=== PATIENT | male | born 1960 | race Caucasian/White ===

== ENCOUNTER 2020-12-30 08:25 | Outpatient (REF) | payer OTHER, SELFPAY ==
--- NOTE | ~2020-12-30 | US_ITS ---
EXAMINATION: US ABDOMEN COMPLETE CLINICAL INFORMATION: Abdominal distention. COMPARISON: Ultrasound abdomen with elastography 08/03/2018. Ultrasound abdomen 02/13/2010. TECHNIQUE: Real-time imaging of the abdominal viscera. Technically difficult study secondary to body habitus. FINDINGS: PANCREAS: Not well visualized due to bowel gas ABDOMINAL AORTA: The mid and distal segments are normal in caliber. Proximal abdominal aorta is not well visualized. INFERIOR VENA CAVA: Visualized portions are normal. LIVER: Normal. The liver is normal in size. The liver contour is normal. Parenchymal echogenicity is normal. No focal hepatic lesion. There is no intrahepatic biliary duct dilatation seen. GALLBLADDER: Surgically absent. COMMON BILE DUCT: Normal in caliber measuring 0.7 cm in diameter. RIGHT KIDNEY: Normal. No hydronephrosis. No renal calculi or focal parenchymal lesions. The kidney measures 10.4 cm in maximum dimension. LEFT KIDNEY: Normal. No hydronephrosis. No renal calculi or focal parenchymal lesions. The kidney measures 11.1 cm in maximum dimension. SPLEEN: Normal. The spleen measures 9.5 cm in maximum dimension. FREE FLUID: None. US/US abdomen complete IMPRESSION: Technically difficult study secondary to body habitus. Limited visualization of the pancreas and upper abdominal aorta otherwise unremarkable exam.
== END 2020-12-30 08:26 | disposition home or self-care (01) ==
LOC: HO.US 08:25
PROVIDERS: Visit Provider Registered Nurse
DX: R14.0 Abdominal distension (gaseous) (principal); R14.3 Flatulence; R19.8 Other specified symptoms and signs involving the digestive system and abdomen
CPT/HCPCS: 76700

== ENCOUNTER → 2021-05-07 13:03 | Outpatient (BNVA) | payer OTHER, SELFPAY | PROVIDERS: PCP Nurse Practitioner Primary Care; Referring Provider Nurse Practitioner Primary Care; Visit Provider Physician Assistant | DX: Z01.818 Encounter for other preprocedural examination (principal); K59.09 Other constipation | CPT/HCPCS: 99202 ==

== ENCOUNTER 2021-10-16 12:00 | Outpatient (REF) | payer OTHER, SELFPAY ==
[2021-10-16 13:03] LABS: MANUAL DIFF FLAG NO
[2021-10-16 13:06] LABS: Basophils Absolute Auto 0.1 X10*3/uL (0.0-0.2); Eosinophils Absolute Auto 0.9 X10*3/uL (0.0-0.4); Eosinophils Percent Auto 9.9 % (0-4); Hematocrit 45.9 % (42.0-52.0); Hemoglobin 14.5 g/dl (14.0-18.0); Imm Gran Abs Auto 0.02 X10*3/uL (0.00-0.03); Imm Gran Pct Auto 0.2 % (0.0-0.4); Lymphocytes Absolute Auto 2.8 X10*3/uL (1.2-4.9); Mean Corpuscular HGB Conc 31.6 g/dl (31.0-36.0); Mean Corpuscular Hemoglobin 26.2 pg (27.0-33.0); Mean Corpuscular Volume 82.9 fL (80.0-98.0); Mean Platelet Volume 8.7 fL (9.4-12.4); Monocytes Absolute Auto 0.7 X10*3/uL (0.1-1.2); Monocytes Percent Auto 7.4 % (2-11); Neutrophils Absolute Auto 4.4 x10*3/uL (2.0-8.3); Neutrophils Percent Auto 49.5 % (45-73); Platelet Count 365 X10*3/uL (160-400); Red Blood Count 5.54 X10*6/uL (4.60-5.80); Red Cell Distribution Width 13.9 % (11.0-16.0); White Blood Count 8.9 X10*3/uL (4.8-10.8)
[2021-10-16 13:21] LABS: Albumin Level 4.2 g/dL (3.5-5.0); Anion Gap 14 (12-20); Blood Urea Nitrogen 29 mg/dL (9-16); Carbon Dioxide 27 mmol/L (22-29); Chloride 101 mmol/L (96-108); Estimated Glomerular Filt Rate 52; Magnesium 1.6 mg/dL (1.6-2.6); Phosphorus 3.6 mg/dL (2.7-4.5); Sodium 138 mmol/L (135-145)
[2021-10-19 08:03] LABS: HBS Num1 61.95 mIU/mL (0-7.99); HBc Num1 2.35 S/CO (0.00-0.79); HBsAGNum1 0.26 S/CO (0.00-0.99); Hepatitis B Surface Antigen Negative (Negative); ~Hepatitis B Surface Antibody REACTIVE (Nonreactive); ~Hepatitis C Antibody Reactive (Nonreactive)
[2021-10-19 09:08] LABS: HBc Num2 2.39 S/CO; HBc Num3 2.39 S/CO; Hepatitis B Core Antibody Reactive (Nonreactive)
[2021-10-19 15:52] LABS: Anti Nuclear Antibody Screen NEGATIVE (NEGATIVE)
[2021-10-19 18:37] LABS: Complement C3 126 mg/dL (82-185)
[2021-10-20 21:43] LABS: Prot Elec - Albumin 4.5 g/dL (3.8-4.8); Prot Elec - Alpha1 0.4 g/dL (0.2-0.3); Prot Elec - Alpha2 1.3 g/dL (0.5-0.9); Prot Elec - Beta 1 0.5 g/dL (0.4-0.6); Prot Elec - Beta 2 0.5 g/dL (0.2-0.5); Prot Elec - Gamma 1.2 g/dL (0.8-1.7); Prot Elec - Total Protein 8.3 g/dL (6.1-8.1)
[2021-10-21 23:17] LABS: Calcium (PTHI) 10.2 mg/dL (8.6-10.3); PTHI 36 pg/mL (16-77)
[2021-10-22 16:57] LABS: Kappa, Serum 259 mg/dL (176-443); Kappa/Lambda Ratio, Serum 1.64 (1.29-2.55); Lambda, Serum 158 mg/dL (91-240)
== END 2021-10-16 12:01 | disposition home or self-care (01) ==
LOC: HO.LAB 12:00
PROVIDERS: Visit Provider Internal Medicine Nephrology
DX: E11.22 Type 2 diabetes mellitus with diabetic chronic kidney disease (principal); N25.0 Renal osteodystrophy; N18.31 Chronic kidney disease, stage 3a
CPT/HCPCS: 36415; 80051; 82040; 82306; 82310; 82565; 83735; 83883; 83970; 84100; 84165; 84520; 85025; 86038; 86039; 86160; 86704; 86706; 86803; 87340

== ENCOUNTER 2021-10-28 10:40 | Outpatient (REF) | payer OTHER, SELFPAY ==
--- NOTE | ~2021-10-28 | US_ITS ---
EXAMINATION: US RETROPERITONEAL LIMITED (RENAL ONLY) CLINICAL INFORMATION: CKD stage III, diabetes. COMPARISON: Ultrasound abdomen complete 12/30/2020. TECHNIQUE: Real-time imaging of the kidneys. FINDINGS: RIGHT KIDNEY: 10.9 x 4.3 x 6.2 cm (SAG x AP x TRV). The kidney is normal in size, contour, and echogenicity. Renal cortical thickness is normal. No calculi or focal parenchymal lesions. No hydronephrosis. LEFT KIDNEY: 11.1 x 4.8 x 6.1 cm (SAG x AP x TRV). The kidney is normal in size, contour and echogenicity. Renal cortical thickness is normal. No calculi or focal parenchymal lesions. No hydronephrosis. US/US renal BI IMPRESSION: Unremarkable renal ultrasound..
== END 2021-10-28 10:41 | disposition home or self-care (01) ==
LOC: HO.US 10:40
PROVIDERS: Visit Provider Internal Medicine Nephrology
DX: N18.32 Chronic kidney disease, stage 3b (principal); E11.22 Type 2 diabetes mellitus with diabetic chronic kidney disease
CPT/HCPCS: 76775

== ENCOUNTER 2022-07-08 10:53 | Outpatient (REF) | payer OTHER, SELFPAY ==
[2022-07-08 11:20] LABS: MANUAL DIFF FLAG NO
[2022-07-08 12:08] LABS: Basophils Absolute Auto 0.1 X10*3/uL (0.0-0.2); Basophils Percent Auto 1.4 % (0-2); Eosinophils Absolute Auto 0.5 X10*3/uL (0.0-0.4); Eosinophils Percent Auto 7.2 % (0-4); Hematocrit 52.1 % (42.0-52.0); Hemoglobin 16.3 g/dl (14.0-18.0); Imm Gran Abs Auto 0.01 X10*3/uL (0.00-0.03); Imm Gran Pct Auto 0.1 % (0.0-0.4); Lymphocytes Absolute Auto 2.6 X10*3/uL (1.2-4.9); Lymphocytes Percent Auto 35.4 % (20-40); Mean Corpuscular HGB Conc 31.3 g/dl (31.0-36.0); Mean Corpuscular Hemoglobin 24.8 pg (27.0-33.0); Mean Corpuscular Volume 79.4 fL (80.0-98.0); Monocytes Absolute Auto 0.6 X10*3/uL (0.1-1.2); Monocytes Percent Auto 8.4 % (2-11); Neutrophils Absolute Auto 3.5 x10*3/uL (2.0-8.3); Neutrophils Percent Auto 47.5 % (45-73); Platelet Count 386 X10*3/uL (160-400); Red Blood Count 6.56 X10*6/uL (4.60-5.80); Red Cell Distribution Width 15.4 % (11.0-16.0); White Blood Count 7.3 X10*3/uL (4.8-10.8)
[2022-07-08 12:34] LABS: Anion Gap 15 (12-20); Blood Urea Nitrogen 27 mg/dL (9-16); Calcium 10.1 mg/dL (8.4-10.2); Carbon Dioxide 29 mmol/L (22-29); Chloride 100 mmol/L (96-108); Estimated Glomerular Filt Rate 39; Phosphorus 3.3 mg/dL (2.7-4.5); Potassium 4.6 mmol/L (3.3-5.1); Sodium 139 mmol/L (135-145)
[2022-07-08 12:52] LABS: Vitamin D 25-OH Total 18.3 ng/mL (>30)
[2022-07-08 13:16] LABS: Appearance Urine Clear; Color Urine Yellow; Glucose Urine UA >=1000 mg/dL (Negative); Leukocyte Esterase Urine Negative (Negative); Nitrite Urine Negative (Negative); Specific Gravity - Urine >= 1.030 (1.005-1.025); UMIC TRIGGER UA YES; Urine Blood Negative (Negative); Urine Ketones Negative (Negative); Urine Protein Negative (Neg-Trace)
[2022-07-08 13:24] LABS: Bacteria Urine None Seen (None Seen); Hyaline Casts Urine 0-2 /LPF (0-2); RBC Urine 0-2 /HPF (0-2); Squamous Epithelial Cell Urine 0-2 /HPF (0-2); WBC Urine 0-5 /HPF (0-5)
[2022-07-08 13:38] LABS: Creatinine Urine 122.81 mg/dL; Microalbum/Creatinine Ratio Ur 30.1 ug/mg cr; Protein/Creatinine Ratio, Ur 0.09 (<0.2); Total Protein Urine Random 11 mg/dL (<12)
[2022-07-12 11:03] LABS: Calcium (PTHI) 10.4 mg/dL (8.6-10.3); PTHI 54 pg/mL (16-77)
== END 2022-07-08 10:54 | disposition home or self-care (01) ==
LOC: HO.LAB 10:53
PROVIDERS: Visit Provider Internal Medicine Nephrology
DX: I12.9 Hypertensive chronic kidney disease with stage 1 through stage 4 chronic kidney disease, or unspecified chronic kidney disease (principal); E11.22 Type 2 diabetes mellitus with diabetic chronic kidney disease; N18.31 Chronic kidney disease, stage 3a
CPT/HCPCS: 36415; 80051; 81001; 82043; 82306; 82310; 82565; 83735; 83970; 84100; 84156; 84520; 85025; 87086

== ENCOUNTER 2022-07-22 23:49 | Emergency (ER) | payer OTHER, SELFPAY ==
[2022-07-22 23:58] VITALS: BP 163/86; BP 167/83; PULSE 102; PULSE 94; RESP 18; TEMP 36.9; O2SAT 92; O2SAT 98; BMI 32.5
--- NOTE | 2022-07-23 00:11 | ED.OVERDOSE ---
HPI - Overdose General Chief Complaint: ETOH/Substance Use Stated Complaint: od Time Seen by Provider: 07/23/22 00:05 Source: patient and EMS Mode of arrival: EMS Limitations: no limitations History of Present Illness HPI Narrative: Patient comes to the emergency room after overdosing. According to EMS, patient was sedated a friend, patient had just used heroin. Patient's friend lower him to the ground, bystanders gave him Narcan and had good results. Patient states that he used to be an IV drug user, now he only snores occasionally and it has been a long time since he has not used any drugs. Patient states he used 1 bottle and he overdosed accidentally, denies suicidal ideation. Patient is asymptomatic. Related Data Home Medications Medication Instructions Recorded Confirmed aspirin 81 mg tablet,delayed 81 mg PO DAILY 05/07/21 release (Adult Aspirin Regimen) atorvastatin 40 mg tablet 40 mg PO BEDTIME 05/07/21 hydrochlorothiazide 25 mg tablet 25 mg PO Q OTHER DAY 05/07/21 insulin aspart U-100 100 unit/mL 1 sliding scale dose subcut 05/07/21 (3 mL) subcutaneous pen (Novolog USEASDIRECTD FlexPen U-100 Insulin aspart) insulin glargine U-300 conc 300 30 unit subcut BEDTIME 05/07/21 unit/mL (1.5 mL) subcutaneous pen (Toujeo SoloStar U-300 Insulin) lisinopril 30 mg tablet 30 mg PO DAILY 05/07/21 metformin 500 mg tablet 500 mg PO DAILY 05/07/21 Previous Rx's Medication Instructions Recorded bisacodyl 5 mg tablet,delayed 10 mg PO ONCE colonoscopy prep 1 05/07/21 release (Dulcolax (bisacodyl)) day #2 tabs docusate sodium 100 mg capsule 200 mg PO BEDTIME #60 caps 05/07/21 (Colace) polyethylene glycol 3350 17 17 g PO DAILY #510 grams 05/07/21 gram/dose oral powder (Miralax) polyethylene glycol 3350 17 238 g PO ONCE 1 day #238 grams 05/07/21 gram/dose oral powder (Miralax) simethicone 125 mg chewable tablet 125 mg PO TID-QID PRN abdominal 05/07/21 (Gas Relief (simethicone)) distention #90 tabs Allergies Allergy/AdvReac Type Severity Reaction Status Date / Time No Known Allergies Allergy Unknown Unverified 05/07/21 13:14 Review of Systems Review of Systems: Constitutional : No Weight loss, No Fever, No Chills, No Night Sweats, No Fatigue, No Malaise ENT/Mouth : No Hearing loss, No Ear Pain, No Nasal Congestion, No Sinus Pain, No Hoarseness, No sore throat, No Rhinorrhea, No Swallowing Difficulty Eyes: No Eye Pain, No Swelling, No Redness, No Foreign Body, No Discharge, No Vision Changes Cardiovascular : No Chest Pain, No SOB, No Dyspnea on Exertion, No Orthopnea, No Edema, No Palpitations Respiratory : No Cough, No Sputum, No Wheezing, No Smoke Exposure, No Dyspnea Gastrointestinal : No Nausea, No Vomiting, No Diarrhea, No Constipation, No abdominal Pain, No Hematochezia, No Melena Genitourinary : no irregular bleeding, No Dysuria, No Urinary Frequency, No Hematuria, No Urinary Incontinence, No Urgency, No Flank Pain, No Urinary Flow Changes, No Hesitancy Musculoskeletal : No joint pain, No Myalgias, No Joint Swelling Skin : No Skin Lesions, No rash Neuro : No Weakness, No Numbness, No Paresthesias, No Loss of Consciousness, No Dizziness, No Headache Psych : No Anxiety/Panic, No Depression, No SI/HI/AH/VH, relapse, using intranasal drugs Heme/Lymph: No Bruising, No Bleeding,No Lymphadenopathy Endocrine : No Polyuria, No Polydipsia, No Temperature Intolerance PMFSH Past Medical History Medical History (Updated 07/23/22 @ 00:14 by Lainey Stewart MD) Diabetes Substance abuse Surgical History Hx of cholecystectomy Family History Family History (Updated 05/07/21 @ 13:15 by CARO Solorzano) Father Diabetes Mother HTN (hypertension) Social History Social History (Updated 05/07/21 @ 13:31 by Annalee Peters PA-C) Household Members Other:: lives alone Alcohol intake: never Patient Tobacco Use Status: Current someday Tobacco user Current occupational status: unemployed and disabled Physical Exam Vital Signs: Vital Signs: Last Vital Signs Temp 98.5 F 07/22/22 23:58 Pulse 94 04/27/23 23:58 Resp 18 07/22/22 23:58 BP 167/83 H 07/22/22 23:58 Pulse Ox 98 07/22/22 23:58 O2 Del Method Room Air 07/22/22 23:58 BMI result Body Mass Index 32.5 Const: Other: Appearance: Alert. Oriented X3. No acute distress. Eyes: Pupils equal, round and reactive to light. ENT: Pharynx normal. Neck: Normal inspection. Neck supple. No lymph nodes noted. No crepitus CVS: Normal heart rate and rhythm. Pulses normal. Normal S1 and S2 Respiratory: No respiratory distress. Breath sounds normal. No Wheezing. No rales Abdomen: Soft and nontender. No rigidity. No distention. Skin: Skin warm and dry. Normal skin color. Normal skin turgor. Extremities: No lower extremity edema. No Lacerations. No Rash Neuro: Oriented X 3. No motor deficit. No sensory deficit. Moving all extremities. No slurred speech. CN 2 through 12 grossly intact Psych: calm, cooperative, normal affect Medical Decision Making Medical Decision Making MDM Narrative: -patient had an accidental overdose, denies suicidal or homicidal ideation -patient alert, calm and cooperative. Vitals have been stable throughout his entire ED visit -patient provided with home Narcan. -patient declined care/sude consult - Differential Diagnosis Differential Diagnoses: The differential diagnosis associated with the presentation includes (Substance abuse, accidental overdose, SI) Discharge Plan Discharge Clinical Impression: Accidental overdose Patient Disposition: Home, Self-Care Instructions: Adult Overdose (ED) Additional Instructions: Please follow-up with your primary care physician tomorrow. If you have any worsening or new symptoms, please return to the emergency room or call 911 Prescriptions: No Action atorvastatin 40 mg tablet 40 mg PO BEDTIME aspirin [Adult Aspirin Regimen] 81 mg tablet,delayed release (DR/EC) 81 mg PO DAILY insulin aspart U-100 [Novolog FlexPen U-100 Insulin] 100 unit/mL (3 mL) insulin pen 1 sliding scale dose subcut USEASDIRECTD metformin 500 mg tablet 500 mg PO DAILY hydrochlorothiazide 25 mg tablet 25 mg PO Q OTHER DAY lisinopril 30 mg tablet 30 mg PO DAILY Toumiryam SoloStar U-300 Insulin 300 unit/mL (1.5 mL) insulin pen 30 unit subcut BEDTIME bisacodyl [Dulcolax (bisacodyl)] 5 mg tablet,delayed release (DR/EC) 10 mg PO ONCE 1 Days Qty: 2 0RF Rx Instructions: Take 2 tablets by mouth at 12:00pm the day before your procedure. polyethylene glycol 3350 [Miralax] 17 gram/dose powder 238 g PO ONCE 1 Days Qty: 238 0RF Rx Instructions: Take as directed by mouth the day before your procedure. docusate sodium [Colace] 100 mg capsule 200 mg PO BEDTIME Qty: 60 5RF polyethylene glycol 3350 [Miralax] 17 gram/dose powder 17 g PO DAILY Qty: 510 2RF simethicone [Gas Relief (simethicone)] 125 mg tablet,chewable 125 mg PO TID-QID PRN (Reason: abdominal distention) Qty: 90 2RF
--- NOTE | 2022-07-23 01:30 | PC.NURSE ---
Reviewed discharge instructions with pt, pt verbalized understanding, pt refused narcan, pt states he has enough everywhere including his car for this reason.
== END 2022-07-23 01:40 | disposition home or self-care (01) ==
PROVIDERS: Emergency Provider Emergency Medicine
DX: F19.10 Other psychoactive substance abuse, uncomplicated (principal); T40.1X1A Poisoning by heroin, accidental (unintentional), initial encounter; Y92.9 Unspecified place or not applicable; E11.9 Type 2 diabetes mellitus without complications; F17.200 Nicotine dependence, unspecified, uncomplicated; Z79.82 Long term (current) use of aspirin; Z79.02 Long term (current) use of antithrombotics/antiplatelets; Z79.4 Long term (current) use of insulin; Z79.899 Other long term (current) drug therapy
CPT/HCPCS: 99283; 99285

== ENCOUNTER → 2022-08-25 14:21 | Outpatient (BNVA) | payer OTHER, SELFPAY | PROVIDERS: PCP Nurse Practitioner Primary Care; Visit Provider Urology | DX: E11.69 Type 2 diabetes mellitus with other specified complication (principal); N52.1 Erectile dysfunction due to diseases classified elsewhere | CPT/HCPCS: 99202 ==

== ENCOUNTER 2022-11-08 09:10 | Outpatient (REF) | payer OTHER, SELFPAY ==
[2022-11-08 12:26] LABS: Prostate Specific Antigen 0.61 ng/mL (<0.05-4.0)
[2022-11-12 20:43] LABS: Testosterone, Free 64.5 pg/mL (35.0-155.0); Testosterone, Total 257 ng/dL (250-1100)
== END 2022-11-08 09:11 | disposition home or self-care (01) ==
LOC: HO.LAB 09:10
PROVIDERS: Visit Provider Urology
DX: Z12.5 Encounter for screening for malignant neoplasm of prostate (principal); E11.69 Type 2 diabetes mellitus with other specified complication; N52.1 Erectile dysfunction due to diseases classified elsewhere
CPT/HCPCS: 36415; 84153; 84402; 84403

== ENCOUNTER 2022-11-25 08:52 | Outpatient (AMB) | payer OTHER, SELFPAY ==
--- NOTE | 2022-11-25 08:53 | MHC.OFFVIS ---
Intake Intake Visit Reasons: 3M PSA/Testosterone(set) Intake Note: Patient is present for Telephone LABS Urology Med: Tadalafil Antibiotic Allergy: None Blood Thinner: Aspirin Pharmacy: [facility] pharmacy Allergies No Known Allergies Allergy (Unknown, Verified 11/25/22 08:53) HPI HPI Comments History of Present Illness Details Nick is a pleasant male Korean speaker. . He is a patient of Dr. Gomez . He is seen for the following urologic conditions - erectile dysfunction Korean translation provided by qualified medical claims assistant Telemedicine Evaluation 15 min Consultation [employer] [facility] Luis Video attempted Follow-up for erectile dysfunction Laboratory investigation shows low total testosterone but normal range free testosterone. No indication to intervene. Low PSA Erectile Dysfunction He presents today for - follow-up evaluation erectile dysfunction Current treatment includes - p.r.n. 10 mg Cialis with some affect however unable to maintain At the time of initial evaluation he experiences - partial adequate for vaginal penetration - undergo a rapid detumescence after penetration Symptoms have been present for/since - progressive for many years Nocturnal erections do not occur Prior therapies include - oral medications Treatment side effects include - no side effects Associated Medical Conditions include hypertension, diabetes require insulin Physical Performance Status is able to walk 200 yd and can ascend 2 flights of stairs Atherosclerosis Cardiovascular Disease Risk - managed through PCP with therapy for hypertension, dyslipidemia and diabetes Medications include(s) antihypertensive medications Investigations include 11/17 T 257 F 64 P 0.6 Overall he is unsatisfied with current therapy Therapeutic plan includes - daily tadalafil with 20 mg on demand PFSH Medical History Diabetes Substance abuse Surgical History Hx of cholecystectomy Family History Father Diabetes Mother HTN (hypertension) Social History Household Members Other:: lives alone Alcohol intake: never Patient Tobacco Use Status: Current someday Tobacco user Substance Use Type: Crack/Cocaine and Heroin Current occupational status: unemployed and disabled Assessment & Plan Assessment & Plan (1) Erectile dysfunction associated with type 2 diabetes mellitus: Code(s): E11.69 - Type 2 diabetes mellitus with other specified complication; N52.1 - Erectile dysfunction due to diseases classified elsewhere Medications: Refilled tadalafil 5 mg PO DAILY 90 tabs 1RF sexual activity 90 days N52.01 - Erectile dysfunction due to arterial insufficiency Telehealth Telehealth Location of provider rendering services: practice address Location of patient: address on file Patient Identification confirmed using: Name, : Yes Telehealth method: video Patient verbally consented to treatment: Yes Patient verbally consented to billing insurance company: Yes Patient informed of any privacy concerns related to visit: Yes Coding Level of Care Code Tele Est Pt Level 3 (79343) Diagnoses Erectile dysfunction associated with type 2 diabetes mellitus E11.69; N52.1
== END 2022-11-25 10:06 | disposition home or self-care (01) ==
LOC: HO.HUSH 08:52
PROVIDERS: PCP Nurse Practitioner Primary Care; Visit Provider Urology
DX: E11.69 Type 2 diabetes mellitus with other specified complication (principal); N52.1 Erectile dysfunction due to diseases classified elsewhere
CPT/HCPCS: 99213

== ENCOUNTER → 2022-11-25 08:52 | Outpatient (BNVA) | payer OTHER, SELFPAY | PROVIDERS: PCP Nurse Practitioner Primary Care; Visit Provider Urology | DX: E11.69 Type 2 diabetes mellitus with other specified complication (principal); N52.1 Erectile dysfunction due to diseases classified elsewhere | CPT/HCPCS: Q3014 ==

== ENCOUNTER 2023-01-21 20:43 | Emergency (ER) | payer OTHER, SELFPAY ==
[2023-01-21 20:45] VITALS: BP 127/74; PULSE 84; O2SAT 97; BMI 32.5
[2023-01-21 20:51] VITALS: BP 127/59; PULSE 80; RESP 16; TEMP 36.7; O2SAT 98
--- NOTE | 2023-01-21 20:53 | MHC.EDTECH ---
PATIENT BIBA FROM HOME ,BLOOD SUGAR CHECK ,RN ISA AWARE OF RESULT OF 128 ,VITALS TAKEN ,PT [facility] CHANGE INTO [facility] ,RN IN ROOM TRAIGEING PATIENT .
--- NOTE | 2023-01-21 21:01 | MHC.EDTECH ---
DYANA MOSS SAID IT WAS [place] FOR PATIENT TO EAT ,PATIENT HAD HAM SANDWICH ,AND PUDDING ,AND DRANK A CAN OF ALLAN ESTELA
[2023-01-21 21:03] LABS: Glucose, Whole Blood 128 mg/dL (60-115)
--- NOTE | 2023-01-21 21:04 | ED.GENADULT ---
HPI - General Adult General Chief complaint: General Medical Stated complaint: HYPOGLYCEMIA. 47 POC. 139 NOW Time Seen by Provider: 01/21/23 21:00 Source: patient Mode of arrival: EMS Limitations: no limitations History of Present Illness HPI narrative: Comes in the emergency room complaining of low blood sugar. Patient was driving, patient states that he started seeing the lines of the street being crooked, patient was able to pull to the side. Bystanders called an ambulance for the patient. Patient states that at night he used his regular 52 units of insulin Lantus, this morning patient injected himself with Humalog 20 as he is supposed to. However, patient was in a hurry and did not eat breakfast and was running around all day without eating. When EMS arrived, patient was given oral glucose, patient feels much better. At this moment, patient eating states that he feels completely back to baseline. Related Data Home Medications Medication Instructions Recorded Confirmed aspirin 81 mg tablet,delayed 81 mg PO DAILY 05/07/21 release (Adult Aspirin Regimen) atorvastatin 40 mg tablet 40 mg PO BEDTIME 05/07/21 hydrochlorothiazide 25 mg tablet 25 mg PO Q OTHER DAY 05/07/21 insulin aspart U-100 100 unit/mL 1 sliding scale dose subcut 05/07/21 (3 mL) subcutaneous pen (Novolog USEASDIRECTD FlexPen U-100 Insulin aspart) insulin glargine U-300 conc 300 30 unit subcut BEDTIME 05/07/21 unit/mL (1.5 mL) subcutaneous pen (Toujeo SoloStar U-300 Insulin) lisinopril 30 mg tablet 30 mg PO DAILY 05/07/21 metformin 500 mg tablet 500 mg PO DAILY 05/07/21 Previous Rx's Medication Instructions Recorded bisacodyl 5 mg tablet,delayed 10 mg (2 x 5 mg) PO ONCE 05/07/21 release (Dulcolax (bisacodyl)) colonoscopy prep 1 day #2 tabs docusate sodium 100 mg capsule 200 mg (2 x 100 mg) PO BEDTIME #60 05/07/21 (Colace) caps polyethylene glycol 3350 17 17 g PO DAILY #510 grams 05/07/21 gram/dose oral powder (Miralax) polyethylene glycol 3350 17 238 g PO ONCE 1 day #238 grams 05/07/21 gram/dose oral powder (Miralax) simethicone 125 mg chewable tablet 125 mg PO TID-QID PRN abdominal 05/07/21 (Gas Relief (simethicone)) distention #90 tabs tadalafil 20 mg tablet 20 mg PO ONCE PRN sexual activity 11/25/22 30 days #30 tabs tadalafil 5 mg tablet 5 mg PO DAILY sexual activity 90 11/25/22 days #90 tabs glucagon 1 mg solution for 1 mg subcut Q20M PRN hypoglycemia 01/21/23 injection (Glucagon Emergency Kit) #1 ea Allergies Allergy/AdvReac Type Severity Reaction Status Date / Time No Known Allergies Allergy Unknown Verified 11/25/22 08:53 Review of Systems Review of Systems: Constitutional : No Weight loss, No Fever, No Chills, No Night Sweats, No Fatigue, No Malaise ENT/Mouth : No Hearing loss, No Ear Pain, No Nasal Congestion, No Sinus Pain, No Hoarseness, No sore throat, No Rhinorrhea, No Swallowing Difficulty Eyes: No Eye Pain, No Swelling, No Redness, No Foreign Body, No Discharge, No Vision Changes Cardiovascular : No Chest Pain, No SOB, No Dyspnea on Exertion, No Orthopnea, No Edema, No Palpitations Respiratory : No Cough, No Sputum, No Wheezing, No Smoke Exposure, No Dyspnea Gastrointestinal : No Nausea, No Vomiting, No Diarrhea, No Constipation, No abdominal Pain, No Hematochezia, No Melena Genitourinary : no irregular bleeding, No Dysuria, No Urinary Frequency, No Hematuria, No Urinary Incontinence, No Urgency, No Flank Pain, No Urinary Flow Changes, No Hesitancy Musculoskeletal : No joint pain, No Myalgias, No Joint Swelling Skin : No Skin Lesions, No rash Neuro : No Weakness, No Numbness, No Paresthesias, No Loss of Consciousness, No Dizziness, No Headache Psych : No Anxiety/Panic, No Depression, No SI/HI/AH/VH, No Social Issues, Heme/Lymph: No Bruising, No Bleeding,No Lymphadenopathy Endocrine : No Polyuria, No Polydipsia, low blood sugar, No Temperature Intolerance [facility] Past Medical History Medical History Substance abuse Diabetes Surgical History Hx of cholecystectomy Family History Family History Father Diabetes Mother HTN (hypertension) Social History Social History Household Members Other:: lives alone Alcohol intake: current Alcohol intake frequency: a few times a week Patient Tobacco Use Status: Current someday Tobacco user Smoked in Last 30 Days: Yes Use of substances other than those prescribed or required for medical reasons: No Substance Use Type: Crack/Cocaine and Heroin Advance Directives: No Advance Directives Information Provided: Yes Current occupational status: unemployed and disabled Physical Exam ED Vital Signs: Vital Signs - 24 hr 01/21/23 20:51 01/21/23 21:33 Temperature 98.1 F 97.9 F Pulse Rate 80 80 Respiratory Rate 16 16 Blood Pressure 127/59 L 135/67 Pulse Oximetry 98 98 Oxygen Delivery Method Room Air Room Air BMI result Body Mass Index 32.5 Const Other: Appearance: Alert. Oriented X3. No acute distress. Eyes: Pupils equal, round and reactive to light. ENT: Pharynx normal. Neck: Normal inspection. Neck supple. No lymph nodes noted. No crepitus CVS: Normal heart rate and rhythm. Pulses normal. Normal S1 and S2 Respiratory: No respiratory distress. Breath sounds normal. No Wheezing. No rales Abdomen: Soft and nontender. No rigidity. No distention. Skin: Skin warm and dry. Normal skin color. Normal skin turgor. Extremities: No lower extremity edema. No Lacerations. No Rash Neuro: Oriented X 3. No motor deficit. No sensory deficit. Moving all extremities. No slurred speech. CN 2 through 12 grossly intact Psych: calm, cooperative, normal affect Course Course Course Narrative: -after p.o. glucose given by EMS, on arrival glucose was 128. Patient feeling better. At this time, patient eating sandwiches, drinking juice. -patient's labs pending, patient asymptomatic Medical Decision Making Medical Decision Making [facility] Narrative: -my interpretation of labs and chemistry, patient's labs at baseline, glucose 157. Creatinine 1.77, which has been at baseline since June of 2022. Patient asymptomatic, patient ready for discharge. -patient alert and oriented x3, normal vitals, steady gait unassisted Differential Diagnosis Differential Diagnoses: The differential diagnosis associated with the presentation includes (Hypoglycemia, infection, drug abuse) Lab Data MDM Lab Attestation statement: I reviewed the patient's lab results. 01/21/23 21:39 01/21/23 21:39 Labs: Lab Results 01/21/23 01/21/23 Range/Units 20:49 21:39 WBC 11.0 H (4.8-10.8) X10*3/uL RBC 6.14 H (4.60-5.80) X10*6/uL Hgb 15.1 (14.0-18.0) g/dl Hct 49.0 (42.0-52.0) % MCV 79.8 L (80.0-98.0) fL MCH 24.6 L (27.0-33.0) pg MCHC 30.8 L (31.0-36.0) g/dl RDW 14.5 (11.0-16.0) % Plt Count 354 (160-400) X10*3/uL MPV 8.5 L (9.4-12.4) fL Immature Gran % (Auto) 0.3 (0.0-0.4) % Neut % (Auto) 81.0 H (45-73) % Lymph % (Auto) 11.3 L (20-40) % [place] % (Auto) 6.3 (2-11) % Eos % (Auto) 0.5 (0-4) % Baso % (Auto) 0.6 (0-2) % Lymph # (Auto) 1.3 (1.2-4.9) X10*3/uL [place] # (Auto) 0.7 (0.1-1.2) X10*3/uL Eos # (Auto) 0.1 (0.0-0.4) X10*3/uL Baso # (Auto) 0.1 (0.0-0.2) X10*3/uL Abs Immat Gran (auto) 0.03 (0.00-0.03) X10*3/uL Absolute Neuts (auto) 8.9 H (2.0-8.3) x10*3/uL Absolute Nucleated RBC 0.000 (0.0-0.012) X10*3/uL Nucleated RBC % (auto) 0.0 (0.0-0.2) /100WBC Sodium 142 (135-145) mmol/L Potassium 5.2 H (3.3-5.1) mmol/L Chloride 104 (96-108) mmol/L Carbon Dioxide 27 (22-29) mmol/L Anion Gap 16 (12-20) BUN 22 H (9-16) mg/dL Creatinine 1.77 H (0.5-1.4) mg/dL Estim Creat Clear Calc 50.3 Estimated GFR 39 POC Glucose 128 H (60-115) mg/dL Random Glucose 157 H (60-115) mg/dL Calcium 10.0 (8.4-10.2) mg/dL Total Bilirubin 0.3 (0.0-1.0) mg/dL Direct Bilirubin 0.2 (0.0-0.5) mg/dL AST 31 (5-37) U/L ALT 21 (0-40) U/L Alkaline Phosphatase 54 (39-117) U/L Total Protein 7.1 (6.5-8.0) g/dL Albumin 4.0 (3.5-5.0) g/dL Critical Care Time Critical Care Time Critical Care Time: Yes Total Critical Care Time: 45 Attestation: I have personally provided critical care time. Time includes review of lab data, radiology results, discussion with consultants, and monitoring for potential decompensation. Intervention performed as documented. Discharge Plan Discharge Clinical Impression: Hypoglycemia Patient Disposition: Home, Self-Care Instructions: Hypoglycemia in a Person with Diabetes (ED) Additional Instructions: Please follow-up with your primary care physician tomorrow. If you have any worsening or new symptoms, please return to the emergency room or call 911 Prescriptions: New Glucagon Emergency Kit (human) 1 mg recon soln 1 mg subcut Q20M PRN (Reason: hypoglycemia) Qty: 1 0RF Rx Instructions: until target blood sugar attained. Use only if unable to eat or drink. Make sure your family knows where you keep this glucagon emergency kit No Action tadalafil 20 mg tablet 20 mg PO ONCE PRN (Reason: sexual activity) 30 Days Qty: 30 5RF Rx Instructions: On demand medication take 60 minutes before intended activity atorvastatin 40 mg tablet 40 mg PO BEDTIME aspirin [Adult Aspirin Regimen] 81 mg tablet,delayed release (DR/EC) 81 mg PO DAILY insulin aspart U-100 [Novolog FlexPen U-100 Insulin] 100 unit/mL (3 mL) insulin pen 1 sliding scale dose subcut USEASDIRECTD metformin 500 mg tablet 500 mg PO DAILY hydrochlorothiazide 25 mg tablet 25 mg PO Q OTHER DAY lisinopril 30 mg tablet 30 mg PO DAILY [place] MortonoStar U-300 Insulin 300 unit/mL (1.5 mL) insulin pen 30 unit subcut BEDTIME bisacodyl [Dulcolax (bisacodyl)] 5 mg tablet,delayed release (DR/EC) 10 mg PO ONCE 1 Days Qty: 2 0RF Rx Instructions: Take 2 tablets by mouth at 12:00pm the day before your procedure. polyethylene glycol 3350 [Miralax] 17 gram/dose powder 238 g PO ONCE 1 Days Qty: 238 0RF Rx Instructions: Take as directed by mouth the day before your procedure. docusate sodium [Colace] 100 mg capsule 200 mg PO BEDTIME Qty: 60 5RF polyethylene glycol 3350 [Miralax] 17 gram/dose powder 17 g PO DAILY Qty: 510 2RF simethicone [Gas Relief (simethicone)] 125 mg tablet,chewable 125 mg PO TID-QID PRN (Reason: abdominal distention) Qty: 90 2RF tadalafil 5 mg tablet 5 mg PO DAILY 90 Days Qty: 90 1RF
[2023-01-21 21:33] VITALS: BP 135/67; PULSE 80; RESP 16; TEMP 36.6; O2SAT 98
[2023-01-21 21:43] LABS: MANUAL DIFF FLAG NO
--- NOTE | 2023-01-21 21:43 | MHC.EDTECH ---
PATIENT BLOOD DRAWN AND SENT TO LAB .
[2023-01-21 21:44] LABS: Basophils Absolute Auto 0.1 X10*3/uL (0.0-0.2); Basophils Percent Auto 0.6 % (0-2); Eosinophils Absolute Auto 0.1 X10*3/uL (0.0-0.4); Eosinophils Percent Auto 0.5 % (0-4); Hemoglobin 15.1 g/dl (14.0-18.0); Imm Gran Abs Auto 0.03 X10*3/uL (0.00-0.03); Imm Gran Pct Auto 0.3 % (0.0-0.4); Lymphocytes Absolute Auto 1.3 X10*3/uL (1.2-4.9); Lymphocytes Percent Auto 11.3 % (20-40); Mean Corpuscular HGB Conc 30.8 g/dl (31.0-36.0); Mean Corpuscular Hemoglobin 24.6 pg (27.0-33.0); Mean Corpuscular Volume 79.8 fL (80.0-98.0); Mean Platelet Volume 8.5 fL (9.4-12.4); Monocytes Absolute Auto 0.7 X10*3/uL (0.1-1.2); Monocytes Percent Auto 6.3 % (2-11); Neutrophils Absolute Auto 8.9 x10*3/uL (2.0-8.3); Platelet Count 354 X10*3/uL (160-400); Red Blood Count 6.14 X10*6/uL (4.60-5.80); Red Cell Distribution Width 14.5 % (11.0-16.0)
[2023-01-21 21:58] LABS: Alanine Aminotransferase 21 U/L (0-40); Alkaline Phosphatase 54 U/L (39-117); Anion Gap 16 (12-20); Aspartate Amino Transferase 31 U/L (5-37); Bilirubin Direct 0.2 mg/dL (0.0-0.5); Bilirubin Total 0.3 mg/dL (0.0-1.0); Blood Urea Nitrogen 22 mg/dL (9-16); Carbon Dioxide 27 mmol/L (22-29); Chloride 104 mmol/L (96-108); Creatinine Clr Calc Pharmacy 50.3; Estimated Glomerular Filt Rate 39; Glucose Random 157 mg/dL (60-115); Potassium 5.2 mmol/L (3.3-5.1); Sodium 142 mmol/L (135-145); Total Protein 7.1 g/dL (6.5-8.0)
== END 2023-01-21 22:27 | disposition home or self-care (01) ==
PROVIDERS: Emergency Provider Emergency Medicine
DX: E11.649 Type 2 diabetes mellitus with hypoglycemia without coma (principal); F19.10 Other psychoactive substance abuse, uncomplicated; F17.200 Nicotine dependence, unspecified, uncomplicated; Z79.4 Long term (current) use of insulin; Z79.82 Long term (current) use of aspirin; Z79.899 Other long term (current) drug therapy
CPT/HCPCS: 36415; 80048; 80076; 82947; 85025; 99283; 99284

== ENCOUNTER 2023-02-14 09:48 | Outpatient (REF) | payer OTHER, SELFPAY ==
--- NOTE | ~2023-02-14 | XR_ITS ---
EXAMINATION: XR FOOT, LEFT CLINICAL INFORMATION: Diabetic polyneuropathy. COMPARISON: None available. TECHNIQUE: AP, lateral, and oblique views of the left foot. FINDINGS: The bones and soft tissues are normal. No fracture. Alignment is anatomic. Joint spaces are maintained. XR/XR foot LT min 3V IMPRESSION: Unremarkable left foot exam.
[2023-02-14 11:13] LABS: MANUAL DIFF FLAG NO
[2023-02-14 11:40] LABS: Basophils Absolute Auto 0.1 X10*3/uL (0.0-0.2); Basophils Percent Auto 0.8 % (0-2); Eosinophils Absolute Auto 0.8 X10*3/uL (0.0-0.4); Eosinophils Percent Auto 8.4 % (0-4); Hematocrit 54.9 % (42.0-52.0); Hemoglobin 17.2 g/dl (14.0-18.0); Imm Gran Abs Auto 0.02 X10*3/uL (0.00-0.03); Imm Gran Pct Auto 0.2 % (0.0-0.4); Lymphocytes Absolute Auto 2.5 X10*3/uL (1.2-4.9); Lymphocytes Percent Auto 25.4 % (20-40); Mean Corpuscular HGB Conc 31.3 g/dl (31.0-36.0); Mean Corpuscular Hemoglobin 24.9 pg (27.0-33.0); Mean Corpuscular Volume 79.3 fL (80.0-98.0); Mean Platelet Volume 9.3 fL (9.4-12.4); Monocytes Absolute Auto 0.9 X10*3/uL (0.1-1.2); Monocytes Percent Auto 9.1 % (2-11); Neutrophils Absolute Auto 5.6 x10*3/uL (2.0-8.3); Neutrophils Percent Auto 56.1 % (45-73); Platelet Count 341 X10*3/uL (160-400); Red Blood Count 6.92 X10*6/uL (4.60-5.80); Red Cell Distribution Width 15.9 % (11.0-16.0); White Blood Count 9.9 X10*3/uL (4.8-10.8)
[2023-02-14 12:11] LABS: Prostate Specific Antigen 0.62 ng/mL (<0.05-4.0)
[2023-02-14 12:16] LABS: Alanine Aminotransferase 16 U/L (0-40); Albumin Level 4.2 g/dL (3.5-5.0); Alkaline Phosphatase 61 U/L (39-117); Anion Gap 14 (12-20); Aspartate Amino Transferase 22 U/L (5-37); Bilirubin Total 0.5 mg/dL (0.0-1.0); Blood Urea Nitrogen 16 mg/dL (9-16); Calcium 10.2 mg/dL (8.4-10.2); Carbon Dioxide 30 mmol/L (22-29); Chloride 101 mmol/L (96-108); Cholesterol 110 mg/dL (<200); Estimated Glomerular Filt Rate 52; Ferritin 15 ng/mL (20-250); Glucose Random 81 mg/dL (60-115); HDL Cholesterol 40 mg/dL (>40); Iron 82 mcg/dL (45-160); LDL Cholesterol Calculated 54 mg/dL (<100); Percent Iron Saturation 26 % (15-50); Potassium 4.4 mmol/L (3.3-5.1); Sodium 141 mmol/L (135-145); TSH reflex Free T4 1.77 uIU/mL (0.32-4.0); Total Iron Binding Capacity 311 mcg/dL (228-428); Total Protein 7.7 g/dL (6.5-8.0); Triglycerides 80 mg/dL (<150); Unsaturated Iron Binding 229 ug/dL
[2023-02-15 04:02] LABS: HIV AB/AG Nonreactive (Nonreactive)
[2023-02-15 15:33] LABS: RPR Rapid Plasma Reagin NON-REACTIVE (NON-REACTIVE)
[2023-02-16 15:17] LABS: HCV Log PCR <1.18 NOT DETECTED Log IU/mL (NOT DETECTED); HepC Viral Load <15 NOT DETECTED IU/mL (NOT DETECTED)
== END 2023-02-14 09:49 | disposition home or self-care (01) ==
LOC: HO.HHCL 09:48
PROVIDERS: Visit Provider Nurse Practitioner Primary Care
DX: Z12.5 Encounter for screening for malignant neoplasm of prostate (principal); E11.42 Type 2 diabetes mellitus with diabetic polyneuropathy; M79.89 Other specified soft tissue disorders; D58.2 Other hemoglobinopathies; R39.198 Other difficulties with micturition; Z20.2 Contact with and (suspected) exposure to infections with a predominantly sexual mode of transmission
CPT/HCPCS: 36415; 73630; 80053; 80061; 82728; 83540; 84153; 84443; 85025; 86592; 87389; 87522

== ENCOUNTER 2023-04-21 14:15 | Outpatient (AMB) | payer OTHER, SELFPAY ==
--- NOTE | 2023-04-21 14:15 | MHC.OFFVIS ---
Intake Vital Signs 04/21/23 14:17 Height 5 ft 9 in Weight 220 lb BMI 32.5 BP 148/80 H Blood Pressure Location Rt brachial Position Sitting Pulse 86 Pulse Source Pulse Oximeter Pulse Oximetry (%) 95 Oxygen Delivery Method Room Air Intake Visit Reasons: PVD w/ non-healing ulcers 3td toe left foot Intake Note: Pt presents to the office today for PVD with non healing ulcers 3rd toe on left foot. Pt denies any pain or discharge. Allergies No Known Allergies Allergy (Unknown, Verified 04/21/23 14:18) HPI PVD w/ non-healing ulcers 3td toe left foot HPI Details Very pleasant 62-year-old gentleman presents for evaluation regarding peripheral vascular disease. This all began because he had a left 3rd toe ulceration. It has gone on to heal. He does have a history of smoking a smokes about half a pack per day. He is diabetic. Last hemoglobin A1c was 6.8. In general appears to be doing relatively well. He now presents for routine vascular evaluation [facility] Medical History Substance abuse Diabetes Surgical History Hx of cholecystectomy Family History Father Diabetes Mother HTN (hypertension) Social History (Updated 04/21/23 @ 14:20 by Maria Oliveira MA) Household Members Other:: lives alone Alcohol intake: current Alcohol intake frequency: a few times a week Patient Tobacco Use Status: Current someday Tobacco user Cigarettes Per Day: 10 Use of substances other than those prescribed or required for medical reasons: No Substance Use Type: Crack/Cocaine and Heroin Current occupational status: unemployed and disabled Review of Systems Const All systems reviewed & are unremarkable except as noted in HPI and below Reports no additional complaints ENT Reports Normal hearing present Card Denies chest pain, Denies chest pain at rest, Denies chest pain with activity and Denies pedal edema Resp Denies cough GI Denies abdominal pain Musc Denies abnormal gait, Denies muscle cramps and Denies radiating pain into limb Skin/Breast Denies skin ulcer and Denies wounds Neuro Reports Normal hearing present and Denies abnormal gait Psych Reports no additional complaints Physical Exam Vital Signs: Last Vital Signs Pulse 86 04/21/23 14:17 BP 148/80 H 04/21/23 14:17 Pulse Ox 95 04/21/23 14:17 Oxygen Delivery Method Room Air 04/21/23 14:17 BMI result Body Mass Index 32.5 Const General: cooperative, healthy appearing and comfortable Orientation/consciousness: oriented to person, oriented to place and oriented to time HEENT Head: Yes normal to inspection Neck Neck: Yes normal visual inspection Carotids: no bruits Chest Chest palpation & inspection: normal inspection of the chest Resp Effort & Inspection: normal respiratory effort and able to speak in complete sentences Auscultation: clear to auscultation bilaterally, no crackles, no rales, no rhonchi and no wheezes Cardio Other: Bilateral DP pulses diminished Rate: regular rate Rhythm: regular rhythm Heart sounds: S1 normal heart sound present and S2 normal heart sound present Bruits: no carotid bruits Peripheral pulses: Peripheral pulses 2+ throughout GI Inspection: Yes normal to inspection Skin Wounds: no wounds Hair: normal Neuro General: oriented to person, oriented to place and oriented to time Cranial nerves: Yes CN's II-XII intact bilaterally and Yes Normal hearing present Cognition (Neuro): normal cognition Motor exam (neuro): 5/5 motor strength present throughout Extrem Other: venous exam: No significant superficial varicosities or spider telangiectasias, minimal edema General: No clubbing, No cyanosis and No edema Psych Appearance: grossly normal Mental Status: mental status grossly normal Speech and movement: Normal speech and movement present Assessment & Plan Assessment & Plan (1) PAD (peripheral artery disease): Code(s): I73.9 - Peripheral vascular disease, unspecified Plan: In short patient has risk factors for peripheral vascular disease. At the current time all wounds have gone on to heal. I have taken the liberty of ordering a baseline arterial ultrasound to ensure that that is not an issue for him. Will follow up with us after testing. We did discuss risk factor modification. Thank you for allowing us to assist in his care. If there are any questions or concerns please do not hesitate to contact us. Orders: Orders US arterial duplex LE BI 1 Week I73.9 - Peripheral vascular disease, unspecified Coding Level of Care Code New Pt Level 4 (97324) Diagnoses PAD (peripheral artery disease) I73.9
[2023-04-21 14:17] VITALS: BP 148/80; PULSE 86; O2SAT 95; BMI 32.5
== END 2023-04-21 14:58 | disposition home or self-care (01) ==
PROVIDERS: Visit Provider Surgery Vascular Surgery
DX: I73.9 Peripheral vascular disease, unspecified (principal); E11.628 Type 2 diabetes mellitus with other skin complications
CPT/HCPCS: 99204

== ENCOUNTER → 2023-04-21 14:15 | Outpatient (BNVA) | payer OTHER, SELFPAY | PROVIDERS: Visit Provider Surgery Vascular Surgery | DX: I73.9 Peripheral vascular disease, unspecified (principal) | CPT/HCPCS: 99202 ==

== ENCOUNTER 2023-05-27 11:34 | Outpatient (AMB) | payer OTHER, SELFPAY ==
--- NOTE | 2023-05-27 11:49 | MHC.OFFVIS ---
Intake Intake Visit Reasons: 6m follow up(Erectile Dys) (Confirmed) Intake Note: Patient is Present for Follow Up Urology Medication: Tadalafil Antibiotic Allergies: None Blood Thinners:Aspirin Allergies No Known Allergies Allergy (Unknown, Verified 04/21/23 14:18) Medication List - Last Reconciled 05/27/23 by Jewel Carr MD aspirin (Adult Aspirin Regimen) 81 mg PO DAILY atorvastatin 40 mg PO BEDTIME bisacodyl (Dulcolax (bisacodyl)) 10 mg (2 x 5 mg) PO ONCE 1 day docusate sodium (Colace) 200 mg (2 x 100 mg) PO BEDTIME glucagon (Glucagon Emergency Kit) 1 mg subcut Q20M PRN hydrochlorothiazide 25 mg PO Q OTHER DAY insulin aspart U-100 (Novolog FlexPen U-100 Insulin aspart) 1 sliding scale dose subcut USEASDIRECTD insulin glargine U-300 conc (Toujeo SoloStar U-300 Insulin) 30 units subcut BEDTIME lisinopril 30 mg PO DAILY metformin 500 mg PO DAILY polyethylene glycol 3350 (Miralax) 238 grams PO ONCE 1 day polyethylene glycol 3350 (Miralax) 17 grams PO DAILY simethicone (Gas Relief (simethicone)) 125 mg PO TID-QID PRN tadalafil 5 mg PO DAILY 90 days tadalafil 20 mg PO ONCE PRN 30 days HPI HPI Comments History of Present Illness Details Nick is a pleasant male [place] speaker. . He is a patient of Dr. Gomez . He is seen for the following urologic conditions - erectile dysfunction - lower urinary tract symptoms [place] translation provided by qualified lpn or medical assistant Continued success with on demand Cialis Recommend daily which will also help with weakness of stream Refills provided May try 30 mg or 40 mg on demand Erectile Dysfunction He presents today for - follow-up evaluation erectile dysfunction Current treatment includes - p.r.n. 10 mg Cialis with some affect however unable to maintain At the time of initial evaluation he experiences - partial adequate for vaginal penetration - undergo a rapid detumescence after penetration Symptoms have been present for/since - progressive for many years Nocturnal erections do not occur Prior therapies include - oral medications Treatment side effects include - no side effects Associated Medical Conditions include hypertension, diabetes require insulin Physical Performance Status is able to walk 200 yd and can ascend 2 flights of stairs Atherosclerosis Cardiovascular Disease Risk - managed through PCP with therapy for hypertension, dyslipidemia and diabetes Medications include(s) antihypertensive medications Investigations include 11/17 T 257 F 64 P 0.6 Overall he is unsatisfied with current therapy Therapeutic plan includes - daily tadalafil with 20 mg on demand PFSH Medical History Substance abuse Diabetes Surgical History Hx of cholecystectomy Family History Father Diabetes Mother HTN (hypertension) Social History Household Members Other:: lives alone Alcohol intake: current Alcohol intake frequency: a few times a week Patient Tobacco Use Status: Current someday Tobacco user Cigarettes Per Day: 10 Substance Use Type: Crack/Cocaine and Heroin Current occupational status: unemployed and disabled Review of Systems Const Denies chills and Denies fever(s) Card Reports no additional complaints and Denies syncope Resp Denies cough GI Denies abdominal pain and Denies heartburn Reports as per HPI and Denies change in libido Neuro Denies syncope Psych Denies change in libido Endo Denies change in libido Physical Exam Const General: cooperative, healthy appearing, comfortable and no acute distress Orientation/consciousness: patient oriented x3 HEENT Face and sinus: Yes normal facial exam Mouth: moist mucous membranes Neck Neck: Yes normal visual inspection, Yes full ROM and Yes trachea midline Chest Chest palpation & inspection: normal inspection of the chest Resp Effort & Inspection: normal respiratory effort, able to speak in complete sentences and no respiratory distress GI Inspection: Yes normal to inspection Back/Spine/Pelvis Cervical Spine: normal cervical lordosis Thoracic/Lumbar Spine: thoracic and lumbar spine normal to inspection Skin General skin exam: no rashes or lesions noted Neuro General: patient oriented x3, gait normal, tone normal and moves all extremities Extrem General: Yes normal to inspection and Yes capillary refill normal Assessment & Plan Assessment & Plan (1) Erectile dysfunction associated with type 2 diabetes mellitus: Code(s): E11.69 - Type 2 diabetes mellitus with other specified complication; N52.1 - Erectile dysfunction due to diseases classified elsewhere (2) Weak urinary stream: Code(s): R39.12 - Poor urinary stream Plan Six-month follow-up Patient Instructions: Imaging studies, laboratory and physical exam results were discussed and reviewed in detail. No major barriers to patient understanding were identified. An opportunity to ask questions regarding the treatment plan was provided. All questions were answered. The patient expressed understanding and agreement with the above treatment plan. The patient is aware they should contact our office by phone for worsening of their current condition or the appearance of new urologic symptoms. Compliance is encouraged with any medications and followup testing that is ordered. It is a privilege to participate in the urologic care of your patient. If you have any questions or concerns regarding treatment for the above conditions, or other urologic issues, please do not hesitate to contact me. The office telephone contact is [phone]. This note is constructed using voice recognition software. While every effort has been made to ensure accuracy accounts payable associate errors may have been included. Yours sincerely, Dr Jewel Carr MD, [facility] - Urology Providers of Expert, Compassionate Care for the Genitourinary System Coding Level of Care Code Est Pt Level 4 (04516) Diagnoses Erectile dysfunction associated with type 2 diabetes mellitus E11.69; N52.1 Weak urinary stream R39.12
== END 2023-05-27 12:31 | disposition home or self-care (01) ==
PROVIDERS: PCP Nurse Practitioner Primary Care; Visit Provider Urology
DX: E11.69 Type 2 diabetes mellitus with other specified complication (principal); N52.1 Erectile dysfunction due to diseases classified elsewhere; R39.12 Poor urinary stream
CPT/HCPCS: 99213

== ENCOUNTER → 2023-05-27 11:34 | Outpatient (BNVA) | payer OTHER, SELFPAY | PROVIDERS: PCP Nurse Practitioner Primary Care; Visit Provider Urology | DX: R39.12 Poor urinary stream (principal); E11.69 Type 2 diabetes mellitus with other specified complication; N52.1 Erectile dysfunction due to diseases classified elsewhere | CPT/HCPCS: 99212 ==

== ENCOUNTER 2023-11-29 09:53 | Outpatient (AMB) | payer OTHER, SELFPAY ==
--- NOTE | 2023-11-29 09:45 | A.OFFVIS_ITS ---
Intake Visit Reasons: 6m follow up Intake Note: Patient is present for 6M F/U Urology Medication:TADALAFIL Antibiotic Allergy:NONE Blood Thinner:ASPIRIN Surgical Services Asst Required: No Allergies No Known Allergies Allergy (Unknown, Verified 11/29/23 09:46) [facility] Medical History (Updated 11/04/23 @ 10:43 by Modesta Alvarado PA-C) Nicotine dependence, cigarettes, uncomplicated Substance abuse Diabetes Surgical History Hx of cholecystectomy Family History Father Diabetes Mother HTN (hypertension) Social History Household Members Other:: lives alone Alcohol intake: current Alcohol intake frequency: a few times a week Patient Tobacco Use Status: Current someday Tobacco user Cigarettes Per Day: 10 Substance Use Type: Crack/Cocaine and Heroin Current occupational status: unemployed and disabled Coding
--- NOTE | 2023-11-29 10:14 | MHC.OFFVIS ---
Intake Visit Reasons: 6m follow up Intake Note: Patient is Present for 6M Follow Up Urology Medication: Tadalafil Antibiotic Allergies: None Blood Thinners:Aspirin Electric Accounting Machine Operator Required: No Allergies No Known Allergies Allergy (Unknown, Verified 11/29/23 10:15) Medication List - Last Reconciled 11/29/23 by Jewel Carr MD aspirin (Adult Aspirin Regimen) 81 mg PO DAILY atorvastatin 40 mg PO BEDTIME bisacodyl (Dulcolax (bisacodyl)) 10 mg (2 x 5 mg) PO ONCE 1 day docusate sodium (Colace) 200 mg (2 x 100 mg) PO BEDTIME glucagon (Glucagon Emergency Kit) 1 mg subcut Q20M PRN hydrochlorothiazide 25 mg PO Q OTHER DAY insulin aspart U-100 (Novolog FlexPen U-100 Insulin aspart) 1 sliding scale dose subcut USEASDIRECTD insulin glargine U-300 conc (Toujeo SoloStar U-300 Insulin) 30 units subcut BEDTIME lisinopril 30 mg PO DAILY metformin 500 mg PO DAILY polyethylene glycol 3350 (Miralax) 238 grams PO ONCE 1 day polyethylene glycol 3350 (Miralax) 17 grams PO DAILY simethicone (Gas Relief (simethicone)) 125 mg PO TID-QID PRN tadalafil 20 mg PO ONCE PRN 30 days tadalafil 5 mg PO DAILY 90 days HPI Comments Details: Nick is a pleasant male Argentine speaker. . He is a patient of Dr. Gomez . He is seen for the following urologic conditions - erectile dysfunction - lower urinary tract symptoms Telemedicine Evaluation 15 min Consultation [employer] Luis Video attempted Argentine translation provided by qualified biomedical equipment support specialist Continued success with combination therapy 5 mg on demand Refills provided May try 30 mg or 40 mg on demand Six-month follow-up Erectile Dysfunction He presents today for - follow-up evaluation erectile dysfunction Current treatment includes - p.r.n. 10 mg Cialis with some affect however unable to maintain At the time of initial evaluation he experiences - partial adequate for vaginal penetration - undergo a rapid detumescence after penetration Symptoms have been present for/since - progressive for many years Nocturnal erections do not occur Prior therapies include - oral medications Treatment side effects include - no side effects Associated Medical Conditions include hypertension, diabetes require insulin Physical Performance Status is able to walk 200 yd and can ascend 2 flights of stairs Atherosclerosis Cardiovascular Disease Risk - managed through PCP with therapy for hypertension, dyslipidemia and diabetes Medications include(s) antihypertensive medications Investigations include 11/17 T 257 F 64 P 0.6 Overall he is unsatisfied with current therapy Therapeutic plan includes - daily tadalafil with 20 mg on demand PFSH Medical History (Updated 11/04/23 @ 10:43 by Modesta Alvarado PA-C) Nicotine dependence, cigarettes, uncomplicated Substance abuse Diabetes Surgical History Hx of cholecystectomy Family History Father Diabetes Mother HTN (hypertension) Social History Household Members Other:: lives alone Alcohol intake: current Alcohol intake frequency: a few times a week Patient Tobacco Use Status: Current someday Tobacco user Cigarettes Per Day: 10 Substance Use Type: Crack/Cocaine and Heroin Current occupational status: unemployed and disabled Review of Systems Const All systems reviewed & are unremarkable except as noted in HPI and below Reports no additional complaints Resp Reports no additional complaints GI Reports no additional complaints Reports as per HPI Musc Reports no additional complaints Physical Exam Telemedicine evaluation Appropriate responses Regular breathing rate and rhythm HEENT Head: Yes normal to inspection Ears: hearing grossly normal bilaterally Eyes General: appearance normal, both eyes and all related structures Neck Neck: Yes normal visual inspection Chest Chest palpation & inspection: normal inspection of the chest Resp Effort & Inspection: normal respiratory effort and able to speak in complete sentences Telehealth Telehealth Telehealth Platform: [facility] Location of provider rendering services: practice address Location of patient: address on file Patient Identification confirmed using: Name, : Yes Telehealth method: video Patient verbally consented to treatment: Yes Patient verbally consented to billing insurance company: Yes Patient informed of any privacy concerns related to visit: Yes Minutes spent on Phone/Video with Pt.: 15 Assessment & Plan Assessment & Plan (1) Erectile dysfunction associated with type 2 diabetes mellitus: Code(s): E11.69 - Type 2 diabetes mellitus with other specified complication; N52.1 - Erectile dysfunction due to diseases classified elsewhere Category: Medical Plan Six-month follow-up tele Medications: Refilled tadalafil On demand medication take 60 minutes before intended activity 20 mg PO ONCE 30 days PRN 30 tabs 5RF sexual activity E11.69 - Type 2 diabetes mellitus with other specified complication, N52.1 - Erectile dysfunction due to diseases classified elsewhere tadalafil 5 mg PO DAILY 90 days 90 tabs 1RF sexual activity N52.01 - Erectile dysfunction due to arterial insufficiency Patient Instructions: Imaging studies, laboratory and physical exam results were discussed and reviewed in detail. No major barriers to patient understanding were identified. An opportunity to ask questions regarding the treatment plan was provided. All questions were answered. The patient expressed understanding and agreement with the above treatment plan. The patient is aware they should contact our office by phone for worsening of their current condition or the appearance of new urologic symptoms. Compliance is encouraged with any medications and followup testing that is ordered. It is a privilege to participate in the urologic care of your patient. If you have any questions or concerns regarding treatment for the above conditions, or other urologic issues, please do not hesitate to contact me. The office telephone contact is [phone]. This note is constructed using voice recognition software. While every effort has been made to ensure accuracy [facility] errors may have been included. Yours sincerely, Dr Jewel Carr MD, [facility] - Urology Providers of Expert, Compassionate Care for the Genitourinary System Coding Level of Care Code Tele Est Pt Level 3 (47810) Diagnoses Erectile dysfunction associated with type 2 diabetes mellitus E11.69; N52.1
== END 2023-11-29 11:05 | disposition home or self-care (01) ==
PROVIDERS: PCP Nurse Practitioner Primary Care; Visit Provider Urology
DX: E11.69 Type 2 diabetes mellitus with other specified complication (principal); N52.1 Erectile dysfunction due to diseases classified elsewhere
CPT/HCPCS: 99213

== ENCOUNTER → 2023-11-29 09:53 | Outpatient (BNVA) | payer OTHER, SELFPAY | PROVIDERS: PCP Nurse Practitioner Primary Care; Visit Provider Urology ==

== ENCOUNTER 2024-05-29 10:00 | Outpatient (AMB) | payer OTHER, SELFPAY ==
--- NOTE | 2024-05-29 10:15 | A.OFFVIS_ITS ---
Intake Visit Reasons: 6m/Erectile dys(set) Intake Note: patient presents today for initial visit for 6m/erectile dys Urology Medication:tadalafil, Blood Thinner:asprirm Antibiotic Allergies:none Sagger Filler Required: No Allergies No Known Allergies Allergy (Unknown, Verified 05/29/24 10:18) HPI Comments Details: Nick is a pleasant male Gabonese speaker. . He is a patient of Dr. Gomez . He is seen for the following urologic conditions - erectile dysfunction - lower urinary tract symptoms Six-month follow-up office Gabonese translation provided by qualified emergency medical technician basic Has been on 5 mg daily tadalafil with up to 40 mg on demand Penile arterial flow was compromised with nicotine dependence - known peripheral arterial disease with diabetes Refill provided 12 month follow-up Erectile Dysfunction He presents today for - follow-up evaluation erectile dysfunction Current treatment includes - p.r.n. 10 mg Cialis with some affect however unable to maintain At the time of initial evaluation he experiences - partial adequate for vaginal penetration - undergo a rapid detumescence after penetration Symptoms have been present for/since - progressive for many years Nocturnal erections do not occur Prior therapies include - oral medications Treatment side effects include - no side effects Associated Medical Conditions include hypertension, diabetes require insulin Physical Performance Status is able to walk 200 yd and can ascend 2 flights of stairs Atherosclerosis Cardiovascular Disease Risk - managed through PCP with therapy for hypertension, dyslipidemia and diabetes Medications include(s) antihypertensive medications Investigations include 11/17 T 257 F 64 P 0.6 Overall he is unsatisfied with current therapy Therapeutic plan includes - daily tadalafil with 20 mg on demand PFSH Medical History Nicotine dependence, cigarettes, uncomplicated Substance abuse Diabetes Surgical History Hx of cholecystectomy Family History Father Diabetes Mother HTN (hypertension) Social History Household Members Other:: lives alone Alcohol intake: current Alcohol intake frequency: a few times a week Patient Tobacco Use Status: Current someday Tobacco user Cigarettes Per Day: 10 Substance Use Type: Crack/Cocaine and Heroin Current occupational status: unemployed and disabled Review of Systems Const Denies chills and Denies fever(s) Card Reports no additional complaints and Denies syncope Resp Denies cough GI Denies abdominal pain and Denies heartburn Reports as per HPI and Denies change in libido Neuro Denies syncope Psych Denies change in libido Endo Denies change in libido Physical Exam Const General: cooperative, healthy appearing, comfortable and no acute distress Orientation/consciousness: patient oriented x3 HEENT Face and sinus: Yes normal facial exam Mouth: moist mucous membranes Neck Neck: Yes normal visual inspection, Yes full ROM and Yes trachea midline Chest Chest palpation & inspection: normal inspection of the chest Resp Effort & Inspection: normal respiratory effort, able to speak in complete sentences and no respiratory distress GI Inspection: Yes normal to inspection Back/Spine/Pelvis Cervical Spine: normal cervical lordosis Thoracic/Lumbar Spine: thoracic and lumbar spine normal to inspection Skin General skin exam: no rashes or lesions noted Neuro General: patient oriented x3, gait normal, tone normal and moves all extremities Extrem General: Yes normal to inspection and Yes capillary refill normal Results AMB Urinalysis, Automated UA Leukoctes 0 Shemar/uL Last Edit by Luna Douglas on 05/29/24 10:38 UA Nitrite Negative Last Edit by Luna Douglas on 05/29/24 10:38 UA Urobilinogen 3.5 mg/dL Last Edit by Luna Douglas on 05/29/24 10:38 UA Protein 1 mg/dL Last Edit by Luna oDuglas on 05/29/24 10:38 UA pH 6.0 Last Edit by Luna Douglas on 05/29/24 10:38 UA Blood 10 Jeet/uL Last Edit by Luna Douglas on 05/29/24 10:38 UA Specific [place] 1.015 Last Edit by Luna Douglas on 05/29/24 10:38 UA Ketone Negative Last Edit by Luna Douglas on 05/29/24 10:38 UA Bilirubin 0 mg/dL Last Edit by Luna Douglas on 05/29/24 10:38 UA Glucose 60 mg/dL Last Edit by Luna Douglas on 05/29/24 10:38 Assessment & Plan Assessment & Plan (1) Erectile dysfunction associated with type 2 diabetes mellitus: Code(s): E11.69 - Type 2 diabetes mellitus with other specified complication; N52.1 - Erectile dysfunction due to diseases classified elsewhere Category: Medical (2) Weak urinary stream: Code(s): R39.12 - Poor urinary stream Category: Medical Plan Twelve month follow-up Refill medications Orders: Orders AMB Urinalysis Automated Today Z13.9 - Encounter for screening, unspecified Medications: Refilled tadalafil 5 mg PO DAILY 90 days 90 tabs 2RF sexual activity N52.01 - Erectile dysfunction due to arterial insufficiency tadalafil On demand medication take 60 minutes before intended activity 20 mg PO ONCE 30 days PRN 30 tabs 5RF sexual activity E11.69 - Type 2 diabetes mellitus with other specified complication, N52.1 - Erectile dysfunction due to diseases classified elsewhere Patient Instructions: This note is constructed using voice recognition software. While every effort has been made to ensure accuracy conference producer errors may have been included. Imaging studies, laboratory and physical exam results were discussed and reviewed in detail. No major barriers to patient understanding were identified. An opportunity to ask questions regarding the treatment plan was provided. All questions were answered. The patient expressed understanding and agreement with the above treatment plan. The patient is aware they should contact our office by phone for worsening of their current condition or the appearance of new urologic symptoms. Compliance is encouraged with any medications and followup testing that is ordered. It is a privilege to participate in the urologic care of your patient. If you have any questions or concerns regarding treatment for the above conditions, or other urologic issues, please do not hesitate to contact me. The office telephone contact is [phone]. Sincerely, Dr Jewel Carr MD, [facility] - Urology Compassionate Specialist Care for the Genitourinary System Coding Level of Care Code Est Pt Level 3 (35809) Diagnoses Erectile dysfunction associated with type 2 diabetes mellitus E11.69; N52.1 Weak urinary stream R39.12
--- OUTSIDE RECORDS SUMMARY | 2024-05-29 11:54 | XMS_ITS | Encounter Summary ---
Author Organization Not iT [facility] Address [address] 7 [place] [address] Care Team Providers Care Engraving Operator Name Role Phone Janine Gomez SHELBY Primary Care Provider [phone] Andrea Joaquin PharmD Unavailable [phone] Reason for Referral * Consultation (Routine) - Authorized Specialty Diagnoses / Procedures Referred By Winston villasenor Referred To Contact Pharmacy Diagnoses Type 2 diabetes mellitus with stage 3b chronic kidney disease, with long-term current use of insulin (CMS/HCC) Aamir Prasad MD [address] [place] [address] Phone: tel: fax: Referral ID Status Reason Start Date Expiration Date Visits Requested Visits Authorized [id number] Authorized Consult and Treat 05/17/2024 05/17/2025 6 6 Encounter Details Date Type Department Care Team (Late st Contact Info) Description 05/17/2024 Orders Only [facility] [address] [place] [address] Aamir Prasad MD [address], [place] [id number] Type 2 diabetes mellitus with stage 3b chronic kidney disease, with long-term current use of insulin (CMS/HCC) (Primary Dx) Social History Tobacco Use Types Packs/Day Years Used Date Smoking Tobacco: Every Day Cigarettes Passive Smoke Exposure: Current Smokeless Tobacco: Never Alcohol Use Standard Drinks/Week Comments Not Currently 0 (1 standard drink = 0.6 oz pur e alcohol) Depression Answer Date Recorded Patient Health Questionnaire-9 Score 3 10/27/2023 Patient Health Questionnaire-9 Score 3 10/27/2023 Last PHQ-9: Questionnaire Data Not on file 0 10/27/2023 Housing Stability Answer Date Recorded What is your housing situation today? I have kami hurst 01/26/[address] you li ve. Do you have problems with any of the following? None of the above 01/26/2023 Food Insecurity Answer Date Recorded Within the past 12 months, y ou worried that your food would run out before you got money to buy more: Often true 05/30/2023 Within the past 12 months,th e food you bought just didn't last and you didn't have enough money to get more: Often true 06/2023 Transportation Answer Date Recorded In the past 12 months, has l ack of transportation kept you from medical appts, meetings, work or from getting things needed for daily living? No 01/26/2023 Utilities Answer Date Recorded In the past 12 months, has t he electric, gas, oil or water company threatened to shut off services in your home? No 01/26/2023 Depression Answer Date Recorded Patient Health Questionnaire-2 Score 0 10/27/2023 Internet Access Answer Date Recorded Internet Access Q1 Yes 01/17/2024 Internet Access Q2 Not on file 01/17/2024 Sex and Gender Information Value Date Recorded Sex Assigned at Male 01/25/2022 10:14 AM EDT Legal Sex Male 10:14 AM EDT Gender Identity Male 01/25/2022 10:14 AM EDT Sexual Orientation Straight 01/25/2022 10 :14 AM EDT documented as of this encounter Plan of Treatment Upcoming Encounters Date Type Department Care Team (Late st Contact Info) Description 06/21/2024 2:00 PM EDT Office Visit [facility] [address] [place] [address] Yordan, Smiley, OD [address] [place] [address] 06/25/2024 1:00 PM EDT Medication Management [facility] [address] [place] [id number] Andrea Joaquin, PharmD [address] [place] [address] Scheduled Referrals Name Type Priority Associated Diagnoses Orde r Schedule Referral to Pharmacy CDTM Outpatient Referral Routine Type 2 diabetes mellitus with stage 3b chronic kidney disease, with long-term current use of insulin (CMS/HCC) Ordered: 05/17/2024 documented as of this encounter Visit Diagnoses Diagnosis Type 2 diabetes mellitus with stage 3b chronic kidney disease, with long-term current use of insulin (CMS/HCC)- Primary documented in this encounter Additional Health Concerns Assessment Noted Time PHQ-9 Depression Total Score: 3 10/27/19 24 11:27 AM EDT documented as of this encounter Care Teams Engraving Operator Relationship Specialty Start Date End Date Janine Gomez ANP [address] [place] [address] PCP - General Family Medicine 11/13/20 Andrea Joaquin, PharmD [address] [place] [address] Pharmacist Internal Medicine 01/03/24 documented as of this encounter
--- OUTSIDE RECORDS SUMMARY | 2024-05-29 11:54 | XMS_ITS | Encounter Summary ---
Author Organization [employer] Address [address] 7t [place] [address] Care Team Providers Care Enterprise Architect Name Role Phone Janine Gomez Primary Care Provider [phone] Andrea Joaquin PharmD Unavailable [phone] Encounter Details Date Type Department Care Team ([facility] st Contact Info) Description 05/17/2024 Telephone [facility] [address] [place] [address] Janine Gomez ANP [address] [place] [address] Social History Tobacco Use Types Packs/Day Years [...] AM EDT documented as of this encounter Miscellaneous Notes * Telephone Encounter - Claudia Magana - 05/17/2024 1:41 PM EST Pharmacy is requesting an updated CDTM referral with a diagnosis of diabetes Type 2 diabetes mellitus with stage 3b chronic kidney disease, with long-term current use of insulin. This is to replace existing referral that no longer meets visit requirements. Please send at your earliest convenience. Thank you! documented in this encounter Plan of Treatment Upcoming Encounters Date Type Department Care Team (Late st Contact Info) Description 06/21/2024 2:00 PM EDT Office Visit [facility] [address] [place] [address] Smiley Farr, OD [address] [place] [address] 06/25/2024 1:00 PM EDT Medication Management [facility] [address] [place] [address] Andrea Joaquin, PharmD [address] [place] [address] documented as of this encounter Visit Diagnoses Not on filedocumented in this encounter Additional Health Concerns Assessment Noted Time PHQ-9 Depression Total Score: 3 10/27/19 24 11:27 AM EDT documented as of this encounter Care Teams Enterprise Architect Relationship Specialty Start Date End Date Janine Gomez ANP [address] [place] [address] PCP - General Family Medicine 11/13/20 Andrea Joaquin PharmD [address] [place] [address] Pharmacist Internal Medicine 01/03/24 documented as of this encounter
--- OUTSIDE RECORDS SUMMARY | 2024-05-29 11:54 | XMS_ITS | Encounter Summary ---
Author Organization [employer] Address [address] [facility] 7t [place] [address] Care Team Providers Care Student Teaching Coordinator Name Role Phone Janine Gomez Primary Care Provider [phone] Andrea Joaquin PharmD Unavailable [phone] Reason for Visit * Reason Onset Date Comments Prior Authorization 05/21/2024 Encounter Details Date Type Department Care Team ([facility] st Contact Info) Description 05/21/2024 Telephone [facility] [address] [place] [address] Liliana Alvarez, RN [address] [place] [address] Prior Authorization Social History Tobacco Use Types Packs/Day Years [...] encounter Miscellaneous Notes * Telephone Encounter - Liliana Alvarez RN - 05/21/2024 11:43 AM EST Faxed PA for Andreina sensor renewal to [facility] documented in this encounter Plan of Treatment Upcoming Encounters Date Type Department Care Team (Late st Contact Info) Description 06/21/2024 2:00 PM EDT Office Visit [facility] [address] [place] [address] Yordan, Smiley, OD [address] [place] [address] 06/25/2024 1:00 PM EDT Medication Management [facility] [address] [place] [address] Andrea Joaquin, PharmD [address] [place] [address] documented as of this encounter Visit Diagnoses Not on filedocumented in this encounter Additional Health Concerns Assessment Noted Time PHQ-9 Depression Total Score: 3 10/27/19 11:27 AM EDT documented as of this encounter Care Teams Student Teaching Coordinator Relationship Specialty Start Date End Date Janine Gomez ANP [address] [place] [address] PCP - General Family Medicine 11/13/20 Andrea Joaquin, Alexandru [address] [place] [address] Pharmacist Internal Medicine 01/03/24 documented as of this encounter
--- OUTSIDE RECORDS SUMMARY | 2024-05-29 11:54 | XMS_ITS | Encounter Summary ---
Author Organization [employer] Address [address] 7[address] [place] [address] Care Team Providers Care Supervisor Soldering Name Role Phone Gomez Janine RYAN Primary Care Provider [phone] Andrea Joaquin PharmD Unavailable [phone] Encounter Details Date Type Department Care Team ([facility] st Contact Info) Description 01/04/[address] [facility] PEDS [address] [place] [address] Renate Chinchilla LPN Social History Tobacco Use Types Packs/Day Years Used Date Smoking Tobacco: Every Day Cigarettes Smokeless Tobacco: Never Alcohol Use Standard Drinks/Week Comments Not Currently 0 (1 standard drink = 0.6 oz pur e alcohol) Housing Stability Answer Date Recorded What is your housing situation today? I have kami hurst 01/01/[address] you li ve. Do you have problems with any of the following? None of the above 01/01/2023 Food Insecurity Answer Date Recorded Within the past 12 months, y ou worried that your food would run out before you got money to buy more: Never True 01/01/2023 Within the past 12 months,th e food you bought just didn't last and you didn't have enough money to get more: Never True 09/2022 Transportation Answer Date Recorded In the past 12 months, has l ack of transportation kept you from medical appts, meetings, work or from getting things needed for daily living? No 01/01/2023 Utilities Answer Date Recorded In the past 12 months, has t he electric, gas, oil or water company threatened to shut off services in your home? No 01/01/2023 Depression Answer Date Recorded Patient Health Questionnaire-2 Score 0 08/05/2022 Sex and Gender Information Value Date Recorded Sex Assigned at Male 01/25/2022 10:14 AM EDT Legal Sex Male 10:14 AM EDT Gender Identity Male 01/25/2022 10:14 AM EDT Sexual Orientation Straight 01/25/2022 10 :14 AM EDT documented as of this encounter Plan of Treatment Upcoming Encounters Date Type Department Care Team (Late st Contact Info) Description 06/21/2024 2:00 PM EDT Office Visit [facility] [address] [place] [address] Yordan, Smiley, OD [address] [place] [address] 06/25/2024 1:00 PM EDT Medication Management [facility] [address] [place] [address] Andrea Joaquin, Alexandru [address] [place] [address] documented as of this encounter Visit Diagnoses Not on filedocumented in this encounter Care Teams Supervisor Soldering Relationship Specialty Start Date End Date Janine Gomez ANP [address] [place] [address] PCP - General Family Medicine 11/13/20 Andrea Joaquin, Alexandru [address] [place] [address] Pharmacist Internal Medicine 01/03/24 documented as of this encounter
--- OUTSIDE RECORDS SUMMARY | 2024-05-29 11:54 | XMS_ITS | Encounter Summary ---
Author Organization [employer] Address [address] [facility] 7t [place] [address] Care Team Providers Care Rivet Heater Gas Name Role Phone Patricia Janine RYAN Primary Care Provider [phone] Andrea Joaquin PharmD Unavailable [phone] Reason for Visit * Reason Comments Med Refill Encounter Details Date Type Department Care Team (Late st Contact Info) Description 05/17/2024 Refill [facility] [address] [place] [address] Andrea Joaquin, PharmD [address] [place] [address] Type 2 diabetes mellitus with other specified complication, with long-term current use of insulin ([facility]) Social History Tobacco Use Types Packs/Day Years [...] encounter Miscellaneous Notes * Telephone Encounter - Andrea Joaquin PharmD - 05/17/2024 11:22 AM EST Patient missed last CDTM visit. Last PCP visit 03/30/2024 patient instructed to continue Toujeo 46 units daily. Pharmacist will renew prescription. Pharmacy CHW to reach out to reschedule CDTM visit. documented in this encounter Plan of Treatment Upcoming Encounters Date Type Department Care Team (Late st Contact Info) Description 06/21/2024 2:00 PM EDT Office Visit [facility] [address] [place] [address] Yordan, Smiley, OD [address] [place] [address] 06/25/2024 1:00 PM EDT Medication Management [facility] [address] [place] [address] Andrea Joaquin PharmD [address] [place] [address] documented as of this encounter Visit Diagnoses Diagnosis Type 2 diabetes mellitus with other specified complication, with long-term current use of insulin ([facility]) documented in this encounter Additional Health Concerns Assessment Noted Time PHQ-9 Depression Total Score: 3 10/27/19 24 11:27 AM EDT documented as of this encounter Care Teams Rivet [employer] Relationship Specialty Start Date End Date Janine Gomez ANP [address] [place] [address] PCP - General Family Medicine 11/13/20 Andrea Joaquin PharmD [address] [place] [address] Pharmacist Internal Medicine 01/03/24 documented as of this encounter
--- OUTSIDE RECORDS SUMMARY | 2024-05-29 11:54 | XMS_ITS | Encounter Summary ---
Author Organization [employer] Address [address] [facility] 7t [place] [address] Care Team Providers Care Director Patient Name Role Phone Janine Gomez Primary Care Provider [phone] Andrea Joaquin PharmD Unavailable [phone] Reason for Visit * Reason Comments Med Refill Encounter Details Date Type Department Care Team ([facility] st Contact Info) Description 05/08/2024 Refill [facility]EDS [address] [place] [address] Janine Gomez ANP [address] [place] [address] Gastroesophageal reflux disease, unspecified whether esophagitis present Social History Tobacco Use Types Packs/Day Years [...] Description 06/21/2024 2:00 PM EDT Office Visit [facility] [address] [place] [address] Yordan, Smiley, OD [address] [place] [address] 06/25/2024 1:00 PM EDT Medication Management [facility] [address] [place] [address] Andrea Joaquin, PharmD [address] [place] [address] documented as of this encounter Visit Diagnoses Diagnosis Gastroesophageal reflux disease, unspecified whether esophagitis present documented in this encounter Additional Health Concerns Assessment Noted Time PHQ-9 Depression Total Score: 3 10/27/19 24 11:27 AM EDT documented as of this encounter Care Teams Director Patient Relationship Specialty Start Date End Date Janine Gomez ANP [address] [place] [address] PCP - General Family Medicine 11/13/20 Andrea Joaquin, PharmD [address] [place] [address] Pharmacist Internal Medicine 01/03/24 documented as of this encounter
--- OUTSIDE RECORDS SUMMARY | 2024-05-29 11:55 | XMS_ITS | Encounter Summary ---
Author Organization [employer] [facility] Address [address] [place] [address] 7 [place] [address] Care Team Providers Care Field Crew Chief Name Role Phone Janine Gomez Primary Care Provider [phone] Andrea Joaquin PharmD Unavailable [phone] Encounter Details Date Type Department Care Team (Late st Contact Info) Description 04/07/2022 Orders Only [facility] [address] [place] [address] Liliana Pace LPN Social History Tobacco Use Types Packs/Day Years Used Date Smoking Tobacco: Never Assessed Sex and Gender Information Value Date Recorded Sex Assigned at Male 01/25/2022 10:14 AM EDT Legal Sex Male 10:14 AM EDT Gender Identity Male 01/25/2022 10:14 AM EDT Sexual Orientation Straight 01/25/2022 10 :14 AM EDT documented as of this encounter Plan of Treatment Upcoming Encounters Date Type Department Care Team (Late st Contact Info) Description 06/21/2024 2:00 PM EDT Office Visit [facility] [address] [place] [address] Yordan, Smiley, OD [address] [place] [address] 06/25/2024 1:00 PM EDT Medication Management [facility] [address] [place] [address] Andrea Joaquin, PharmD [address] [place] [address] documented as of this encounter Visit Diagnoses Not on filedocumented in this encounter Care Teams Field Crew Chief Relationship Specialty Start Date End Date Janine Gomez ANP [address] [place] [address] PCP - General Family Medicine 11/13/20 Andrea Joaquin PharmD [address] [place] [address] Pharmacist Internal Medicine 01/03/24 documented as of this encounter
--- OUTSIDE RECORDS SUMMARY | 2024-05-29 11:55 | XMS_ITS | Encounter Summary ---
Author Organization [employer] [facility] Address [address] [place] [address] [address] [place] [address] Care Team Providers Care Wirer Passenger Car Name Role Phone Janine Gomez SHELBY Primary Care Provider [phone] Andrea Joaquin PharmD Unavailable [phone] Encounter Details Date Type Department Care Team (Late st Contact Info) Description 04/02/2022 Orders Only [facility] MEDICINE [address] [place] [address] Sary Olivas, RN [address] [place] [address] Social History Tobacco Use Types Packs/Day Years [...] Description 06/21/2024 2:00 PM EDT Office Visit [facility] OPTOMETRY [address] [place] [address] Smiley Farr OD [address] [place] [address] 06/25/2024 1:00 PM EDT Medication Management [facility] [address] [place] [address] Andrea Joaquin, PharmD [address] [place] [address] documented as of this encounter Visit Diagnoses Not on filedocumented in this encounter Care Teams Wirer Passenger Car Relationship Specialty Start Date End Date Janine Gomez ANP [address] [place] [id number] PCP - General Family Medicine 11/13/20 Andrea Joaquin PharmD [address] [place] [phone] Pharmacist Internal Medicine 01/03/24 documented as of this encounter
--- OUTSIDE RECORDS SUMMARY | 2024-05-29 11:55 | XMS_ITS | Clinical Summary ---
Author Organization Formerly [facility] Address [address] [address] Care Team Providers Care Food And Beverage Assistant Manager Name Role Phone Janine Gomez NP Primary Care Provider Unavailabl e Allergies Active Allergy Reactions Criticality Noted Date Comments Nsaids 05/27/2022 Not allergy - no NSAIDs per renal Medications metFORMIN (GLUCOPHAGE) 500 MG tablet TAKE 2 TABLETS BY MOUTH TWICE DAILY IN THE MORNING AND EVENING WITH FOOD 2 Active lisinopril (PRINIVIL,ZEST RIL) 30 MG tablet Take 30 mg by mouth 2 Active Toujeo SoloStar 300 UNIT/ML solution pen-injector INJECT 56 UNITS SUBCUTANEOUSLY AT NIGHT 2 Active NovoLOG FLEXPEN 100 UNIT/ML injection INJECT 20 UNITS SUBCUTANEOUSLY THREE TIMES DAILY BEFORE MEALS 2 Active hydroCHLOROthi azide 25 MG tablet Take 25 mg by mouth 2 Active atorvastatin (LIPITOR) 40 MG tablet Take 40 mg by mouth at bed time 2 Active Aspirin Low Dose 81 MG EC tablet Take 81 mg by mouth 2 Active Farxiga 10 MG tablet TAKE 1 TABLET BY MOUTH EVERY MORNING 90 tablet 3 4 Active Active Problems Problem Noted Date Diagnosed Date Stage 3b chronic kidney disease 07/13/2022 Mixed hyperlipidemia 03/09/2022 History of hepatitis B 03/09/2022 Hepatitis B immune 03/09/2022 Chronic hepatitis C caused by Hepatitis C virus genotype 1a 03/09/2022 Overview (07/13/2022): Per previous EHR Type 2 diabetes mellitus 09/07/2021 Hypertension 09/07/2021 Asthma 09/07/2021 Viral hepatitis C 09/07/2021 Hypoglycemic disorder 09/07/2021 Dyspnea 09/07/2021 Stage 3a chronic kidney disease 09/07/2021 Type 2 diabetes mellitus wit h diabetic chronic kidney disease 09/07/2021 Renal osteodystrophy 09/07/2021 Polyneuropathy due to diabetes mellitus 04/20/19 19 Nicotine dependence 04/20/2018 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 History of substance abuse 12/27/2011 Depressive disorder 12/27/2011 Immunizations Name Administration Dates Next Due Hepatitis A 09/01/2018 Influenza Split 12/27/2011 Influenza, MDCK, PF, Quadrivalent 01/25/2020 Influenza, Quadrivalent, Pre servative Free 05/27/2022,03/16/2021,04/20/2018 Influenza, Quadrivalent, Wit h Preservative 02/07/2017 Influenza, Unspecified 12/06/2010 Moderna SARS-COV-2 05/27/2022,,07/07/2020,06/09 Pneumococcal Polysaccharide 03/03/2001 Shingrix 04/28/2020,11/26/2019 TD Preservative Free 05/08/2015 Td 11/02/2002 Social History Tobacco Use Types Packs/Day Years Used Date Smoking Tobacco: Never Assessed Tobacco Cessation:Counseling Given: No Alcohol Use Standard Drinks/Week Comments Not Currently 0 (1 standard drink = 0.6 oz pur e alcohol) Sex and Gender Information Value Date Recorded Sex Assigned at Not on file Legal Sex Male 10:49 AM EDT Gender Identity Not on file Sexual Orientation Not on file Last Filed Vital Signs Vital Sign Reading Time Taken Comments Blood Pressure 139/60 12/31/2021 12:27 PM EDT Pulse 86 12/31/2021 12:27 PM EDT Temperature - - Respiratory Rate - - Oxygen Saturation 99% 12/31/2021 12:27 PM EDT Inhaled Oxygen Concentration - - Weight 107 kg (235 lb) 12/31/2021 12:27 PM EDT Height - - Body Mass Index - - Plan of Treatment Health Maintenance Due Date Last Done Comments Pneumococcal Vaccine: Pediatrics (0 to 5 Years) and At-Risk Patients (6 to 64 Years) (2 of 2 - PCV) 03/03/2002 03/03/2001 Colorectal Cancer Screening: Annual FOBT 2009 Colorectal Cancer Screening: Colonoscopy 2009 Colorectal Cancer Screening: Sigmoidoscopy 2009 Diabetes: Ophthalmology Exam 09/07/2021 Diabetes: Pedal Pulse Checked 09/07/2021 Diabetes: Sensory Foot Exam 09/07/2021 Diabetes: Visual Foot Exam 09/07/2021 Diabetes: Hemoglobin A1C 08/27/2022 05/27/2022 Influenza Vaccine (#1) 2023 3, 03/16/2021, 01/25/2020, Additional history exists Hepatitis B Vaccine Aged Out No longe r eligible based on patient's age to complete this topic Insurance [facility] ([id number]) [place] [id number] [facility] ([id number]) Care Teams Food And Beverage Assistant Manager Relationship Specialty Start Date End Date Janine Gomez NP PCP - General Nurse Practitioner 08/07/21
--- OUTSIDE RECORDS SUMMARY | 2024-05-29 11:55 | XMS_ITS | Encounter Summary ---
Author Organization [employer] [facility] Address [address] [place] [address] 7 [place] [address] Care Team Providers Care Remedial Reading Teacher Name Role Phone Janine Gomez Primary Care Provider [phone] Andrea Joaquin PharmD Unavailable [phone] Encounter Details Date Type Department Care Team (Late st Contact Info) Description 04/27/2022 Orders Only [facility] MEDICINE [address] [place] [id number] Liliana Pace LPN Social History Tobacco Use [...] Description 06/21/2024 2:00 PM EDT Office Visit [facility] OPTOMETRY [address] [place] [address] Yordan, Smiley, OD [address] [place] [address] 06/25/2024 1:00 PM EDT Medication Management [facility] MEDICINE [address] [place] [address] Andrea Joaquin, PharmD [address] [place] [address] documented as of this encounter Visit Diagnoses Not on filedocumented in this encounter Care Teams Remedial Reading Teacher Relationship Specialty Start Date End Date Janine Gomez ANP [address] [place] [address] PCP - General Family Medicine 11/13/20 Andrea Joaquin PharmD [address] [place] [address] Pharmacist Internal Medicine 01/03/24 documented as of this encounter
--- OUTSIDE RECORDS SUMMARY | 2024-05-29 11:55 | XMS_ITS | Clinical Summary ---
Author Organization [employer] Address [address] [facility] 7t [place] [address] Care Team Providers Care Community Specialist Name Role Phone Janine Gomez SHELBY Primary Care Provider [phone] Andrea Joaquin PharmD Unavailable [phone] Allergies Active Allergy Reactions Criticality Noted Date Comments Nsaids 05/27/2022 Not allergy - no NSAIDs per renal Medications Farxiga 10 MG Take 10 mg by mouth in the morning. 023 Active Alcohol Swabs padsIndications:D iabetic polyneuropathy associated with type 2 diabetes mellitus (CMS/HCC) 1 each if needed (to clean skin). 100 each 11 023 Active Continuous Blood Gluc Data Processing Specialist (FreeStyle Andreina 2 [place]) deviceIndications :Hypoglycemia 1 each 5 (five) times a day. 1 each 023 Active Continuous Glucose Sensor (FreeStyle Andreina 2 Sensor) miscIndications:H ypoglycemia 1 each every 14 (fourteen) days. 6 each 3 024 Active tadalafil (Cialis) 5 MG tablet TAKE 1 TABLET BY MOUTH ONCE DAILY FOR SEXUAL ACTIVITY Active tadalafil (Cialis) 20 MG tablet TAKE 1 TABLET BY MOUTH ONCE NEEDED FOR SEXUAL ACTIVITY. TAKE 60 MINUTES BEFORE INTENDED ACTIVITY Active dulaglutide (Trulicity) 0.75 MG/0.5ML solution pen-injectorIndic ations:Type 2 diabetes mellitus with other specified complication, with long-term current use of insulin (CMS/HCC) Inject 0.75 mg under the skin 1 (one) time per week. 2 mL 5 024 Active glucose blood (FreeStyle Precision Lew Test) test stripIndications: Type 2 diabetes mellitus with stage 3b chronic kidney disease, with long-term current use of insulin ([facility]) Use to test blood sugar 4 times daily as needed 100 each 024 2024 Active Lancets miscIndications:T ype 2 diabetes mellitus with stage 3b chronic kidney disease, with long-term current use of insulin ([facility]) Use to test blood sugar 4 times daily as needed 100 each 11 Active insulin pen needle ([place] OTRtiGUllinkrd SafePack Pen Needle) 32G x 4 mm miscIndications:T ype 2 diabetes mellitus with hyperglycemia ([facility]) Use four times daily with insulin 100 each 11 024 Active lisinopril 30 MG tablet TAKE 1 TABLET BY MOUTH EVERY MORNING 90 tablet 1 024 Active hydroCHLOROthiazi de (HYDRODiuril) 25 MG tablet TAKE 1 TABLET BY MOUTH EVERY MORNING 90 tablet 1 024 Active NovoLOG FLEXPEN 100 UNIT/ML penIndications:Ty pe 2 diabetes mellitus with diabetic polyneuropathy, with long-term current use of insulin ([facility]) INJECT 20 UNITS SUBCUTANEOUSLY THREE TIMES DAILY BEFORE MEALS 15 mL 5 024 Active metFORMIN (Glucophage) 500 MG tabletIndications :Type 2 diabetes mellitus with other specified complication, with long-term current use of insulin ([facility]) TAKE 2 TABLETS BY MOUTH TWICE DAILY IN THE MORNING AND EVENING WITH MEALS 120 tablet 5 024 Active permethrin (Elimite) 5 % creamIndications: Rash apply to skin from hairline to toes and wash off 8-10 hours later 60 g 025 Active atorvastatin (Lipitor) 40 MG tabletIndications :Mixed hyperlipidemia TAKE 1 TABLET BY MOUTH AT BEDTIME 90 tablet 3 025 Active triamcinolone (Kenalog) 0.1 % creamIndications: Rash APPLY TOPICALLY TO SKIN DAILY NEEDED (for itching) 45 g 025 Active glucagon (Gvoke PFS) 1 MG/0.2ML injection Inject 1 mg under the skin 1 (one) time if needed for low blood sugar. Active glucose 4 g chewable tabletIndications :Type 2 diabetes mellitus with stage 3b chronic kidney disease, with long-term current use of insulin ([facility]) Chew 4 tablets (16 g) if needed for low blood sugar. 50 tablet 12 025 2025 Active Aspirin Low Dose 81 MG EC tablet TAKE 1 TABLET BY MOUTH EVERY MORNING 90 tablet 1 025 Active omeprazole (PriLOSEC) [address] capsuleIndication s:Gastroesophagea l reflux disease, unspecified whether esophagitis present TAKE 1 CAPSULE BY MOUTH EVERY DAY 30 TO 60 MINUTES BEFORE A MEAL 90 capsule 1 025 Active insulin glargine (Toujeo SoloStar) 300 UNIT/ML injectionIndicati ons:Type 2 diabetes mellitus with other specified complication, with long-term current use of insulin (CMS/HCC) INJECT 46 SUBCUTANEOUSLY AT BEDTIME DIRECTED 4.5 mL 3 025 Active Aspirin Low Dose 81 MG EC tablet TAKE 1 TABLET BY MOUTH EVERY MORNING 90 tablet 1 024 2024 Discontinued omeprazole (PriLOSEC) [address] capsuleIndication s:Gastroesophagea l reflux disease, unspecified whether esophagitis present TAKE 1 CAPSULE BY MOUTH EVERY DAY 30-60 MINUTES BEFORE A MEAL 90 capsule 1 024 2024 Discontinued insulin glargine (Toujeo SoloStar) 300 UNIT/ML injectionIndicati ons:Type 2 diabetes mellitus with other specified complication, with long-term current use of insulin ([facility]) INJECT 46 UNITS SUBCUTANEOUSLY AT BEDTIME DIRECTED 4.5 mL 3 024 2024 Discontinued Active Problems Problem Noted Date Diagnosed Date Mixed hyperlipidemia 03/09/2022 Hepatitis B immune 03/09/2022 History of hepatitis B 03/09/2022 Chronic hepatitis C virus genotype 1a infection 03/09/2022 Overview (03/09/2022): Per previous EHR Diabetic polyneuropathy 04/20/2018 Nicotine dependence with current use 04/20/2018 Asthma 12/27/2011 Depressive disorder 12/27/2011 Type 2 diabetes mellitus wit h stage 3b chronic kidney disease, with long-term current use of insulin 12/27/2011 History of substance abuse 12/27/2011 Hypertension 12/27/2011 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 Encounters Date Type Department Care Team Description 05/28/2024 Telephone [facility] [address] [place] [phone] Janine Gomez ANP 05/21/2024 Telephone [facility] [address] [place] [phone] Liliana Alvarez, tube and manifold builder 05/17/2024 Orders Only [facility] [address] [place] [address] [phone] Aamir Prasad MD Type 2 diabetes mellitus with stage 3b chronic kidney disease, with long-term current use of insulin (CMS/[facility]) (Primary Dx) 05/17/2024 Telephone [facility] [address] [place] [phone] Janine Gomez ANP 05/17/2024 Refill [facility] [address] [place] [phone] Andrea Joaquin, RobeD Type 2 diabetes mellitus with other specified complication, with long-term current use of insulin (CMS/HCC) 05/08/2024 Refill [facility] P[facility] [address] [place] [address] Janine Gomez ANP Gastroesophageal reflux disease, unspecified whether esophagitis present 04/25/2024 Refill [facility] [address] [place] [phone] Janine Gomez ANP Rash 04/17/2024 Telephone [facility] [address] [place] [phone] Amanda Barajas, stepdown nurse Question 04/09/2024 Refill [facility] [address] [place] [address] Janine Gomez ANP Mixed hyperlipidemia 03/29/2024 1:00 PM EST Office Visit [facility] [address] [place] [address] [phone] Janine Gomez ANP Rash (Primary Dx); Type 2 diabetes mellitus with stage 3b chronic kidney disease, with long-term current use of insulin (CMS/HCC) 03/29/2024 Travel 03/09/2024 Refill [facility] [address] [place] [address] Janine Gomez, ANP Type 2 diabetes mellitus with other specified complication, with long-term current use of insulin ([facility]) 03/07/2024 Refill [facility] [address] [place] [address] Janine Gomez, ANP Type 2 diabetes mellitus with diabetic polyneuropathy, with long-term current use of insulin ([facility]) from Last 3 Months Immunizations Name Administration Dates Next Due Hep A, Adult 12/30/2023,09/01/2018 Influenza Injectable Quadriv alant Preservative Free IIV4 MDCK 03/24/2023,01/25/2020 Influenza injectable quadriv alent IIV4 with preservative 02/07/2017 Influenza injectable quadriv alent preservative free 05/27/2022,03/16/2021,04/20/2018 Influenza, IIV3, injectable 12/06/2010 Influenza, Split (incl. calin fied surface antigen) 12/27/2011 Influenza, Unspecified 12/06/2010 Moderna Covid-19 Vaccine 12+ 03/16/2021,07/08/19 21,06/09/2020 Moderna Covid-19 Vaccine 6+ Bivalent 05/27/2022 Pneumococcal Conjugate PCV 20 10/27/2023 Pneumococcal Polysaccharide PPSV23 03/03/2001 TD (adult), 2 Lf tetanus tox oid, preservative free, adsorbed 11/02/2002 Td (adult), 5 Lf tetanus tox oid, preservative free, adsorbed 05/08/2015 Zoster, Recombinant 04/28/2020,11/26/2019 Social History Tobacco Use Types Packs/Day Years Used Date Smoking Tobacco: Every Day Cigarettes Passive Smoke Exposure: Current Smokeless Tobacco: Never Tobacco Cessation:Ready to Q uit: Not Asked; Counseling Given: Not Answered Alcohol Use Standard Drinks/Week Comments Not Currently [...] Orientation Straight 01/25/2022 10 :14 AM EDT Last Filed Vital Signs Vital Sign Reading Time Taken Comments Blood Pressure 148/72 03/29/2024 1:26 PM EST Pulse 88 03/29/2024 1:26 PM EST Temperature 37.1 ??C (98.7 ??F) 03/29/2024 1:26 PM ES T Respiratory Rate 18 03/29/2024 1:26 PM EST Oxygen Saturation 99% 10/27/2023 11:20 AM EDT Inhaled Oxygen Concentration - - Weight 95.3 kg (210 lb) 03/29/2024 1:26 PM EST Height 175.3 cm (5' 9 ) 03/29/2024 1:26 PM EST Body Mass Index 31.01 03/29/2024 1:26 PM EST Plan of Treatment Upcoming Encounters Date Type Department Care Team (Late st Contact Info) Description 06/21/2024 2:00 PM EDT Office Visit [facility] OPTOMETRY [address] [place], [place] [phone] Yordan, Smiley, OD [address] [place] [address] 06/25/2024 1:00 PM EDT Medication Management [facility] [address] [place] [address] Andrea Joaquin, PharmD [address] [place] [address] Health Maintenance Due Date Last Done Comments CT Colonography 1960 Colonoscopy 1960 FIT 1960 FOBT 1960 Sigmoidoscopy 1960 Eye Exam 1970 Alcohol/Substance Use Screening 1972 DTaP/Tdap/Td Vaccines (1 - Tdap) 05/09/2015 05/08/2015, 11/02/2002 Hepatitis B Vaccines (1 of 3 - Risk 3-dose series) 2020 RSV Patients and Patients Aged 60 years or older (1 - Risk 60-74 years 1-dose series) 2020 COVID-19 Vaccine ( season) 2023 05/27/2022, 03/16/2021, 07/07/2020, Additional history exists Influenza Vaccine (#1) 2023 , 05/27/2022, 03/16/2021, Additional history exists Diabetes: Foot Exam 02/12/2024 02/11/2023, 02/11/2023, 02/11/2023, Additional history exists Lipid Panel 02/15/2024 02/14/2023, 04/1 11/2021, 02/08/2020 SDOH Screening 05/29/2024 05/30/2023 Diabetes: Hemoglobin A1C 06/27/2024 025, 12/30/2023, 08/15/2023, Additional history exists Depression Screening 10/26/2024 10/27/2023, 10/27/19 24 Tobacco Screening 04/17/2025 04/17/2024 Colorectal Cancer Screening 09/07/2026 FIT DNA/Cologuard 09/07/2026 09/08/2023 Zoster Vaccines Completed 04/28/2020, 11/26/2019 HIV Screening Completed 02/14/2023, 07/14/2021 Pneumococcal Vaccine: 50+ Years Completed 10/27/2023, 03/03/2001 Hepatitis A Vaccines Completed 12/30/2023, 09/02/19 HIB Vaccines Aged Out No longer eligi ble based on patient's age to complete this topic HPV Vaccines Aged Out No longer eligi ble based on patient's age to complete this topic IPV Vaccines Aged Out No longer eligi ble based on patient's age to complete this topic Meningococcal Vaccine Aged Out No mariul maira eligible based on patient's age to complete this topic RSV under 20 months Aged Out No longe r eligible based on patient's age to complete this topic Rotavirus Vaccines Aged Out No longer eligible based on patient's age to complete this topic Procedures Procedure Name Priority Date/Time Associated Diagnosis Comments POCT GLYCATED HEMOGLOBIN, TOTAL Routine 03/29/2024 1:28 PM EST Type 2 diabetes mellitus with stage 3b chronic kidney disease, with long-term current use of insulin (CMS/HCC) POCT GLUCOSE Routine 03/29/2024 1:28 PM EST Type 2 diabetes mellitus with stage 3b chronic kidney disease, with long-term current use of insulin (CMS/HCC) LAB COLOGUARD?? COLON CANCER SCREEN Routine 09/08/2023 11:00 AM EDT Screening for malignant neoplasm of colon HIV 1/2 ANTIGEN/ANTIBODY, FOURTH GENERATION W/RFL Routine 02/14/2023 9:57 AM EST Routine screening for STI (sexually transmitted infection) LIPID PANEL, STANDARD Routine 02/14/2023 9:57 AM EST Diabetic polyneuropathy associated with type 2 diabetes mellitus (CMS/HCC) from Last 3 Months or Most Recently Relevant to Health Maintenance Results * (ABNORMAL) POCT HGB A1C (03/29/2024 1:28 PM EST) Hemoglobin A1C 8.4(A) 4.0 - 6.0 % Blood 03/29/2024 1:28 PM EST [facility] ANP POINT OF CARE TEST ENTER/EDIT OR DERABLES Final Result * (ABNORMAL) POCT glucose (03/29/2024 1:28 PM EST) Glucose Blood, POC 256(A) 60 - 200 mg/dL Blood Capillary blood specimen / Unknown 03/29/2024 1:28 PM EST [facility] ANP POINT OF CARE TEST ENTER/EDIT OR DERABLES Final Result * Cologuard?? colon cancer screening (09/08/2023 11:00 AM EDT) Cologuard Result Negative Negative 09/20/19 5:15 AM EDT [facility] (CLIA #:[id number]) Comment: NEGATIVE TEST RESULT. A negative Cologuard result indicates a low likelihood that a colorectal cancer (CRC) or advanced adenoma (adenomatous polyps with more advanced pre-malignant features) ??is present. The chance that a person with a negative Cologuard test has a colorectal cancer is less than 1 in 1500 (negative predictive value >99.9%) or has an ??advanced adenoma is less than ??5.3% (negative predictive value 94.7%). These data are based on a prospective cross-sectional study of 10,000 individuals at average risk for colorectal cancer who were screened with both Cologuard and colonoscopy. (Katelyn Hess al, N Engl J Med 2014;370(14):1286- 1297) The normal value (reference range) for this assay is negative. COLOGUARD RE-SCREENING RECOMMENDATION: Periodic colorectal cancer screening is an important part of preventive healthcare for asymptomatic individuals at average risk for colorectal cancer. ??Following a negative Cologuard result, the [place] [employer] and U.S. Multi-Society Task Force screening guidelines recommend a Cologuard re-screening interval of 3 years. References: [place] [employer] Guideline for Colorectal Cancer Screening: https://www.cancer.org/cancer/caqst-kjgmol-xsehbr/sfbloqtsk-bsjsklion-gnnpnqd/ac s-rec ommendations.html.; Twan DK, Audra CR, Aubrey SmithK, Colorectal Cancer Screening: Recommendations for Physicians and Patients from the U.S. Multi-Society Task Force on Colorectal Cancer Screening , Am J Gastroenterology 2017; 112:8367-7501. TEST DESCRIPTION: Composite algorithmic analysis of stool DNA-biomarkers with hemoglobin immunoassay. ?? Quantitative values of individual biomarkers are not reportable and are not associated with individual biomarker result reference ranges. Cologuard is intended for colorectal cancer screening of adults of either sex, 45 years or older, who are at average-risk for colorectal cancer (CRC). Cologuard has been approved for use by the U.S. FDA. The performance of Cologuard was established in a cross sectional study of average-risk adults aged 50-84. Cologuard performance in patients ages 45 to 49 years was estimated by sub-group analysis of near-age groups. Colonoscopies performed for a positive result may find as the most clinically significant lesion: colorectal cancer [4.0%], advanced adenoma (including sessile serrated polyps greater than or equal to 1cm diameter) [20%] or non- advanced adenoma [31%]; or no colorectal neoplasia [45%]. These estimates are derived from a prospective cross-sectional screening study of 10,000 individuals at average risk for colorectal cancer who were screened with both Cologuard and colonoscopy. (Katelyn Helms et al, N Engl J Med 2014;370(14):8496-3175.) Cologuard may produce a false negative or false positive result (no colorectal cancer or precancerous polyp present at colonoscopy follow up). A negative Cologuard test result does not guarantee the absence of CRC or advanced adenoma (pre-cancer). The current Cologuard screening interval is every 3 years. ([place] [employer] and U.S. Multi-Society Task Force). Cologuard performance data in a 10,000 patient pivotal study using colonoscopy as the reference method can be accessed at the following location: www.[employer]/results. Additional description of the Cologuard test process, warnings and precautions can be found at www.Compliance 360rd.com. Stool specimen (specimen) 09/08/2023 11:00 AM EDT 09/09/2023 10:49 AM EDT Janine Gomez [facility] LAB MOLECULAR DIAGNOSTICS ORDERA BLES Final Result [facility] (CLIA #:[id number]) [place] [address], * HIV-1/2 Antigen and Antibodies, Fourth Generation, with Reflexes (02/14/2023 9:57 AM EST) HIV AB/AG Nonreactive Nonreactive [facility] Comment:HIV-1 p24 Ag and/or HIV-1/HIV-2 Ab not detected.A test result that is nonreactive does not exclude thepossibility of exposure to or infection with HIV-1 and/orHIV-2. Nonreactive results in this assay for individualswith prior exposure to HIV-1 and/or HIV-2 may be due toantigen and antibody levels that are below the limit ofdetection of this assay.The 100e.comniCaptimo HIV Ag/Ab Combo assay result andsupplemental assay results should be interpreted inconjunction with the patient's clinical presentation,history and other laboratory results. If the results areinconsistent with clinical evidence, additional testing issuggested to confirm the result. Blood Venous blood specimen / Unknown 02/14/2023 9:57 AM EST 02/14/2023 11:09 AM EST Janine Gomez [facility] LAB BLOOD ORDERABLES Final Resul t Performing Organization Address City/[facility]/ZIP Co de Phone Number [facility] [address] [place] [phone] * (ABNORMAL) Lipid Panel, Standard (02/14/2023 9:57 AM EST) Triglycerides 80 <150 mg/dL [facility] Comment:Desirable Triglyceri de: less than 150 mg/dLBorderline High Triglyceride 150-199 mg/dLHigh Triglyceride: 200-499 mg/dLVery High Triglyceride: greater than or equal to 5OO mg/dL Cholesterol 110 <200 mg/dL [facility] Comment:Desirable Cholestero l: less than 200 mg/dLBorderline High Cholesterol: 200-239 mg/dLHigh Cholesterol: greater than 239 mg/dL LDL Cholesterol Calculated 54 <100 mg/dL [facility] Comment:Desirable LDL: less than 100 mg/dLNear Optimal/Above Optimal LDL: 110- 129 mg/dLBorderline High LDL: 130-159 mg/dLHigh LDL: 160-189 mg/dLVery High LDL: greater than or equal to 190 mg/dL HDL Cholesterol 40(L) >40 mg/dL [facility] Comment:Desirable HDL: great er than 40 mg/dL Note: This HDL assay may give artificially low results in patients with liver disease. Blood Venous blood specimen / Unknown 02/14/2023 9:57 AM EST 02/14/2023 11:09 AM EST [facility] LAB BLOOD ORDERABLES Final Resul t [facility] [address] [place], [place] [phone] from Last 3 Months or Most Recently Relevant to Health Maintenance Insurance [facility] Care Teams Community Specialist Relationship Specialty Start Date End Date Janine Gomez ANP [address] [place] [address] PCP - General Family Medicine 11/13/20 Andrea Joaquin, RobeD [address] [place] [address] Pharmacist Internal Medicine 01/03/24
--- OUTSIDE RECORDS SUMMARY | 2024-05-29 11:55 | XMS_ITS | Encounter Summary ---
Author Organization [employer] Address [address] [facility] 7t [place] [address] Care Team Providers Care Lens Hardener Name Role Phone Janine Gomez SHELBY Primary Care Provider [phone] Andrea Joaquin PharmD Unavailable [phone] Encounter Details Date Type Department Care Team (Late st Contact Info) Description 04/13/2022 Orders Only [facility] MED [facility] PEDS [address] [place] [address] Renate Chinchilla LPN Social History Tobacco Use [...] 06/21/2024 2:00 PM EDT Office Visit [facility] OPTOMETRY [address] [place] [address] Yordan, Smiley, OD [address] [place] [address] 06/25/2024 1:00 PM EDT Medication Management [facility] MEDICINE [address] [place] [address] Andrea Joaquin, PharmD [address] [place] [address] documented as of this encounter Visit Diagnoses Not on filedocumented in this encounter Care Teams Lens Hardener Relationship Specialty Start Date End Date Janine Gomez ANP [address] [place] [address] PCP - General Family Medicine 11/13/20 Andrea Joaquin PharmD [address] [place] [address] Pharmacist Internal Medicine 01/03/24 documented as of this encounter
--- OUTSIDE RECORDS SUMMARY | 2024-05-29 11:55 | XMS_ITS | Encounter Summary ---
Author Organization [employer] Address [address] [facility] 7t [place] [address] Care Team Providers Care Community Music Therapist Name Role Phone Janine Gomez SHELBY Primary Care Provider [phone] Andrea Joaquin PharmD Unavailable [phone] Encounter Details Date Type Department Care Team (Late st Contact Info) Description 03/23/2022 Orders Only [facility] MED & PEDS [address] [place] [address] Renate Chinchilla LPN Social History Tobacco Use [...] 2:00 PM EDT Office Visit [facility] OPTOMETRY [address] [place] [address] Yordan, Smiley, OD [address] [place] [address] 06/25/2024 1:00 PM EDT Medication Management [facility] MEDICINE [address] [place] [address] Andrea Joaquin, PharmD [address] [place] [address] documented as of this encounter Visit Diagnoses Not on filedocumented in this encounter Care Teams Community Music Therapist Relationship Specialty Start Date End Date Janine Gomez ANP [address] [place] [address] PCP - General Family Medicine 11/13/20 Andrea Joaquin PharmD [address] [place] [address] Pharmacist Internal Medicine 01/03/24 documented as of this encounter
--- OUTSIDE RECORDS SUMMARY | 2024-05-29 11:55 | XMS_ITS | Encounter Summary ---
Author Organization [email or web address] Address [address] [facility] 7t [place] [address] Care Team Providers Care Conservation Engineer Name Role Phone Janine Gomez Primary Care Provider [phone] Andrea Joaquin PharmD Unavailable [phone] Reason for Visit * Reason Comments Med Refill Encounter Details Date Type Department Care Team (Late Contact Info) Description 07/18/2022 Refill [facility] MED [facility] PEDS [address] [place] [address] Janine Gomez ANP [address] [place] [address] Other male erectile dysfunction Social History Tobacco Use Types Packs/Day Years [...] Encounters Date Type Department Care Team (Late Contact Info) Description 06/21/2024 2:00 PM EDT Office Visit [facility] OPTOMETRY [address] [place], [place] [phone] Smiley Farr, OD [address] [place], [place] [phone] 06/25/2024 1:00 PM EDT Medication Management [facility] MEDICINE [address] [place] [address] Andrea Joaquin, Alexandru [address] [place] [address] documented as of this encounter Visit Diagnoses Diagnosis Other male erectile dysfunction documented in this encounter Care Teams Conservation Engineer Relationship Specialty Start Date End Date Janine Gomez ANP [address] [place] [phone] PCP - General Family Medicine 11/13/20 Andrea Joaquin, RobeD [address] [place] [address] Pharmacist Internal Medicine 01/03/24 documented as of this encounter
--- OUTSIDE RECORDS SUMMARY | 2024-05-29 11:55 | XMS_ITS | Encounter Summary ---
Author Organization [id number] Address [address] [facility] 7[address] [place] [address] Care Team Providers Care Bottom Precipitator Operator Name Role Phone Janine Gomez SHELBY Primary Care Provider [phone] Andrea Joaquin PharmD Unavailable [phone] Encounter Details Date Type Department Care Team (Late st Contact Info) Description 04/29/2022 Orders Only [facility] [address] [place] [address] Renate Chinchilla LPN Social History Tobacco Use [...] Description 06/21/2024 2:00 PM EDT Office Visit [facility] [address] [place] [address] Yordan, Smiley, OD [address] [place] [address] 06/25/2024 1:00 PM EDT Medication Management [facility] [address] [place] [address] Andrea Joaquin, PharmD [address] [place] [address] documented as of this encounter Visit Diagnoses Not on filedocumented in this encounter Care Teams Bottom Precipitator Operator Relationship Specialty Start Date End Date Janine Gomez ANP [address] [place] [address] PCP - General Family Medicine 11/13/20 Andrea Joaquin PharmD [address] [place] [address] Pharmacist Internal Medicine 01/03/24 documented as of this encounter
--- OUTSIDE RECORDS SUMMARY | 2024-05-29 11:55 | XMS_ITS | Encounter Summary ---
Author Organization [employer] Address [address] [facility] 7[address] [place] [address] Care Team Providers Care Copy Reader Name Role Phone Janine Gomez Primary Care Provider [phone] Andrea Joaquin PharmD Unavailable [phone] Encounter Details Date Type Department Care Team ([facility] st Contact Info) Description 05/28/2024 Telephone [facility] [address] [place] [address] Janine Gomez ANP [address] [place] [address] Social History Tobacco Use Types Packs/Day Years [...] encounter Miscellaneous Notes * Telephone Encounter - Nkechi Cruz - 05/28/2024 2:36 PM EST Pt no showed to appt on 05/28/2024 documented in this encounter Plan of Treatment Upcoming Encounters Date Type Department Care Team (Late st Contact Info) Description 06/21/2024 2:00 PM EDT Office Visit [facility] [address] [place] [address] Yordan, Smiley, OD [address] [place] [address] 06/25/2024 1:00 PM EDT Medication Management [facility] [address] [place] [address] Andrea Joaquin, PharmD [address] [place] [address] documented as of this encounter Visit Diagnoses Not on filedocumented in this encounter Additional Health Concerns Assessment Noted Time PHQ-9 Depression Total Score: 3 10/27/19 24 11:27 AM EDT documented as of this encounter Care Teams Copy Reader Relationship Specialty Start Date End Date Janine Gomez, ANP [address] [place] [address] PCP - General Family Medicine 11/13/20 Andrea Joaquin, RobeD [address] [place] [address] Pharmacist Internal Medicine 01/03/24 documented as of this encounter
== END 2024-05-29 10:57 | disposition home or self-care (01) ==
PROVIDERS: PCP Nurse Practitioner Primary Care; Visit Provider Urology
DX: E11.69 Type 2 diabetes mellitus with other specified complication (principal); N52.1 Erectile dysfunction due to diseases classified elsewhere; R39.12 Poor urinary stream; Z13.9 Encounter for screening, unspecified
CPT/HCPCS: 99213

== ENCOUNTER → 2024-05-29 10:00 | Outpatient (BNVA) | payer OTHER, SELFPAY | PROVIDERS: PCP Nurse Practitioner Primary Care; Visit Provider Urology | DX: E11.69 Type 2 diabetes mellitus with other specified complication (principal); N52.1 Erectile dysfunction due to diseases classified elsewhere; R39.12 Poor urinary stream | CPT/HCPCS: 81003; 99212 ==

== ENCOUNTER 2024-07-16 21:31 | Emergency (ER) | payer OTHER, SELFPAY ==
[2024-07-16 21:35] VITALS: BP 132/79; PULSE 98; RESP 16; TEMP 36.4; O2SAT 98; BMI 29.5
--- OUTSIDE RECORDS SUMMARY | 2024-07-16 23:43 | XMS_ITS | Clinical Summary ---
Author Organization [facility]ly [facility] Address [address] [place] [address], [place] [address] Care Team Providers Care Sander Portable Machine Name Role Phone Janine Gomez NP Primary Care Provider [phone] Allergies Active Allergy Reactions Criticality Noted Date [...] substance abuse 12/27/2011 Depressive disorder 12/27/2011 Immunizations Immunization Administration Dates Next Due Hepatitis A 09/01/2018 [...] Due Date Last Done Comments Pneumococcal Vaccine: 50+ Years (2 of 2 - PCV) 03/03/2002 03/03/2001 Colorectal Cancer Screening: Annual FOBT 2009 Colorectal Cancer Screening: Colonoscopy 2009 Colorectal Cancer Screening: Sigmoidoscopy 2009 Diabetes: Ophthalmology Exam 09/07/2021 Diabetes: Pedal Pulse Checked 09/07/2021 Diabetes: Sensory Foot Exam 09/07/2021 Diabetes: Visual Foot Exam 09/07/2021 Diabetes: Hemoglobin A1C 08/27/2022 05/27/2022 Influenza Vaccine (Season Ended) 2024 05/27/2022, 03/16/2021, 01/25/2020, Additional history exists Pneumococcal Vaccine: Peds (0 to 5 Years) and At-Risk Patients (6 to 49 Years) Discontinued 03/03/2001 Hepatitis B Vaccine Aged Out No longe r eligible based on patient's age to complete this topic Insurance [facility] ([id number]) [facility] ([id number]) Care Teams Sander Portable Machine Relationship Specialty Start Date End Date Janine Gomez NP PCP - General Nurse Practitioner 08/07/21
--- NOTE | 2024-07-17 00:01 | PC.NURSE ---
Patient call/no answer x 2.
== END 2024-07-17 00:02 | disposition left against medical advice (07) ==
PROVIDERS: Emergency Provider Emergency Medicine; PCP Nurse Practitioner Primary Care
DX: R21 Rash and other nonspecific skin eruption (principal)
CPT/HCPCS: 99281

== ENCOUNTER 2024-07-24 12:16 | Emergency (ER) | payer OTHER, SELFPAY ==
[2024-07-24 12:21] VITALS: BP 141/67; PULSE 91; RESP 20; TEMP 36.2; O2SAT 96; BMI 30.4
--- NOTE | 2024-07-24 12:22 | ED_ITS ---
HPI - General Adult General Chief complaint: General Medical Stated complaint: Swelling/redness R hand Related Data Home Medications ?Medication ?Instructions ?Recorded ?Confirmed aspirin 81 mg tablet,delayed 81 mg PO DAILY 05/07/21 11/29/23 release (Adult Aspirin Regimen) atorvastatin 40 mg tablet 40 mg PO BEDTIME 05/07/21 11/29/23 hydrochlorothiazide 25 mg tablet 25 mg PO Q OTHER DAY 05/07/21 11/29/23 insulin aspart U-100 100 unit/mL 1 sliding scale dose subcut 05/07/21 11/29/23 (3 mL) subcutaneous pen (Novolog USEASDIRECTD FlexPen U-100 Insulin aspart) insulin glargine U-300 conc 300 30 unit subcut BEDTIME 05/07/21 11/29/23 unit/mL (1.5 mL) subcutaneous pen (Toujeo SoloStar U-300 Insulin) lisinopril 30 mg tablet 30 mg PO DAILY 05/07/21 11/29/23 metformin 500 mg tablet 500 mg PO DAILY 05/07/21 11/29/23 Previous Rx's ?Medication ?Instructions ?Recorded bisacodyl 5 mg tablet,delayed 10 mg (2 x 5 mg) PO ONCE 05/07/21 release (Dulcolax (bisacodyl)) colonoscopy prep 1 day #2 tabs docusate sodium 100 mg capsule 200 mg (2 x 100 mg) PO BEDTIME #60 05/07/21 (Colace) caps polyethylene glycol 3350 17 17 g PO DAILY #510 grams 05/07/21 gram/dose oral powder (Miralax) polyethylene glycol 3350 17 238 g PO ONCE 1 day #238 grams 05/07/21 gram/dose oral powder (Miralax) simethicone 125 mg chewable tablet 125 mg PO TID-QID PRN abdominal 05/07/21 (Gas Relief (simethicone)) distention #90 tabs glucagon 1 mg solution for 1 mg subcut Q20M PRN hypoglycemia 01/21/23 injection (Glucagon Emergency Kit) #1 ea tadalafil 20 mg tablet 20 mg PO ONCE PRN sexual activity 05/29/24 30 days #30 tabs tadalafil 5 mg tablet 5 mg PO DAILY sexual activity 90 05/29/24 days #90 tabs Allergies Allergy/AdvReac Type Severity Reaction Status Date / Time No Known Allergies Allergy Unknown Verified 07/24/24 12:22 [facility] Past Medical History Medical History Nicotine dependence, cigarettes, uncomplicated Substance abuse Diabetes Surgical History Hx of cholecystectomy Family History Family History Father Diabetes Mother HTN (hypertension) Social History Social History Household Members Other:: lives alone Alcohol intake: current Alcohol intake frequency: a few times a week Patient Tobacco Use Status: Current someday Tobacco user Cigarettes Per Day: 10 Substance Use Type: Crack/Cocaine and Heroin Current occupational status: unemployed and disabled Physical Exam ED Vital Signs: BMI result Body Mass Index 30.4 Course Course Course Narrative: RME, this is a rapid medical exam performed by Alexander Rodriguez please refer to primary provider for complete H&P- 63 year old male presents for evaluation of red painful bumps all over. He states that there are bugs crawling all over him in my ear and in my eyes. They are sucking my blood. He was treated for scabies with permethrin on 06/12/24. He does have some erythematous lesions to the left forearm mostly. This is not a typical scabies presentation. Plan for labs and inflammatory markers. Discharge Plan Discharge Clinical Impression: Rash Patient Disposition: Left W/O Completing Treatment Prescriptions: No Action Glucagon Emergency Kit (human) 1 mg recon soln 1 mg subcut Q20M PRN (Reason: hypoglycemia) Qty: 1 0RF Rx Instructions: until target blood sugar attained. Use only if unable to eat or drink. Make sure your family knows where you keep this glucagon emergency kit atorvastatin 40 mg tablet 40 mg PO BEDTIME aspirin [Adult Aspirin Regimen] 81 mg tablet,delayed release (DR/EC) 81 mg PO DAILY insulin aspart U-100 [Novolog FlexPen U-100 Insulin] 100 unit/mL (3 mL) insulin pen 1 sliding scale dose subcut USEASDIRECTD metformin 500 mg tablet 500 mg PO DAILY hydrochlorothiazide 25 mg tablet 25 mg PO Q OTHER DAY lisinopril 30 mg tablet 30 mg PO DAILY Toujeo SoloStar U-300 Insulin 300 unit/mL (1.5 mL) insulin pen 30 unit subcut BEDTIME bisacodyl [Dulcolax (bisacodyl)] 5 mg tablet,delayed release (DR/EC) 10 mg PO ONCE 1 Days Qty: 2 0RF Rx Instructions: Take 2 tablets by mouth at 12:00pm the day before your procedure. polyethylene glycol 3350 [Miralax] 17 gram/dose powder 238 g PO ONCE 1 Days Qty: 238 0RF Rx Instructions: Take as directed by mouth the day before your procedure. docusate sodium [Colace] 100 mg capsule 200 mg PO BEDTIME Qty: 60 5RF polyethylene glycol 3350 [Miralax] 17 gram/dose powder 17 g PO DAILY Qty: 510 2RF simethicone [Gas Relief (simethicone)] 125 mg tablet,chewable 125 mg PO TID-QID PRN (Reason: abdominal distention) Qty: 90 2RF tadalafil 5 mg tablet 5 mg PO DAILY 90 Days Qty: 90 2RF tadalafil 20 mg tablet 20 mg PO ONCE PRN (Reason: sexual activity) 30 Days Qty: 30 5RF Rx Instructions: On demand medication take 60 minutes before intended activity Discharge Date/Time: 07/24/24 16:44
--- OUTSIDE RECORDS SUMMARY | 2024-07-24 16:29 | XMS_ITS | Encounter Summary ---
Author Organization [employer] [facility] Address [address] [place] [address] 7 [place] [address] Care Team Providers Care Crop Roller Name Role Phone Janine Gomez Primary Care Provider [phone] Andrea Joaquin PharmD Unavailable [phone] Encounter Details Date Type Department Care Team (Late st Contact Info) Description 04/27/2022 Orders Only [facility] MEDICINE [address] [place] [id number] Liliana Pace LPN Social History Tobacco Use [...] Care Team (Late st Contact Info) Description 09/24/2024 1:00 PM EDT Medication Management [facility] [address] [place] [address] Andrea Joaquin, PharmD [address] [place] [address] documented as of this encounter Visit Diagnoses Not on filedocumented in this encounter Care Teams Crop Roller Relationship Specialty Start Date End Date Janine Gomez ANP [address] [place] [address] PCP - General Family Medicine 11/13/20 Andrea Joaquin, RobeD [address] [place] [address] Pharmacist Internal Medicine 01/03/24 documented as of this encounter
--- OUTSIDE RECORDS SUMMARY | 2024-07-24 16:29 | XMS_ITS | Clinical Summary ---
Author Organization [employer] Address [address] [facility] 7t [place] [address] Care Team Providers Care Frame Bander Name Role Phone Janine Gomez SHELBY Primary Care Provider [phone] Andrea Joaquin PharmD Unavailable [phone] Allergies Active Allergy Reactions Criticality Noted Date Comments Nsaids 05/27/2022 Not allergy - no NSAIDs per renal Medications Farxiga 10 MG Take 10 mg by mouth in the morning. 023 Active Continuous Blood Gluc Circulator (FreeStyle Andreina 2 Accord) deviceIndication s:Hypoglycemia 1 each 5 (five) times a day. 1 each 023 Active Continuous Glucose Sensor (FreeStyle Andreina 2 Sensor) miscIndications: Hypoglycemia 1 each every 14 (fourteen) days. 6 each 3 024 Active tadalafil (Cialis) 5 MG tablet TAKE 1 TABLET BY MOUTH ONCE DAILY FOR SEXUAL ACTIVITY Active tadalafil (Cialis) 20 MG tablet TAKE 1 TABLET BY MOUTH ONCE NEEDED FOR SEXUAL ACTIVITY. TAKE 60 MINUTES BEFORE INTENDED ACTIVITY Active dulaglutide (Trulicity) 0.75 MG/0.5ML solution pen-injectorIndi cations:Type 2 diabetes mellitus with other specified complication, with long-term current use of insulin ([facility]) Inject 0.75 mg under the skin 1 (one) time per week. 2 mL 5 024 Active glucose blood (FreeStyle Precision Lew Test) test stripIndications :Type 2 diabetes mellitus with stage 3b chronic kidney disease, with long-term current use of insulin ([facility]) Use to test blood sugar 4 times daily as needed 100 each 11 024 2024 Active Lancets miscIndications: Type 2 diabetes mellitus with stage 3b chronic kidney disease, with long-term current use of insulin ([facility]) Use to test blood sugar 4 times daily as needed 100 each 11 Active insulin pen needle (UltiGuard SafePack Pen Needle) 32G x 4 mm miscIndications: Type 2 diabetes mellitus with hyperglycemia ([facility]) Use four times daily with insulin 100 each 11 Active hydroCHLOROthiaz gisell (HYDRODiuril) 25 MG tablet TAKE 1 TABLET BY MOUTH EVERY MORNING 90 tablet 1 Active NovoLOG FLEXPEN 100 UNIT/ML penIndications:T ype 2 diabetes mellitus with diabetic polyneuropathy, with long-term current use of insulin ([facility]) INJECT 20 UNITS SUBCUTANEOUSLY THREE TIMES DAILY BEFORE MEALS 15 mL 5 Active metFORMIN (Glucophage) 500 MG tabletIndication s:Type 2 diabetes mellitus with other specified complication, with long-term current use of insulin ([facility]) TAKE 2 TABLETS BY MOUTH TWICE DAILY IN THE MORNING AND EVENING WITH MEALS 120 tablet 5 Active atorvastatin (Lipitor) 40 MG tabletIndication s:Mixed hyperlipidemia TAKE 1 TABLET BY MOUTH AT BEDTIME 90 tablet 3 025 Active triamcinolone (Kenalog) 0.1 % creamIndications :Rash APPLY TOPICALLY TO SKIN DAILY NEEDED (for itching) 45 g Active glucagon (Gvoke PFS) 1 MG/0.2ML injection Inject 1 mg under the skin 1 (one) time if needed for low blood sugar. Active glucose 4 g chewable tabletIndication s:Type 2 diabetes mellitus with stage 3b chronic kidney disease, with long-term current use of insulin ([facility]) Chew 4 tablets (16 g) if needed for low blood sugar. 50 tablet 12 025 2025 Active Aspirin Low Dose 81 MG EC tablet TAKE 1 TABLET BY MOUTH EVERY MORNING 90 tablet 1 025 Active omeprazole (PriLOSEC) [address] capsuleIndicatio ns:Gastroesophag eal reflux disease, unspecified whether esophagitis present TAKE 1 CAPSULE BY MOUTH EVERY DAY 30 TO 60 MINUTES BEFORE A MEAL 90 capsule 1 025 Active insulin glargine (Toujeo SoloStar) 300 UNIT/ML injectionIndicat ions:Type 2 diabetes mellitus with other specified complication, with long-term current use of insulin ([facility]) INJECT 46 SUBCUTANEOUSLY AT BEDTIME DIRECTED 4.5 mL 3 025 Active Alcohol Swabs (Alcohol Prep) 70 % padsIndications: Diabetic polyneuropathy associated with type 2 diabetes mellitus (CMS/HCC) USE DIRECTED 100 each 11 025 Active lisinopril 30 MG tablet TAKE 1 TABLET BY MOUTH EVERY MORNING 90 tablet 1 025 Active Alcohol Swabs padsIndications: Diabetic polyneuropathy associated with type 2 diabetes mellitus ([facility]) 1 each if needed (to clean skin). 100 each 11 023 2024 Discontinued lisinopril 30 MG tablet TAKE 1 TABLET BY MOUTH EVERY MORNING 90 tablet 1 024 2024 Discontinued permethrin (Elimite) 5 % creamIndications :Rash apply to skin from hairline to toes and wash off 8-10 hours later 60 g 025 2024 Discontinued(M ed list cleanup (will not trigger notification to Pharmacy)) permethrin (Elimite) 5 % creamIndications :Delusions of parasitosis (CMS/HCC) apply to skin from hairline to toes and wash off 8-10 hours later 60 g 025 2024 Discontinued(M ed list cleanup (will not trigger notification to Pharmacy)) silver sulfADIAZINE (Silvadene) 1 % creamIndications :Delusions of parasitosis (CMS/HCC) Apply topically 2 times daily. 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 Assessment & Plan (06/12/2024 2:36 PM EDT): Clinical picture consistent with delusion parasitosis, I will order today blood work CBC, CMP, TSH and B12 with folic acid, I will also refer this patient to dermatology I will treat him with permethrin and also I will prescribe for him silver sulfadiazine for the superficial butts on his arms I extensively counseled him regarding avoiding using chemical lab technician so much as or heat to his skin to avoid future butts Mixed hyperlipidemia 03/09/2022 Hepatitis B immune 03/09/2022 [...] Encounters Date Type Department Care Team Description 07/24/2024 3:20 PM EDT Office Visit [facility] [address] [place] [address] 07/10/2024 Refill [facility] [address] [place] [address] Janine Gomez ANP 07/05/2024 Refill [facility] [address] [place] [address] Janine Gomez ANP Diabetic polyneuropathy associated with type 2 diabetes mellitus (CMS/HCC) 06/25/2024 Travel 06/21/2024 2:00 PM EDT Office Visit [facility] [address] [place] [address] Yordan, Smiley, OD 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 associated with type 2 diabetes mellitus (CMS/HCC) (Primary Dx); Age-related nuclear cataract of both eyes; Dermatochalasis of both upper eyelids; Presbyopia 06/21/2024 Travel 06/12/2024 1:20 PM EDT Office Visit [facility] [address] [place] [address] Chasity Laboy MD Delusions of parasitosis (CMS/HCC) (Primary Dx) 06/12/2024 Travel 05/28/2024 Telephone [facility] [address] [place] [address] Janine Gomez ANP 05/21/2024 Telephone [facility] [address] [place] [address] Liliana Alvarez RNcombat rifle crewmember 05/17/2024 Orders Only [facility] [address] [place], [place] [phone] Aamir Prasad MD Type 2 diabetes mellitus with stage 3b chronic kidney disease, with long-term current use of insulin ([facility]) (Primary Dx) 05/17/2024 Telephone [facility] [address] [place] [address] Janine Gomez ANP 05/17/2024 Refill [facility] [address] [place] [address] Andrea Joaquin, Alexandru Type 2 diabetes mellitus with other specified complication, with long-term current use of insulin ([facility]) 05/08/2024 Refill [facility] [address] [place], [place] [phone] Janine Gomez ANP Gastroesophageal reflux disease, unspecified whether esophagitis present 04/25/2024 Refill [facility] [address] [place] [address] Janine Gomez ANP Rash from Last 3 Months Immunizations Name Administration [...] Sign Reading Time Taken Comments Blood Pressure 144/78 07/24/2024 3:12 PM EDT Pulse 84 07/24/2024 3:12 PM EDT Temperature 36.2 ??C (97.2 ??F) 07/24/2024 3:12 PM ED T Respiratory Rate 16 07/24/2024 3:12 PM EDT Oxygen Saturation 98% 07/24/2024 3:12 PM EDT Inhaled Oxygen Concentration - - Weight 94.3 kg (208 lb) 07/24/2024 3:12 PM EDT Height 175.3 cm (5' 9 ) 03/29/2024 1:26 PM EST Body Mass Index 30.72 03/29/2024 1:26 PM EST Plan of Treatment Upcoming Encounters Date Type Department Care Team (Late st Contact Info) Description 09/24/2024 1:00 PM EDT Medication Management [facility] [address] [place] [address] Andrea Joaquin, PharmD [address] [place] [address] Health Maintenance Due Date Last Done Comments CT Colonography 1960 Colonoscopy 1960 FIT 1960 FOBT 1960 Sigmoidoscopy 1960 Alcohol/Substance Use Screening 1972 DTaP/Tdap/Td Vaccines (1 [...] Additional history exists Lipid Panel 02/15/2024 02/14/2023, 06/26, 02/08/2020 SDOH Screening 05/29/2024 05/30/2023 Diabetes: Hemoglobin A1C 09/24/2024 025, 03/29/2024, 12/30/2023, Additional history exists Depression Screening 10/26/2024 10/27/2023, 10/27/19 24 Eye Exam 06/21/2025 06/21/2024, 05/27, 06/21/2024, Additional history exists Tobacco Screening 06/21/2025 06/21/2024 Colorectal Cancer Screening 09/07/2026 FIT DNA/Cologuard 09/07/2026 09/08/2023 Zoster Vaccines Completed 04/28/2020, 11/26/2019 HIV Screening Completed 02/14/2023, 07/14/2021 Pneumococcal Vaccine: 50+ Years Completed 10/27/2023, 03/03/2001 Hepatitis A Vaccines Completed 12/30/2023, 09/02/19 19 HIB Vaccines Aged Out No longer eligi ble based on patient's age to complete this topic HPV Vaccines Aged Out No longer eligi ble based on patient's age to complete this topic IPV Vaccines Aged Out No longer eligi ble based on patient's age to complete this topic Meningococcal Vaccine Aged Out No marilu maira eligible based on patient's age to complete this topic RSV under 20 months Aged Out No longe r eligible based on patient's age to complete this topic Rotavirus Vaccines Aged Out No longer eligible based on patient's age to complete this topic Procedures Procedure Name Priority Date/Time Associated Diagnosis Comments POCT GLYCATED HEMOGLOBIN, TOTAL Routine 06/25/2024 2:05 PM EDT Type 2 diabetes mellitus with stage 3b chronic kidney disease, with long-term current use of insulin ([facility]) FUNDUS PHOTOS - OU - BOTH EYES Routine 06/21/2024 3:47 PM EDT 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 COLON CANCER SCREEN Routine 09/08/2023 [...] Maintenance Results * (ABNORMAL) POCT HGB A1C (06/25/2024 2:05 PM EDT) Hemoglobin A1C 7.2(A) 4.0 - 6.0 % QC Media Lot # [id number] Lot# Expiration Date ,820 Blood 06/25/2024 2:05 PM EDT Janine Gomez [facility] POINT OF CARE TEST ENTER/EDIT OR DERABLES Final Result * Fundus Photos - OU - Both Eyes (06/21/2024 3:47 PM EDT) Narrative Smiley Farr, OD - 06/21/2024 3:47 PM EDT Right Eye Progression has no prior data. Disc findings include normal observations. Macula findings include normal observations. Vessel findings include normal observations. Periphery findings include normal observations. Left Eye Progression has no prior data. Disc findings include normal observations. Macula findings include normal observations. Vessel findings include normal observations. Periphery findings include (Dot heme just nasal to ONH, Isolated drusen in superior macula). Notes Assessment and Plan: Mild non-proliferative diabetic retinopathy (NPDR) in the let eye. No treatment necessary. Will monitor in 1 year. Smiley Farr OD OPHTH PHOTOGRAPHY Edited * Cologuard?? colon cancer screening (09/08/2023 11:00 AM EDT) Cologuard Result Negative Negative 09/20/19 24 5:15 AM EDT [employer]ot[employer] (CLIA #:[id number]) Comment: NEGATIVE TEST RESULT. A negative Cologuard [...] screened with both Cologuard and colonoscopy. (Katelyn Garcia. et al, N Engl J Med 2014;370(14):1286- 1297) The normal value (reference range) for this assay is negative. COLOGUARD RE-SCREENING RECOMMENDATION: Periodic colorectal cancer screening is an important part of preventive healthcare for asymptomatic individuals at average risk for colorectal cancer. ??Following a negative Cologuard result, the [place] [employer] Society and U.S. Multi-Society Task Force screening guidelines recommend a Cologuard re-screening interval of 3 years. References: [place] [employer] Guideline for Colorectal Cancer Screening: https://www.cancer.org/cancer/nslma-pgbezb-dzklbr/cxqiwvmir-yxgmuvsin-uwtdinf/ac s-rec ommendations.html.; Twan CRUZ, Audra REY, Aubrey SmithK, Colorectal Cancer Screening: Recommendations for Physicians and Patients from the U.S. Multi-Society Task Force on Colorectal Cancer Screening , Am J Gastroenterology 2017; 112:9913-3841. TEST DESCRIPTION: Composite algorithmic analysis of stool [...] Helms et al, N Engl J Med 2014;370(14):8197-0810.) Cologuard may produce a false negative or false positive result (no colorectal cancer or precancerous polyp present at colonoscopy follow up). A negative Cologuard test result does not guarantee the absence of CRC or advanced adenoma (pre-cancer). The current Cologuard screening interval is every 3 years. ([place] [employer] and U.S. Multi-Society Task Force). Cologuard performance data in a 10,000 patient pivotal study using colonoscopy as the reference method can be accessed at the following location: www.Videojug/results. Additional description of the Cologuard test process, warnings and precautions can be found at www.[employer] Access Technology[employer].com. Stool specimen (specimen) 09/08/2023 11:00 AM EDT 09/09/2023 10:49 AM EDT [facility] MOLECULAR DIAGNOSTICS ORDERA BLES Final Result [employer]ot[employer]edia (CLIA #:[id number]) [place] [place] [address], * HIV-1/2 Antigen and Antibodies, Fourth Generation, with Reflexes (02/14/2023 9:57 AM EST) HIV AB/AG Nonreactive Nonreactive [facility] Comment:HIV-1 p24 Ag and/or HIV-1/HIV-2 Ab not detected.A test result that is nonreactive does not exclude thepossibility of exposure to or infection with HIV-1 and/orHIV-2. Nonreactive results in this assay for individualswith prior exposure to HIV-1 and/or HIV-2 may be due toantigen and antibody levels that are below the limit ofdetection of this assay.The [employer] Midstream HIV Ag/Ab Combo assay result andsupplemental assay results should be interpreted inconjunction with the patient's clinical presentation,history and other laboratory results. If the results areinconsistent with clinical evidence, additional testing issuggested to confirm the result. Blood Venous blood specimen / Unknown 02/14/2023 9:57 AM EST 02/14/2023 11:09 AM EST us [facility] LAB BLOOD ORDERABLES Final Resul t [facility] [address] [place] [phone] * (ABNORMAL) Lipid Panel, Standard (02/14/2023 9:57 AM EST) Triglycerides 80 <150 mg/dL [facility] Comment:Desirable Triglyceri de: less than 150 mg/dLBorderline High Triglyceride 150-199 mg/dLHigh Triglyceride: 200-499 mg/dLVery High Triglyceride: greater than or equal to 5OO mg/dL Cholesterol 110 <200 mg/dL [facility] Comment:Desirable Cholestero l: less than 200 mg/dLBorderline High Cholesterol: 200-239 mg/dLHigh Cholesterol: greater than 239 mg/dL LDL Cholesterol Calculated 54 <100 mg/dL [facility] Comment:Desirable LDL: less than 100 mg/dLNear Optimal/Above Optimal LDL: 110- 129 mg/dLBorderline High LDL: 130-159 mg/dLHigh LDL: 160-189 mg/dLVery High LDL: greater than or equal to 190 mg/dL HDL Cholesterol 40(L) >40 mg/dL [facility] Comment:Desirable HDL: great er than 40 mg/dL Note: This HDL assay may give artificially low results in patients with liver disease. Blood Venous blood specimen / Unknown 02/14/2023 9:57 AM EST 02/14/2023 11:09 AM EST us Janine RYAN LAB BLOOD ORDERABLES Final Resul t [facility] [address] [place] [address] [phone] from Last 3 Months or Most Recently Relevant to Health Maintenance Insurance [facility] < 65 TC HECK [id number] Care Teams Frame Bander Relationship Specialty Start Date End Date Janine Gomez ANP [address] [place] [address] PCP - General Family Medicine 11/13/20 Andrea Joaquin, RobeD [address] [place] [address] Pharmacist Internal Medicine 01/03/24
--- OUTSIDE RECORDS SUMMARY | 2024-07-24 16:29 | XMS_ITS | Encounter Summary ---
Author Organization [employer] Address [address] 7 [place] [address] Care Team Providers Care Inspector Dials Name Role Phone Janine Gomez Primary Care Provider [phone] Andrea Joaquin PharmD Unavailable [phone] Reason for Visit * Reason Comments Med Refill Encounter Details Date Type Department Care Team (Late Contact Info) Description 07/18/2022 Refill [facility] [address] [place] [address] Janine Gomez ANP [address] [place] [address] Other male erectile dysfunction Social History Tobacco [...] Department Care Team (Late Contact Info) Description 09/24/2024 1:00 PM EDT Medication Management [facility] [address] [place] [address] Andrea Joaquin, PharmD [address] [place] [address] documented as of this encounter Visit Diagnoses Diagnosis Other male erectile dysfunction documented in this encounter Care Teams Inspector Dials Relationship Specialty Start Date End Date Janine Gomez ANP [address] [place] [address] PCP - General Family Medicine 11/13/20 Andrea Joaquin PharmD [address] [place] [address] Pharmacist Internal Medicine 01/03/24 documented as of this encounter
--- OUTSIDE RECORDS SUMMARY | 2024-07-24 16:29 | XMS_ITS | Encounter Summary ---
Author Organization [employer] Address [address] [place] [address] 7 [place] [address] Care Team Providers Care Hvac R Tech Name Role Phone Janine Gomez Primary Care Provider [phone] Andrea Joaquin PharmD Unavailable [phone] Encounter Details Date Type Department Care Team (Late st Contact Info) Description 03/23/2022 Orders Only [facility] [address] [place] [address] Renate Chinchilla LPN Social History Tobacco Use [...] Description 09/24/2024 1:00 PM EDT Medication Management [facility] [address] [place] [address] Andrea Joaquin, PharmD [address] [place] [address] documented as of this encounter Visit Diagnoses Not on filedocumented in this encounter Care Teams Hvac R Tech Relationship Specialty Start Date End Date Janine Gomez ANP [address] [place] [address] PCP - General Family Medicine 11/13/20 Andrea Joaquin, PharmD [address] [place] [phone] Pharmacist Internal Medicine 01/03/24 documented as of this encounter
--- OUTSIDE RECORDS SUMMARY | 2024-07-24 16:29 | XMS_ITS | Encounter Summary ---
Author Organization [employer] Address [address] [place] [address] 7 [place] [address] Care Team Providers Care Plastics Factory Worker Name Role Phone Janine Gomez Primary Care Provider [phone] Andrea Joaquin PharmD Unavailable [phone] Encounter Details Date Type Department Care Team (Late st Contact Info) Description 04/13/2022 Orders Only [facility] [address] [place] [address] Renate Chinchilla LPN Social History Tobacco Use [...] Description 09/24/2024 1:00 PM EDT Medication Management [facility] [address] [place] [address] Andrea Joaquin, PharmD [address] [place] [address] documented as of this encounter Visit Diagnoses Not on filedocumented in this encounter Care Teams Plastics Factory Worker Relationship Specialty Start Date End Date Janine Gomez ANP [address] [place] [address] PCP - General Family Medicine 11/13/20 nAdrea Joaquin, PharmD [address] [place] [address] Pharmacist Internal Medicine 01/03/24 documented as of this encounter
--- OUTSIDE RECORDS SUMMARY | 2024-07-24 16:29 | XMS_ITS | Encounter Summary ---
Author Organization [employer] Address [address] [place] [address] 7 [place] [address] Care Team Providers Care Linen Worker Name Role Phone Janine Gomez Primary Care Provider [phone] Andrea Joaquin PharmD Unavailable [phone] Encounter Details Date Type Department Care Team (Late st Contact Info) Description 04/29/2022 Orders Only [facility] [address] [place] [address] Renate Chinchilla LPN Social History Tobacco Use [...] Description 09/24/2024 1:00 PM EDT Medication Management [facility] [address] [place] [address] Andrea Joaquin, PharmD [address] [place] [address] documented as of this encounter Visit Diagnoses Not on filedocumented in this encounter Care Teams Linen Worker Relationship Specialty Start Date End Date Janine Gomez ANP [address] [place] [address] PCP - General Family Medicine 11/13/20 Andrea Joaquin, PharmD [address] [place] [phone] Pharmacist Internal Medicine 01/03/24 documented as of this encounter
--- OUTSIDE RECORDS SUMMARY | 2024-07-24 16:29 | XMS_ITS | Encounter Summary ---
Author Organization [employer] Address [address] [place] [address] Care Team Providers Care Tallow Refiner Name Role Phone Gomez Janine RYAN Primary Care Provider [phone] Andrea Joaquin PharmD Unavailable [phone] Encounter Details Date Type Department Care Team ([facility] st Contact Info) Description 01/04/2023 Orders Only [facility] [address] [place] [address] Renate Chinchilla LPN Social History Tobacco Use [...] Description 09/24/2024 1:00 PM EDT Medication Management [facility] [address] [place] [address] Andrea Joaquin, PharmD [address] [place] [address] documented as of this encounter Visit Diagnoses Not on filedocumented in this encounter Care Teams Tallow Refiner Relationship Specialty Start Date End Date aJnine Gomez ANP [address] [place] [address] PCP - General Family Medicine 11/13/20 Andrea Joaquin, PharmD [address] [place] [phone] Pharmacist Internal Medicine 01/03/24 documented as of this encounter
--- OUTSIDE RECORDS SUMMARY | 2024-07-24 16:30 | XMS_ITS | Encounter Summary ---
Author Organization [facility] Address [address] [place] [address] 7 [place] [address] Care Team Providers Care Cut Out And Marking Machine Operator Name Role Phone Janine Gomez Primary Care Provider [phone] Andrea Joaquin PharmD Unavailable [phone] Encounter Details Date Type Department Care Team (Late st Contact Info) Description 04/07/2022 Orders Only [facility] [address] [place] [phone] Liliana Pace LPN Social History Tobacco Use [...] Description 09/24/2024 1:00 PM EDT Medication Management [facility] [address] [place] [address] Andrea Joaquin, PharmD [address] [place] [address] documented as of this encounter Visit Diagnoses Not on filedocumented in this encounter Care Teams Cut Out And Marking Machine Operator Relationship Specialty Start Date End Date Janine Gomez ANP [address] [place] [address] PCP - General Family Medicine 11/13/20 Andrea Joaquin, RobeD [address] [place] [address] Pharmacist Internal Medicine 01/03/24 documented as of this encounter
--- OUTSIDE RECORDS SUMMARY | 2024-07-24 16:30 | XMS_ITS | Encounter Summary ---
Author Organization [facility] Address [address] [place] [address] 7 [place] [address] Care Team Providers Care Manager Sales Support Name Role Phone Janine Gomez Primary Care Provider [phone] Andrea Joaquin PharmD Unavailable [phone] Encounter Details Date Type Department Care Team (Late st Contact Info) Description 04/02/2022 Orders Only [facility] [address] [place] [id number] Sary Olivas, RN [address] [place] [address] Social History Tobacco Use Types Packs/Day Years [...] Description 09/24/2024 1:00 PM EDT Medication Management [facility] [address] [place] [address] Andrea Joaquin, PharmD [address] [place] [address] documented as of this encounter Visit Diagnoses Not on filedocumented in this encounter Care Teams Manager Sales Support Relationship Specialty Start Date End Date Janine Gomez ANP [address] [place] [address] PCP - General Family Medicine 11/13/20 Andrea Joaquin, PharmD [address] [place] [address] [place] [address] Pharmacist Internal Medicine 01/03/24 documented as of this encounter
--- OUTSIDE RECORDS SUMMARY | 2024-07-24 16:30 | XMS_ITS | Encounter Summary ---
Author Organization [employer] Address [address] [facility] [address] [place] [address] Care Team Providers Care Paper Slitter Name Role Phone Patricia Janine RYAN Primary Care Provider [phone] Andrea Joaquin PharmD Unavailable [phone] Reason for Visit * Reason Comments Hives Encounter Details Date Type Department Care Team ([facility] st Contact Info) Description 07/24/2024 3:20 PM EDT Office Visit [facility] [address] [place] [address] Social History Tobacco Use Types Packs/Day Years [...] AM EDT documented as of this encounter Last Filed Vital Signs Vital Sign Reading Time Taken Comments Blood Pressure 144/78 07/24/2024 3:12 PM EDT Pulse 84 07/24/2024 3:12 PM EDT Temperature 36.2 ??C (97.2 ??F) 07/24/2024 3:12 PM ED T Respiratory Rate 16 07/24/2024 3:12 PM EDT Oxygen Saturation 98% 07/24/2024 3:12 PM EDT Inhaled Oxygen Concentration - - Weight 94.3 kg (208 lb) 07/24/2024 3:12 PM EDT Height - - Body Mass Index 30.72 03/29/2024 1:26 PM EST documented in this encounter Plan of Treatment Upcoming Encounters Date Type Department Care Team (Late st Contact Info) Description 09/24/2024 1:00 PM EDT Medication Management [facility] [address] [place] [address] Andrea Joaquin, PharmD [address] [place] [address] documented as of this encounter Visit Diagnoses Not on filedocumented in this encounter Additional Health Concerns Assessment Noted Time PHQ-9 Depression Total Score: 3 10/27/19 24 11:27 AM EDT documented as of this encounter Care Teams Paper Slitter Relationship Specialty Start Date End Date Janine Gomez ANP [address] [place] [address] PCP - General Family Medicine 11/13/20 Andrea Joaquin, PharmD [address] [place] [address] [place] [address] Pharmacist Internal Medicine 01/03/24 documented as of this encounter
--- OUTSIDE RECORDS SUMMARY | 2024-07-24 16:30 | XMS_ITS | Clinical Summary ---
Author Organization [facility] Facility Address [address] [place] [address], [place] [address] Care Team Providers Care Hardboard Factory Worker Name Role Phone Janine Gomez NP Primary Care Provider [phone] Allergies Active Allergy Reactions Criticality Noted Date [...] patient's age to complete this topic Insurance [facility] ([id number]) [facility] ([id number]) Care Teams Hardboard Factory Worker Relationship Specialty Start Date End Date Janine Gomez NP PCP - General Nurse Practitioner 08/07/21
== END 2024-07-24 16:44 | disposition left against medical advice (07) ==
PROVIDERS: Emergency Provider Emergency Medicine; PCP Nurse Practitioner Primary Care
DX: R21 Rash and other nonspecific skin eruption (principal); M79.89 Other specified soft tissue disorders; E11.9 Type 2 diabetes mellitus without complications; F19.10 Other psychoactive substance abuse, uncomplicated; F17.210 Nicotine dependence, cigarettes, uncomplicated
CPT/HCPCS: 99281

== ENCOUNTER 2024-07-24 15:44 | Outpatient (REF) | payer OTHER, SELFPAY | END 2024-07-24 15:45 | disposition home or self-care (01) | LOC: HO.HHCL 15:44 | PROVIDERS: Visit Provider Internal Medicine | DX: Z13.89 Encounter for screening for other disorder (principal) ==

== ENCOUNTER 2024-09-06 14:11 | Outpatient (RCR) | payer OTHER, SELFPAY | END 2024-09-06 16:24 | disposition hospice, home (50) | LOC: HO.WCC 14:11 | PROVIDERS: PCP Nurse Practitioner Primary Care; Visit Provider Surgery | DX: T25 Burn and corrosion of ankle and foot (principal); T25.621D Corrosion of second degree of right foot, subsequent encounter; T31.0 Burns involving less than 10% of body surface; T54.91XD Toxic effect of unspecified corrosive substance, accidental (unintentional), subsequent encounter | CPT/HCPCS: 16020; 99213 ==

== ENCOUNTER 2024-09-14 14:16 | Outpatient (AMB) | payer OTHER, SELFPAY ==
--- OUTSIDE RECORDS SUMMARY | 2024-09-14 14:17 | XMS_ITS | Encounter Summary ---
Author Organization [employer] Address [address] 7[address] [place] [address] Care Team Providers Care Policy Adviser Name Role Phone Janine Gomez Primary Care Provider [phone] Andrea Joaquin PharmD Unavailable [phone] Encounter Details Date Type Department Care Team ([facility] st Contact Info) Description 01/04/2023 Orders Only [facility] [address] [place] [address] Renate Chinchilla LPN Social History Tobacco Use [...] 1:00 PM EDT Medication Management [facility] [address] [place] [address] Andrea Joaquin, Alexandru [address] [place] [phone] 11/02/2024 9:30 AM EDT Office Visit [address] [address] Betito Jolly MD [address] [place] [address] documented as of this encounter Visit Diagnoses Not on filedocumented in this encounter Care Teams Policy Adviser Relationship Specialty Start Date End Date Janine Gomez ANP [address] [place] [address] [phone] PCP - General Family Medicine 11/13/20 Andrea Joaquin, PharmD [address] [place] [phone] Pharmacist Internal Medicine 01/03/24 documented as of this encounter
--- NOTE | 2024-09-14 14:20 | A.OFFVIS_ITS ---
Vital Signs 3 09/14/24 14:21 Height 5 ft 9 in Pulse 85 Pulse Source Pulse Oximeter Pulse Oximetry (%) 97 Oxygen Delivery Method Room Air Intake Visit Reasons: Wound care Reff/ Osteomyelitis Occupational Therapy Teacher Required: Yes Occupational Therapy Teacher Services: Occupational Therapy Teacher Present Occupational Therapy Teacher Name: Be Billings CMA Information Interpreted: clinical only Allergies No Known Allergies Allergy (Unknown, Verified 09/14/24 14:33) HPI HPI Wound care Reff/ Osteomyelitis: Details: He has been seeing Wound Care as has been irritating or burning bottom of foot. He sees bugs coming out of his skin and no one believes him His Wound is healed plantar area as per picture. He starts peeling his skin and complaining loudly to all staff and throwing skin fragments around room. [facility] Medical History (Updated 09/23/24 @ 23:07 by Elizabeth Jasso MD) Delusions of parasitosis Nicotine dependence, cigarettes, uncomplicated Substance abuse Diabetes Surgical History Hx of cholecystectomy Family History Father Diabetes Mother HTN (hypertension) Social History Household Members Other:: lives alone Alcohol intake: current Alcohol intake frequency: a few times a week Patient Tobacco Use Status: Current someday Tobacco user Cigarettes Per Day: 10 Substance Use Type: Crack/Cocaine and Heroin Current occupational status: unemployed and disabled Review of Systems Const All systems reviewed & are unremarkable except as noted in HPI and below Physical Exam Vital Signs: Last Vital Signs Pulse 85 09/14/24 14:21 Pulse Ox 97 09/14/24 14:21 Oxygen Delivery Method Room Air 09/14/24 14:21 Const Other: General: cooperative Orientation/consciousness: patient oriented x3 HEENT Head: Yes normal to inspection Mouth: Normal oral and palatal mucosa present Eyes General: appearance normal, both eyes and all related structures Pupils: Equal, round and reactive pupils present Resp Effort & Inspection: normal respiratory effort Cardio Rate: regular rate Rhythm: regular rhythm GI Palpation (GI): Soft to palpation and nontender General: Yes no CVA tenderness Back/Spine/Pelvis Back: no CVA tenderness Skin General skin exam: no rashes or lesions noted Neuro General: patient oriented x3 Cranial nerves: Yes CN's II-XII intact bilaterally and Yes Equal, round and reactive pupils present Extrem General: Yes normal to inspection Psych Appearance: grossly normal Assessment & Plan Assessment & Plan (1) Delusions of parasitosis: Comment: Just in case scabies he was given Permethrin Code(s): F22 - Delusional disorders Category: Medical Plan: Wound Care referred to us. There are no worms seen. 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 This should be referral to PCP not Infectious Disease so he can get appropriate psychiatric care also since he is very anxious and angry Medications: New 2 permethrin 5% apply second treatment 14 days after first treatment if live lice remain 1 appl topical Q14D 60 grams 0RF 2 doses Coding Level of Care Code New Pt Level 3 (13709) Diagnoses Delusions of parasitosis F22
[2024-09-14 14:21] VITALS: PULSE 85; O2SAT 97
== END 2024-09-14 15:12 | disposition home or self-care (01) ==
LOC: HO.HID 14:16
PROVIDERS: PCP Nurse Practitioner Primary Care; Visit Provider Internal Medicine
DX: F22 Delusional disorders (principal)
CPT/HCPCS: 99203

== ENCOUNTER → 2024-09-14 14:16 | Outpatient (BNVA) | payer OTHER, SELFPAY | PROVIDERS: PCP Nurse Practitioner Primary Care; Visit Provider Internal Medicine | DX: F22 Delusional disorders (principal) | CPT/HCPCS: 99202 ==

== ENCOUNTER 2024-10-11 17:28 | Emergency (ER) | payer OTHER, SELFPAY ==
[2024-10-11 17:40] VITALS: BP 130/67; PULSE 93; RESP 16; TEMP 36.8; O2SAT 97; BMI 29.7
--- NOTE | 2024-10-11 17:41 | ED.GENADULT ---
HPI - General Adult General Chief complaint: Skin/Abscess/Foreign Body Stated complaint: left arm swelling Time Seen by Provider: 10/11/24 20:52 Source: patient Mode of arrival: ambulatory Limitations: no limitations History of Present Illness ED Provider: Eh MONTEZ HPI narrative: The patient is a 64-year-old male with history of PAD, diabetes, and previous IVDA presenting to the ED reporting since March he has been experiencing mites crawling out from under his skin throughout his body. The patient reports he has seen his PCP, infectious Disease, and has had multiple ED visits, patient reports he has also been referred to a api architect but has not gotten an appointment, the patient reports he has been prescribed antibiotics, creams, and anti itching medication. The patient reports no provider's ever look close enough with a magnifying glass to see the mites, during interview patient manually expresses excoriated areas of his skin and points to the area to show this provider the mites, however no insects are seen. The patient reports he recently washed his left arm with bleach and water due to the sensation of parasites. Of note chart review reveals the patient has been previously diagnosed with delusions of parasitosis. Related Data Home Medications ?Medication ?Instructions ?Recorded ?Confirmed aspirin 81 mg tablet,delayed 81 mg PO DAILY 05/07/21 11/29/23 release (Adult Aspirin Regimen) atorvastatin 40 mg tablet 40 mg PO BEDTIME 05/07/21 11/29/23 hydrochlorothiazide 25 mg tablet 25 mg PO Q OTHER DAY 05/07/21 11/29/23 insulin aspart U-100 100 unit/mL 1 sliding scale dose subcut 05/07/21 11/29/23 (3 mL) subcutaneous pen (Novolog USEASDIRECTD FlexPen U-100 Insulin aspart) insulin glargine U-300 conc 300 30 unit subcut BEDTIME 05/07/21 11/29/23 unit/mL (1.5 mL) subcutaneous pen (Toujeo SoloStar U-300 Insulin) lisinopril 30 mg tablet 30 mg PO DAILY 05/07/21 11/29/23 metformin 500 mg tablet 500 mg PO DAILY 05/07/21 11/29/23 Previous Rx's ?Medication ?Instructions ?Recorded bisacodyl 5 mg tablet,delayed 10 mg (2 x 5 mg) PO ONCE 05/07/21 release (Dulcolax (bisacodyl)) colonoscopy prep 1 day #2 tabs docusate sodium 100 mg capsule 200 mg (2 x 100 mg) PO BEDTIME #60 05/07/21 (Colace) caps polyethylene glycol 3350 17 17 g PO DAILY #510 grams 05/07/21 gram/dose oral powder (Miralax) polyethylene glycol 3350 17 238 g PO ONCE 1 day #238 grams 05/07/21 gram/dose oral powder (Miralax) simethicone 125 mg chewable tablet 125 mg PO TID-QID PRN abdominal 05/07/21 (Gas Relief (simethicone)) distention #90 tabs glucagon 1 mg solution for 1 mg subcut Q20M PRN hypoglycemia 01/21/23 injection (Glucagon Emergency Kit) #1 ea tadalafil 20 mg tablet 20 mg PO ONCE PRN sexual activity 05/29/24 30 days #30 tabs tadalafil 5 mg tablet 5 mg PO DAILY sexual activity 90 05/29/24 days #90 tabs permethrin 5 % topical cream 1 appl topical Q14D 2 doses #60 09/14/24 grams Allergies Allergy/AdvReac Type Severity Reaction Status Date / Time No Known Allergies Allergy Unknown Verified 10/11/24 17:42 Review of Systems Review of Systems: Yes all other systems are reviewed and are negative [facility] Past Medical History Medical History (Updated 10/11/24 @ 21:32 by Eh Garcia PA-C) Delusions of parasitosis Nicotine dependence, cigarettes, uncomplicated Substance abuse Diabetes Surgical History Hx of cholecystectomy Family History Family History Father Diabetes Mother HTN (hypertension) Social History Social History Household Members Other:: lives alone Alcohol intake: current Alcohol intake frequency: a few times a week Patient Tobacco Use Status: Current someday Tobacco user Cigarettes Per Day: 10 Substance Use Type: Crack/Cocaine and Heroin Advance Directives: No Advance Directives Information Provided: No Do you have a plan to hurt others: No Plan Current occupational status: unemployed and disabled Physical Exam ED Vital Signs: Vital Signs - 24 hr 10/11/24 17:40 10/11/24 20:10 Temperature 98.3 F 98.1 F Pulse Rate 93 70 Respiratory Rate 16 16 Blood Pressure 130/67 154/72 H Pulse Oximetry 97 97 Oxygen Delivery Method Room Air Room Air BMI result Body Mass Index 29.7 CONSTITUTIONAL: The patient appears non-toxic, well nourished and in no acute distress. Vital signs as documented. HEAD: Atraumatic, normocephalic. EYES: EOMs grossly intact, pupils equal, conjunctiva clear, no exudate. ENT: Nares patent, no discharge. Airway patent, no audible stridor, visible mucosa is pink and moist without noted lesions. NECK: trachea is midline, no obvious masses or gross abnormalities. CHEST: Symmetric movement, normal appearance. LUNGS: Non-labored work of breathing. CARDIAC: No evidence of hypoperfusion. ABDOMEN: Nondistended, no obvious injury. : Deferred. EXTREMITIES: Moves all extremities spontaneously without reported pain. No obvious injury or deformity noted. NEURO: Alert and oriented x3, CN II-XII appear grossly intact. Cerebellar Functioning grossly intact. Speech clear and appropriate. SKIN: Warm, dry, color appropriate. There are multiple scars consistent with previous IVDA noted to the bilateral forearms, there are also numerous areas of excoriation of the bilateral arms and legs, left arm shows erythema however patient denies tenderness. There is no evidence of well demarcated cellulitis, no evidence of abscess, no fluctuance. There are innumerable areas of scarring of various stages of healing consistent with a picking disorder. Course Course Course Narrative: This is a rapid medical exam performed by Sherita Polanco NP: Additional HPI, ROS, PE not included below will be deferred to primary provider. Patient is a 64-year-old male stating that he has mites coming out from under his skin all over his body. States he even took pills from the CDC but is still having bugs coming out from under his skin. Recently applied watered down bleach to his left forearm, now has redness and swelling. Has seen wound care, ID, been dx with delusional parasitosis. Plan: basic labs, left FA c/f cellulitis Medical Decision Making Medical Decision Making MDM Narrative: 9:28 PM 10/11/2024 (April MONTEZ): The patient is a 64-year-old male presenting to the ED for evaluation of a sensation of mites crawling out from under his skin. Patient reports he has been seen multiple times by multiple providers since March and states no provider's have been able to help him or visualize the mites. The patient's exam reveals evidence of excoriation and picking, there are no parasites noted, no evidence of cellulitis or abscess. Laboratory evaluation shows no leukocytosis, anemia, or electrolyte abnormality. Patient's renal function is similar to baseline since 2021. The patient has been previously diagnosed with delusions of parasitosis, this is likely the source of the patient's excoriation and complaint. When patient was advised there was no evidence of emergent process, informed this provider did not see any mites, and was advised he needed to follow up with his PCP to follow up with Dermatology, the patient became highly agitated, accusatory, and verbally belligerent. The patient was offered anti-itch cream and anti-inflammatory medication but declined, patient then ended the patient interview and left the ED prior to treatment being completed. Lab Data 10/11/24 18:15 10/11/24 18:15 Labs: Lab Results 10/11/24 Range/Units 18:15 WBC 6.5 (4.8-10.8) X10*3/uL RBC 6.26 H (4.60-5.80) X10*6/uL Hgb 16.8 (14.0-18.0) g/dl Hct 50.7 (42.0-52.0) % MCV 81.0 (80.0-98.0) fL MCH 26.8 L (27.0-33.0) pg MCHC 33.1 (31.0-36.0) g/dl RDW 14.3 (11.0-16.0) % Plt Count 230 D (160-400) X10*3/uL MPV 8.9 L (9.4-12.4) fL Immature Gran % (Auto) 0.2 (0.0-0.4) % Neut % (Auto) 53.7 (45-73) % Lymph % (Auto) 21.5 (20-40) % [place] % (Auto) 11.1 H (2-11) % Eos % (Auto) 12.6 H (0-4) % Baso % (Auto) 0.9 (0-2) % Lymph # (Auto) 1.4 (1.2-4.9) X10*3/uL [place] # (Auto) 0.7 (0.1-1.2) X10*3/uL Eos # (Auto) 0.8 H (0.0-0.4) X10*3/uL Baso # (Auto) 0.1 (0.0-0.2) X10*3/uL Abs Immat Gran (auto) 0.01 (0.00-0.03) X10*3/uL Absolute Neuts (auto) 3.5 (2.0-8.3) x10*3/uL Absolute Nucleated RBC 0.000 (0.0-0.012) X10*3/uL Nucleated RBC % (auto) 0.0 (0.0-0.2) /100WBC Smear Tech's Comments VERIFIED Sodium 139 (135-145) mmol/L Potassium 3.8 (3.3-5.1) mmol/L Chloride 104 (96-108) mmol/L Carbon Dioxide 24 (22-29) mmol/L Anion Gap 15 (12-20) BUN 25 H (9-16) mg/dL Creatinine 1.51 H (0.5-1.4) mg/dL Estim Creat Clear Calc 55.1 Estimated GFR 47 Random Glucose 205 H (60-115) mg/dL Calcium 9.4 D (8.4-10.2) mg/dL Total Bilirubin 0.4 (0.0-1.0) mg/dL AST 25 (5-37) U/L ALT 21 (0-40) U/L Alkaline Phosphatase 72 (39-117) U/L Total Protein 7.2 (6.5-8.0) g/dL Albumin 4.2 (3.5-5.0) g/dL Discharge Plan Discharge Clinical Impression: Delusions of parasitosis Patient Disposition: Left W/O Completing Treatment Prescriptions: No Action Glucagon Emergency Kit (human) 1 mg recon soln 1 mg subcut Q20M PRN (Reason: hypoglycemia) Qty: 1 0RF Rx Instructions: until target blood sugar attained. Use only if unable to eat or drink. Make sure your family knows where you keep this glucagon emergency kit atorvastatin 40 mg tablet 40 mg PO BEDTIME aspirin [Adult Aspirin Regimen] 81 mg tablet,delayed release (DR/EC) 81 mg PO DAILY insulin aspart U-100 [Novolog FlexPen U-100 Insulin] 100 unit/mL (3 mL) insulin pen 1 sliding scale dose subcut USEASDIRECTD metformin 500 mg tablet 500 mg PO DAILY hydrochlorothiazide 25 mg tablet 25 mg PO Q OTHER DAY lisinopril 30 mg tablet 30 mg PO DAILY Toumiryam SoloStar U-300 Insulin 300 unit/mL (1.5 mL) insulin pen 30 unit subcut BEDTIME bisacodyl [Dulcolax (bisacodyl)] 5 mg tablet,delayed release (DR/EC) 10 mg PO ONCE 1 Days Qty: 2 0RF Rx Instructions: Take 2 tablets by mouth at 12:00pm the day before your procedure. polyethylene glycol 3350 [Miralax] 17 gram/dose powder 238 g PO ONCE 1 Days Qty: 238 0RF Rx Instructions: Take as directed by mouth the day before your procedure. docusate sodium [Colace] 100 mg capsule 200 mg PO BEDTIME Qty: 60 5RF polyethylene glycol 3350 [Miralax] 17 gram/dose powder 17 g PO DAILY Qty: 510 2RF simethicone [Gas Relief (simethicone)] 125 mg tablet,chewable 125 mg PO TID-QID PRN (Reason: abdominal distention) Qty: 90 2RF tadalafil 5 mg tablet 5 mg PO DAILY 90 Days Qty: 90 2RF tadalafil 20 mg tablet 20 mg PO ONCE PRN (Reason: sexual activity) 30 Days Qty: 30 5RF Rx Instructions: On demand medication take 60 minutes before intended activity permethrin 5 % cream 1 appl topical Q14D Qty: 60 0RF Rx Instructions: apply second treatment 14 days after first treatment if live lice remain
[2024-10-11 18:20] LABS: Hematocrit 50.7 % (42.0-52.0); Hemoglobin 16.8 g/dl (14.0-18.0); Imm Gran Abs Auto 0.01 X10*3/uL (0.00-0.03); Imm Gran Pct Auto 0.2 % (0.0-0.4); Lymphocytes Absolute Auto 1.4 X10*3/uL (1.2-4.9); Mean Corpuscular HGB Conc 33.1 g/dl (31.0-36.0); Mean Corpuscular Hemoglobin 26.8 pg (27.0-33.0); Mean Corpuscular Volume 81.0 fL (80.0-98.0); NRBC Abs Auto 0.000 X10*3/uL (0.0-0.012); NRBC Pct Auto 0.0 /100WBC (0.0-0.2); Red Blood Count 6.26 X10*6/uL (4.60-5.80); White Blood Count 6.5 X10*3/uL (4.8-10.8)
[2024-10-11 18:24] LABS: MANUAL DIFF FLAG SCAN
[2024-10-11 18:33] LABS: Alanine Aminotransferase 21 U/L (0-40); Albumin Level 4.2 g/dL (3.5-5.0); Alkaline Phosphatase 72 U/L (39-117); Anion Gap 15 (12-20); Aspartate Amino Transferase 25 U/L (5-37); Blood Urea Nitrogen 25 mg/dL (9-16); Calcium 9.4 mg/dL (8.4-10.2); Carbon Dioxide 24 mmol/L (22-29); Chloride 104 mmol/L (96-108); Creatinine Clr Calc Pharmacy 55.1; Estimated Glomerular Filt Rate 47; Potassium 3.8 mmol/L (3.3-5.1); Sodium 139 mmol/L (135-145); Total Protein 7.2 g/dL (6.5-8.0)
[2024-10-11 18:52] LABS: Platelet Count 230 X10*3/uL (160-400)
--- OUTSIDE RECORDS SUMMARY | 2024-10-11 19:05 | XMS_ITS | Clinical Summary ---
Author Organization [facility] Facility Address [address] [place] [address], [place] [address] Care Team Providers Care Digital Marketing Analyst Name Role Phone Janine Gomez NP Primary Care Provider [phone] Allergies Active Allergy Reactions Criticality Noted Date [...] Hemoglobin A1C 08/27/2022 05/27/2022 Influenza Vaccine (#1) 2024 3, 03/16/2021, 01/25/2020, Additional history exists Pneumococcal Vaccine: Peds (0 to 5 Years) and At-Risk Patients (6 to 49 Years) Discontinued 03/03/2001 Hepatitis B Vaccine Aged Out No longe r eligible based on patient's age to complete this topic Insurance [facility] ([id number]) [facility] ([id number]) Care Teams Digital Marketing Analyst Relationship Specialty Start Date End Date Janine Gomez NP PCP - General Nurse Practitioner 08/07/21
[2024-10-11 20:10] VITALS: BP 154/72; PULSE 70; RESP 16; TEMP 36.7; O2SAT 97
--- NOTE | 2024-10-11 21:15 | PC.NURSE ---
Pt arguing with provider at bedside about bugs under his skin. Pt states No one can see them but they are there. Provider looked at skin and did not see anything. Pt left without completing treatment.
== END 2024-10-11 21:10 | disposition left against medical advice (07) ==
PROVIDERS: Registered Nurse Emergency; Emergency Provider Emergency Medicine
DX: F22 Delusional disorders (principal); R60.0 Localized edema; E11.9 Type 2 diabetes mellitus without complications; Z79.4 Long term (current) use of insulin; Z79.899 Other long term (current) drug therapy
CPT/HCPCS: 36415; 80053; 85025; 99283; 99284

== ENCOUNTER 2025-02-10 18:52 | Emergency (ER) | payer OTHER, SELFPAY ==
[2025-02-10 19:05] VITALS: BP 131/60; PULSE 89; RESP 18; TEMP 36.4; O2SAT 96; BMI 29.7
--- NOTE | 2025-02-10 19:05 | ED_ITS ---
<Statement entered by Leah Mendoza DO - 02/13/25 11:12> DUPLICATE HPI - Skin/Abscess/Foreign Bdy General Chief complaint: Psychiatric Symptoms Stated complaint: Wound Time Seen by Provider: 02/10/25 19:35 History of Present Illness HPI narrative: DUPLICATE do not use for Billing. Related Data Home Medications ?Medication ?Instructions ?Recorded ?Confirmed aspirin 81 mg tablet,delayed 81 mg PO DAILY 05/07/21 0 11/29/23 release (Adult Aspirin Regimen) atorvastatin 40 mg tablet 40 mg PO BEDTIME 05/07/21 hydrochlorothiazide 25 mg tablet 25 mg PO Q OTHER DAY 05/07/21 11/29/23 insulin aspart U-100 100 unit/mL 1 sliding scale dose subcut 05/07/21 11/29/23 (3 mL) subcutaneous pen (Novolog USEASDIRECTD FlexPen U-100 Insulin aspart) insulin glargine U-300 conc 300 30 unit subcut BEDTIME 05/07/21 11/29/23 unit/mL (1.5 mL) subcutaneous pen (Toujeo SoloStar U-300 Insulin) lisinopril 30 mg tablet 30 mg PO DAILY 05/07/21 09/0 06/18 metformin 500 mg tablet 500 mg PO DAILY 05/07/2106/18 Previous Rx's ?Medication ?Instructions ?Recorded bisacodyl 5 mg tablet,delayed 10 mg (2 x 5 mg) PO ONCE 05/07/21 release (Dulcolax (bisacodyl)) colonoscopy prep 1 day #2 tabs docusate sodium 100 mg capsule 200 mg (2 x 100 mg) PO BEDTIME #60 05/07/21 (Colace) caps polyethylene glycol 3350 17 17 g PO DAILY #510 grams 0 05/07/21 gram/dose oral powder (Miralax) polyethylene glycol 3350 17 238 g PO ONCE 1 day #238 g ayesha 05/07/21 gram/dose oral powder (Miralax) simethicone 125 mg chewable tablet 125 mg PO TID-QID P RN abdominal 05/07/21 (Gas Relief (simethicone)) distention #90 tabs glucagon 1 mg solution for 1 mg subcut Q20M PRN hypogl ycemia 01/21/23 injection (Glucagon Emergency Kit) #1 ea tadalafil 20 mg tablet 20 mg PO ONCE PRN sexual act ivity 05/29/24 30 days #30 tabs tadalafil 5 mg tablet 5 mg PO DAILY sexual activit y 90 05/29/24 days #90 tabs permethrin 5 % topical cream 1 appl topical Q14D 2 dos es #60 09/14/24 grams Allergies Allergy/AdvReac Type Severity Reaction Status Date / Time No Known Allergies Allergy Unknown Verified 02/10/25 19:11 [facility] Past Medical History Medical History (Updated 02/11/25 @ 00:01 by Charisse Rivera) Delusions of parasitosis Nicotine dependence, cigarettes, uncomplicated Substance abuse Diabetes Surgical History Hx of cholecystectomy Family History Family History Father Diabetes Mother HTN (hypertension) Social History Social History Household Members Other:: lives alone Alcohol intake: current Alcohol intake frequency: a few times a week Patient Tobacco Use Status: Current someday Tobacco user Cigarettes Per Day: 10 Use of substances other than those prescribed or required for medical reasons: No Substance Use Type: Crack/Cocaine and Heroin Advance Directives: No Advance Directives Information Provided: No Current occupational status: unemployed and disabled Physical Exam 2 Vital Signs: Vital Signs: Last Vital Signs Temp 97.5 F 02/10/25 20:10 Pulse 89 02/10/25 20:10 Resp 18 02/10/25 20:10 BP 131/60 02/10/25 20:10 Pulse Ox 96 02/10/25 20:10 O2 Del Method Room Air 02/10/25 20:10 BMI result Body Mass Index 29.7 Course Reevaluation(s) Reevaluation #1: this is a duplicate note. see dr. mendoza's completed note regarding patient's visit on 02/10/25. Medical Decision Making Lab Data 02/10/25 19:21 02/10/25 19:21 Labs: Lab Results 02/10/25 Range/Units 19:21 WBC 5.6 (4.8-10.8) X10*3/uL RBC 6.54 H (4.60-5.80) X10*6/uL Hgb 17.6 (14.0-18.0) g/dl Hct 54.8 H (42.0-52.0) % MCV 83.8 (80.0-98.0) fL MCH 26.9 L (27.0-33.0) pg MCHC 32.1 (31.0-36.0) g/dl RDW 13.9 (11.0-16.0) % Plt Count 254 (160-400) X10*3/uL MPV 8.4 L (9.4-12.4) fL Immature Gran % (Auto) 0.2 (0.0-0.4) % Neut % (Auto) 54.0 (45-73) % Lymph % (Auto) 29.1 (20-40) % [place] % (Auto) 9.3 (2-11) % Eos % (Auto) 6.1 H (0-4) % Baso % (Auto) 1.3 (0-2) % Lymph # (Auto) 1.6 (1.2-4.9) X10*3/uL [place] # (Auto) 0.5 (0.1-1.2) X10*3/uL Eos # (Auto) 0.3 (0.0-0.4) X10*3/uL Baso # (Auto) 0.1 (0.0-0.2) X10*3/uL Abs Immat Gran (auto) 0.01 (0.00-0.03) X10*3/uL Absolute Neuts (auto) 3.0 (2.0-8.3) x10*3/uL Absolute Nucleated RBC 0.000 (0.0-0.012) X10*3/uL Nucleated RBC % (auto) 0.0 (0.0-0.2) /100WBC Sodium 140 (135-145) mmol/L Potassium 3.8 (3.3-5.1) mmol/L Chloride 104 (96-108) mmol/L Carbon Dioxide 25 (22-29) mmol/L Anion Gap 15 (12-20) BUN 24 H (9-16) mg/dL Creatinine 1.52 H (0.5-1.4) mg/dL Estim Creat Clear Calc 54.7 Estimated GFR 46 Random Glucose 156 H (60-115) mg/dL Calcium 9.8 (8.4-10.2) mg/dL Total Bilirubin 0.5 (0.0-1.0) mg/dL AST 33 (5-37) U/L ALT 30 (0-40) U/L Alkaline Phosphatase 51 (39-117) U/L Total Protein 7.1 (6.5-8.0) g/dL Albumin 4.2 (3.5-5.0) g/dL Discharge Plan Discharge Clinical Impression: Encounter for medical screening examination Patient Disposition: Home, Self-Care Additional Instructions: You were seen in our Emergency Department today for treatment of a behavioral health issue. It is important after your visit that you follow up with either your behavioral health provider or a primary care doctor within 7 days.? If you have trouble finding a therapist you can reach out to [place] [phone] The [email or web address] Suicide and Crisis Lifeline can be reached 7 days a week 24 hours a day.? Call 988 to speak with someone.? Return for any worsening symptoms or concerns such as thoughts of self harm or harm to others. Please call 911 if you feel your mental health is worsening.? Prescriptions: No Action Glucagon Emergency Kit (human) 1 mg recon soln 1 mg subcut Q20M PRN (Reason: hypoglycemia) Qty: 1 0RF Rx Instructions: until target blood sugar attained. Use only if unable to eat or drink. Make sure your family knows where you keep this glucagon emergency kit atorvastatin 40 mg tablet 40 mg PO BEDTIME aspirin [Adult Aspirin Regimen] 81 mg tablet,delayed release (DR/EC) 81 mg PO DAILY insulin aspart U-100 [Novolog FlexPen U-100 Insulin] 100 unit/mL (3 mL) insulin pen 1 sliding scale dose subcut USEASDIRECTD metformin 500 mg tablet 500 mg PO DAILY hydrochlorothiazide 25 mg tablet 25 mg PO Q OTHER DAY lisinopril 30 mg tablet 30 mg PO DAILY Toujeo SoloStar U-300 Insulin 300 unit/mL (1.5 mL) insulin pen 30 unit subcut BEDTIME bisacodyl [Dulcolax (bisacodyl)] 5 mg tablet,delayed release (DR/EC) 10 mg PO ONCE 1 Days Qty: 2 0RF Rx Instructions: Take 2 tablets by mouth at 12:00pm the day before your procedure. polyethylene glycol 3350 [Miralax] 17 gram/dose powder 238 g PO ONCE 1 Days Qty: 238 0RF Rx Instructions: Take as directed by mouth the day before your procedure. docusate sodium [Colace] 100 mg capsule 200 mg PO BEDTIME Qty: 60 5RF polyethylene glycol 3350 [Miralax] 17 gram/dose powder 17 g PO DAILY Qty: 510 2RF simethicone [Gas Relief (simethicone)] 125 mg tablet,chewable 125 mg PO TID-QID PRN (Reason: abdominal distention) Qty: 90 2RF tadalafil 5 mg tablet 5 mg PO DAILY 90 Days Qty: 90 2RF tadalafil 20 mg tablet 20 mg PO ONCE PRN (Reason: sexual activity) 30 Days Qty: 30 5RF Rx Instructions: On demand medication take 60 minutes before intended activity permethrin 5 % cream 1 appl topical Q14D Qty: 60 0RF Rx Instructions: apply second treatment 14 days after first treatment if live lice remain Interventions: [place]-Suicide Risk Severity Scale Last Done: 02/10/25 19:45 ED Discharge Assessment Last Done: 02/10/25 20:10 Discharge Date/Time: 02/10/25 20:13 Print Language: Grenadian
[2025-02-10 19:26] LABS: MANUAL DIFF FLAG NO
[2025-02-10 19:27] LABS: Hematocrit 54.8 % (42.0-52.0); Hemoglobin 17.6 g/dl (14.0-18.0); Imm Gran Abs Auto 0.01 X10*3/uL (0.00-0.03); Imm Gran Pct Auto 0.2 % (0.0-0.4); Lymphocytes Absolute Auto 1.6 X10*3/uL (1.2-4.9); Mean Corpuscular HGB Conc 32.1 g/dl (31.0-36.0); Mean Corpuscular Hemoglobin 26.9 pg (27.0-33.0); Mean Corpuscular Volume 83.8 fL (80.0-98.0); NRBC Abs Auto 0.000 X10*3/uL (0.0-0.012); NRBC Pct Auto 0.0 /100WBC (0.0-0.2); Platelet Count 254 X10*3/uL (160-400); Red Blood Count 6.54 X10*6/uL (4.60-5.80); White Blood Count 5.6 X10*3/uL (4.8-10.8)
--- NOTE | 2025-02-10 19:35 | ED_ITS ---
HPI - General Adult General Chief complaint: Psychiatric Symptoms Stated complaint: Wound Time Seen by Provider: 02/10/25 19:35 Source: patient Mode of arrival: ambulatory Limitations: no limitations History of Present Illness ED Provider: Dr. Armenta HPI narrative: 64-year-old male presented hospital today for unknown reasons. According to triage the patient has been complaining of bugs all over his body. When I has a assess the patient. He is requesting to be discharged. History is limited due to patient's cooperation. Related Data Home Medications ?Medication ?Instructions ?Recorded ?Confirmed aspirin 81 mg tablet,delayed 81 mg PO DAILY 05/07/21 0 11/29/23 release (Adult Aspirin Regimen) atorvastatin 40 mg tablet 40 mg PO BEDTIME 05/07/21 hydrochlorothiazide 25 mg tablet 25 mg PO Q OTHER DAY 05/07/21 11/29/23 insulin aspart U-100 100 unit/mL 1 sliding scale dose subcut 05/07/21 11/29/23 (3 mL) subcutaneous pen (Novolog USEASDIRECTD FlexPen U-100 Insulin aspart) insulin glargine U-300 conc 300 30 unit subcut BEDTIME 05/07/21 11/29/23 unit/mL (1.5 mL) subcutaneous pen (Toujeo SoloStar U-300 Insulin) lisinopril 30 mg tablet 30 mg PO DAILY 05/07/2106/18 metformin 500 mg tablet 500 mg PO DAILY 05/07/2106/18 Previous Rx's ?Medication ?Instructions ?Recorded bisacodyl 5 mg tablet,delayed 10 mg (2 x 5 mg) PO ONCE 05/07/21 release (Dulcolax (bisacodyl)) colonoscopy prep 1 day #2 tabs docusate sodium 100 mg capsule 200 mg (2 x 100 mg) PO BEDTIME #60 05/07/21 (Colace) caps polyethylene glycol 3350 17 17 g PO DAILY #510 grams 0 05/07/21 gram/dose oral powder (Miralax) polyethylene glycol 3350 17 238 g PO ONCE 1 day #238 g ayesha 05/07/21 gram/dose oral powder (Miralax) simethicone 125 mg chewable tablet 125 mg PO TID-QID P RN abdominal 05/07/21 (Gas Relief (simethicone)) distention #90 tabs glucagon 1 mg solution for 1 mg subcut Q20M PRN hypogl ycemia 01/21/23 injection (Glucagon Emergency Kit) #1 ea tadalafil 20 mg tablet 20 mg PO ONCE PRN sexual act ivity 05/29/24 30 days #30 tabs tadalafil 5 mg tablet 5 mg PO DAILY sexual activit y 90 05/29/24 days #90 tabs permethrin 5 % topical cream 1 appl topical Q14D 2 dos es #60 09/14/24 grams Allergies Allergy/AdvReac Type Severity Reaction Status Date / Time No Known Allergies Allergy Unknown Verified 02/10/25 19:11 Review of Systems 2 Review of Systems: Unable to obtain due to cooperation [facility] Past Medical History [facility] Narrative: unable to obtain due to cooperation Medical History (Updated 02/10/25 @ 19:37 by Leah Armenta DO) Delusions of parasitosis Nicotine dependence, cigarettes, uncomplicated Substance abuse Diabetes Surgical History Hx of cholecystectomy Family History Family History Father Diabetes Mother HTN (hypertension) Social History Social History Household Members Other:: lives alone Alcohol intake: current Alcohol intake frequency: a few times a week Patient Tobacco Use Status: Current someday Tobacco user Cigarettes Per Day: 10 Use of substances other than those prescribed or required for medical reasons: No Substance Use Type: Crack/Cocaine and Heroin Advance Directives: No Advance Directives Information Provided: No Current occupational status: unemployed and disabled Physical Exam ED Exam Exam: General: Pleasant, no distress, interacting appropriately Head: Normacephalic, atraumatic Neurological: Awake and alert, no facial droop noted Skin: Warm and dry Psychiatric: denies suicide ideation or homicide ideation Vital Signs: Vital Signs - 24 hr 02/10/25 19:05 02/10/25 20:10 Temperature 97.5 F 97.5 F Pulse Rate 89 89 Respiratory Rate 18 18 Blood Pressure 131/60 131/60 Pulse Oximetry 96 96 Oxygen Delivery Method Room Air Room Air BMI result Body Mass Index 29.7 Medical Decision Making Medical Decision Making MDM Narrative: This is a 64-year-old male presented hospital today for evaluation of bugs coming out of his body. When I had discussed with the patient. He is uncooperative. Requesting to be discharged at this time. Denies any homicidal ideation or suicide ideation. We will plan to discharge patient. He received a limited medical screening exam from me. Does not appear to be acutely ill, he is stable. Differential Diagnosis Differential Diagnoses: The differential diagnosis associated with the presentation includes Delusions, medical screening exam Lab Data 02/10/25 19:21 02/10/25 19:21 Labs: Lab Results 02/10/25 Range/Units 19:21 WBC 5.6 (4.8-10.8) X10*3/uL RBC 6.54 H (4.60-5.80) X10*6/uL Hgb 17.6 (14.0-18.0) g/dl Hct 54.8 H (42.0-52.0) % MCV 83.8 (80.0-98.0) fL MCH 26.9 L (27.0-33.0) pg MCHC 32.1 (31.0-36.0) g/dl RDW 13.9 (11.0-16.0) % Plt Count 254 (160-400) X10*3/uL MPV 8.4 L (9.4-12.4) fL Immature Gran % (Auto) 0.2 (0.0-0.4) % Neut % (Auto) 54.0 (45-73) % Lymph % (Auto) 29.1 (20-40) % [place] % (Auto) 9.3 (2-11) % Eos % (Auto) 6.1 H (0-4) % Baso % (Auto) 1.3 (0-2) % Lymph # (Auto) 1.6 (1.2-4.9) X10*3/uL [place] # (Auto) 0.5 (0.1-1.2) X10*3/uL Eos # (Auto) 0.3 (0.0-0.4) X10*3/uL Baso # (Auto) 0.1 (0.0-0.2) X10*3/uL Abs Immat Gran (auto) 0.01 (0.00-0.03) X10*3/uL Absolute Neuts (auto) 3.0 (2.0-8.3) x10*3/uL Absolute Nucleated RBC 0.000 (0.0-0.012) X10*3/uL Nucleated RBC % (auto) 0.0 (0.0-0.2) /100WBC Sodium 140 (135-145) mmol/L Potassium 3.8 (3.3-5.1) mmol/L Chloride 104 (96-108) mmol/L Carbon Dioxide 25 (22-29) mmol/L Anion Gap 15 (12-20) BUN 24 H (9-16) mg/dL Creatinine 1.52 H (0.5-1.4) mg/dL Estim Creat Clear Calc 54.7 Estimated GFR 46 Random Glucose 156 H (60-115) mg/dL Calcium 9.8 (8.4-10.2) mg/dL Total Bilirubin 0.5 (0.0-1.0) mg/dL AST 33 (5-37) U/L ALT 30 (0-40) U/L Alkaline Phosphatase 51 (39-117) U/L Total Protein 7.1 (6.5-8.0) g/dL Albumin 4.2 (3.5-5.0) g/dL Discharge Plan Discharge Clinical Impression: Encounter for medical screening examination Patient Disposition: Home, Self-Care Additional Instructions: You were seen in our Emergency Department today for treatment of a behavioral health issue. It is important after your visit that you follow up with either your behavioral health provider or a primary care doctor within 7 days.? If you have trouble finding a therapist you can reach out to [address] [phone] The National Suicide and Crisis Lifeline can be reached 7 days a week 24 hours a day.? Call 988 to speak with someone.? Return for any worsening symptoms or concerns such as thoughts of self harm or harm to others. Please call 911 if you feel your mental health is worsening.? Prescriptions: No Action Glucagon Emergency Kit (human) 1 mg recon soln 1 mg subcut Q20M PRN (Reason: hypoglycemia) Qty: 1 0RF Rx Instructions: until target blood sugar attained. Use only if unable to eat or drink. Make sure your family knows where you keep this glucagon emergency kit atorvastatin 40 mg tablet 40 mg PO BEDTIME aspirin [Adult Aspirin Regimen] 81 mg tablet,delayed release (DR/EC) 81 mg PO DAILY insulin aspart U-100 [Novolog FlexPen U-100 Insulin] 100 unit/mL (3 mL) insulin pen 1 sliding scale dose subcut USEASDIRECTD metformin 500 mg tablet 500 mg PO DAILY hydrochlorothiazide 25 mg tablet 25 mg PO Q OTHER DAY lisinopril 30 mg tablet 30 mg PO DAILY Toumiryam SoloStar U-300 Insulin 300 unit/mL (1.5 mL) insulin pen 30 unit subcut BEDTIME bisacodyl [Dulcolax (bisacodyl)] 5 mg tablet,delayed release (DR/EC) 10 mg PO ONCE 1 Days Qty: 2 0RF Rx Instructions: Take 2 tablets by mouth at 12:00pm the day before your procedure. polyethylene glycol 3350 [Miralax] 17 gram/dose powder 238 g PO ONCE 1 Days Qty: 238 0RF Rx Instructions: Take as directed by mouth the day before your procedure. docusate sodium [Colace] 100 mg capsule 200 mg PO BEDTIME Qty: 60 5RF polyethylene glycol 3350 [Miralax] 17 gram/dose powder 17 g PO DAILY Qty: 510 2RF simethicone [Gas Relief (simethicone)] 125 mg tablet,chewable 125 mg PO TID-QID PRN (Reason: abdominal distention) Qty: 90 2RF tadalafil 5 mg tablet 5 mg PO DAILY 90 Days Qty: 90 2RF tadalafil 20 mg tablet 20 mg PO ONCE PRN (Reason: sexual activity) 30 Days Qty: 30 5RF Rx Instructions: On demand medication take 60 minutes before intended activity permethrin 5 % cream 1 appl topical Q14D Qty: 60 0RF Rx Instructions: apply second treatment 14 days after first treatment if live lice remain Interventions: [place]-Suicide Risk Severity Scale Last Done: 02/10/25 19:45 ED Discharge Assessment Last Done: 02/10/25 20:10 Discharge Date/Time: 02/10/25 20:13 Print Language: Occitan
[2025-02-10 19:40] LABS: Alanine Aminotransferase 30 U/L (0-40); Albumin Level 4.2 g/dL (3.5-5.0); Alkaline Phosphatase 51 U/L (39-117); Anion Gap 15 (12-20); Aspartate Amino Transferase 33 U/L (5-37); Blood Urea Nitrogen 24 mg/dL (9-16); Calcium 9.8 mg/dL (8.4-10.2); Carbon Dioxide 25 mmol/L (22-29); Chloride 104 mmol/L (96-108); Creatinine Clr Calc Pharmacy 54.7; Estimated Glomerular Filt Rate 46; Potassium 3.8 mmol/L (3.3-5.1); Sodium 140 mmol/L (135-145); Total Protein 7.1 g/dL (6.5-8.0)
--- NOTE | 2025-02-10 19:45 | PC.NURSE ---
Assumed care of pt, pt presents with seeing bugs all over his body, pt states that he has been going through this for a year, I explained to him I did not see any bugs crawling on him, pt became agitated and stated that Everyone tells me this pt then stated that he wanted to leave, Dr. Armenta came and spoke with pt, Denies SI/Hi, pt was then discharged
--- OUTSIDE RECORDS SUMMARY | 2025-02-10 19:46 | XMS_ITS | Encounter Summary ---
Author Organization [employer] Address [address] [place] [address] Care Team Providers Care Motor Vehicle Assembler Name Role Phone Janine Gomez Primary Care Provider [phone] Andrea Joaquin PharmD Unavailable [phone] Encounter Details Date Type Department Care Team ([facility] st Contact Info) Description 01/04/2023 Orders Only [facility] MED & PEDS [address] [place] [address] Renate Chinchilla LPN Social History Tobacco Use [...] as of this encounter Plan of Treatment Not on file documented as of this encounter Visit Diagnoses Not on filedocumented in this encounter Care Teams Motor Vehicle Assembler Relationship Specialty Start Date End Date Janine Gomez ANP [address] [place] [address] PCP - General Family Medicine 11/13/20 Andrea Joaquin, Alexandru [address] [place] [address] Pharmacist Internal Medicine 01/03/24 [facility] 10/04/24 documented as of this encounter
--- OUTSIDE RECORDS SUMMARY | 2025-02-10 19:47 | XMS_ITS | Clinical Summary ---
Author Organization [facility] Facility Address [address] [place] [address], [place] [address] Care Team Providers Care Size Tester Name Role Phone Janine Gomez NP Primary Care Provider [phone] Allergies Active Allergy Reactions Criticality Noted Date [...] patient's age to complete this topic Insurance [facility] ([id number]) [facility] ([id number]) Care Teams Size Tester Relationship Specialty Start Date End Date Janine Gomez NP PCP - General Nurse Practitioner 08/07/21
--- OUTSIDE RECORDS SUMMARY | 2025-02-10 19:47 | XMS_ITS | Encounter Summary ---
Author Organization [employer] Address [address] [place] [address] [address] [place] [address] Care Team Providers Care Neuropsychology Division Chief Name Role Phone Janine Gomez Primary Care Provider [phone] Andrea Joaquin PharmD Unavailable [phone] Encounter Details Date Type Department Care Team (Late st Contact Info) Description 03/23/2022 Orders Only [facility] MED & PEDS [address] [place] [address] Renate Chinchilla LPN Social History Tobacco Use [...] on filedocumented in this encounter Care Teams Neuropsychology Division Chief Relationship Specialty Start Date End Date Janine Gomez ANP [address] [place] [address] PCP - General Family Medicine 11/13/20 Andrea Joaquin, PharmD [address] [place] [address] Pharmacist Internal Medicine 01/03/24 [facility] 10/04/24 documented as of this encounter
--- OUTSIDE RECORDS SUMMARY | 2025-02-10 19:47 | XMS_ITS | Encounter Summary ---
Author Organization [employer] Address [address] [place] [address] [address] [place] [address] Care Team Providers Care Tray Service Worker Name Role Phone Janine Gomez Primary Care Provider [phone] Andrea Joaquin PharmD Unavailable [phone] Encounter Details Date Type Department Care Team (Late st Contact Info) Description 04/07/2022 Orders Only [facility] MEDICINE [address] [place] [address] Liliana Pace LPN Social History Tobacco Use [...] on filedocumented in this encounter Care Teams Tray Service Worker Relationship Specialty Start Date End Date Janine Gomez ANP [address] [place] [address] PCP - General Family Medicine 11/13/20 Andrea Joaquin, PharmD [address] [place] [id number] Pharmacist Internal Medicine 01/03/24 [facility] 10/04/24 documented as of this encounter
--- OUTSIDE RECORDS SUMMARY | 2025-02-10 19:47 | XMS_ITS | Encounter Summary ---
Author Organization [employer] Address [address] [place] [address] Care Team Providers Care Mesmerist Name Role Phone Janine Gomez Primary Care Provider [phone] Andrea Joaquin PharmD Unavailable [phone] Reason for Visit * Reason Comments Med Refill Encounter Details Date Type Department Care Team ([facility] st Contact Info) Description 02/05/2025 Refill [facility] MED & PEDS [address] [place] [address] Janine Gomez ANP [address] [place] [address] Social History Tobacco Use Types Packs/Day Years Used Date Smoking Tobacco: Every Day Cigarettes Passive Smoke Exposure: Current Smokeless Tobacco: Never Alcohol Use Standard Drinks/Week Comments Not Currently 0 (1 standard drink = 0.6 oz pur e alcohol) Depression Answer Date Recorded Patient Health Questionnaire-9 Score 0 10/25/2024 Patient Health Questionnaire-9 Score 0 10/25/2024 Last PHQ-9: Questionnaire Data Not on file 0 10/25/2024 Housing Stability Answer Date Recorded What is your housing situation today? I have kami hurst 10/25/[address] you li ve. Do you have problems with any of the following? Pests such as bugs, ants, or mice 10/25/2024 Food Insecurity Answer Date Recorded Within the past 12 months, y ou worried that your food would run out before you got money to buy more: Never True 10/25/2024 Within the past 12 months,th e food you bought just didn't last and you didn't have enough money to get more: Never True Transportation Answer Date Recorded In the past 12 months, has l ack of transportation kept you from medical appts, meetings, work or from getting things needed for daily living? No 10/25/2024 Utilities Answer Date Recorded In the past 12 months, has t he electric, gas, oil or water company threatened to shut off services in your home? No 10/25/2024 Depression Answer Date Recorded Patient Health Questionnaire-2 Score 0 10/25/2024 Internet Access Answer Date Recorded Internet Access Q1 No 10/25/2024 Internet Access Q2 I do not want or need it 09/27 Sex and Gender Information Value Date Recorded [...] Assessment Noted Time PHQ-9 Depression Total Score: 0 10/26/19 25 3:07 PM EDT documented as of this encounter Care Teams Mesmerist Relationship Specialty Start Date End Date Janine Gomez ANP [address] [place] [address] PCP - General Family Medicine 11/13/20 Andrea Joaquin PharmD [address] [place] [address] Pharmacist Internal Medicine 01/03/24 [facility] 10/04/24 documented as of this encounter
--- OUTSIDE RECORDS SUMMARY | 2025-02-10 19:47 | XMS_ITS | Encounter Summary ---
Author Organization [employer] Address [address] [place] [address] Care Team Providers Care Ambulatory Care Nurse Name Role Phone Janine Gomez Primary Care Provider [phone] Andrea Joaquin PharmD Unavailable [phone] Reason for Visit * Reason Comments Med Refill Encounter Details Date Type Department Care Team (Late st Contact Info) Description 07/18/2022 Refill [facility] [address] [place] [address] Janine Gomez ANP [address] [place] [address] Other male erectile dysfunction Social History Tobacco [...] dysfunction documented in this encounter Care Teams Ambulatory Care Nurse Relationship Specialty Start Date End Date Janine Gomez ANP [address] [place] [address] PCP - General Family Medicine 11/13/20 Andrea Joaquin, PharmD [address] [place] [address] Pharmacist Internal Medicine 01/03/24 [facility] 10/04/24 documented as of this encounter
--- OUTSIDE RECORDS SUMMARY | 2025-02-10 19:47 | XMS_ITS | Encounter Summary ---
Author Organization [employer] Address [address] [place] [address] [address] [place] [address] Care Team Providers Care Electrical Tech Name Role Phone Janine Gomez Primary Care Provider [phone] Andrea Joaquin PharmD Unavailable [phone] Encounter Details Date Type Department Care Team (Late st Contact Info) Description 04/27/2022 Orders Only [facility] MED[facility] [address] [place] [address] Liliana Pace LPN Social History Tobacco Use [...] on filedocumented in this encounter Care Teams Electrical Tech Relationship Specialty Start Date End Date Janine Gomez ANP [address] [place] [address] PCP - General Family Medicine 11/13/20 Andrea Joaquin, PharmD [address] [place] [phone] Pharmacist Internal Medicine 01/03/24 [facility] 10/04/24 documented as of this encounter
--- OUTSIDE RECORDS SUMMARY | 2025-02-10 19:47 | XMS_ITS | Encounter Summary ---
Author Organization [employer] Address [address] [place] [address] [address] [place] [address] Care Team Providers Care Rehabilitation Assistant Name Role Phone Janine Gomez Primary Care Provider [phone] Andrea Joaquin PharmD Unavailable [phone] Encounter Details Date Type Department Care Team (Late st Contact Info) Description 04/29/2022 Orders Only [facility] MED & PEDS [address] [place] [address] Renate Chinchilla LPN Social History Tobacco Use [...] on filedocumented in this encounter Care Teams Rehabilitation Assistant Relationship Specialty Start Date End Date Janine Gomez ANP [address] [place] [address] PCP - General Family Medicine 11/13/20 Andrea Joaquin, PharmD [address] [place] [address] Pharmacist Internal Medicine 01/03/24 [facility] 10/04/24 documented as of this encounter
--- OUTSIDE RECORDS SUMMARY | 2025-02-10 19:47 | XMS_ITS | Clinical Summary ---
Author Organization [employer] Address [address] [facility] 7[address] [place] [address] Care Team Providers Care Corporate Law Specialist Name Role Phone Patricia Janine RYAN Primary Care Provider [phone] Andrea Joaquin PharmD Unavailable [phone] Allergies Active Allergy Reactions Criticality Noted Date Comments Nsaids 05/27/2022 Not allergy - no NSAIDs per renal Medications * This document contains information received from the source organization and may not represent a complete record from that organization. Farxiga 10 MG Take 10 mg by mouth in the morning. 023 Active Continuous Blood Gluc Geodesy Teacher (FreeStyle Andreina 2 Nebo) deviceIndication s:Hypoglycemia 1 each 5 (five) times a day. 1 each 023 Active tadalafil (Cialis) 5 MG tablet TAKE 1 TABLET BY MOUTH ONCE DAILY FOR SEXUAL ACTIVITY Active tadalafil (Cialis) 20 MG tablet TAKE 1 TABLET BY MOUTH ONCE NEEDED FOR SEXUAL ACTIVITY. TAKE 60 MINUTES BEFORE INTENDED ACTIVITY Active Lancets miscIndications: Type 2 diabetes mellitus with stage 3b chronic kidney disease, with long-term current use of insulin (HCC) Use to test blood sugar 4 times daily as needed 100 each 11 Active insulin pen needle (UltiGuard SafePack Pen Needle) 32G x 4 mm miscIndications: Type 2 diabetes mellitus with hyperglycemia (HCC) Use four times daily with insulin 100 each 11 Active atorvastatin (Lipitor) 40 MG tabletIndication s:Mixed hyperlipidemia TAKE 1 TABLET BY MOUTH AT BEDTIME 90 tablet 3 01/13/2 025 Active glucagon (Gvoke PFS) 1 MG/0.2ML injection Inject 1 mg under the skin 1 (one) time if needed for low blood sugar. Active glucose 4 g chewable tabletIndication s:Type 2 diabetes mellitus with stage 3b chronic kidney disease, with long-term current use of insulin ([facility]) Chew 4 tablets (16 g) if needed for low blood sugar. 50 tablet 12 025 2025 Active Alcohol Swabs (Alcohol Prep) 70 % padsIndications: Diabetic polyneuropathy associated with type 2 diabetes mellitus ([facility]) USE DIRECTED 100 each 11 025 Active Trulicity 0.75 MG/0.5ML solution auto-injectorInd ications:Type 2 diabetes mellitus with other specified complication, with long-term current use of insulin ([facility]) INJECT ONE PEN (=0.75MG) SUBCUTANEOUSLY ONCE A WEEK DIRECTED 2 mL 5 025 Active Continuous Glucose Sensor (FreeStyle Andreina 2 Sensor) miscIndications: Hypoglycemia USE DIRECTED TO TEST BLOOD SUGAR. CHANGE EVERY 14 DAYS . 6 each 3 025 Active hydroCHLOROthiaz gisell (HYDRODiuril) 25 MG tablet TAKE 1 TABLET BY MOUTH EVERY MORNING 90 tablet 1 025 Active metFORMIN (Glucophage) 500 MG tabletIndication s:Type 2 diabetes mellitus with other specified complication, with long-term current use of insulin ([facility]) TAKE 2 TABLETS BY MOUTH TWICE DAILY IN THE MORNING AND EVENING WITH MEALS 120 tablet 5 025 Active omeprazole (PriLOSEC) [address] capsuleIndicatio ns:Gastroesophag eal reflux disease, unspecified whether esophagitis present TAKE 1 CAPSULE BY MOUTH EVERY DAY 30 TO 60 MINUTES BEFORE A MEAL 90 capsule 1 025 Active NovoLOG FLEXPEN 100 UNIT/ML penIndications:T ype 2 diabetes mellitus with diabetic polyneuropathy, with long-term current use of insulin ([facility]) INJECT 20 UNITS SUBCUTANEOUSLY THREE TIMES DAILY BEFORE MEALS 15 mL 5 025 Active fluticasone (Flonase) 50 MCG/ACT nasal sprayIndications :Non-seasonal allergic rhinitis, unspecified trigger Use 1 spray per nostril once Daily as needed for allergies. Shake gently. Before first use, prime pump. After use, clean tip and replace cap. 16 g 2 025 Active Aspirin Low Dose 81 MG EC tablet TAKE 1 TABLET BY MOUTH EVERY MORNING 90 tablet 1 Active insulin glargine (Toujeo SoloStar) 300 UNIT/ML injectionIndicat ions:Type 2 diabetes mellitus with other specified complication, with long-term current use of insulin ([facility]) INJECT 46 UNITS SUBCUTANEOUSLY AT BEDTIME DIRECTED 4.5 mL 025 Active Continuous Glucose Sensor (FreeStyle Andreina 2 Plus Sensor) miscIndications: Type 2 diabetes mellitus with stage 3b chronic kidney disease, with long-term current use of insulin ([facility]) 1 each every 15 days. 2 each Active clotrimazole-bet amethasone (Lotrisone) cream APPLY TOPICALLY TO THE AFFECTED AREA(S) TWICE DAILY DIRECTED FOR 28 DAYS 60 g 1 025 Active bacitracin 500 UNIT/GM ointmentIndicati ons:Neurotic excoriations Apply topically 2 times daily. 425 g 025 Active triamcinolone (Kenalog) 0.1 % creamIndications :Rash APPLY TOPICALLY TO THE AFFECTED AREA(S) TWICE DAILY NEEDED FOR ITCHING 45 g 1 025 Active glucose blood (FreeStyle Precision Lew Test) test stripIndications :Type 2 diabetes mellitus with stage 3b chronic kidney disease, with long-term current use of insulin ([facility]) TEST BLOOD SUGAR FOUR TIMES DAILY NEEDED 100 strip 11 025 Active lisinopril 30 MG tablet TAKE 1 TABLET BY MOUTH EVERY MORNING 90 tablet 1 025 Active glucose blood (FreeStyle Precision Lew Test) test stripIndications :Type 2 diabetes mellitus with stage 3b chronic kidney disease, with long-term current use of insulin ([facility]) Use to test blood sugar 4 times daily as needed 100 each 11 024 2024 Discontinued lisinopril 30 MG tablet TAKE 1 TABLET BY MOUTH EVERY MORNING 90 tablet 1 025 2024 Discontinued Emollient (CeraVe Moisturizing) cream APPLY TOPICALLY TO THE AFFECTED AREA(S) TWICE DAILY DIRECTED 453 g 1 025 2024 Discontinued(R eorder (will not trigger notification to Pharmacy)) permethrin (Elimite) 5 % creamIndications :Rash apply to skin from hairline to toes and wash off 8-10 hours later; repeat in 7d 120 g 025 2024 Discontinued(T herapy completed) triamcinolone (Kenalog) 0.1 % creamIndications :Rash Use as needed up to twice daily for itching 45 g 1 025 2024 Discontinued bacitracin 500 UNIT/GM ointmentIndicati ons:Impetigo Apply topically 2 times daily. 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 Since he already received permethrin at least twice this year, I told him to use Lotrisone cream twice daily to affected areas, avoid scratching and pocking with tweezers or fire. Consider doing U tox, patient was unable to provide urine for today's appointment appointment. 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 Follow-up with dermatology in October Assessment & Plan (06/12/2024 2:36 PM EDT): [...] I extensively counseled him regarding avoiding using smoke tester so much as or heat to his skin to avoid future butts Mixed hyperlipidemia 03/09/2022 Hepatitis B immune 03/09/2022 History of hepatitis B 03/09/2022 Chronic hepatitis C virus genotype 1a infection (CMS/HCC) 03/09/2022 Overview (03/09/2022): Per previous EHR Diabetic polyneuropathy 04/20/2018 Nicotine dependence with current use 04/20/2018 Asthma 12/27/2011 Depressive disorder 12/27/2011 Type 2 diabetes mellitus wit h stage 3b chronic kidney disease, with long-term current use of insulin 12/27/2011 History of substance abuse (CMS/HCC) 12/27/2011 Hypertension 12/27/2011 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 Encounters Date Type Department Care Team Description 02/05/2025 Refill [facility] MED & PEDS [address] [place] [address] Janine Gomez ANP 01/31/2025 Refill [facility] MEDICINE [address] [place] [address] Andrea Joaquin, RobeD Type 2 diabetes mellitus with stage 3b chronic kidney disease, with long-term current use of insulin ([facility]) 01/24/2025 Telephone [facility] MEDICINE [address] [place], [place] [phone] Janine Gomez ANP chart prep 01/14/2025 2:40 PM EDT Office Visit [facility] [address] [place], [place] [phone] Ca Sneed, HÉCTOR Neurotic excoriations (Primary Dx); Delusions of parasitosis (CMS/HCC) (HCC) 01/14/2025 Refill [facility] MEDICINE [address] [place] [address] Janine Gomez ANP Rash 01/14/2025 Travel 12/31/2024 Telephone [facility] MED[facility] [address] [place] [address] Janine Gomez ANP 12/21/2024 Telephone [facility] MED[facility]INE [address] [place] [address] Geronimo Shepard [facility] 12/20/2024 Refill [facility] [address] [place] [address] Janine Gomez ANP 12/10/2024 2:00 PM EDT Clinical Support [facility] MED[facility]INE [address] [place] [address] Liliana Alvarez, RN Type 2 diabetes mellitus with stage 3b chronic kidney disease, with long-term current use of insulin (CMS/HCC) 12/10/2024 Telephone [facility] [address] [place] [address] Liliana Alvarez, anesthesiology technologist 12/10/2024 Refill [facility] [address] [place] [address] Liliana Alvarez, RN Type 2 diabetes mellitus with stage 3b chronic kidney disease, with long-term current use of insulin (CMS/HCC) (Primary Dx) 12/10/2024 Travel 12/09/2024 Refill [facility] [address] [place] [address] Janine Gomez ANP Rash 12/06/2024 Refill [facility] [address] [place] [address] Andrea Joaquin, Alexandru Type 2 diabetes mellitus with other specified complication, with long-term current use of insulin (CMS/HCC) 11/25/2024 Refill [facility] [address] [place] [address] Janine Gomez ANP 11/23/2024 2:45 PM EDT Office Visit [facility] [address] [place] [phone] Betito Jolly MD Impetigo (Primary Dx); Delusions of parasitosis (CMS/HCC) 11/23/2024 Travel 11/15/2024 Telephone [facility] [address] [place], [place] [phone] Janine Gomez, SHELBY Prior Auth DME from Last 3 Months Immunizations Immunization Administration Dates Next Due Hep A, Adult [...] tetanus tox oid, preservative free, adsorbed 05/08/2015 Tdap 10/25/2024 Zoster, Recombinant 04/28/2020,11/26/2019 Social History Tobacco Use [...] the past 12 months, has t he [employer] gas, oil or water company threatened to [...] Sign Reading Time Taken Comments Blood Pressure 133/62 01/14/2025 2:53 PM EDT Pulse 76 01/14/2025 2:53 PM EDT Temperature 36.8 C (98.2 F) 01/14/2025 2:53 PM EDT Respiratory Rate 18 01/14/2025 2:53 PM EDT Oxygen Saturation 96% 01/14/2025 2:53 PM EDT Inhaled Oxygen Concentration - - Weight 92.1 kg (203 lb) 01/14/2025 2:53 PM EDT Height 175.3 cm (5' 9 ) 10/25/2024 2:29 PM EDT Body Mass Index 29.98 10/25/2024 2:29 PM EDT Plan of Treatment Health Maintenance Due Date Last Done Comments CT Colonography 1960 Colonoscopy 1960 FIT 1960 Sigmoidoscopy 1960 RSV Patients and Patients Aged 60 years or older (1 - Risk 50-74 years 1-dose series) 2010 Hepatitis B Vaccines (1 of 3 - Risk 3-dose series) 2020 Lipid Panel 02/15/2024 02/14/2023, 04/11/2021, 02/08/2020 FOBT 09/07/2024 09/08/2023 COVID-19 Vaccine ( season) 2024 05/27/2022, 03/16/2021, 07/07/2020, Additional history exists Influenza Vaccine (#1) 2024 , 05/27/2022, 03/16/2021, Additional history exists Diabetes: Hemoglobin A1C 01/25/2025 025, 06/25/2024, 03/29/2024, Additional history exists Eye Exam 06/21/2025 06/21/2024, 05/27, 06/21/2024, Additional history exists Diabetes: Foot Exam 08/29/2025 08/29/2024, 08/29/2024, 08/29/2024, Additional history exists Alcohol/Substance Use Screening 10/25/2025 10/25/2024 Depression Screening 10/25/2025 10/25/2024, 10/26/19 25 Disability Screening 10/25/2025 10/25/2024 SDOH Screening 10/25/2025 10/25/2024 Tobacco Screening 01/14/2026 01/14/2025 Colorectal Cancer Screening 09/07/2026 FIT DNA/Cologuard 09/07/2026 09/08/2023 DTaP/Tdap/Td Vaccines (2 - Td or Tdap) 10/25/2034 10/25/2024, 05/08/2015, 11/02/2002 Zoster Vaccines Completed 04/28/2020, 11/26/2019 HIV Screening [...] patient's age to complete this topic Meningococcal B Vaccine Aged Out No l onger eligible based on patient's age to complete this topic Meningococcal Vaccine Aged Out No amrilu maira eligible based on patient's age to complete this topic RSV under 20 months Aged Out No longe r eligible based on patient's age to complete this topic Rotavirus Vaccines Aged Out No longer eligible based on patient's age to complete this topic Procedures Procedure Name Priority Date/Time Associated Diagnosis Comments POCT GLYCOSYLATED HEMOGLOBIN (HGB A1C) Routine 10/25/2024 2:51 PM EDT Type 2 diabetes mellitus with stage 3b chronic kidney disease, with long-term current use of insulin (CMS/HCC) LAB COLOGUARD COLON CANCER SCREEN Routine 09/08/2023 11:00 AM [...] to Health Maintenance Results * (ABNORMAL) POCT glycosylated hemoglobin (Hgb A1c) (10/25/2024 2:51 PM EDT) Hemoglobin A1C 8.2(A) 4.0 - 5.7 % QC Media Lot # [id number] Lot# Expiration Date Blood Capillary blood specimen / Unknown 10/25/2024 2:51 PM EDT us Janine Gomez [facility] POINT OF CARE TEST ENTER/EDIT OR DERABLES Final Result * Cologuard?? colon cancer screening (09/08/2023 11:00 AM EDT) Cologuard Result Negative Negative 09/20/19 5:15 AM EDT [facility] (CLIA #:[id number]) Comment: NEGATIVE TEST RESULT. A negative Cologuard result indicates a low likelihood that a colorectal cancer (CRC) or advanced adenoma (adenomatous polyps with more advanced pre-malignant features) is present. The chance that a person with a negative Cologuard test has a colorectal cancer is less than 1 in 1500 (negative predictive value >99.9%) or has an advanced adenoma is less than 5.3% (negative predictive value 94.7%). These data are based on a prospective cross-sectional study of 10,000 individuals at average risk for colorectal cancer who were screened with both Cologuard and colonoscopy. (Katelyn Helms et al, N Engl J Med 2014;370(14):4979-5799) The normal value (reference range) for this assay is negative. COLOGUARD RE-SCREENING RECOMMENDATION: Periodic colorectal cancer screening is an important part of preventive healthcare for asymptomatic individuals at average risk for colorectal cancer. Following a negative Cologuard result, the [place] [employer] Society and U.S. Multi-Society Task Force screening guidelines recommend a Cologuard re-screening interval of 3 years. References: [place] [employer] Guideline for Colorectal Cancer Screening: https://www.cancer.org/cancer/ivjyo-imtcin-dzsvar/mieoqxisd-jbscffeet-azcojyr/ac s-rec ommendations.html.; Twan DK, Audra REY, Aubrey SmithK, Colorectal Cancer Screening: Recommendations for Physicians and Patients from the U.S. Multi-Society Task Force on Colorectal Cancer Screening , Am J Gastroenterology 2017; 112:1113-5375. TEST DESCRIPTION: Composite algorithmic analysis of stool DNA-biomarkers with hemoglobin immunoassay. Quantitative values of individual biomarkers are not [...] (Katelyn Hess al, N Engl J Med 2014;370(14):2296-2397.) Cologuard may produce a false negative or false positive result (no colorectal cancer or precancerous polyp present at colonoscopy follow up). A negative Cologuard test result does not guarantee the absence of CRC or advanced adenoma (pre-cancer). The current Cologuard screening interval is every 3 years. ([place] [employer] and U.S. Multi-Society Task Force). Cologuard performance data in a 10,000 patient pivotal study using colonoscopy as the reference method can be accessed at the following location: www.[employer].Transcarga.pe/results. Additional description of the Cologuard test process, warnings and precautions can be found at www.[employer].com. Stool specimen (specimen) 09/08/2023 11:00 AM EDT 09/09/2023 10:49 AM EDT [facility] MOLECULAR DIAGNOSTICS ORDERA BLES Final Result [facility] (CLIA #:[id number]) [place] [address], * HIV-1/2 Antigen and Antibodies, Fourth Generation, with Reflexes (02/14/2023 9:57 AM EST) HIV AB/AG Nonreactive Nonreactive [facility] Comment:HIV-1 p24 Ag and/or HIV-1/HIV-2 Ab not detected.A test result that is nonreactive does not exclude thepossibility of exposure to or infection with HIV-1 and/orHIV-2. Nonreactive results in this assay for individualswith prior exposure to HIV-1 and/or HIV-2 may be due toantigen and antibody levels that are below the limit ofdetection of this assay.The [employer] HIV Ag/Ab Combo assay result andsupplemental assay results should be interpreted inconjunction with the patient's clinical presentation,history and other laboratory results. If the results areinconsistent with clinical evidence, additional testing issuggested to confirm the result. Blood Venous blood specimen / Unknown 02/14/2023 9:57 AM EST 02/14/2023 11:09 AM EST Janine Gomez [facility] LAB BLOOD ORDERABLES Final Resul t Performing Organization Address [facility] Co de Phone Number [facility] [address] [place] [phone] * (ABNORMAL) Lipid Panel, Standard (02/14/2023 9:57 AM EST) Triglycerides 80 <150 mg/dL [facility] Comment:Desirable Triglyceri de: less than 150 mg/dLBorderline High Triglyceride 150-199 mg/dLHigh Triglyceride: 200-499 mg/dLVery High Triglyceride: greater than or equal to 5OO mg/dL Cholesterol 110 <200 mg/dL [facility] Comment:Desirable Cholestero l: less than 200 mg/dLBorderline High Cholesterol: 200-239 mg/dLHigh Cholesterol: greater than 239 mg/dL LDL Cholesterol Calculated 54 <100 mg/dL [facility] Comment:Desirable LDL: less than 100 mg/dLNear Optimal/Above Optimal LDL: 110- 129 mg/dLBorderline High LDL: 130-159 mg/dLHigh LDL: 160-189 mg/dLVery High LDL: greater than or equal to 190 mg/dL HDL Cholesterol 40(L) >40 mg/dL [facility] Comment:Desirable HDL: great er than 40 mg/dL Note: This HDL assay may give artificially low results in patients with liver disease. Blood Venous blood specimen / Unknown 02/14/2023 9:57 AM EST 02/14/2023 11:09 AM EST Janine Gomez ANP LAB BLOOD ORDERABLES Final Resul t [facility] [address] [place] [phone] [phone] from Last 3 Months or Most Recently Relevant to Health Maintenance Insurance [facility] < 65 Care Teams Corporate Law Specialist Relationship Specialty Start Date End Date Janine Gomez ANP [address] [place] [address] PCP - General Family Medicine 11/13/20 Andrea Joaquin, RobeD [address] [place] [address] Pharmacist Internal Medicine 01/03/24 [facility] 10/04/24
--- OUTSIDE RECORDS SUMMARY | 2025-02-10 19:47 | XMS_ITS | Encounter Summary ---
Author Organization [employer] Address [address] [place] [address] [address] [place] [address] Care Team Providers Care Supervisor Bottle Machines Name Role Phone Janine Gomez Primary Care Provider [phone] Andrea Joaquin PharmD Unavailable [phone] Encounter Details Date Type Department Care Team (Late st Contact Info) Description 04/13/2022 Orders Only [facility] MED & PEDS [address] [place] [address] Renate Chinchilla LPN Social History Tobacco Use [...] filedocumented in this encounter Care Teams Supervisor Bottle Machines Relationship Specialty Start Date End Date Janine Gomez ANP [address] [place] [address] PCP - General Family Medicine 11/13/20 Andrea Joaquin, PharmD [address] [place] [address] Pharmacist Internal Medicine 01/03/24 [facility] 10/04/24 documented as of this encounter
--- OUTSIDE RECORDS SUMMARY | 2025-02-10 19:47 | XMS_ITS | Encounter Summary ---
Author Organization [employer] Address [address] [place] [address] [address] [place] [address] Care Team Providers Care Concrete Form Setter And Finisher Name Role Phone Janine Gomez Primary Care Provider [phone] Andrea Joaquin PharmD Unavailable [phone] Encounter Details Date Type Department Care Team (Late st Contact Info) Description 04/02/2022 Orders Only [facility] MEDICINE [address] [place] [address] Sary Olivas, RN Social History Tobacco Use Types Packs/Day Years [...] on filedocumented in this encounter Care Teams Concrete Form Setter And Finisher Relationship Specialty Start Date End Date Janine Gomez ANP [address] [place] [address] PCP - General Family Medicine 11/13/20 Andrea Joaquin, PharmD [address] [place] [address] Pharmacist Internal Medicine 01/03/24 [facility] 10/04/24 documented as of this encounter
[2025-02-10 20:10] VITALS: BP 131/60; PULSE 89; RESP 18; TEMP 36.4; O2SAT 96
== END 2025-02-10 20:13 | disposition home or self-care (01) ==
PROVIDERS: Physician Assistant Medical; Emergency Provider Student in an Organized Health Care Education/Training Program; PCP Nurse Practitioner Primary Care
DX: F22 Delusional disorders (principal); F19.10 Other psychoactive substance abuse, uncomplicated; Z72.0 Tobacco use; E11.9 Type 2 diabetes mellitus without complications
CPT/HCPCS: 36415; 80053; 85025; 99284; 99285

== ENCOUNTER 2025-02-25 23:35 | Emergency (ER) | payer OTHER, SELFPAY ==
[2025-02-25 23:55] VITALS: BP 159/87; PULSE 79; RESP 18; TEMP 36.8; O2SAT 94; BMI 29.5
[2025-02-26 01:58] LABS: MANUAL DIFF FLAG NO
[2025-02-26 02:01] LABS: Hematocrit 54.9 % (42.0-52.0); Hemoglobin 17.9 g/dl (14.0-18.0); Imm Gran Abs Auto 0.02 X10*3/uL (0.00-0.03); Imm Gran Pct Auto 0.3 % (0.0-0.4); Lymphocytes Absolute Auto 2.3 X10*3/uL (1.2-4.9); Mean Corpuscular HGB Conc 32.6 g/dl (31.0-36.0); Mean Corpuscular Hemoglobin 27.2 pg (27.0-33.0); Mean Corpuscular Volume 83.6 fL (80.0-98.0); NRBC Abs Auto 0.000 X10*3/uL (0.0-0.012); NRBC Pct Auto 0.0 /100WBC (0.0-0.2); Platelet Count 243 X10*3/uL (160-400); Red Blood Count 6.57 X10*6/uL (4.60-5.80); White Blood Count 7.2 X10*3/uL (4.8-10.8)
[2025-02-26 02:12] LABS: Alanine Aminotransferase 34 U/L (0-40); Albumin Level 4.8 g/dL (3.5-5.0); Alkaline Phosphatase 55 U/L (39-117); Anion Gap 14 (12-20); Aspartate Amino Transferase 49 U/L (5-37); Blood Urea Nitrogen 25 mg/dL (9-16); Calcium 10.3 mg/dL (8.4-10.2); Carbon Dioxide 28 mmol/L (22-29); Chloride 106 mmol/L (96-108); Creatinine Clr Calc Pharmacy 58.0; Estimated Glomerular Filt Rate 50; Potassium 4.1 mmol/L (3.3-5.1); Sodium 144 mmol/L (135-145); Total Protein 7.7 g/dL (6.5-8.0)
--- OUTSIDE RECORDS SUMMARY | 2025-02-26 04:30 | XMS_ITS | Encounter Summary ---
Author Organization [employer] Address [address] [place] [address] Care Team Providers Care Automation Analyst Name Role Phone Janine Gomez Primary Care Provider [phone] Andrea Joaquin PharmD Unavailable [phone] Encounter Details Date Type Department Care Team ([facility] st Contact Info) Description 01/04/2023 Orders Only [facility] [address] [place] [address] Renate Chinchilla LPN Social History Tobacco Use [...] Care Team (Late st Contact Info) Description 04/18/2025 2:30 PM EST Office Visit [facility] [address] [place] [address] Janine Gomez ANP [address] [place] [address] documented as of this encounter Visit Diagnoses Not on filedocumented in this encounter Care Teams Automation Analyst Relationship Specialty Start Date End Date Janine Gomez ANP [address] [place] [address] PCP - General Family Medicine 11/13/20 Andrea Joaquin, RobeD [address] [place], [place] [phone] Pharmacist Internal Medicine 01/03/24 [facility] 10/04/24 documented as of this encounter
--- OUTSIDE RECORDS SUMMARY | 2025-02-26 04:30 | XMS_ITS | Encounter Summary ---
Author Organization [employer] [facility] Address [address] [place] [address] Care Team Providers Care Pastoral Ministries Professor Name Role Phone Janine Gomez Primary Care Provider [phone] Andrea Joaquin PharmD Unavailable [phone] Encounter Details Date Type Department Care Team (Late st Contact Info) Description 04/27/2022 Orders Only [facility] MED[facility] [address] [place] [address] Liliana Pace LPN Social History Tobacco Use [...] Description 04/18/2025 2:30 PM EST Office Visit [facility] [address] [place] [address] Janine Gomez ANP [address] [place] [address] documented as of this encounter Visit Diagnoses Not on filedocumented in this encounter Care Teams Pastoral Ministries Professor Relationship Specialty Start Date End Date Janine Gomez ANP [address] [place] [address] PCP - General Family Medicine 11/13/20 Andrea Joaquin, PharmD [address] [place] [address] Pharmacist Internal Medicine 01/03/24 [facility] 10/04/24 documented as of this encounter
--- OUTSIDE RECORDS SUMMARY | 2025-02-26 04:30 | XMS_ITS | Encounter Summary ---
Author Organization [employer] Address [address] [place] [address] [address] [place] [address] Care Team Providers Care Catering Manager Name Role Phone Janine Gomez Primary Care Provider [phone] Andrea Joaquin PharmD Unavailable [phone] Encounter Details Date Type Department Care Team (Late st Contact Info) Description 04/13/2022 Orders Only [facility] PEDS [address] [place] [address] Renate Chinchilla LPN Social History Tobacco Use [...] Description 04/18/2025 2:30 PM EST Office Visit [facility] [address] [place] [address] Janine Gomez ANP [address] [place] [address] documented as of this encounter Visit Diagnoses Not on filedocumented in this encounter Care Teams Catering Manager Relationship Specialty Start Date End Date Janine Gomez ANP [address] [place] [address] PCP - General Family Medicine 8/19/21 Andrea Joaquin, PharmD [address] [place] [address] Pharmacist Internal Medicine 01/03/24 [facility] 10/04/24 documented as of this encounter
--- OUTSIDE RECORDS SUMMARY | 2025-02-26 04:30 | XMS_ITS | Encounter Summary ---
Author Organization [employer] [facility] Address [address] [place] [address] Care Team Providers Care Job Cost Estimator Name Role Phone Janine Gomez Primary Care Provider [phone] Andrea Joaquin PharmD Unavailable [phone] Encounter Details Date Type Department Care Team (Late st Contact Info) Description 04/02/2022 Orders Only [facility] [address] [place] [address] Sary Olivas, RN Social History Tobacco Use [...] Description 04/18/2025 2:30 PM EST Office Visit [facility] [address] [place] [address] Janine Gomez ANP [address] [place] [address] documented as of this encounter Visit Diagnoses Not on filedocumented in this encounter Care Teams Job Cost Estimator Relationship Specialty Start Date End Date Janine Gomez ANP [address] [place] [address] PCP - General Family Medicine 11/13/20 Andrea Joaquin, PharmD [address] [place] [address] Pharmacist Internal Medicine 01/03/24 [facility] 10/04/24 documented as of this encounter
--- OUTSIDE RECORDS SUMMARY | 2025-02-26 04:30 | XMS_ITS | Encounter Summary ---
Author Organization [employer] Address [address] [facility] 7 [place] [address] Care Team Providers Care Enrollment Processor Name Role Phone Janine Gomez Primary Care Provider [phone] Andrea Joaquin PharmD Unavailable [phone] Reason for Visit * Reason Onset Date Comments March recall 02/25/2025 Encounter Details Date Type Department Care Team ([facility] st Contact Info) Description 02/25/2025 Telephone [facility] [address] [place], [place] [phone] Janine Gomez ANP [address] [place] [address] March recall Social History Tobacco Use Types Packs/Day Years [...] is your housing situation today? I have [place] 10/25/[address] you [...] encounter Miscellaneous Notes * Telephone Encounter - Marcelo Pierre MA - 02/25/2025 9:31 AM EST Telephone call to patient to schedule the following recall: Visit type: Office visit extended Appointment notes: Sleep Patient agree to appointment on 04/18/2025 at 2:30 PM with Patricia. documented in this encounter Plan of Treatment Upcoming Encounters Date Type Department Care Team (Late st Contact Info) Description 04/18/2025 2:30 PM EST Office Visit [facility] [address] [place] [address] Janine Gomez, ANP [address] [place] [address] documented as of this encounter Goals Goal Patient Goal Type Associated Problems Recent Progress Patient-Stated? Author Help patients manage their type 2 diabetes Care Plan Help patients manage their type 2 diabetes Juno Hicks Weekly blood pressure task Care Plan Weekly blood pressure task Juno Hicks Help patients manage their type 2 diabetes Care Plan Help patients manage their type 2 diabetes Juno Hicks Patient has chronic kidney disease Care Plan Patient has chronic kidney disease No Juno Magana Help patients manage their type 2 diabetes Care Plan Help patients manage their type 2 diabetes No Juno Magana Patient has diabetic neuropathy Care Plan Patient has diabetic neuropathy No Juno Magana Weekly blood pressure task Care Plan Weekly blood pressure task No Juno Magana Weekly blood pressure task Care Plan Weekly blood pressure task No Juno Magana Patient has chronic kidney disease Care Plan Patient has chronic kidney disease No Juno Magana Patient has chronic kidney disease Care Plan Patient has chronic kidney disease No Juno Magana Patient has diabetic neuropathy Care Plan Patient has diabetic neuropathy No Juno Magana Patient has diabetic neuropathy Care Plan Patient has diabetic neuropathy No Juno Magana Weekly blood pressure task Care Plan Weekly blood pressure task No Marcelo Pierre MA Weekly blood pressure task Care Plan Weekly blood pressure task No Marcelo Pierre MA Weekly blood pressure task Care Plan Weekly blood pressure task No Marcelo Pierre [place] Patient has chronic kidney disease Care Plan Patient has chronic kidney disease No Marcelo Pierre [place] Patient has chronic kidney disease Care Plan Patient has chronic kidney disease No Marcelo Pierre [place] Patient has chronic kidney disease Care Plan Patient has chronic kidney disease No Marcelo Pierre [place] Patient has diabetic neuropathy Care Plan Patient has diabetic neuropathy No Marcelo Pierre [place] Patient has diabetic neuropathy Care Plan Patient has diabetic neuropathy No Marcelo Pierre [place] Patient has diabetic neuropathy Care Plan Patient has diabetic neuropathy No Marcelo Pierre [place] Weekly blood pressure task Care Plan Weekly blood pressure task No Liliana Alvarez RN Weekly blood pressure task Care Plan Weekly blood pressure task No Liliana Alvarez RN Weekly blood pressure task Care Plan Weekly blood pressure task No Liliana Alvarez RN Patient has chronic kidney disease Care Plan Patient has chronic kidney disease No Liliana Alvarez RN Patient has chronic kidney disease Care Plan Patient has chronic kidney disease No Liliana Alvarez RN Patient has chronic kidney disease Care Plan Patient has chronic kidney disease No Liliana Alvarez RN Patient has diabetic neuropathy Care Plan Patient has diabetic neuropathy No Lilinaa Alvarez RN Patient has diabetic neuropathy Care Plan Patient has diabetic neuropathy No Liliana Alvarez RN Patient has diabetic neuropathy Care Plan Patient has diabetic neuropathy No Liliana Alvarez RN Weekly blood pressure task Care Plan Weekly blood pressure task No Marcelo Peirre MA Weekly blood pressure task Care Plan Weekly blood pressure task No Marcelo Pierre MA Weekly blood pressure task Care Plan Weekly blood pressure task No Marcelo Pierre [place] Patient has chronic kidney disease Care Plan Patient has chronic kidney disease No Marcelo Pierre [place] Patient has chronic kidney disease Care Plan Patient has chronic kidney disease No Marcelo Pierre [place] Patient has chronic kidney disease Care Plan Patient has chronic kidney disease No Marcelo Pierre [place] Patient has diabetic neuropathy Care Plan Patient has diabetic neuropathy No Marcelo Pierre [place] Patient has diabetic neuropathy Care Plan Patient has diabetic neuropathy No Marcelo Pierre [place] Patient has diabetic neuropathy Care Plan Patient has diabetic neuropathy No Marcelo Pierre [place] documented as of this encounter Visit Diagnoses Not on filedocumented in this encounter Additional Health Concerns Active Problems Noted Date Diagnosed Date Help patients manage their type 2 diabetes 02/14 Weekly blood pressure task 02/14/2025 Help patients manage their type 2 diabetes 02/14 Patient has chronic kidney disease 02/14/2025 Help patients manage their type 2 diabetes 02/14 Patient has diabetic neuropathy 02/14/2025 Weekly blood pressure task 02/14/2025 Weekly blood pressure task 02/14/2025 Patient has chronic kidney disease 02/14/2025 Patient has chronic kidney disease 02/14/2025 Patient has diabetic neuropathy 02/14/2025 Patient has diabetic neuropathy 02/14/2025 Weekly blood pressure task 02/18/2025 Weekly blood pressure task 02/18/2025 Weekly blood pressure task 02/18/2025 Patient has chronic kidney disease 02/18/2025 Patient has chronic kidney disease 02/18/2025 Patient has chronic kidney disease 02/18/2025 Patient has diabetic neuropathy 02/18/2025 Patient has diabetic neuropathy 02/18/2025 Patient has diabetic neuropathy 02/18/2025 Weekly blood pressure task 02/19/2025 Weekly blood pressure task 02/19/2025 Weekly blood pressure task 02/19/2025 Patient has chronic kidney disease 02/19/2025 Patient has chronic kidney disease 02/19/2025 Patient has chronic kidney disease 02/19/2025 Patient has diabetic neuropathy 02/19/2025 Patient has diabetic neuropathy 02/19/2025 Patient has diabetic neuropathy 02/19/2025 Weekly blood pressure task 02/25/2025 Weekly blood pressure task 02/25/2025 Weekly blood pressure task 02/25/2025 Patient has chronic kidney disease 02/25/2025 Patient has chronic kidney disease 02/25/2025 Patient has chronic kidney disease 02/25/2025 Patient has diabetic neuropathy 02/25/2025 Patient has diabetic neuropathy 02/25/2025 Patient has diabetic neuropathy 02/25/2025 Assessment Noted Time PHQ-9 Depression Total Score: 0 10/26/19 3:07 PM EDT documented as of this encounter Care Teams Enrollment Processor Relationship Specialty Start Date End Date Janine Gomez ANP [address] [place] [address] PCP - General Family Medicine 11/13/20 Andrea Joqauin PharmD [address] [place] [address] Pharmacist Internal Medicine 01/03/24 [facility] 10/04/24 documented as of this encounter
--- OUTSIDE RECORDS SUMMARY | 2025-02-26 04:30 | XMS_ITS | Encounter Summary ---
Author Organization [employer] [facility] Address [address] [place] [address] Care Team Providers Care Mental Retardation Aide Name Role Phone Janine Gomez Primary Care Provider [phone] Andrea Joaquin PharmD Unavailable [phone] Encounter Details Date Type Department Care Team (Late st Contact Info) Description 04/07/2022 Orders Only [facility] [address] [place] [address] Liliana Pace LPN Social History Tobacco Use [...] Description 04/18/2025 2:30 PM EST Office Visit [facility] [address] [place] [address] Janine Gomez ANP [address] [place] [address] documented as of this encounter Visit Diagnoses Not on filedocumented in this encounter Care Teams Mental Retardation Aide Relationship Specialty Start Date End Date Janine Gomez ANP [address] [place] [address] PCP - General Family Medicine 11/13/20 Andrea Joaquin, PharmD [address] [place] [address] Pharmacist Internal Medicine 01/03/24 [facility] 10/04/24 documented as of this encounter
--- OUTSIDE RECORDS SUMMARY | 2025-02-26 04:30 | XMS_ITS | Clinical Summary ---
Author Organization [email or web address] Address [address] [facility] 7[address] [place] [address] Care Team Providers Care Blood Bank Assistant Name Role Phone Patricia Janine RYAN Primary Care Provider [phone] Andrea Joaquin PharmD Unavailable [phone] Allergies Active Allergy Reactions Criticality Noted Date Comments Nsaids 05/27/2022 Not allergy - no NSAIDs per renal Medications * This document contains information received from the source organization and may not represent a complete record from that organization. Farxiga 10 MG Take 10 mg by mouth in the morning. 023 Active tadalafil (Cialis) 5 MG tablet TAKE 1 TABLET BY MOUTH ONCE DAILY FOR SEXUAL ACTIVITY 024 Active tadalafil (Cialis) 20 MG tablet TAKE 1 TABLET BY MOUTH ONCE NEEDED FOR SEXUAL ACTIVITY. TAKE 60 MINUTES BEFORE INTENDED ACTIVITY 024 Active atorvastatin (Lipitor) 40 MG tabletIndication s:Mixed hyperlipidemia TAKE 1 TABLET BY MOUTH AT BEDTIME 90 tablet 3 025 Active glucagon (Gvoke PFS) 1 MG/0.2ML injection Inject 1 mg under the skin 1 (one) time if needed for low blood sugar. Active glucose 4 g chewable tabletIndication s:Type 2 diabetes mellitus with stage 3b chronic kidney disease, with long-term current use of insulin (HCC) Chew 4 tablets (16 g) if needed for low blood sugar. 50 tablet 12 025 2025 Active Alcohol Swabs (Alcohol Prep) 70 % padsIndications: Diabetic polyneuropathy associated with type 2 diabetes mellitus (HCC) USE DIRECTED 100 each 11 025 Active hydroCHLOROthiaz gisell (HYDRODiuril) 25 MG tablet TAKE 1 TABLET BY MOUTH EVERY MORNING 90 tablet 1 025 Active metFORMIN (Glucophage) 500 MG tabletIndication s:Type 2 diabetes mellitus with other specified complication, with long-term current use of insulin ([facility]) TAKE 2 TABLETS BY MOUTH TWICE DAILY IN THE MORNING AND EVENING WITH MEALS 120 tablet 5 025 Active omeprazole (PriLOSEC) [address] capsuleIndicatio ns:Gastroesophag eal reflux disease, unspecified whether esophagitis present TAKE 1 CAPSULE BY MOUTH EVERY DAY 30 TO 60 MINUTES BEFORE A MEAL 90 capsule 025 Active NovoLOG FLEXPEN 100 UNIT/ML penIndications:T ype 2 diabetes mellitus with diabetic polyneuropathy, with long-term current use of insulin ([facility]) INJECT 20 UNITS SUBCUTANEOUSLY THREE TIMES DAILY BEFORE MEALS 15 mL 025 Active fluticasone (Flonase) 50 MCG/ACT nasal sprayIndications :Non-seasonal allergic rhinitis, unspecified trigger Use 1 spray per nostril once Daily as needed for allergies. Shake gently. Before first use, prime pump. After use, clean tip and replace cap. 16 g 2 025 Active Aspirin Low Dose 81 MG EC tablet TAKE 1 TABLET BY MOUTH EVERY MORNING 90 tablet 1 025 Active clotrimazole-bet amethasone (Lotrisone) cream APPLY TOPICALLY TO THE AFFECTED AREA(S) TWICE DAILY DIRECTED FOR 28 DAYS 60 g 025 Active bacitracin 500 UNIT/GM ointmentIndicati ons:Neurotic excoriations Apply topically 2 times daily. 425 g 025 Active triamcinolone (Kenalog) 0.1 % creamIndications :Rash APPLY TOPICALLY TO THE AFFECTED AREA(S) TWICE DAILY NEEDED FOR ITCHING 45 g 025 Active lisinopril 30 MG tablet TAKE 1 TABLET BY MOUTH EVERY MORNING 90 tablet 1 025 Active Continuous Glucose Clerical Car Checker (FreeStyle Andreina 3 [place]) deviceIndication s:Type 2 diabetes mellitus with stage 3b chronic kidney disease, with long-term current use of insulin ([facility]) 1 each Once per day. Use as directed for CGM 1 each 11/24/2 025 Active Continuous Glucose Sensor (FreeStyle Andreina 3 Plus Sensor) miscIndications: Type 2 diabetes mellitus with stage 3b chronic kidney disease, with long-term current use of insulin ([facility]) 1 each every 15 days. Apply 1 every 15 days as directed for CGM 2 each Active glucose blood (FreeStyle Precision Lew Test) test stripIndications :Type 2 diabetes mellitus with stage 3b chronic kidney disease, with long-term current use of insulin ([facility]) TEST BLOOD SUGAR FOUR TIMES DAILY NEEDED 100 strip 11 Active Dulaglutide (Trulicity) 0.75 MG/0.5ML solution auto-injectorInd ications:Type 2 diabetes mellitus with stage 3b chronic kidney disease, with long-term current use of insulin ([facility]) Inject 0.75 mg under the skin every 7 (seven) days. 2 mL 5 Active QUEtiapine (SEROquel) 50 MG tabletIndication s:Primary insomnia Take 1 tablet (50 mg) by mouth at bedtime. 30 tablet 2 02/19/20 4:24 PM EST 2025 Active budesonide-formo terol (Symbicort) 80-4.5 MCG/ACT inhalerIndicatio ns:Subacute cough Take 2 puffs as needed up to every 4-6 hours for SOB/cough. Rinse mouth with water after use to reduce aftertaste and incidence of candidiasis. Do not swallow. 1 each Active Toujeo SoloStar 300 UNIT/ML injectionIndicat ions:Type 2 diabetes mellitus with other specified complication, with long-term current use of insulin ([facility]) INJECT 46 UNITS SUBCUTANEOUSLY AT BEDTIME DIRECTED 4.5 mL 3 Active Embecta Pen Needle Beckie 32G X 4 MM miscIndications: Type 2 diabetes mellitus with hyperglycemia ([facility]) USE DIRECTED FOUR TIMES DAILY WITH INSULIN 100 each 3 Active TRUEplus Lancets 33G miscIndications: Type 2 diabetes mellitus with stage 3b chronic kidney disease, with long-term current use of insulin ([facility]) TEST BLOOD SUGAR FOUR TIMES DAILY NEEDED 100 each 3 Active Continuous Blood Gluc Clerical Car Checker (FreeStyle Anrdeina 2 [place]) deviceIndication s:Hypoglycemia 1 each 5 (five) times a day. 1 each 023 2024 Discontinued glucose blood (FreeStyle Precision Lew Test) test stripIndications :Type 2 diabetes mellitus with stage 3b chronic kidney disease, with long-term current use of insulin ([facility]) Use to test blood sugar 4 times daily as needed 100 each 11 024 2024 Discontinued Lancets miscIndications: Type 2 diabetes mellitus with stage 3b chronic kidney disease, with long-term current use of insulin ([facility]) Use to test blood sugar 4 times daily as needed 100 each 11 024 2024 Discontinued insulin pen needle ([employer] SafePack Pen Needle) 32G x 4 mm miscIndications: Type 2 diabetes mellitus with hyperglycemia ([facility]) Use four times daily with insulin 100 each 11 024 2024 Discontinued lisinopril 30 MG tablet TAKE 1 TABLET BY MOUTH EVERY MORNING 90 tablet 1 025 2024 Discontinued Trulicity 0.75 MG/0.5ML solution auto-injectorInd ications:Type 2 diabetes mellitus with other specified complication, with long-term current use of insulin ([facility]) INJECT ONE PEN (=0.75MG) SUBCUTANEOUSLY ONCE A WEEK DIRECTED 2 mL 5 025 2024 Discontinued(R eorder (will not trigger notification to Pharmacy)) Continuous Glucose Sensor (FreeStyle Andreina 2 Sensor) miscIndications: Hypoglycemia USE DIRECTED TO TEST BLOOD SUGAR. CHANGE EVERY 14 DAYS . 6 each 3 025 2024 Discontinued insulin glargine (Toujeo SoloStar) 300 UNIT/ML injectionIndicat ions:Type 2 diabetes mellitus with other specified complication, with long-term current use of insulin ([facility]) INJECT 46 UNITS SUBCUTANEOUSLY AT BEDTIME DIRECTED 4.5 mL 025 2024 Discontinued Continuous Glucose Sensor (FreeStyle Andreina 2 Plus Sensor) miscIndications: Type 2 diabetes mellitus with stage 3b chronic kidney disease, with long-term current use of insulin ([facility]) 1 each every 15 days. 2 each 11 025 2024 Discontinued glucose blood (FreeStyle Precision Lew Test) test stripIndications :Type 2 diabetes mellitus with stage 3b chronic kidney disease, with long-term current use of insulin ([facility]) TEST BLOOD SUGAR FOUR TIMES DAILY NEEDED 100 strip 11 025 2024 Discontinued(R eorder (will not trigger notification to Pharmacy)) doxycycline (Vibra-Tabs) 100 MG tabletIndication s:Cellulitis of left upper extremity Take 1 tablet (100 mg) by mouth 2 times daily for 5 days. Take with a full glass of water and do not lie down for at least 30 minutes after. 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 [address] [place] [address] Janine Gomez ANP March02/19/[address] [facility] [address] [place] [address] Liliana Alvarez RNsprinkler fitter helper 02/19/[address] [facility] [address] [place] [address] Andrea Joaquin, RobeD Type 2 diabetes mellitus with other specified complication, with long-term current use of insulin (HCC); Type 2 diabetes mellitus with hyperglycemia (HCC); Type 2 diabetes mellitus with stage 3b chronic kidney disease, with long-term current use of insulin (HCC) 02/18/2025 3:30 PM EST Office Visit [facility] [address] [place], [place] [phone] Janine Gomez ANP Type 2 diabetes mellitus with stage 3b chronic kidney disease, with long-term current use of insulin (HCC) (Primary Dx); Nicotine dependence with current use; Depressive disorder; Primary insomnia; Cellulitis of left upper extremity; Subacute cough; Rash; Eosinophilia, unspecified type 02/18/2025 Travel 02/14/[address] [facility] [address] [place] [phone] Janine Gomez ANP ER Follow-up 02/05/2025 Refill [facility] [address] [place] [address] Janine Gomez ANP 01/31/[address] [address] Andrea Joaquin, PharmD Type 2 diabetes mellitus with stage 3b chronic kidney disease, with long-term current use of insulin (HCC) 01/24/[address] [address] Janine Gomez ANP chart prep 01/14/2025 2:40 PM EDT Office Visit [facility] [address] [place] [phone] Ca Sneed, HÉCTOR Neurotic excoriations (Primary Dx); Delusions of parasitosis (CMS/HCC) (HCC) 01/14/[address] [address] Janine Gomez ANP Rash 01/14/2025 Travel 12/31/[address] [address] Janine Gomez ANP 12/21/[address] [phone] Geronimo Shepard, [facility] 12/20/[address] [facility] [address] [place] [phone] Janine Gomez ANP 12/10/2024 2:00 PM EDT Clinical Support [address] [address] Liliana Alvarez, RN Type 2 diabetes mellitus with stage 3b chronic kidney disease, with long-term current use of insulin (CMS/HCC) 12/10/[address] [facility] [address] [place] [phone] Liliana Alvarez, analytical manager 12/10/[address] [facility] [address] [place] [address] [phone] Liliana Alvarez, RN Type 2 diabetes mellitus with stage 3b chronic kidney disease, with long-term current use of insulin ([facility]) (Primary Dx) 12/10/2024 Travel 12/09/[address] [facility] [address] [place], [place] [phone] Janine Gomez ANP Rash 12/06/[address] [facility] [address] [place], [place] [phone] Andrea Joaquin, PharmD Type 2 diabetes mellitus with other specified complication, with long-term current use of insulin ([facility]) from Last 3 Months Immunizations Immunization Administration [...] Sign Reading Time Taken Comments Blood Pressure 140/80 02/18/2025 3:20 PM EST Pulse 70 02/18/2025 3:20 PM EST Temperature 36.6 C (97.9 F) 02/18/2025 3:20 PM EST Respiratory Rate 15 02/18/2025 3:20 PM EST Oxygen Saturation 98% 02/18/2025 3:20 PM EST Inhaled Oxygen Concentration - - Weight 91.2 kg (201 lb) 02/18/2025 3:20 PM EST Height 175.3 cm (5' 9 ) 02/18/2025 3:20 PM EST Body Mass Index 29.68 02/18/2025 3:20 PM EST Plan of Treatment Upcoming Encounters Date Type Department Care Team (Late st Contact Info) Description 04/18/2025 2:30 PM EST Office Visit [facility] [address] [place], [place] [phone] Janine Gomez ANP [address] [place] [address] Health Maintenance Due Date Last Done Comments CT Colonography 1960 Colonoscopy 1960 FIT 1960 Sigmoidoscopy 1960 RSV Patients and Patients Aged 60 years or older (1 - Risk 50-74 years 1-dose series) 2010 Hepatitis B Vaccines (1 of 3 - Risk 3-dose series) 2020 Lipid Panel 02/15/2024 02/14/2023, 06/26, 02/08/2020 FOBT 09/07/2024 09/08/2023 COVID-19 Vaccine ( season) 2024 05/27/2022, 03/16/2021, 07/07/2020, Additional history exists Influenza Vaccine (#1) 2024 , 05/27/2022, 03/16/2021, Additional history exists Diabetes: Hemoglobin A1C 05/21/2025 025, 10/25/2024, 06/25/2024, Additional history exists Eye Exam 06/21/2025 06/21/2024, 05/27, 06/21/2024, Additional history exists Diabetes: Foot Exam 08/29/2025 08/29/2024, 08/29/2024, 08/29/2024, Additional history exists Alcohol/Substance Use Screening 10/25/2025 10/25/2024 Depression Screening 10/25/2025 10/25/2024, 10/26/19 25 Disability Screening 10/25/2025 10/25/2024 SDOH Screening 10/25/2025 10/25/2024 Tobacco Screening 02/18/2026 02/18/2025 Colorectal Cancer Screening 09/07/2026 FIT DNA/Cologuard 09/07/2026 [...] on patient's age to complete this topic Goals Goal Patient Goal Type Associated Problems Recent Progress Patient-Stated? Author Help patients manage their type 2 diabetes Care Plan Help patients manage their type 2 diabetes No Juno Magana Weekly blood pressure task Care Plan Weekly blood pressure task No Juno Magana Help patients manage their type 2 diabetes Care Plan Help patients manage their type 2 diabetes No Juno Mag[place] Patient has chronic kidney disease Care Plan Patient has chronic kidney disease No Juno Mag[place] Help patients manage their type 2 diabetes Care Plan Help patients manage their type 2 diabetes No Juon Magana Patient has diabetic neuropathy Care Plan Patient has diabetic neuropathy No Juno [place] Weekly blood pressure task Care Plan Weekly blood pressure task No Jnuo [place] Weekly blood pressure task Care Plan [...] has diabetic neuropathy No Marcelo Pierre MA Procedures Procedure Name Priority Date/Time Associated Diagnosis Comments POCT GLYCATED HEMOGLOBIN, TOTAL Routine 02/18/2025 3:32 PM EST Type 2 diabetes mellitus with stage 3b chronic kidney disease, with long-term current use of insulin (HCC) POCT GLUCOSE Routine 02/18/2025 3:32 PM EST Type 2 diabetes mellitus with stage 3b chronic kidney disease, with long-term current use of insulin (HCC) LAB COLOGUARD COLON CANCER SCREEN Routine 09/08/2023 [...] to Health Maintenance Results * (ABNORMAL) POCT Hgb A1c (02/18/2025 3:32 PM EST) Hemoglobin A1C 8.0(A) 4.0 - 5.7 % QC Media Lot # [id number] Lot# Expiration Date Blood 02/18/2025 3:32 PM EST us Janine RYAN POINT OF CARE TEST ENTER/EDIT OR DERABLES Final Result * POCT Glucose (02/18/2025 3:32 PM EST) Glucose Blood, POC 189 60 - 200 mg/dL QC Media Lot # [id number] Lot# Expiration Date , Blood Capillary blood specimen / Unknown 02/18/2025 3:32 PM EST us Janine RYAN POINT OF CARE TEST ENTER/EDIT OR DERABLES Final Result * Cologuard?? colon cancer screening (09/08/2023 11:00 AM EDT) Cologuard Result Negative Negative 09/20/19 5:15 AM EDT [employer] (IA #:[id number]) Comment: NEGATIVE TEST RESULT. A negative Cologuard [...] (Katelyn Hess al, N Engl J Med 2014;370(14):6432-4370) The normal value (reference range) for this assay is negative. COLOGUARD RE-SCREENING RECOMMENDATION: Periodic colorectal cancer screening is an important part of preventive healthcare for asymptomatic individuals at average risk for colorectal cancer. Following a negative Cologuard result, the [place] Cancer Society and U.S. Multi-Society Task Force screening guidelines recommend a Cologuard re-screening interval of 3 years. References: [place] Cancer Society Guideline for Colorectal Cancer Screening: https://www.cancer.org/cancer/nvpml-bueitl-wgjpbd/qqejevsgf-sdefkffjh-sitakmb/ac s-rec ommendations.html.; Twan DK, Audra CR, Aubrey SmithK, Colorectal Cancer Screening: Recommendations for Physicians and Patients from the U.S. Multi-Society Task Force on Colorectal Cancer Screening , Am J Gastroenterology 2017; 112:5184-4776. TEST DESCRIPTION: Composite algorithmic analysis of stool [...] (Katelyn Hess al, N Engl J Med 2014;370(14):9094-1492.) Cologuard may produce a false negative or false positive result (no colorectal cancer or precancerous polyp present at colonoscopy follow up). A negative Cologuard test result does not guarantee the absence of CRC or advanced adenoma (pre-cancer). The current Cologuard screening interval is every 3 years. ([place] Cancer Society and U.S. Multi-Society Task Force). Cologuard performance data in a 10,000 patient pivotal study using colonoscopy as the reference method can be accessed at the following location: www.[employer].Eons/results. Additional description of the Cologuard test process, warnings and precautions can be found at www.[employer].com. Stool specimen (specimen) 09/08/2023 11:00 AM EDT 09/09/2023 10:49 AM EDT [facility] MOLECULAR DIAGNOSTICS ORDERA BLES Final Result [employer] (CLIA #:[id number]) [address] [place] [address], * HIV-1/2 Antigen and Antibodies, Fourth Generation, with Reflexes (02/14/2023 9:57 AM EST) HIV AB/AG Nonreactive Nonreactive [facility] Comment:HIV-1 p24 Ag and/or HIV-1/HIV-2 Ab not detected.A test result that is nonreactive does not exclude thepossibility of exposure to or infection with HIV-1 and/orHIV-2. Nonreactive results in this assay for individualswith prior exposure to HIV-1 and/or HIV-2 may be due toantigen and antibody levels that are below the limit ofdetection of this assay.The [employer] HIV Ag/Ab Combo assay result andsupplemental assay results should be interpreted inconjunction with the patient's clinical presentation,history and other laboratory results. If the results areinconsistent with clinical evidence, additional testing issuggested to confirm the result. Blood Venous blood specimen / Unknown 02/14/2023 9:57 AM EST 02/14/2023 11:09 AM EST Janine Gomez [facility] B[facility] ORDERABLES Final Resul t [facility] [address] [place] [phone] * (ABNORMAL) Lipid Panel, Standard (02/14/2023 9:57 AM EST) Triglycerides 80 <150 mg/dL [facility] Comment:Desirable Triglyceri de: less than 150 mg/dLBorderline High Triglyceride 150-199 mg/dLHigh Triglyceride: 200-499 mg/dLVery High Triglyceride: greater than or equal to 5OO mg/dL Cholesterol 110 <200 mg/dL [facility] Comment:Desirable Cholestero l: less than 200 mg/dLBorderline High Cholesterol: 200-239 mg/dLHigh Cholesterol: greater than 239 mg/dL LDL Cholesterol Calculated 54 <100 mg/dL [facility] Comment:Desirable LDL: less than 100 mg/dLNear Optimal/Above Optimal LDL: 110- 129 mg/dLBorderline High LDL: 130-159 mg/dLHigh LDL: 160-189 mg/dLVery High LDL: greater than or equal to 190 mg/dL HDL Cholesterol 40(L) >40 mg/dL [facility] Comment:Desirable HDL: great er than 40 mg/dL Note: This HDL assay may give artificially low results in patients with liver disease. Blood Venous blood specimen / Unknown 02/14/2023 9:57 AM EST 02/14/2023 11:09 AM EST [facility] Gomez [facility] B[facility] ORDERABLES Final Resul t [facility] [address] [place] [address] [phone] from Last 3 Months or Most Recently Relevant to Health Maintenance Additional Health Concerns Active Problems Noted Date [...] neuropathy 02/25/2025 Patient has diabetic neuropathy 02/25/2025 Insurance [facility] ONE CARE < 65 TC HECK [id number] Care Teams Blood Bank Assistant Relationship Specialty Start Date End Date Janine Gomez ANP [address] [place] [address] PCP - General Family Medicine 11/13/20 Andrea Joaquin, Alexandru [address] [place] [address] Pharmacist Internal Medicine 01/03/24 [facility] 10/04/24
--- OUTSIDE RECORDS SUMMARY | 2025-02-26 04:30 | XMS_ITS | Clinical Summary ---
Author Organization [facility] Address [address] [place] [address], [place] [address] Care Team Providers Care Blindstitch Machine Operator Name Role Phone Janine Gomez NP Primary Care Provider [phone] Allergies Active Allergy Reactions Criticality Noted Date [...] Health Maintenance Due Date Last Done Comments Colorectal Cancer Screening: Annual FOBT 2009 Colorectal Cancer Screening: Colonoscopy 2009 Colorectal Cancer Screening: Sigmoidoscopy 2009 Diabetes: Ophthalmology Exam 09/07/2021 Diabetes: Pedal Pulse Checked 09/07/2021 Diabetes: Sensory Foot Exam 09/07/2021 Diabetes: Visual Foot Exam 09/07/2021 Influenza Vaccine (#1) 2024 , 05/27/2022, 03/16/2021, Additional history exists Diabetes: Hemoglobin A1C 05/21/2025 02/18/2025, 03/0 04/2022 Pneumococcal Vaccine: 50+ Years Completed 10/27/2023, 03/03/2001 Pneumococcal Vaccine: Peds (0 to 5 Years) and At-Risk Patients (6 to 49 Years) Discontinued 10/27/2023, 03/03/2001 Hepatitis B Vaccine Aged Out No longe r eligible based on patient's age to complete this topic Insurance [facility] MCR ([id number]) [facility] ([id number]) Care Teams Blindstitch Machine Operator Relationship Specialty Start Date End Date Janine oGmez NP PCP - General Nurse Practitioner 08/07/21
--- OUTSIDE RECORDS SUMMARY | 2025-02-26 04:30 | XMS_ITS | Encounter Summary ---
Author Organization [employer] Address [address] [place] [address] [address] [place] [address] Care Team Providers Care Workshop Manager Name Role Phone Janine Gomez Primary Care Provider [phone] Andrea Joaquin PharmD Unavailable [phone] Encounter Details Date Type Department Care Team (Late st Contact Info) Description 03/23/2022 Orders Only [facility] [address] [place] [address] Renate Chinchilla LPN Social History Tobacco Use [...] Description 04/18/2025 2:30 PM EST Office Visit [facility] [address] [place] [address] Janine Gomez ANP [address] [place] [address] documented as of this encounter Visit Diagnoses Not on filedocumented in this encounter Care Teams Workshop Manager Relationship Specialty Start Date End Date Janine Gomez ANP [address] [place] [address] PCP - General Family Medicine 8/19/21 Andrea Joaquin, PharmD [address] [place] [phone] Pharmacist Internal Medicine 01/03/24 [facility] 10/04/24 documented as of this encounter
--- OUTSIDE RECORDS SUMMARY | 2025-02-26 04:30 | XMS_ITS | Encounter Summary ---
Author Organization [employer] Address [address] [place] [address] [address] [place] [address] Care Team Providers Care Console Manager Name Role Phone Janine Gomez Primary Care Provider [phone] Andrea Joaquin PharmD Unavailable [phone] Encounter Details Date Type Department Care Team (Late st Contact Info) Description 04/29/2022 Orders Only [facility] [address] [place] [address] Renate Chinchilla LPN Social History Tobacco Use [...] 2:30 PM EST Office Visit [facility] [address] [place] [address] Janine Gomez ANP [address] [place] [address] documented as of this encounter Visit Diagnoses Not on filedocumented in this encounter Care Teams Console Manager Relationship Specialty Start Date End Date Janine Gomez ANP [address] [place] [address] PCP - General Family Medicine 8/19/21 Andrea Joaquin, PharmD [address] [place] [phone] Pharmacist Internal Medicine 01/03/24 [facility] 10/04/24 documented as of this encounter
--- OUTSIDE RECORDS SUMMARY | 2025-02-26 04:30 | XMS_ITS | Encounter Summary ---
Author Organization [employer] Address [address] [place] [id number] Care Team Providers Care Project Surveyor Name Role Phone Janine Gomez Primary Care Provider Andrea Joaquin PharmD Unavailable [phone] Reason for Visit * Reason Comments Med Refill Encounter Details Date Type Department Care Team (Late st Contact Info) Description 07/18/2022 Refill [facility] [address], [place] [phone] Janine Gomez ANP [address] [place], [place] [phone] Other male erectile dysfunction Social History Tobacco [...] Description 04/18/2025 2:30 PM EST Office Visit [facility] [address] [place] [address] Janine Gomez ANP [address] [place], [place] [phone] documented as of this encounter Visit Diagnoses Diagnosis Other male erectile dysfunction documented in this encounter Care Teams Project Surveyor Relationship Specialty Start Date End Date Janine Gomez ANP [address] [place] [address] PCP - General Family Medicine 11/13/20 Andrea Joaquin PharmD [address] [place] [address] Pharmacist Internal Medicine 01/03/24 [facility] 10/04/24 documented as of this encounter
--- NOTE | 2025-02-26 04:35 | ED.SKABFB ---
HPI - Skin/Abscess/Foreign Bdy General Chief complaint: Skin/Abscess/Foreign Body Stated complaint: Scabbies Time Seen by Provider: 02/26/25 04:10 Source: patient Mode of arrival: ambulatory Limitations: no limitations History of Present Illness ED Provider: Dr. Lainey Stewart HPI narrative: Patient comes to the emergency room stating that he has parasites coming out of his body. Patient has been seen multiple times for this issue. Patient known to have delusional parasitosis. However, patient is convinced that they are microscopic organisms pouring out of his eyes, palms and soles of his feet. Patient has been seen multiple times by providers here in the ED, other emergency department's per patient, and also by the wound clinic and infectious disease. Patient does not have any parasites. Related Data Home Medications ?Medication ?Instructions ?Recorded ?Confirmed aspirin 81 mg tablet,delayed 81 mg PO DAILY 05/07/21 11/29/23 release (Adult Aspirin Regimen) atorvastatin 40 mg tablet 40 mg PO BEDTIME 05/07/21 11/29/23 hydrochlorothiazide 25 mg tablet 25 mg PO Q OTHER DAY 05/07/21 11/29/23 insulin aspart U-100 100 unit/mL 1 sliding scale dose subcut 05/07/21 11/29/23 (3 mL) subcutaneous pen (Novolog USEASDIRECTD FlexPen U-100 Insulin aspart) insulin glargine U-300 conc 300 30 unit subcut BEDTIME 05/07/21 11/29/23 unit/mL (1.5 mL) subcutaneous pen (Toujeo SoloStar U-300 Insulin) lisinopril 30 mg tablet 30 mg PO DAILY 05/07/21 11/29/23 metformin 500 mg tablet 500 mg PO DAILY 05/07/21 11/29/23 Previous Rx's ?Medication ?Instructions ?Recorded bisacodyl 5 mg tablet,delayed 10 mg (2 x 5 mg) PO ONCE 05/07/21 release (Dulcolax (bisacodyl)) colonoscopy prep 1 day #2 tabs docusate sodium 100 mg capsule 200 mg (2 x 100 mg) PO BEDTIME #60 05/07/21 (Colace) caps polyethylene glycol 3350 17 17 g PO DAILY #510 grams 05/07/21 gram/dose oral powder (Miralax) polyethylene glycol 3350 17 238 g PO ONCE 1 day #238 grams 05/07/21 gram/dose oral powder (Miralax) simethicone 125 mg chewable tablet 125 mg PO TID-QID PRN abdominal 05/07/21 (Gas Relief (simethicone)) distention #90 tabs glucagon 1 mg solution for 1 mg subcut Q20M PRN hypoglycemia 01/21/23 injection (Glucagon Emergency Kit) #1 ea tadalafil 20 mg tablet 20 mg PO ONCE PRN sexual activity 05/29/24 30 days #30 tabs tadalafil 5 mg tablet 5 mg PO DAILY sexual activity 90 05/29/24 days #90 tabs permethrin 5 % topical cream 1 appl topical Q14D 2 doses #60 09/14/24 grams cephalexin 500 mg capsule 500 mg PO Q12H #14 caps 02/26/25 doxycycline hyclate 100 mg tablet 100 mg PO DAILY #14 tabs 02/26/25 Allergies Allergy/AdvReac Type Severity Reaction Status Date / Time No Known Allergies Allergy Unknown Verified 02/25/25 23:57 Review of Systems Review of Systems: Constitutional : No Weight loss, No Fever, No Chills, No Night Sweats, No Fatigue, No Malaise ENT/Mouth : No Hearing loss, No Ear Pain, No Nasal Congestion, No Sinus Pain, No Hoarseness, No sore throat, No Rhinorrhea, No Swallowing Difficulty Eyes: No Eye Pain, No Swelling, No Redness, No Foreign Body, No Discharge, No Vision Changes Cardiovascular : No Chest Pain, No SOB, No Dyspnea on Exertion, No Orthopnea, No Edema, No Palpitations Respiratory : No Cough, No Sputum, No Wheezing, No Smoke Exposure, No Dyspnea Gastrointestinal : No Nausea, No Vomiting, No Diarrhea, No Constipation, No abdominal Pain, No Hematochezia, No Melena Genitourinary : no irregular bleeding, No Dysuria, No Urinary Frequency, No Hematuria, No Urinary Incontinence, No Urgency, No Flank Pain, No Urinary Flow Changes, No Hesitancy Musculoskeletal : No joint pain, No Myalgias, No Joint Swelling Skin : Patient has been picking at his skin, also patient has very thick calluses that are peeling of from his lower extremities. Patient states that he uses chlorine to disinfect his feet Neuro : No Weakness, No Numbness, No Paresthesias, No Loss of Consciousness, No Dizziness, No Headache Psych : No Anxiety/Panic, No Depression, No SI/HI/AH/VH, No Social Issues, Heme/Lymph: No Bruising, No Bleeding,No Lymphadenopathy Endocrine : No Polyuria, No Polydipsia, No Temperature Intolerance [facility] Past Medical History Medical History Delusions of parasitosis Nicotine dependence, cigarettes, uncomplicated Substance abuse Diabetes Surgical History Hx of cholecystectomy Family History Family History Father Diabetes Mother HTN (hypertension) Social History Social History Household Members Other:: lives alone Alcohol intake: current Alcohol intake frequency: a few times a week Patient Tobacco Use Status: Current someday Tobacco user Cigarettes Per Day: 10 Substance Use Type: Crack/Cocaine and Heroin Advance Directives: No Advance Directives Information Provided: Yes Current occupational status: unemployed and disabled Physical Exam Exam: Exam: Appearance: Alert. Oriented X3. No acute distress. Eyes: Pupils equal, round and reactive to light. ENT: Pharynx normal. Neck: Normal inspection. Neck supple. No lymph nodes noted. No crepitus CVS: Normal heart rate and rhythm. Pulses normal. Normal S1 and S2 Respiratory: No respiratory distress. Breath sounds normal. No Wheezing. No rales Abdomen: Soft and nontender. No rigidity. No distention. Skin: Skin warm and dry. Patient has significant erythema in both upper and lower extremities. Possible cellulitis. However, patient states that he does not have pain. Patient states that it is the worms coming out Extremities: No lower extremity edema. No Lacerations. No Rash Neuro: Oriented X 3. No motor deficit. No sensory deficit. Moving all extremities. No slurred speech. CN 2 through 12 grossly intact Psych: calm, cooperative, normal affect Vital Signs: Vital Signs: Last Vital Signs Temp 98.2 F 02/25/25 23:55 Pulse 79 02/25/25 23:55 Resp 18 02/25/25 23:55 BP 159/87 H 02/25/25 23:55 Pulse Ox 94 02/25/25 23:55 O2 Del Method Room Air 02/25/25 23:55 BMI result Body Mass Index 29.5 Medical Decision Making Medical Decision Making MDM Narrative: On physical exam, patient has significant erythema over his hands and feet. Patient denies pain. Looks like beginning of cellulitis? . However, it can not be a skin irritation secondary to using chlorine in the hands and feet. Patient's hematology and chemistry did not show any acute abnormality. Patient's creatinine is 1.43, at patient's baseline. After a prolonged conversation with the patient, patient is still convinced that he has microscopic organisms coming out of his skin. Patient is not SI or HI. I asked the patient to stop using chlorine towards she is feet. Antibiotics have is sent to the patient's pharmacy to prevent cellulitis. Patient is upset, patient was expecting that we would pull out all of the parasites from his skin especially from his skin Differential Diagnosis Differential Diagnoses: The differential diagnosis associated with the presentation includes (Cellulitis, self-induced lesions athlete's foot, chemical burn) Admission/Observation Consideration of admission/observation: Escalation of care including admission/observation considered (I considered putting the patient on a section 12. However, he is not SI or HI, he is delusional, specifically with parasites under his skin.) Lab Data 02/26/25 01:51 02/26/25 01:51 Labs: Lab Results 02/26/25 Range/Units 01:51 WBC 7.2 (4.8-10.8) X10*3/uL RBC 6.57 H (4.60-5.80) X10*6/uL Hgb 17.9 (14.0-18.0) g/dl Hct 54.9 H (42.0-52.0) % MCV 83.6 (80.0-98.0) fL MCH 27.2 (27.0-33.0) pg MCHC 32.6 (31.0-36.0) g/dl RDW 14.6 (11.0-16.0) % Plt Count 243 (160-400) X10*3/uL MPV 8.1 L (9.4-12.4) fL Immature Gran % (Auto) 0.3 (0.0-0.4) % Neut % (Auto) 52.9 (45-73) % Lymph % (Auto) 31.6 (20-40) % Wharton % (Auto) 9.7 (2-11) % Eos % (Auto) 4.2 H (0-4) % Baso % (Auto) 1.3 (0-2) % Lymph # (Auto) 2.3 (1.2-4.9) X10*3/uL Wharton # (Auto) 0.7 (0.1-1.2) X10*3/uL Eos # (Auto) 0.3 (0.0-0.4) X10*3/uL Baso # (Auto) 0.1 (0.0-0.2) X10*3/uL Abs Immat Gran (auto) 0.02 (0.00-0.03) X10*3/uL Absolute Neuts (auto) 3.8 (2.0-8.3) x10*3/uL Absolute Nucleated RBC 0.000 (0.0-0.012) X10*3/uL Nucleated RBC % (auto) 0.0 (0.0-0.2) /100WBC Sodium 144 (135-145) mmol/L Potassium 4.1 (3.3-5.1) mmol/L Chloride 106 (96-108) mmol/L Carbon Dioxide 28 (22-29) mmol/L Anion Gap 14 (12-20) BUN 25 H (9-16) mg/dL Creatinine 1.43 H (0.5-1.4) mg/dL Estim Creat Clear Calc 58.0 Estimated GFR 50 Random Glucose 82 (60-115) mg/dL Calcium 10.3 H (8.4-10.2) mg/dL Total Bilirubin 0.4 (0.0-1.0) mg/dL AST 49 H (5-37) U/L ALT 34 (0-40) U/L Alkaline Phosphatase 55 (39-117) U/L Total Protein 7.7 (6.5-8.0) g/dL Albumin 4.8 (3.5-5.0) g/dL Critical Care Time Critical Care Time Critical Care Time: Yes Total Critical Care Time: 35 Attestation: I have personally provided critical care time. Time includes review of lab data, radiology results, discussion with consultants, and monitoring for potential decompensation. Intervention performed as documented. Discharge Plan Discharge Clinical Impression: Delusions of parasitosis, Cellulitis Patient Disposition: Elopement Instructions: Cellulitis (ED) Additional Instructions: Please follow-up with your primary care physician tomorrow. If you have any worsening or new symptoms, please return to the emergency room or call 911 Prescriptions: New cephalexin 500 mg capsule 500 mg PO Q12H Qty: 14 0RF doxycycline hyclate 100 mg tablet 100 mg PO DAILY Qty: 14 0RF No Action Glucagon Emergency Kit (human) 1 mg recon soln 1 mg subcut Q20M PRN (Reason: hypoglycemia) Qty: 1 0RF Rx Instructions: until target blood sugar attained. Use only if unable to eat or drink. Make sure your family knows where you keep this glucagon emergency kit atorvastatin 40 mg tablet 40 mg PO BEDTIME aspirin [Adult Aspirin Regimen] 81 mg tablet,delayed release (DR/EC) 81 mg PO DAILY insulin aspart U-100 [Novolog FlexPen U-100 Insulin] 100 unit/mL (3 mL) insulin pen 1 sliding scale dose subcut USEASDIRECTD metformin 500 mg tablet 500 mg PO DAILY hydrochlorothiazide 25 mg tablet 25 mg PO Q OTHER DAY lisinopril 30 mg tablet 30 mg PO DAILY Toujeo SoloStar U-300 Insulin 300 unit/mL (1.5 mL) insulin pen 30 unit subcut BEDTIME bisacodyl [Dulcolax (bisacodyl)] 5 mg tablet,delayed release (DR/EC) 10 mg PO ONCE 1 Days Qty: 2 0RF Rx Instructions: Take 2 tablets by mouth at 12:00pm the day before your procedure. polyethylene glycol 3350 [Miralax] 17 gram/dose powder 238 g PO ONCE 1 Days Qty: 238 0RF Rx Instructions: Take as directed by mouth the day before your procedure. docusate sodium [Colace] 100 mg capsule 200 mg PO BEDTIME Qty: 60 5RF polyethylene glycol 3350 [Miralax] 17 gram/dose powder 17 g PO DAILY Qty: 510 2RF simethicone [Gas Relief (simethicone)] 125 mg tablet,chewable 125 mg PO TID-QID PRN (Reason: abdominal distention) Qty: 90 2RF tadalafil 5 mg tablet 5 mg PO DAILY 90 Days Qty: 90 2RF tadalafil 20 mg tablet 20 mg PO ONCE PRN (Reason: sexual activity) 30 Days Qty: 30 5RF Rx Instructions: On demand medication take 60 minutes before intended activity permethrin 5 % cream 1 appl topical Q14D Qty: 60 0RF Rx Instructions: apply second treatment 14 days after first treatment if live lice remain Print Language: Amharic
--- NOTE | 2025-02-26 05:18 | PC.NURSE ---
pt left after speaking to MD, did not receive D/C paperwork. left angry.
[2025-02-26 05:19] VITALS: BP 159/87; PULSE 79; RESP 18; TEMP 36.8; O2SAT 94
== END 2025-02-26 05:19 | disposition left against medical advice (07) ==
PROVIDERS: Emergency Provider Emergency Medicine
DX: F22 Delusional disorders (principal); L03.90 Cellulitis, unspecified; F17.200 Nicotine dependence, unspecified, uncomplicated; Z71.6 Tobacco abuse counseling
CPT/HCPCS: 36415; 80053; 85025; 99282; 99283

== ENCOUNTER 2025-03-06 19:18 | Emergency (ER) | payer OTHER, SELFPAY ==
[2025-03-06 19:24] VITALS: BP 141/81; PULSE 100; RESP 16; TEMP 36.7; O2SAT 96; BMI 30.1
--- NOTE | 2025-03-06 19:26 | ED_ITS ---
HPI - Skin/Abscess/Foreign Bdy General Chief complaint: Skin/Abscess/Foreign Body Stated complaint: Body swelling Time Seen by Provider: 03/06/25 22:20 Source: patient Mode of arrival: ambulatory Limitations: no limitations History of Present Illness ED Provider: Dr. Lainey Stewart HPI narrative: Patient comes to the emergency room complaining of seeing parasites coming out through his skin. Patient states that there are parasites all over his house a now they are in his blood and starting to come out through his skin. Patient has multiple scabs from picking. Patient states that he is actually seeing the parasites coming out of his skin. Patient has been seen multiple times for Delusional parasitosis. Eight days ago, I saw the patient myself, patient actually had cellulitis. Patient states that he did take all of his antibiotics and now the redness is gone. But patient is still convinced that his skin is swollen and parasites are coming out of his skin. Last time that I saw the patient, he reported had he dips his feet in chlorine to help get rid of the parasites. Patient states that today he did not do it. However, patient does have a strong odor of chlorine in him. Patient admits that he uses chlorine to clean his entire house to keep the parasites away. Patient denies SI or HI Related Data Home Medications ?Medication ?Instructions ?Recorded ?Confirmed aspirin 81 mg tablet,delayed 81 mg PO DAILY 05/07/21 0 11/29/23 release (Adult Aspirin Regimen) atorvastatin 40 mg tablet 40 mg PO BEDTIME 05/07/21 hydrochlorothiazide 25 mg tablet 25 mg PO Q OTHER DAY 05/07/21 11/29/23 insulin aspart U-100 100 unit/mL 1 sliding scale dose subcut 05/07/21 11/29/23 (3 mL) subcutaneous pen (Novolog USEASDIRECTD FlexPen U-100 Insulin aspart) insulin glargine U-300 conc 300 30 unit subcut BEDTIME 05/07/21 11/29/23 unit/mL (1.5 mL) subcutaneous pen (Toujeo SoloStar U-300 Insulin) lisinopril 30 mg tablet 30 mg PO DAILY 05/07/21 09/0 06/18 metformin 500 mg tablet 500 mg PO DAILY 05/07/2106/18 Previous Rx's ?Medication ?Instructions ?Recorded bisacodyl 5 mg tablet,delayed 10 mg (2 x 5 mg) PO ONCE 05/07/21 release (Dulcolax (bisacodyl)) colonoscopy prep 1 day #2 tabs docusate sodium 100 mg capsule 200 mg (2 x 100 mg) PO BEDTIME #60 05/07/21 (Colace) caps polyethylene glycol 3350 17 17 g PO DAILY #510 grams 0 05/07/21 gram/dose oral powder (Miralax) polyethylene glycol 3350 17 238 g PO ONCE 1 day #238 g ayesha 05/07/21 gram/dose oral powder (Miralax) simethicone 125 mg chewable tablet 125 mg PO TID-QID P RN abdominal 05/07/21 (Gas Relief (simethicone)) distention #90 tabs glucagon 1 mg solution for 1 mg subcut Q20M PRN hypogl ycemia 01/21/23 injection (Glucagon Emergency Kit) #1 ea tadalafil 20 mg tablet 20 mg PO ONCE PRN sexual act ivity 05/29/24 30 days #30 tabs tadalafil 5 mg tablet 5 mg PO DAILY sexual activit y 90 05/29/24 days #90 tabs permethrin 5 % topical cream 1 appl topical Q14D 2 dos es #60 09/14/24 grams cephalexin 500 mg capsule 500 mg PO Q12H #14 caps 05/22 doxycycline hyclate 100 mg tablet 100 mg PO DAILY #14 tabs 02/26/25 Allergies Allergy/AdvReac Type Severity Reaction Status Date / Time No Known Allergies Allergy Unknown Verified 03/06/25 19:26 Review of Systems 2 Review of Systems: Constitutional : No Weight loss, No Fever, No Chills, No Night Sweats, No Fatigue, No Malaise ENT/Mouth : No Hearing loss, No Ear Pain, No Nasal Congestion, No Sinus Pain, No Hoarseness, No sore throat, No Rhinorrhea, No Swallowing Difficulty Eyes: No Eye Pain, No Swelling, No Redness, No Foreign Body, No Discharge, No Vision Changes Cardiovascular : No Chest Pain, No SOB, No Dyspnea on Exertion, No Orthopnea, No Edema, No Palpitations Respiratory : No Cough, No Sputum, No Wheezing, No Smoke Exposure, No Dyspnea Gastrointestinal : No Nausea, No Vomiting, No Diarrhea, No Constipation, No abdominal Pain, No Hematochezia, No Melena Genitourinary : no irregular bleeding, No Dysuria, No Urinary Frequency, No Hematuria, No Urinary Incontinence, No Urgency, No Flank Pain, No Urinary Flow Changes, No Hesitancy Musculoskeletal : No joint pain, No Myalgias, No Joint Swelling Skin : No Skin Lesions, No rash Neuro : No Weakness, No Numbness, No Paresthesias, No Loss of Consciousness, No Dizziness, No Headache Psych : complaining of seeing parasites protruding from his skin in upper extremities and lower extremities Heme/Lymph: No Bruising, No Bleeding,No Lymphadenopathy Endocrine : No Polyuria, No Polydipsia, No Temperature Intolerance PMFSH Past Medical History Medical History Delusions of parasitosis Nicotine dependence, cigarettes, uncomplicated Substance abuse Diabetes Surgical History Hx of cholecystectomy Family History Family History Father Diabetes Mother HTN (hypertension) Social History Social History Household Members Other:: lives alone Alcohol intake: current Alcohol intake frequency: a few times a week Patient Tobacco Use Status: Current someday Tobacco user Cigarettes Per Day: 10 Substance Use Type: Crack/Cocaine and Heroin Advance Directives: No Advance Directives Information Provided: No Current occupational status: unemployed and disabled Physical Exam 2 Exam: Exam: Appearance: Alert. Oriented X3. No acute distress. Eyes: Pupils equal, round and reactive to light. ENT: Pharynx normal. Neck: Normal inspection. Neck supple. No lymph nodes noted. No crepitus CVS: Normal heart rate and rhythm. Pulses normal. Normal S1 and S2 Respiratory: No respiratory distress. Breath sounds normal. No Wheezing. No rales Abdomen: Soft and nontender. No rigidity. No distention. Skin: Skin warm and dry. the cellulitis resolved. There are no obvious signs of parasites. Patient has healing a new scabs from Scratching and picking his own skin. Patient has very dry erythematous feet. Seems that he has been using chlorine to clean his feet Extremities: No lower extremity edema. No Lacerations. No Rash, see skin above Neuro: Oriented X 3. No motor deficit. No sensory deficit. Moving all extremities. No slurred speech. CN 2 through 12 grossly intact Psych: calm, cooperative, normal affect Vital Signs: Vital Signs: Last Vital Signs Temp 98.4 F 03/07/25 01:17 Pulse 76 03/07/25 01:17 Resp 16 03/07/25 01:17 BP 144/75 H 03/07/25 01:17 Pulse Ox 94 03/07/25 01:17 O2 Del Method Room Air 03/07/25 01:17 BMI result Body Mass Index 30.1 Course Course Course Narrative: This is an RME: Additional HPI, ROS, PE not included below will be deferred to primary provider. RME assessment and note performed by: Dahlia Denton PA-C This is a [id number], with a hx of delusions of parasitosis, who presents to the ER with concerns of rash, and believes that there are parasites all over him.Was seen on 02/26 and was given abx, which he has been taking. Plan: Labs, further ER eval needed Medical Decision Making Medical Decision Making [facility] Narrative: patient has been seen in the ED multiple times for delusional parasitosis. Patient is convinced that he has parasites. Seems that patient is significantly distressed about this situation. Patient started using chlorine to clean himself. Although he is not suicidal or homicidal, he would benefit from seeing the care team. All of patient's labs pending. Care team consult has been consulted. patient is not suicidal or homicidal. However, patient is unintentionally harming himself. I will consult the care team whether he needs to be Section 21 and or needs inpatient level of care the care team evaluated the patient. Patient is not SI or HI. patient was very angry and refused to engage in a conversation with the care team. unfortunately, patient has delusional parasitosis which is very hard to treat. in alert knowledge does not want patient once again, leaving very angry because no one will help him get rid of his parasites. Patient states that he has been seen by his PCP, infectious disease , and has had multiple ED visits With the same complaint. At this time, per care team, there is no indication to Section 12 the patient. Lab Data [facility] Lab Attestation statement: I reviewed the patient's lab results. 03/06/25 21:48 03/06/25 23:18 Labs: Lab Results 03/06/25 03/06/25 03/06/25 Range/Units 21:48 23:08 23:18 WBC 7.2 (4.8-10.8) X10*3/uL RBC 6.51 H (4.60-5.80) X10*6/uL Hgb 17.9 (14.0-18.0) g/dl Hct 54.4 H (42.0-52.0) % MCV 83.6 (80.0-98.0) fL MCH 27.5 (27.0-33.0) pg MCHC 32.9 (31.0-36.0) g/dl RDW 14.8 (11.0-16.0) % Plt Count 243 (160-400) X10*3/uL MPV 8.4 L (9.4-12.4) fL Immature Gran % (Auto) 0.1 (0.0-0.4) % Neut % (Auto) 63.1 (45-73) % Lymph % (Auto) 23.7 (20-40) % [place] % (Auto) 8.4 (2-11) % Eos % (Auto) 3.6 (0-4) % Baso % (Auto) 1.1 (0-2) % Lymph # (Auto) 1.7 (1.2-4.9) X10*3/uL [place] # (Auto) 0.6 (0.1-1.2) X10*3/uL Eos # (Auto) 0.3 (0.0-0.4) X10*3/uL Baso # (Auto) 0.1 (0.0-0.2) X10*3/uL Abs Immat Gran (auto) 0.01 (0.00-0.03) X10*3/uL Absolute Neuts (auto) 4.5 (2.0-8.3) x10*3/uL Absolute Nucleated RBC 0.000 (0.0-0.012) X10*3/uL Nucleated RBC % (auto) 0.0 (0.0-0.2) /100WBC Sodium 144 (135-145) mmol/L Potassium 4.2 (3.3-5.1) mmol/L Chloride 103 (96-108) mmol/L Carbon Dioxide 30 H (22-29) mmol/L Anion Gap 15 (12-20) BUN 18 H (9-16) mg/dL Creatinine 1.83 H (0.5-1.4) mg/dL Estim Creat Clear Calc 45.8 Estimated GFR 37 Random Glucose 128 H (60-115) mg/dL Calcium 9.8 (8.4-10.2) mg/dL Total Bilirubin 0.3 (0.0-1.0) mg/dL AST 43 H (5-37) U/L ALT 30 (0-40) U/L Alkaline Phosphatase 54 (39-117) U/L Total Protein 7.4 (6.5-8.0) g/dL Albumin 4.4 (3.5-5.0) g/dL Urine Color Yellow Urine Appearance Clear Urine pH 6.0 (5.0-9.0) Ur Specific [place] >= 1.030 H (1.005-1.025) Urine Protein 30 (1+) H (Neg-Trace) mg/dL Urine Glucose (UA) >=1000 H (Negative) mg/dL Urine Ketones Negative (Negative) mg/dL Urine Blood Trace H (Negative) Urine Nitrite Negative (Negative) Ur Leukocyte Esterase Trace H (Negative) Urine RBC 3-5 H (0-2) /HPF Urine WBC 0-5 (0-5) /HPF Ur Squamous Epith Cells 0-2 (0-2) /HPF Urine Bacteria None Seen (None Seen) Hyaline Casts 0-2 (0-2) /LPF Urine Yeast Present Urine Opiates Screen Not Detected (Not Detect) Ur Buprenorphine Scrn Not Detected (Not Detect) ng/mL Ur Oxycodone Screen Not Detected (Not Detect) ng/mL Urine Methadone Screen Not Detected (Not Detect) ng/mL Urine Fentanyl Screen Not Detected (Not Detect) Ur Barbiturates Screen Not Detected (Not Detect) Ur Phencyclidine Scrn Not Detected (Not Detect) Ur Amphetamines Screen Not Detected (Not Detect) U Benzodiazepines Scrn Not Detected (Not Detect) Urine Cocaine Screen POSITIVE H (Not Detect) U Marijuana (THC) Screen Not Detected (Not Detect) Ethyl Alcohol < 10 mg/dL Discharge Plan Discharge Clinical Impression: Delusions of parasitosis, Cocaine abuse Patient Disposition: Home, Self-Care Instructions: Cocaine Use Disorder (ED) Additional Instructions: Please follow-up with your primary care physician tomorrow. If you have any worsening or new symptoms, please return to the emergency room or call 911 Prescriptions: No Action Glucagon Emergency Kit (human) 1 mg recon soln 1 mg subcut Q20M PRN (Reason: hypoglycemia) Qty: 1 0RF Rx Instructions: until target blood sugar attained. Use only if unable to eat or drink. Make sure your family knows where you keep this glucagon emergency kit cephalexin 500 mg capsule 500 mg PO Q12H Qty: 14 0RF doxycycline hyclate 100 mg tablet 100 mg PO DAILY Qty: 14 0RF atorvastatin 40 mg tablet 40 mg PO BEDTIME aspirin [Adult Aspirin Regimen] 81 mg tablet,delayed release (DR/EC) 81 mg PO DAILY insulin aspart U-100 [Novolog FlexPen U-100 Insulin] 100 unit/mL (3 mL) insulin pen 1 sliding scale dose subcut USEASDIRECTD metformin 500 mg tablet 500 mg PO DAILY hydrochlorothiazide 25 mg tablet 25 mg PO Q OTHER DAY lisinopril 30 mg tablet 30 mg PO DAILY Toujeo SoloStar U-300 Insulin 300 unit/mL (1.5 mL) insulin pen 30 unit subcut BEDTIME bisacodyl [Dulcolax (bisacodyl)] 5 mg tablet,delayed release (DR/EC) 10 mg PO ONCE 1 Days Qty: 2 0RF Rx Instructions: Take 2 tablets by mouth at 12:00pm the day before your procedure. polyethylene glycol 3350 [Miralax] 17 gram/dose powder 238 g PO ONCE 1 Days Qty: 238 0RF Rx Instructions: Take as directed by mouth the day before your procedure. docusate sodium [Colace] 100 mg capsule 200 mg PO BEDTIME Qty: 60 5RF polyethylene glycol 3350 [Miralax] 17 gram/dose powder 17 g PO DAILY Qty: 510 2RF simethicone [Gas Relief (simethicone)] 125 mg tablet,chewable 125 mg PO TID-QID PRN (Reason: abdominal distention) Qty: 90 2RF tadalafil 5 mg tablet 5 mg PO DAILY 90 Days Qty: 90 2RF tadalafil 20 mg tablet 20 mg PO ONCE PRN (Reason: sexual activity) 30 Days Qty: 30 5RF Rx Instructions: On demand medication take 60 minutes before intended activity permethrin 5 % cream 1 appl topical Q14D Qty: 60 0RF Rx Instructions: apply second treatment 14 days after first treatment if live lice remain Print Language: Armenian
[2025-03-06 21:37] VITALS: BP 144/64; PULSE 94; RESP 14; TEMP 36.4; O2SAT 93
[2025-03-06 21:53] LABS: Hematocrit 54.4 % (42.0-52.0); Hemoglobin 17.9 g/dl (14.0-18.0); Imm Gran Abs Auto 0.01 X10*3/uL (0.00-0.03); Imm Gran Pct Auto 0.1 % (0.0-0.4); Lymphocytes Absolute Auto 1.7 X10*3/uL (1.2-4.9); MANUAL DIFF FLAG NO; Mean Corpuscular HGB Conc 32.9 g/dl (31.0-36.0); Mean Corpuscular Hemoglobin 27.5 pg (27.0-33.0); Mean Corpuscular Volume 83.6 fL (80.0-98.0); NRBC Abs Auto 0.000 X10*3/uL (0.0-0.012); NRBC Pct Auto 0.0 /100WBC (0.0-0.2); Platelet Count 243 X10*3/uL (160-400); Red Blood Count 6.51 X10*6/uL (4.60-5.80); White Blood Count 7.2 X10*3/uL (4.8-10.8)
[2025-03-06 23:16] LABS: Appearance Urine Clear; Glucose Urine UA >=1000 mg/dL (Negative); PH 6.0 (5.0-9.0); Specific Gravity - Urine >= 1.030 (1.005-1.025); UMIC TRIGGER UACC YES
[2025-03-06 23:24] LABS: Cannabinoid Screen Urine Not Detected (Not Detect)
[2025-03-06 23:38] LABS: Alanine Aminotransferase 30 U/L (0-40); Albumin Level 4.4 g/dL (3.5-5.0); Alkaline Phosphatase 54 U/L (39-117); Anion Gap 15 (12-20); Aspartate Amino Transferase 43 U/L (5-37); Blood Urea Nitrogen 18 mg/dL (9-16); Calcium 9.8 mg/dL (8.4-10.2); Carbon Dioxide 30 mmol/L (22-29); Chloride 103 mmol/L (96-108); Creatinine Clr Calc Pharmacy 45.8; Estimated Glomerular Filt Rate 37; Potassium 4.2 mmol/L (3.3-5.1); Sodium 144 mmol/L (135-145); Total Protein 7.4 g/dL (6.5-8.0)
--- OUTSIDE RECORDS SUMMARY | 2025-03-07 01:07 | XMS_ITS | Clinical Summary ---
Author Organization [facility] Facility Address [address] [place] [address], [place] [address] Care Team Providers Care Corporate Statistical Financial Analyst Name Role Phone Janine Gomez NP Primary Care Provider [phone] Allergies Active Allergy Reactions Criticality Noted Date [...] of substance abuse 12/27/2011 Depressive disorder 12/27/2011 Encounters Date Type Department Care Team Description 02/28/2025 Refill [facility] [address] [place] [address] Lam Cook MD from Last 3 Months Immunizations Immunization Administration Dates Next Due Hepatitis [...] patient's age to complete this topic Insurance [facility] ([id number]) [facility] ([id number]) [facility] [id number] Care Teams Corporate Statistical Financial Analyst Relationship Specialty Start Date End Date Janine Gomez NP PCP - General Nurse Practitioner 08/07/21
--- OUTSIDE RECORDS SUMMARY | 2025-03-07 01:07 | XMS_ITS | Encounter Summary ---
Author Organization [facility] Address [address] [facility] [address] [place] [address] Phone Care Team Providers Care Checkroom Chief Name Role Phone Janine Gomez MUD ANALYSIS WELL LOGGING OPERATOR Primary Care Provider [phone] Reason for Visit * Reason Comments Med Refill Encounter Details Date Type Department Care Team (Late st Contact Info) Description 02/28/2025 Refill [facility] [address] [place] [phone] Lam Cook MD [address] [facility] [address] [place] [address] Social History Tobacco Use Types Packs/Day Years Used Date Smoking Tobacco: Never Assessed Alcohol Use Standard Drinks/Week Comments Not Currently 0 (1 standard drink = 0.6 oz pur e alcohol) Sex and Gender Information Value Date Recorded Sex Assigned at Not on file Legal Sex Male 10:49 AM EDT Gender Identity Not on file Sexual Orientation Not on file documented as of this encounter Plan of Treatment Not on file documented as of this encounter Visit Diagnoses Not on filedocumented in this encounter Care Teams Checkroom Chief Relationship Specialty Start Date End Date Janine Gomez NP PCP - General Nurse Practitioner 08/07/21 documented as of this encounter
[2025-03-07 01:17] VITALS: BP 144/75; PULSE 76; RESP 16; TEMP 36.9; O2SAT 94
[2025-03-07 02:38] VITALS: BP 144/75; PULSE 76; RESP 16; TEMP 36.9; O2SAT 94
== END 2025-03-07 02:38 | disposition home or self-care (01) ==
PROVIDERS: Physician Assistant Medical; Emergency Provider Emergency Medicine; PCP Nurse Practitioner Primary Care
DX: F22 Delusional disorders (principal); F14.10 Cocaine abuse, uncomplicated; F17.210 Nicotine dependence, cigarettes, uncomplicated; E11.9 Type 2 diabetes mellitus without complications; Z79.4 Long term (current) use of insulin; Z79.899 Other long term (current) drug therapy
CPT/HCPCS: 36415; 80053; 80307; 81001; 85025; 99283

== ENCOUNTER 2025-03-10 10:26 | Inpatient (IN) | payer OTHER, SELFPAY ==
[2025-03-10 10:44] VITALS: BP 152/77; PULSE 102; RESP 20; TEMP 36.5; O2SAT 94; BMI 30.8
--- OUTSIDE RECORDS SUMMARY | 2025-03-10 12:05 | XMS_ITS | Clinical Summary ---
Author Organization [facility] Address [address] [place] [address], [place] [address] Care Team Providers Care Newsstand Vendor Name Role Phone Janine Gomez NP Primary Care Provider [phone] Allergies Active Allergy Reactions Criticality Noted Date [...] 02/28/2025 Refill [facility] [address] [place] [address] Lam Cook MD from Last 3 Months [...] patient's age to complete this topic Insurance [facility] ([id number]) [facility] ([id number]) [place] [facility] [id number] Care Teams Newsstand Vendor Relationship Specialty Start Date End Date Janine Gomez NP PCP - General Nurse Practitioner 08/07/21
--- OUTSIDE RECORDS SUMMARY | 2025-03-10 12:05 | XMS_ITS | Encounter Summary ---
Author Organization [facility] Address [address] [facility] [address] [place] [address] Phone Care Team Providers Care Professor In Family Studies Name Role Phone Janine Gomez LACE WEAVER Primary Care Provider [phone] Reason for Visit * Reason Comments Med Refill Encounter Details Date Type Department Care Team (Late st Contact Info) Description 02/28/2025 Refill [facility] [address] [place] [phone] Lam Cook MD [address] [facility] [address] [place] [address] Social History Tobacco Use Types [...] on filedocumented in this encounter Care Teams Professor In Family Studies Relationship Specialty Start Date End Date Janine Gomez NP PCP - General Nurse Practitioner 08/07/21 documented as of this encounter
--- OUTSIDE RECORDS SUMMARY | 2025-03-10 12:05 | XMS_ITS | Encounter Summary ---
Author Organization [employer] Address [address] [place] [address] Care Team Providers Care Insurance Adjustor Name Role Phone Janine Gomez Primary Care Provider [phone] Andrea Joaquin PharmD Unavailable [phone] Encounter Details Date Type Department Care Team ([facility] st Contact Info) Description 01/04/2023 Orders Only [facility] [address] [place] [address] Renate Chinchilla LPN Social History Tobacco Use [...] Visit [facility] [address] [place] [address] Janine Gomez ANP [address] [place] [address] documented as of this encounter Visit Diagnoses Not on filedocumented in this encounter Care Teams Insurance Adjustor Relationship Specialty Start Date End Date Janine Gomez ANP [address] [place] [address] PCP - General Family Medicine 11/13/20 Andrea Joaquin, RobeD [address] [place], [place] [phone] Pharmacist Internal Medicine 01/03/24 Home [facility] 10/04/24 documented as of this encounter
--- OUTSIDE RECORDS SUMMARY | 2025-03-10 12:05 | XMS_ITS | Clinical Summary ---
Author Organization [employer] Address [address] [facility] [address] [place] [address] Care Team Providers Care Traffic Enumerator Name Role Phone Patricia Janine RYAN Primary Care Provider [phone] Andrea Joaquin PharmD Unavailable [phone] Allergies Active Allergy Reactions Criticality Noted Date [...] mellitus (HCC) USE DIRECTED 100 each 11 03/04/20 25 3:43 PM EST 025 Active hydroCHLOROthiaz gisell (HYDRODiuril) 25 MG tablet TAKE 1 TABLET BY MOUTH EVERY MORNING 90 tablet 1 025 Active metFORMIN (Glucophage) 500 MG tabletIndication s:Type 2 diabetes mellitus with other specified complication, with long-term current use of insulin (HCC) TAKE 2 TABLETS BY MOUTH TWICE DAILY [...] polyneuropathy, with long-term current use of insulin ([facility]) INJECT 20 UNITS SUBCUTANEOUSLY THREE TIMES DAILY [...] 90 tablet 1 025 Active Continuous Glucose Mechanical Service Specialist (FreeStyle Andreina 3 Alliance) deviceIndication s:Type 2 diabetes mellitus with stage 3b chronic kidney disease, with long-term current use of insulin ([facility]) 1 each Once per day. Use as directed for CGM 1 each Active Continuous Glucose Sensor (FreeStyle Andreina 3 Plus Sensor) miscIndications: Type 2 diabetes mellitus with stage 3b chronic kidney disease, with long-term current use of insulin ([facility]) 1 each every 15 days. Apply 1 every 15 days as directed for CGM 2 each Active glucose blood (FreeStyle Precision Lew Test) test stripIndications :Type 2 diabetes mellitus with stage 3b chronic kidney disease, with long-term current use of insulin ([facility]) TEST BLOOD SUGAR FOUR TIMES DAILY NEEDED 100 strip 11 Active Dulaglutide (Trulicity) 0.75 MG/0.5ML solution auto-injectorInd ications:Type 2 diabetes mellitus with stage 3b chronic kidney disease, with long-term current use of insulin ([facility]) Inject 0.75 mg under the skin every 7 (seven) days. 2 mL 5 Active budesonide-formo terol (Symbicort) 80-4.5 MCG/ACT inhalerIndicatio ns:Subacute cough Take 2 puffs as needed up to every 4-6 hours for SOB/cough. Rinse mouth with water after use to reduce aftertaste and incidence of candidiasis. Do not swallow. 1 each 02/28/20 25 11:25 AM EST Active Toujeo SoloStar 300 UNIT/ML injectionIndicat ions:Type 2 diabetes mellitus with other specified complication, with long-term current use of insulin ([facility]) INJECT 46 UNITS SUBCUTANEOUSLY AT BEDTIME DIRECTED 4.5 mL 3 02/28/20 25 11:25 AM EST Active Embecta Pen Needle Beckie 32G X 4 MM miscIndications: Type 2 diabetes mellitus with hyperglycemia ([facility]) USE DIRECTED FOUR TIMES DAILY WITH INSULIN 100 each 3 Active TRUEplus Lancets 33G miscIndications: Type 2 diabetes mellitus with stage 3b chronic kidney disease, with long-term current use of insulin ([facility]) TEST BLOOD SUGAR FOUR TIMES DAILY NEEDED 100 each 3 025 Active ARIPiprazole (Abilify) 5 MG tabletIndication s:Depressive disorder 1 tab once daily 30 tablet 2 Active Continuous Blood Gluc Mechanical Service Specialist (FreeStyle Andreina 2 Alliance) deviceIndication s:Hypoglycemia 1 each 5 (five) times a day. 1 each 023 2024 Discontinued Lancets miscIndications: Type 2 diabetes mellitus with stage 3b chronic kidney disease, with long-term current use of insulin (HCC) Use to test blood sugar 4 times daily as needed 100 each 11 024 2024 Discontinued insulin pen needle ([employer] SafePack Pen Needle) 32G x 4 mm miscIndications: Type 2 diabetes mellitus with hyperglycemia (HCC) Use four times daily with insulin 100 each 11 024 2024 Discontinued Trulicity 0.75 MG/0.5ML solution auto-injectorInd ications:Type 2 diabetes mellitus with other specified complication, with long-term current use of insulin ([facility]) INJECT ONE PEN (=0.75MG) SUBCUTANEOUSLY ONCE A [...] complication, with long-term current use of insulin ([facility]) INJECT 46 UNITS SUBCUTANEOUSLY AT BEDTIME DIRECTED 4.5 mL 025 2024 Discontinued Continuous Glucose Sensor (FreeStyle Andreina 2 Plus Sensor) miscIndications: Type 2 diabetes mellitus with stage 3b chronic kidney disease, with long-term current use of insulin ([facility]) 1 each every 15 days. 2 each 11 025 2024 Discontinued glucose blood (FreeStyle Precision Lew Test) test stripIndications :Type 2 diabetes mellitus with stage 3b chronic kidney disease, with long-term current use of insulin ([facility]) TEST BLOOD SUGAR FOUR TIMES DAILY NEEDED [...] 02/19/20 25 4:24 PM EST 025 2024 QUEtiapine (SEROquel) 50 MG tabletIndication s:Primary insomnia Take 1 tablet (50 mg) by mouth at bedtime. 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 [address] [place] [address] Janine Gomez ANP 03/08/[address] [facility] [address] [place] [phone] Janine Gomez ANP Depressive disorder (Primary Dx) 03/08/2025 Orders Only [address] [address] Janine Gomez ANP IGOR (acute kidney injury) (Primary Dx) 03/07/2025 Results Follow-Up [address] [address] Janine Gomez ANP CBC auto differential, Urinalysis w/reflex microscopic, Urinalysis, Complete, with Reflex to Culture, Additional followed-up results: 3 03/04/2025 2:00 PM EST Office Visit [facility] [address] [place] [phone] Janine Gomez ANP Delusions of parasitosis (CMS/HCC) (HCC) (Primary Dx) 03/04/2025 Travel 02/25/[address] [facility] [address] [place] [phone] Janine Gomez ANP March02/19/[address] [facility] [address] [place] [phone] Liliana Alvarez RNgoodwill ambassador 02/19/[address] [facility] [address] [place] [phone] Andrea Joaquin, PharmD Type 2 diabetes mellitus with other specified complication, with long-term current use of insulin (HCC); Type 2 diabetes mellitus with hyperglycemia (HCC); Type 2 diabetes mellitus with stage 3b chronic kidney disease, with long-term current use of insulin (HCC) 02/18/2025 3:30 PM EST Office Visit [address] [address] Janine Gomez ANP Type 2 diabetes mellitus with stage 3b chronic kidney disease, with long-term current use of insulin (HCC) (Primary Dx); Nicotine dependence with current use; Depressive disorder; Primary insomnia; Cellulitis of left upper extremity; Subacute cough; Rash; Eosinophilia, unspecified type 02/18/2025 Travel 02/14/[address] [facility] [address] [place] [phone] Janine Gomez ANP ER Follow-up 02/05/[address] [facility] [address], [place] [phone] Janine Gomez ANP 01/31/[address] [address] Andrea Joaquin, RobeD Type 2 diabetes mellitus with stage 3b chronic kidney disease, with long-term current use of insulin (HCC) 01/24/[address] [facility] [address] [place] [phone] Janine Gomez ANP chart prep 01/14/2025 2:40 PM EDT Office Visit [facility] [address] [place] [phone] aC Sneed FNP Neurotic excoriations (Primary Dx); Delusions of parasitosis (CMS/HCC) (HCC) 01/14/[address] [facility] [address] [place] [phone] Janine Gomez ANP Rash 01/14/2025 Travel 12/31/[address] [facility] [address] [place] [address] Janine Gomez ANP 12/21/[address] [facility] [address] [place] [address] Geronimo Winn, [facility] 12/20/[address] [facility] [address] [place] [address] Janine Gomez ANP 12/10/2024 2:00 PM EDT Clinical Support [facility] [address] [place] [address] Liliana Alvarez, RN Type 2 diabetes mellitus with stage 3b chronic kidney disease, with long-term current use of insulin (CMS/[facility]) 12/10/[address] [facility] [address] [place] [address] Liliana Alvarez, computer installer 12/10/[address] [facility] [address] [place] [address] Liliana Alvarez, RN Type 2 diabetes mellitus with stage 3b chronic kidney disease, with long-term current use of insulin ([facility]) (Primary Dx) 12/10/2024 Travel 12/09/[address] [facility] [address] [place] [address] Janine Gomez ANP Rash from Last 3 Months Immunizations Immunization Administration [...] t he electric, gas, oil or water [employer] threatened to shut off services in your [...] Sign Reading Time Taken Comments Blood Pressure 140/90 03/04/2025 1:48 PM EST Pulse 75 03/04/2025 1:48 PM EST Temperature 36.7 C (98 F) 03/04/2025 1:48 PM EST Respiratory Rate 15 03/04/2025 1:48 PM EST Oxygen Saturation 98% 03/04/2025 1:48 PM EST Inhaled Oxygen Concentration - - Weight 94.8 kg (209 lb) 03/04/2025 1:48 PM EST Height 175.3 cm (5' 9 ) 03/04/2025 1:48 PM EST Body Mass Index 30.86 03/04/2025 1:48 PM EST Plan of Treatment Upcoming Encounters Date Type Department Care Team (Late st Contact Info) Description 04/18/2025 2:30 PM EST Office Visit [facility] [address] [place], [place] [phone] Janine Gomez, ANP [address] [place], [place] [phone] Health Maintenance Due Date Last Done Comments CT Colonography 1960 Colonoscopy 1960 FIT 1960 Sigmoidoscopy 1960 RSV Patients and Patients Aged 60 years or older (1 - Risk 50-74 years 1-dose series) 2010 Hepatitis B Vaccines (1 of 3 - Risk 3-dose series) 2020 Lipid Panel 02/15/2024 02/14/2023, 0411/2021, 02/08/2020 FOBT 09/07/2024 09/08/2023 COVID-19 Vaccine ( season) 2024 05/27/2022, 03/16/2021, 07/07/2020, Additional history exists Influenza Vaccine (#1) 2024 3, 05/27/2022, 03/16/2021, Additional history exists Diabetes: Hemoglobin A1C 05/21/2025 025, 10/25/2024, 06/25/2024, Additional history exists Eye Exam 06/21/2025 06/21/2024, 05/27, 06/21/2024, Additional history exists Diabetes: Foot Exam 08/29/2025 08/29/2024, 08/29/2024, 08/29/2024, Additional history exists Alcohol/Substance Use Screening 10/25/2025 10/25/2024 Depression Screening 10/25/2025 10/25/2024, 10/26/19 25 Disability Screening 10/25/2025 10/25/2024 SDOH Screening 10/25/2025 10/25/2024 Tobacco Screening 03/08/2026 03/08/2025 Colorectal Cancer Screening 09/07/2026 FIT DNA/Cologuard 09/07/2026 [...] Plan Patient has diabetic neuropathy No Marcelo iPerre [place] Patient has diabetic neuropathy Care Plan [...] Care Plan Weekly blood pressure task No Janine Gomez ANP Weekly blood pressure task Care Plan Weekly blood pressure task No Janine Gomez ANP Weekly blood pressure task Care Plan Weekly blood pressure task No Janine Gomez ANP Patient has chronic kidney disease Care Plan Patient has chronic kidney disease No Janine Gomez ANP Patient has chronic kidney disease Care Plan Patient has chronic kidney disease No Janine Gomez ANP Patient has chronic kidney disease Care Plan Patient has chronic kidney disease No Janine Gomez ANP Patient has diabetic neuropathy Care Plan Patient has diabetic neuropathy No Janine Gomez ANP Patient has diabetic neuropathy Care Plan Patient has diabetic neuropathy No Janine Gomez ANP Patient has diabetic neuropathy Care Plan Patient has diabetic neuropathy No Janine Gomez ANP Weekly blood pressure task Care Plan Weekly blood pressure task No Janine Gomez ANP Weekly blood pressure task Care Plan Weekly blood pressure task No Janine Gomez ANP Weekly blood pressure task Care Plan Weekly blood pressure task No Janine Gomez ANP Patient has chronic kidney disease Care Plan Patient has chronic kidney disease No Janine Gomez ANP Patient has chronic kidney disease Care Plan Patient has chronic kidney disease No Janine Gomez ANP Patient has chronic kidney disease Care Plan Patient has chronic kidney disease No Janine Gomez ANP Patient has diabetic neuropathy Care Plan Patient has diabetic neuropathy No Janine Gomez ANP Patient has diabetic neuropathy Care Plan Patient has diabetic neuropathy No Janine Gomez ANP Patient has diabetic neuropathy Care Plan Patient has diabetic neuropathy No Janine Gomez ANP Weekly blood pressure task Care Plan Weekly blood pressure task No Janine oGmez ANP Weekly blood pressure task Care Plan Weekly blood pressure task No Janine Gomez ANP Weekly blood pressure task Care Plan Weekly blood pressure task No Janine Gomez ANP Patient has chronic kidney disease Care Plan Patient has chronic kidney disease No Janine Gomez ANP Patient has chronic kidney disease Care Plan Patient has chronic kidney disease No Janine Gomez ANP Patient has chronic kidney disease Care Plan Patient has chronic kidney disease No Janine Gomez ANP Patient has diabetic neuropathy Care Plan Patient has diabetic neuropathy No Janine Gomez ANP Patient has diabetic neuropathy Care Plan Patient has diabetic neuropathy No Janine Gomez ANP Patient has diabetic neuropathy Care Plan Patient has diabetic neuropathy No Janine Gomez ANP Weekly blood pressure task Care Plan Weekly blood pressure task No Janine Gomez ANP Weekly blood pressure task Care Plan Weekly blood pressure task No Janine Gomez ANP Weekly blood pressure task Care Plan Weekly blood pressure task No Janine Gomez ANP Patient has chronic kidney disease Care Plan Patient has chronic kidney disease No Janine Gomez ANP Patient has chronic kidney disease Care Plan Patient has chronic kidney disease No Janine Gomez ANP Patient has chronic kidney disease Care Plan Patient has chronic kidney disease No Janine Gomez ANP Patient has diabetic neuropathy Care Plan Patient has diabetic neuropathy No Janine Gomez ANP Patient has diabetic neuropathy Care Plan Patient has diabetic neuropathy No Janine Gomez ANP Patient has diabetic neuropathy Care Plan Patient has diabetic neuropathy No Janine Gomez ANP Procedures Procedure Name Priority Date/Time Associated Diagnosis Comments ETHANOL Routine 03/06/2025 11:18 PM EST Type 2 diabetes mellitus with stage 3b chronic kidney disease, with long-term current use of insulin ([facility]) COMPREHENSIVE METABOLIC PANEL Routine 03/06/2025 11:18 PM EST Type 2 diabetes mellitus with stage 3b chronic kidney disease, with long-term current use of insulin ([facility]) DRUG MONITOR, PANEL 1, SCREEN, URINE Routine 03/06/2025 11:08 PM EST Type 2 diabetes mellitus with stage 3b chronic kidney disease, with long-term current use of insulin ([facility]) URINALYSIS, COMPLETE, WITH REFLEX TO CULTURE Routine 03/06/2025 11:08 PM EST Type 2 diabetes mellitus with stage 3b chronic kidney disease, with long-term current use of insulin ([facility]) URINALYSIS WITH REFLEX MICROSCOPIC Routine 03/06/2025 11:08 PM EST Type 2 diabetes mellitus with stage 3b chronic kidney disease, with long-term current use of insulin (HCC) CBC WITH AUTO DIFFERENTIAL Routine 03/06/2025 9:48 PM EST Type 2 diabetes mellitus with stage 3b chronic kidney disease, with long-term current use of insulin (HCC) POCT GLYCATED HEMOGLOBIN, TOTAL Routine 02/18/2025 3:32 [...] Recently Relevant to Health Maintenance Results * Ethanol (03/06/2025 11:18 PM EST) ETHANOL (MG/DL) IN SER/PLAS <10 mg/dL [facility] Comment:Serum/plasma ethanol results are to be used formedical/treatment purposes only. 03/06/2025 11:1 8 PM EST 03/06/2025 11:22 PM EST us Generic External Data Provider LAB BLOOD ORDERAB LES Final Result [facility] [address] [place] [phone] * (ABNORMAL) Comprehensive Metabolic Panel (03/06/2025 11:18 PM EST) Sodium 144 135 - 145 mmol/L [facility] Potassium 4.2 3.3 - 5.1 mmol/L [facility] Comment:Slight Hemolysis.Int erpret result with caution. Chloride 103 96 - 108 mmol/L [facility] Carbon Dioxide 30(H) 22 - 29 mmol/L [facility] Anion Gap 15 12 - 20 [facility] Urea Nitrogen (BUN) 18(H) 9 - 16 mg/dL [facility] Creatinine, Serum 1.83(H) 0.5 - 1.4 mg/dL [facility] Creatinine Clr Calc Pharmacy 45.8 [facility] Comment:eGFR (calculated fro m the MDRD study equation) and eCrCl(calculated from the Cockcroft-Gault equation) are based ondifferent parameters and may not yield comparable results.If eCrCl result is absurd, please check patient'sheight/weight. Estimated Glomerular Filt Rate 37 [facility] Comment:Chronic Kidney Disea se: Estimated GFR < 60 mL/min/1.33w1Pbbrqv Kidney Disease: Estimated GFR < 15 mL/min/1.73m2 Glucose 128(H) 60 - 115 mg/dL [facility] Calcium 9.8 8.4 - 10.2 mg/dL [facility] Bilirubin, Total 0.3 0.0 - 1.0 mg/dL [facility] Aspartate Amino Transferase 43(H) 5 - 37 U/L [facility] Comment:Slight Hemolysis.Int erpret result with caution. Alanine Aminotransferase 30 0 - 40 U/L [facility] Total Protein 7.4 6.5 - 8.0 g/dL [facility] Albumin Level 4.4 3.5 - 5.0 g/dL [facility] Alkaline Phosphatase 54 39 - 117 U/L [facility] 03/06/2025 11:1 8 PM EST 03/06/2025 11:22 PM EST us Generic External Data Provider LAB BLOOD ORDERAB LES Final Result [facility] [address] [place] [phone] * (ABNORMAL) Urinalysis, Complete, with Reflex to Culture (03/06/2025 11:08 PM EST) Color Urine Yellow [facility] Appearance Urine Clear [facility] PH 6.0 5.0 - 9.0 [facility] Glucose Urine UA >=1000(A) Negative mg/dL [facility] Urine Blood Trace(A) Negative [facility] Specific [place] - Urine >=1.030(H) 1.005 - 1.025 [facility] Urine Protein 30 (1+)(A) Neg-Trace mg/dL [facility] Urine Ketones Negative Negative mg/dL [facility] Nitrite Urine Negative Negative [facility] Leukocyte Esterase Urine Trace(A) Negative [facility] RBC Urine 3-5(A) 0 - 2 /HPF [facility] Urine WBC 0-5 0 - 5 /HPF [facility] Urine Squamous Epithelial Cell 0-2 0 - 2 /HPF [facility] Urine Bacteria None Seen None Seen [facility] Hyaline Casts, Urine 0-2 0 - 2 /LPF [facility] Urine Yeast Present [facility] 03/06/2025 11:0 8 PM EST 03/06/2025 11:11 PM EST Narrative [facility] - 03/06/2025 11:24 PM EST [id number], Clean Catch us Generic External Data Provider LAB URINE ORDERAB LES Final Result Performing Organization Address [facility]/ZIP Co de Phone Number [facility] [address] [place] [phone] * (ABNORMAL) Drug Monitoring, Panel 1, Screen, Urine (03/06/2025 11:08 PM EST) Opiate Screen Urine Not Detected Not Detect [facility] Comment:Opiate cut-off is 30 0 ng/mL.Positive results are unconfirmed and should not be used fornon-medical purposes. Barbiturates, Urine Not Detected Not Detect [facility] Comment:Barbiturate cut-off is 200 ng/mL.Positive results are unconfirmed and should not be used fornon-medical purposes. Phencyclidine Screen Urine Not Detected Not Detect [facility] Comment:Phencyclidine cut-of f is 25 ng/mL.Positive results are unconfirmed and should not be used fornon-medical purposes. Amphetamine Screen Urine Not Detected Not Detect [facility] Comment:Amphetamine cut-off is 1000 ng/mL.Positive results are unconfirmed and should not be used fornon-medical purposes. Benzodiazepines Screen Urine Not Detected Not Detect [facility] Comment:Benzodiazepine cut-o ff is 200 ng/mL.Positive results are unconfirmed and should not be used fornon-medical purposes. Cocaine Screen Urine POSITIVE(A) Not Detect [facility] Comment:Cocaine cut-off is 3 00 ng/mL.Positive results are unconfirmed and should not be used fornon-medical purposes. Cannabinoid Screen Urine Not Detected Not Detect [facility] Comment:Cannabinoid cut-off is 50 ng/mL.Positive results are unconfirmed and should not be used fornon-medical purposes. Methadone Screen, Urine Not Detected Not Detect ng/mL [facility] Comment:Methadone cut-off is 300 ng/mL.Positive results are unconfirmed and should not be used fornon-medical purposes. FENTANYL URINE Not Detected Not Detect [facility] Comment:Fentanyl cut-off is 1 ng/mL.Positive results are unconfirmed and should not be used fornon-medical purposes. Oxycodone Urine Screen Not Detected Not Detect ng/mL [facility] Comment:Oxycodone cut-off is 100 ng/mL.Positive results are unconfirmed and should not be used fornon-medical purposes. Buprenorphine Screen Not Detected Not Detect ng/mL [facility] Comment:Buprenorphine cut-of f is 5 ng/mL.Positive results are unconfirmed and should not be used fornon-medical purposes. 03/06/2025 11:0 8 PM EST 03/06/2025 11:11 PM EST us Generic External Data Provider LAB URINE ORDERAB LES Final Result Performing Organization Address [facility] de Phone Number [facility] [address] [place] [phone] * (ABNORMAL) Urinalysis w/reflex microscopic (03/06/2025 11:08 PM EST) Color Urine Yellow [facility] Appearance Urine Clear [facility] PH 6.0 5.0 - 9.0 [facility] Glucose Urine UA >=1000(A) Negative mg/dL [facility] Urine Blood Trace(A) Negative [facility] Specific [place] - Urine >=1.030(H) 1.005 - 1.025 [facility] Urine Protein 30 (1+)(A) Neg-Trace mg/dL [facility] Urine Ketones Negative Negative mg/dL [facility] Nitrite Urine Negative Negative [facility] Leukocyte Esterase Urine Trace(A) Negative [facility] 03/06/2025 11:0 8 PM EST 03/06/2025 11:11 PM EST Narrative [facility] - 03/06/2025 11:20 PM EST [id number], Clean Catch Generic External Data Provider LAB URINE ORDERAB LES Final Result Performing Organization Address [facility] de Phone Number [facility] [address] [place] [phone] * (ABNORMAL) CBC auto differential (03/06/2025 9:48 PM EST) White Blood Count 7.2 4.8 - 10.8 X10*3/uL [facility] Red Blood Count 6.51(H) 4.60 - 5.80 X10*6/uL [facility] Hemoglobin 17.9 14.0 - 18.0 g/dl [facility] Hematocrit 54.4(H) 42.0 - 52.0 % [facility] Mean Corpuscular Volume 83.6 80.0 - 98.0 fL [facility] Mean Corpuscular Hemoglobin 27.5 27.0 - 33.0 pg [facility] Mean Corpuscular HGB Conc 32.9 31.0 - 36.0 g/dl [facility] Red Cell Distribution Width 14.8 11.0 - 16.0 % [facility] Platelet Count 243 160 - 400 X10*3/uL [facility] Mean Platelet Volume 8.4(L) 9.4 - 12.4 fL [facility] Neutrophils Percent Auto 63.1 45 - 73 % [facility] Imm Gran Pct Auto 0.1 0.0 - 0.4 % [facility] Lymphocytes Percent Auto 23.7 20 - 40 % [facility] Monocytes Percent Auto 8.4 2 - 11 % [facility] Eosinophils Percent Auto 3.6 0 - 4 % [facility] Basophils Percent Auto 1.1 0 - 2 % [facility] NRBC Pct Auto 0.0 0.0 - 0.2 /100WBC [facility] Neutrophils Absolute Auto 4.5 2.0 - 8.3 x10*3/uL [facility] Imm Gran Abs Auto 0.01 0.00 - 0.03 X10*3/uL [facility] Lymphocytes Absolute Auto 1.7 1.2 - 4.9 X10*3/uL [facility] Monocytes Absolute Auto 0.6 0.1 - 1.2 X10*3/uL [facility] Eosinophils Absolute Auto 0.3 0.0 - 0.4 X10*3/uL [facility] Basophils Absolute Auto 0.1 0.0 - 0.2 X10*3/uL [facility] NRBC Abs Auto 0.000 0.0 - 0.012 X10*3/uL [facility] 03/06/2025 9:48 PM EST 03/06/2025 9:51 PM EST us Generic External Data Provider LAB BLOOD ORDERAB LES Final Result [facility] [address] [place] [address] [phone] * (ABNORMAL) POCT Hgb A1c (02/18/2025 3:32 PM EST) Hemoglobin A1C 8.0(A) 4.0 - 5.7 % QC Media Lot # [id number] Lot# Expiration Date 574, Blood 02/18/2025 3:32 PM EST Janine [facility] POINT OF CARE TEST ENTER/EDIT OR DERABLES Final Result * POCT Glucose (02/18/2025 3:32 PM EST) Glucose Blood, POC 189 60 - 200 mg/dL QC Media Lot # [id number] Lot# Expiration Date [id number] Blood Capillary blood specimen / Unknown 02/18/2025 3:32 PM EST Janine Gomez ANP POINT OF CARE TEST ENTER/EDIT OR DERABLES Final Result * Cologuard?? colon cancer screening (09/08/2023 11:00 AM EDT) Cologuard Result Negative Negative 09/20/19 5:15 AM EDT [employer] (CLIA #:[id number]) Comment: NEGATIVE TEST RESULT. A negative Cologuard [...] (Katelyn Hess al, N Engl J Med 2014;370(14):0521-2134) The normal value (reference range) for this assay is negative. COLOGUARD RE-SCREENING RECOMMENDATION: Periodic colorectal cancer screening is an important part of preventive healthcare for asymptomatic individuals at average risk for colorectal cancer. Following a negative Cologuard result, the [place] [employer] and U.S. Multi-Society Task Force screening guidelines recommend a Cologuard re-screening interval of 3 years. References: [place] [employer] Guideline for Colorectal Cancer Screening: https://www.cancer.org/cancer/cntyx-mhkknv-tsnkov/otrplughl-gnvfamigo-wxpcbed/ac s-rec ommendations.html.; Twan DK, Audra REY, Aubrey SmithK, Colorectal Cancer Screening: Recommendations for Physicians and Patients from the U.S. Multi-Society Task Force on Colorectal Cancer Screening , Am J Gastroenterology 2017; 112:7290-5141. TEST DESCRIPTION: Composite algorithmic analysis of stool [...] screened with both Cologuard and colonoscopy. (Katelyn Howard, N Engl J Med 2014;370(14):9365-9624.) Cologuard may produce a false negative or false positive result (no colorectal cancer or precancerous polyp present at colonoscopy follow up). A negative Cologuard test result does not guarantee the absence of CRC or advanced adenoma (pre-cancer). The current Cologuard screening interval is every 3 years. ([place] [employer] and U.S. Multi-Society Task Force). Cologuard performance data in a 10,000 patient pivotal study using colonoscopy as the reference method can be accessed at the following location: www.[employer].com/results. Additional description of the Cologuard test process, warnings and precautions can be found at www.[employer].com. Stool specimen (specimen) 09/08/2023 11:00 AM EDT 09/09/2023 10:49 AM EDT us Janine [facility] MOLECULAR DIAGNOSTICS ORDERA BLES Final Result [facility] (CLIA #:[id number]) [place] [address], * HIV-1/2 Antigen and Antibodies, Fourth Generation, with Reflexes (02/14/2023 9:57 AM EST) Pathologist [facility] HIV AB/AG Nonreactive Nonreactive [facility] Comment:HIV-1 p24 Ag and/or HIV-1/HIV-2 Ab not detected.A test result that is nonreactive does not exclude thepossibility of exposure to or infection with HIV-1 and/orHIV-2. Nonreactive results in this assay for individualswith prior exposure to HIV-1 and/or HIV-2 may be due toantigen and antibody levels that are below the limit ofdetection of this assay.[employer] HIV Ag/Ab Combo assay result andsupplemental assay results should be interpreted inconjunction with the patient's clinical presentation,history and other laboratory results. If the results areinconsistent with clinical evidence, additional testing issuggested to confirm the result. Blood Venous blood specimen / Unknown 02/14/2023 9:57 AM EST 02/14/2023 11:09 AM EST us Janine [facility] BLOOD ORDERABLES Final Resul t Performing Organization Address [facility] de Phone Number [facility] [address] [place] [address] [phone] * (ABNORMAL) Lipid Panel, Standard (02/14/2023 9:57 AM EST) Triglycerides 80 <150 mg/dL [facility] Comment:Desirable Triglyceri de: less than 150 mg/dLBorderline High Triglyceride 150-199 mg/dLHigh Triglyceride: 200-499 mg/dLVery High Triglyceride: greater than or equal to 5OO mg/dL Cholesterol 110 <200 mg/dL [facility] Comment:Desirable Cholestero l: less than 200 mg/dLBorderline High Cholesterol: 200-239 mg/dLHigh Cholesterol: greater than 239 mg/dL LDL Cholesterol Calculated 54 <100 mg/dL [facility] Comment:Desirable LDL: less than 100 mg/dLNear Optimal/Above Optimal LDL: 110- 129 mg/dLBorderline High LDL: 130-159 mg/dLHigh LDL: 160-189 mg/dLVery High LDL: greater than or equal to 190 mg/dL HDL Cholesterol 40(L) >40 mg/dL [facility] Comment:Desirable HDL: great er than 40 mg/dL Note: This HDL assay may give artificially low results in patients with liver disease. Blood Venous blood specimen / Unknown 02/14/2023 9:57 AM EST 02/14/2023 11:09 AM EST Janine [facility] BLOOD ORDERABLES Final Resul t Performing Organization Address [facility] Co de Phone Number [facility] [address] [place] [address] [phone] from Last 3 Months or Most [...] neuropathy 02/25/2025 Patient has diabetic neuropathy 02/25/2025 Weekly blood pressure task 03/04/2025 Weekly blood pressure task 03/04/2025 Weekly blood pressure task 03/04/2025 Patient has chronic kidney disease 03/04/2025 Patient has chronic kidney disease 03/04/2025 Patient has chronic kidney disease 03/04/2025 Patient has diabetic neuropathy 03/04/2025 Patient has diabetic neuropathy 03/04/2025 Patient has diabetic neuropathy 03/04/2025 Weekly blood pressure task 03/07/2025 Weekly blood pressure task 03/07/2025 Weekly blood pressure task 03/07/2025 Patient has chronic kidney disease 03/07/2025 Patient has chronic kidney disease 03/07/2025 Patient has chronic kidney disease 03/07/2025 Patient has diabetic neuropathy 03/07/2025 Patient has diabetic neuropathy 03/07/2025 Patient has diabetic neuropathy 03/07/2025 Weekly blood pressure task 03/08/2025 Weekly blood pressure task 03/08/2025 Weekly blood pressure task 03/08/2025 Patient has chronic kidney disease 03/08/2025 Patient has chronic kidney disease 03/08/2025 Patient has chronic kidney disease 03/08/2025 Patient has diabetic neuropathy 03/08/2025 Patient has diabetic neuropathy 03/08/2025 Patient has diabetic neuropathy 03/08/2025 Weekly blood pressure task 03/08/2025 Weekly blood pressure task 03/08/2025 Weekly blood pressure task 03/08/2025 Patient has chronic kidney disease 03/08/2025 Patient has chronic kidney disease 03/08/2025 Patient has chronic kidney disease 03/08/2025 Patient has diabetic neuropathy 03/08/2025 Patient has diabetic neuropathy 03/08/2025 Patient has diabetic neuropathy 03/08/2025 Insurance [facility] < 65 [place]K [id number] Care Teams Traffic Enumerator Relationship Specialty Start Date End Date Janine Gomez ANP [address] [place], [place] [phone] PCP - General Family Medicine 11/13/20 Andrea Joaquin PharmD [address] [place], [place] [phone] Pharmacist Internal Medicine 01/03/24 [facility] 10/04/24
--- OUTSIDE RECORDS SUMMARY | 2025-03-10 12:06 | XMS_ITS | Encounter Summary ---
Author Organization [employer] Address [address] [place] [address] [address] [place] [address] Care Team Providers Care Animal Care Attendant Name Role Phone Janine Gomez Primary Care Provider [phone] Andrea Joaquin PharmD Unavailable [phone] Encounter Details Date Type Department Care Team (Late st Contact Info) Description 04/13/2022 Orders Only [facility] MED & PEDS [address] [place] [address] Renate Chinchilla LPN Social History Tobacco Use [...] Description 04/18/2025 2:30 PM EST Office Visit [facility] MEDICINE [address] [place] [address] Janine Gomez ANP [address] [place] [address] documented as of this encounter Visit Diagnoses Not on filedocumented in this encounter Care Teams Animal Care Attendant Relationship Specialty Start Date End Date Janine Gomez ANP [address] [place] [address] PCP - General Family Medicine 8/19/21 Andrea Joaquin, PharmD [address] [place] [address] Pharmacist Internal Medicine 01/03/24 [facility] 10/04/24 documented as of this encounter
--- OUTSIDE RECORDS SUMMARY | 2025-03-10 12:06 | XMS_ITS | Encounter Summary ---
Author Organization [employer] Address [address] [place] [address] Care Team Providers Care Cotton Farmer Name Role Phone Janine Gomez Primary Care Provider Andrea Joaquin PharmD Unavailable [phone] Reason for Visit * Reason Comments Med Refill Encounter Details Date Type Department Care Team (Late st Contact Info) Description 07/18/2022 Refill [facility] CHC MED & PEDS [address] [place], [place] [phone] Janine Gomez ANP [address] [place], [place] [phone] Other male erectile dysfunction Social History Tobacco [...] Description 04/18/2025 2:30 PM EST Office Visit [facility] MEDICINE [address] [place] [address] Janine Gomez ANP [address] [place], [place] [phone] documented as of this encounter Visit Diagnoses Diagnosis Other male erectile dysfunction documented in this encounter Care Teams Cotton Farmer Relationship Specialty Start Date End Date Janine Gomez ANP [address] [place] [address] PCP - General Family Medicine 11/13/20 Andrea Joaquin PharmD [address] [place] [address] Pharmacist Internal Medicine 01/03/24 [facility] 10/04/24 documented as of this encounter
--- OUTSIDE RECORDS SUMMARY | 2025-03-10 12:06 | XMS_ITS | Encounter Summary ---
Author Organization [employer] Address [address] [facility] 7 [place] [address] Care Team Providers Care Lead Caregiver Name Role Phone Janine Gomez Primary Care Provider [phone] Andrea Joaquin PharmD Unavailable [phone] Encounter Details Date Type Department Care Team ([facility] st Contact Info) Description 03/08/2025 Orders Only [facility] MEDICINE [address] [place] [address] Janine Gomez ANP [address] [place] [address] IGOR (acute kidney injury) (Primary Dx) Social History Tobacco Use Types [...] AM EDT documented as of this encounter Progress Notes * SHELBY Esposito - 03/08/2025 12:48 PM EST Pt seen at ED. +IGOR. +utox w/ cocaine. Encourage good hydration with water and avoidance of NSAIDs (naproxen, aleve, ibuprofen, advil, motrin etc.). Would recommend repeat BMP next week with other labs as ordered (which are fasting), am a little concerned lab will miss the labs ordered so if we can send him a MyChart w/ the list that would be great: BMP Strongyloides Lipid Tick borne Lyme Also, if seroquel not helping sleep, could switch to abilify. Please let me know if he agrees. documented in this encounter Plan of Treatment Upcoming Encounters Date Type Department Care Team (Late st Contact Info) Description 04/18/2025 2:30 PM EST Office Visit [facility] MEDICINE [address] [place], [place] [phone] Janine Gomez ANP [address] [place] [address] documented as of this encounter Goals Goal [...] Care Plan Patient has diabetic neuropathy No iLliana Alvarez RN Patient has diabetic neuropathy Care [...] has diabetic neuropathy No Janine Gomez ANP documented as of this encounter Visit Diagnoses Diagnosis IGOR (acute kidney injury)- Primary documented in this encounter Additional Health Concerns Active [...] neuropathy 03/08/2025 Patient has diabetic neuropathy 03/08/2025 Assessment Noted Time PHQ-9 Depression Total Score: 0 10/26/19 3:07 PM EDT documented as of this encounter Care Teams Lead Caregiver Relationship Specialty Start Date End Date Janine Gomez ANP [address] [place] [address] PCP - General Family Medicine 11/13/20 Andrea Joaquin, Alexandru [address] [place] [address] Pharmacist Internal Medicine 01/03/24 [facility] 10/04/24 documented as of this encounter
--- OUTSIDE RECORDS SUMMARY | 2025-03-10 12:06 | XMS_ITS | Encounter Summary ---
Author Organization [employer] [facility] Address [address] [place] [address] Care Team Providers Care Fraternity Adviser Name Role Phone Janine Gomez Primary Care Provider [phone] Andrea Joaquin PharmD Unavailable [phone] Encounter Details Date Type Department Care Team (Late st Contact Info) Description 04/02/2022 Orders Only [facility] MEDICINE [address] [place] [address] Sary Olivas, RN Social History Tobacco Use [...] Description 04/18/2025 2:30 PM EST Office Visit [facility] MEDICINE [address] [place] [address] Janine Gomez ANP [address] [place] [address] documented as of this encounter Visit Diagnoses Not on filedocumented in this encounter Care Teams Fraternity Adviser Relationship Specialty Start Date End Date Janine Gomez ANP [address] [place] [address] PCP - General Family Medicine 11/13/20 Andrea Joaquin, PharmD [address] [place] [address] Pharmacist Internal Medicine 01/03/24 [facility] 10/04/24 documented as of this encounter
--- OUTSIDE RECORDS SUMMARY | 2025-03-10 12:06 | XMS_ITS | Encounter Summary ---
Author Organization [employer] Address [address] [facility] 7 [place] [address] Care Team Providers Care Melt Down Furnace Operator Name Role Phone Janine Gomez Primary Care Provider [phone] Andrea Joaquin PharmD Unavailable [phone] Encounter Details Date Type Department Care Team ([facility] st Contact Info) Description 03/08/2025 Orders Only [facility] MEDICINE [address] [place] [address] Janine Gomez ANP [address] [place] [address] Depressive disorder (Primary Dx) Social History Tobacco Use Types [...] Office Visit [facility] MEDICINE [address] [place] [address] Janien Gomez, ANP [address] [place], [place] [phone] documented as of this encounter Goals Goal [...] as of this encounter Visit Diagnoses Diagnosis Depressive disorder- Primary Depressive disorder, not elsewhere classified documented in this encounter Additional Health Concerns [...] documented as of this encounter Care Teams Melt Down Furnace Operator Relationship Specialty Start Date End Date Janine Gomez ANP [address] [place] [address] PCP - General Family Medicine 11/13/20 Andrea Joaquin PharmD [address] [place] [address] Pharmacist Internal Medicine 01/03/24 [facility] 10/04/24 documented as of this encounter
--- OUTSIDE RECORDS SUMMARY | 2025-03-10 12:06 | XMS_ITS | Encounter Summary ---
Author Organization [employer] Address [address] [facility] 7 [place] [address] Care Team Providers Care Brakes Inspector Name Role Phone Janine Gomez Primary Care Provider [phone] Andrea Joaquin PharmD Unavailable [phone] Reason for Visit * Reason Onset Date Comments ER Follow-up 03/07/2025 Encounter Details Date Type Department Care Team ([facility] st Contact Info) Description 03/07/2025 Results Follow-Up [facility] MEDICINE [address] [place] [address] Janine Gomez ANP [address] [place] [address] CBC auto differential, Urinalysis w/reflex microscopic, Urinalysis, Complete, with Reflex to Culture, Additional followed-up results: 3 Social History Tobacco Use Types Packs/Day Years [...] the past 12 months, has t he [facility], gas, oil or water company threatened to [...] as of this encounter Miscellaneous Notes * Addendum Note - Liliana Alvarez RN - 03/08/2025 4:23 PM ESTAddended by: LILIANA ALVAREZ on: 03/08/2025 04:23 PM Modules accepted: Orders * Telephone Encounter - Liliana Alvarez RN - 03/08/2025 12:51 PM EST Telephone call placed to pt to status check. Pt states is okay. Advised to get labs done ordered byPCP next week to check on his kidneys and that there are also labs to check for parasitic infections as well. Informed labs are fasting so come first think in the morning without eating or drinking anything other than water or black coffee or tea. Pt agreeable. Also inquired if interested in tryingan alternate medication since he thinks his Seroquel is ineffective. Pt agreeable . Advised to bring medbox to pharmacy to have them correct it (take out seroquel and add abilify). Pt agreeable. Pt seen at ED. +IGOR. +utox w/ [...] Please let me know if he agrees. * Telephone Encounter - Amanda Singh RN - 03/07/2025 9:40 AM EST Pt discharged from [facility] today at 3am. Discharge diagnosis parasitosis, cocaine use disorder. Will task to status check tomorrow. * Result Encounter Note - SHELBY Esposito - 03/07/2025 9:15 AM EST Suspect labs from ED? Pt w/ IGOR, blood in urine, +cocaine utox, elevated RBCs. [facility] for notes or follow for discharge. thanks documented in this encounter Plan of Treatment Upcoming Encounters Date Type Department Care Team (Late st Contact Info) Description 04/18/2025 2:30 PM EST Office Visit [facility] MEDICINE [address] [place] [address] Janine Gomez ANP [address] [place] [address] Scheduled Orders Name Type Priority Associated Diagnoses Orde r Schedule Basic Metabolic Panel Lab Routine IGOR (acute kidney injury) Expected: 03/08/2025 (Approximate), Expires: 03/08/2026 documented as of this encounter Goals Goal [...] Plan Patient has chronic kidney disease No Jnaine Gomez ANP Patient has chronic kidney disease [...] encounter Visit Diagnoses Diagnosis IGOR (acute kidney injury) documented in this encounter Additional Health Concerns [...] documented as of this encounter Care Teams Brakes Inspector Relationship Specialty Start Date End Date Janine Gomez ANP [address] [place] [address] PCP - General Family Medicine 11/13/20 Andrea Joaquin PharmD [address] [place] [address] Pharmacist Internal Medicine 01/03/24 [facility] 10/04/24 documented as of this encounter
--- OUTSIDE RECORDS SUMMARY | 2025-03-10 12:06 | XMS_ITS | Encounter Summary ---
Author Organization [facility] [facility] Address [address] [place] [address] Care Team Providers Care Charge Lpn Name Role Phone Janine Gomez Primary Care Provider [phone] Andrea Joaquin PharmD Unavailable [phone] Encounter Details Date Type Department Care Team (Late st Contact Info) Description 04/27/2022 Orders Only [facility] MEDICINE [address] [place] [address] Liliana Pace LPN Social History Tobacco Use [...] Description 04/18/2025 2:30 PM EST Office Visit [facility] MEDICINE [address] [place] [address] Janine Gomez ANP [address] [place] [address] documented as of this encounter Visit Diagnoses Not on filedocumented in this encounter Care Teams Charge Lpn Relationship Specialty Start Date End Date Janine Gomez ANP [address] [place] [address] PCP - General Family Medicine 11/13/20 Andrea Joaquin, PharmD [address] [place] [address] Pharmacist Internal Medicine 01/03/24 [facility] 10/04/24 documented as of this encounter
--- OUTSIDE RECORDS SUMMARY | 2025-03-10 12:06 | XMS_ITS | Encounter Summary ---
Author Organization [employer] Address [address] [place] [address] 7 [place] [address] Care Team Providers Care Maid Cleaning Cooking Name Role Phone Janine Gomez Primary Care Provider [phone] Andrea Joaquin PharmD Unavailable [phone] Encounter Details Date Type Department Care Team (Late st Contact Info) Description 03/23/2022 Orders Only [facility] CHC MED & PEDS [address] [place] [address] Renate Chinchilla LPN Social History Tobacco Use [...] Description 04/18/2025 2:30 PM EST Office Visit [facility] MEDICINE [address] [place] [address] Janine Gomez ANP [address] [place] [address] documented as of this encounter Visit Diagnoses Not on filedocumented in this encounter Care Teams Maid Cleaning Cooking Relationship Specialty Start Date End Date Janine Gomez ANP [address] [place] [address] PCP - General Family Medicine 8/19/21 Andrea Joaquin, PharmD [address] [place] [address] Pharmacist Internal Medicine 01/03/24 [facility] 10/04/24 documented as of this encounter
--- OUTSIDE RECORDS SUMMARY | 2025-03-10 12:06 | XMS_ITS | Encounter Summary ---
Author Organization [employer] [facility] Address [address] [place] [address] Care Team Providers Care Trailer Tank Truck Driver Name Role Phone Janine Gomez Primary Care Provider [phone] Andrea Joaquin PharmD Unavailable [phone] Encounter Details Date Type Department Care Team (Late st Contact Info) Description 04/07/2022 Orders Only [facility] MEDICINE [address] [place] [address] Liliana Pace LPN Social History Tobacco Use [...] Description 04/18/2025 2:30 PM EST Office Visit [facility] MEDICINE [address] [place] [address] Janine Gomez ANP [address] [place] [address] documented as of this encounter Visit Diagnoses Not on filedocumented in this encounter Care Teams Trailer Tank Truck Driver Relationship Specialty Start Date End Date Janine Gomez ANP [address] [place] [address] PCP - General Family Medicine 11/13/20 Andrea Joaquin, PharmD [address] [place] [address] Pharmacist Internal Medicine 01/03/24 [facility] 10/04/24 documented as of this encounter
--- OUTSIDE RECORDS SUMMARY | 2025-03-10 12:06 | XMS_ITS | Encounter Summary ---
Author Organization [employer] Address [address] [facility] 7 [place] [address] Care Team Providers Care Planting Material Carrier Name Role Phone Janine Gomez Primary Care Provider [phone] Andrea Joaquin PharmD Unavailable [phone] Reason for Visit * Reason Comments Med Refill Encounter Details Date Type Department Care Team ([facility] st Contact Info) Description 03/10/2025 Refill [facility] PEDS [address] [place] [address] Janine Gomez ANP [address] [place] [address] Social History Tobacco Use Types Packs/Day Years [...] 04/18/2025 2:30 PM EST Office Visit [facility] MEDICINE [address] [place] [address] Janine Gomez ANP [address] [place], [place] [phone] documented as of this encounter Goals Goal [...] Plan Patient has diabetic neuropathy No Liliana lAvarez RN Patient has diabetic neuropathy Care Plan [...] Care Plan Patient has diabetic neuropathy No Gomez, Janine, ANP Weekly blood pressure task Care Plan [...] documented as of this encounter Care Teams Planting Material Carrier Relationship Specialty Start Date End Date Janine Gomez ANP [address] [place] [address] PCP - General Family Medicine 11/13/20 Andrea Joaquin PharmD [address] [place] [address] Pharmacist Internal Medicine 01/03/24 [facility] 10/04/24 documented as of this encounter
--- OUTSIDE RECORDS SUMMARY | 2025-03-10 12:06 | XMS_ITS | Encounter Summary ---
Author Organization [employer] Address [address] [place] [address] [address] [place] [address] Care Team Providers Care Parent Trainer Name Role Phone Janine Gomez Primary Care Provider [phone] Andrea Joaquin PharmD Unavailable [phone] Encounter Details Date Type Department Care Team (Late st Contact Info) Description 04/29/2022 Orders Only [facility] [address] [place] [address] Renate Chinchilla LPN Social History Tobacco Use [...] Description 04/18/2025 2:30 PM EST Office Visit [facility] [address] [place] [address] Janine Gomez ANP [address] [place] [address] documented as of this encounter Visit Diagnoses Not on filedocumented in this encounter Care Teams Parent Trainer Relationship Specialty Start Date End Date Janine Gomez ANP [address] [place] [address] PCP - General Family Medicine 8/19/21 Andrea Joaquin, PharmD [address] [place] [id number] Pharmacist Internal Medicine 01/03/24 [facility] 10/04/24 documented as of this encounter
--- NOTE | 2025-03-10 12:09 | ED_ITS ---
HPI - General Adult General Chief complaint: General Medical Stated complaint: Body swelling Time Seen by Provider: 03/10/25 12:09 Source: patient and RN notes reviewed Mode of arrival: ambulatory Limitations: no limitations History of Present Illness ED Provider: Dahlia Denton PA-C HPI narrative: This is a 64-year-old male, with a past medical history of diabetes, substance use, delusions of parasitosis, who presents emergency department with concerns of critters coming out of his skin. Patient states that this has been occurring since last February. He states that he has had multiple ER visits, has followed up with his primary care physician, seen by dermatology and has been seen by infectious disease however has been told that there is no one that has been able to see the parasites crawling out of his skin. He states that when he coughs and spits he can see the critters in his sputum. Patient has reported to the emergency room on 07/24, 10/11, 02/10, 02/26, 03/06, and today all for the chief complaint of seeing parasites coming out of his skin. Patient states that he believes that his symptoms are just getting worse no one believes him. He states that he has a history of IVDA however states that he has not used in many years. He otherwise denies any illicit drug use, states that it has been many years since his last use. No other complaints or concerns at this time. complaint: Delusions of Parasitosis Onset (ago): month(s) Relieving factors: none Exacerbating factors: none Associated symptoms: denies other symptoms Treatments prior to arrival: none Related Data Home Medications ?Medication ?Instructions ?Recorded ?Confirmed atorvastatin 40 mg tablet 40 mg PO BEDTIME 05/07/21 lisinopril 30 mg tablet 30 mg PO DAILY 05/07/2102/25 metformin 500 mg tablet 1,000 mg PO BID 05/07/21 budesonide-formoterol HFA 80 2 puff inhalation Q4-6H d yspnea 03/10/25 03/10/25 mcg-4.5 mcg/actuation aerosol inhaler dulaglutide 0.75 mg/0.5 mL 0.75 mg subcut QWEEK 03/10/25 [facility] insulin glargine U-300 conc 300 46 unit subcut BEDTIME 03/10/25 03/10/25 unit/mL (1.5 mL) subcutaneous pen ([employer] SoloStar U-300 Insulin) omeprazole 20 mg capsule,delayed 20 mg PO DAILY 03/10/25 release quetiapine 50 mg tablet 50 mg PO BEDTIME 03/10/25 Allergies Allergy/AdvReac Type Severity Reaction Status Date / Time No Known Allergies Allergy Unknown Verified 03/10/25 10:47 Review of Systems 2 Review of Systems: Constitutional : No Fever, No Chills ENT/Mouth : No sore throat, No Rhinorrhea Eyes: No Eye Pain, No Swelling, No Redness Cardiovascular : No Chest Pain, No SOB Respiratory : No Cough, No Sputum Gastrointestinal : No Nausea, No Vomiting, No Diarrhea, No abdominal Pain Genitourinary : No Dysuria, No Hematuria Musculoskeletal : No joint pain, No Myalgias, No Joint Swelling Skin : +Skin Lesions Neuro : No Weakness, No Numbness, No Headache All other systems reviewed and are negative Yes all other systems are reviewed and are negative Constitutional: Constitutional: Reports as per HPI [facility] Past Medical History Medical History (Updated 03/15/25 @ 00:01 by Background Daemon) Cocaine use disorder Delusions of parasitosis Nicotine dependence, cigarettes, uncomplicated Substance abuse Diabetes Surgical History Hx of cholecystectomy Family History Family History Father Diabetes Mother HTN (hypertension) Social History Social History Household Members: None Household Members Other:: lives alone Housing: Apartment Do you presently have visiting nurse or other home services: No Alcohol intake: current Alcohol intake frequency: a few times a week Patient Tobacco Use Status: Current everyday Tobacco user Tobacco use type: Cigarette Cigarette Packs Per Day: 0.5 Cigarettes Per Day: 10.0 Smoked in Last 30 Days: Yes e-Cigarette/Vaping Use: Never Used Patient Interested in Nicotine Replacement: No Patient Given Instructions on How to Stop Smoking: No (Pt. refused) Second Hand Smoke Exposure: No Substance Use Type: Crack/Cocaine and Heroin Currently Displaying Signs/Symptoms of Drug Intoxication Withdrawal: No Have you been hit, kicked, punched, or otherwise hurt by someone within the past year? If so, by whom?: No Do you feel safe in your current relationship?: No Current Relationship Is there a partner from a previous relationship who is making you feel unsafe now?: No Are you made to feel afraid or neglected: No Advance Directives: No Advance Directives Information Provided: No Do you have thoughts of harming others: None Do you have a plan to hurt others: No Plan Recently lost weight without trying: Unsure How much weight loss: 2-13 pounds Eating poorly because of decreased appetite: No Nutrition screen score: 3 Nutrition Risks: No Nutritional Risk Poor oral hygiene: No service: No Current occupational status: unemployed and disabled Sexual orientation: Straight/Heterosexual Physical Exam ED Vital Signs: Vital Signs - 24 hr 03/11/25 06:05 03/11/25 14:00 03/11/25 21:08 Temperature 97.8 F 97.9 F Pulse Rate 85 86 Respiratory Rate 16 16 Blood Pressure 143/72 H 131/57 L Pulse Oximetry 97 95 Oxygen Delivery Method Room Air Room Air BMI result Body Mass Index 30.8 Const General: cooperative, comfortable and no acute distress Orientation/consciousness: patient oriented x3 Limitations: no limitations HENMT Head: Yes normal to inspection, Yes normocephalic and Yes atraumatic Ears: hearing grossly normal bilaterally General nose exam: Normal external nose present Face and sinus: Yes normal facial exam Mouth: Normal oral and palatal mucosa present, oropharynx normal and moist mucous membranes Throat: Yes posterior oropharynx normal Eyes General: appearance normal, both eyes and all related structures Eyelids: Yes eyelids normal Conjunctivae: conjunctivae normal Sclerae: sclerae normal Pupils: Equal, round and reactive pupils present EOM: EOMs intact bilaterally Neck Neck: Yes normal visual inspection, Yes full ROM and Yes no lymphadenopathy Lymphatic: no lymphadenopathy noted Chest Chest palpation & inspection: normal inspection of the chest Resp Effort & Inspection: normal respiratory effort and able to speak in complete sentences Auscultation: clear to auscultation bilaterally, no crackles, no rales, no rhonchi and no wheezes Cardio Rate: regular rate Rhythm: regular rhythm Heart sounds: S1 normal heart sound present and S2 normal heart sound present GI Inspection: Yes normal to inspection Skin Other: Bilateral upper extremities revealing old IVDA scarring. No surrounding erythema. Patient with old scabbing noted to legs, and bilateral upper extremities, patient picking at 1 skin, no surrounding erythema or warmth. General skin exam: no rashes or lesions noted Trauma: no lacerations or abrasions Wounds: no wounds Neuro General: patient oriented x3 and moves all extremities Cranial nerves: Yes Equal, round and reactive pupils present Extrem General: Yes normal to inspection Right upper extremity: normal to inspection Left upper extremity: normal to inspection Right lower extremity: normal to inspection Left lower extremity: normal to inspection Course Course Course Narrative: Time: 06:05 Date: 03/11/25 Provider: Leah Armenta, DO Patient in physician observation for psychiatric evaluation.? No acute events reported overnight. No current complaints. VS stable.? Patient is in bed search status/pending CARE team evaluation. Will continue to monitor. Time: 05:07 Date: 03/12/25 Provider: Skyler Chery MD Patient in physician observation for psychiatric evaluation.? No acute events reported overnight. No current complaints. VS stable.? Patient was evaluated by care team CARE team in his a voluntary inpatient bed search. Will continue to monitor. Time: 13:57 Date: 03/12/25 Provider: Skyler Chery MD Physician observation ended at 13:57. Patient to be admitted as inpatient to psychiatry. Medications Administered Generic Name Dose Route Start Last Admin Trade Name Freq PRN Reason Stop Dose Admin Atorvastatin Calcium 40 mg 03/10/25 21:00 03/14/25 23:07 Atorvastatin Calcium 40 Mg Tablet PO 40 mg BEDTIME YESENIA Administration Doxycycline Monohydrate 100 mg 03/13/25 15:15 03/15/25 08:56 Doxycycline Monohydrate 100 Mg Capsule PO 100 mg BID YESENIA Administration Fluticasone/Vilanterol 1 puff 03/11/25 08:00 03/15/25 08:55 Fluticasone/Vilanterol 100/25 Blst.W.Dev INHALE 1 puff RDAILY YESENIA Administration Insulin Glargine 37 unit 03/10/25 21:00 03/14/25 23:21 Insulin Glargine,Hum.Rec.Anlog 100 Unit/Ml 10 Ml Vial SUBCUT 37 unit BEDTIME YESENIA Administration Insulin Human Lispro 0 unit 03/12/25 21:00 03/15/25 08:57 Insulin Lispro 100 Unit/Ml 3 Ml Vial SUBCUT 4 unit [facility] Administration Protocol Lisinopril 30 mg 03/11/25 09:00 03/15/25 08:56 Lisinopril 10 Mg Tablet PO 30 mg DAILY YESENIA Administration Protocol Metformin HCl 1,000 mg 03/13/25 08:00 03/15/25 08:56 Metformin Hcl 1,000 Mg Tablet PO 1,000 mg BIDWM YESENIA Administration Omeprazole 20 mg 03/11/25 06:30 03/15/25 07:26 Omeprazole 20 Mg Capsule. PO 20 mg DAILY@0630 YESENIA Administration Quetiapine Fumarate 50 mg 03/12/25 17:10 03/13/25 22:12 Quetiapine Fumarate 50 Mg Tablet PO 50 mg BEDTIME PRN Administration if trazodone does not work Trazodone HCl 50 mg 03/12/25 11:44 03/13/25 22:12 Trazodone Hcl 50 Mg Tablet PO 50 mg BEDTIME MRX1 PRN Administration Insomnia Triamcinolone Acetonide 1 appl 03/13/25 21:00 03/15/25 08:55 Triamcinolone Acet 0.1 % Cream 15 Gm Tube TOPICAL 1 appl BID YESENIA Administration Protocol Trifluoperazine HCl 2.5 mg 03/13/25 21:00 03/15/25 08:56 Trifluoperazine Hcl 5 Mg Tablet PO 2.5 mg TID YESENIA Administration Discontinued Medications Generic Name Dose Route Start Last Admin Trade Name Freq PRN Reason Stop Dose Admin Influenza Virus Vaccine 0.5 ml 03/12/25 14:54 03/12/25 18:38 Flu Vacc [id number](6mo Up)/Pf 0.5 Ml Syringe IM 03/12/25 14:55 0.5 ml .ONCE ONE Administration Metformin HCl 500 mg 03/11/25 09:00 03/12/25 08:27 Metformin Hcl 500 Mg Tablet PO 500 mg DAILY YESENIA Administration Naloxone HCl 8 mg 03/12/25 16:09 03/12/25 17:34 Naloxone Hcl Nasal Take Home 4 Mg Startex NOSTRILALT 03/12/25 16:10 Not Given ONCE ONE Quetiapine Fumarate 50 mg 03/10/25 21:00 03/11/25 21:13 Quetiapine Fumarate 50 Mg Tablet PO 50 mg BEDTIME YESENIA Administration Risperidone 1 mg 03/10/25 14:38 03/10/25 15:42 Risperidone 1 Mg Tablet PO 03/10/25 14:39 Not Given ONCE ONE Risperidone 1 mg 03/10/25 21:00 03/12/25 08:26 Risperidone 1 Mg Tablet PO 1 mg BID YESENIA Administration Trifluoperazine HCl 2.5 mg 03/12/25 21:00 03/13/25 08:30 Trifluoperazine Hcl 5 Mg Tablet PO 2.5 mg BID YESENIA Administration Trifluoperazine HCl 1 mg 03/12/25 17:05 03/12/25 18:57 Trifluoperazine Hcl 5 Mg Tablet PO 03/12/25 17:06 Not Given ONCE ONE Medical Decision Making Medical Decision Making MDM Narrative: This is a 64-year-old male, with a past medical history of diabetes, who presents emergency department with concerns of bugs crawling out of his skin. Patient has been seen here numerous times as well has been seen by infectious disease, Dermatology per patient, and primary care and they have not been able to find any bugs. Given that he has been seen numerous times, has had multiple ER visits, I believe that patient would be best served by the psychiatry team for a psych eval. There is no safety concerns, no SI or HI. We will obtain basic labs. Spoke to Dr. Richter, from psychiatry who will come and see patient. 3:33 PM 03/10/2025 (Dahlia Denton PA-C): I assess patient with Dr. Richter from psychiatry. We spent an extensive amount of time looking at his skin, and patient states that the bugs typically crawl out with lotion therefore we gave patient body lotion, and continue to examined patient's skin with a Wood's lamp. Again told patient that there were no bugs on his skin that we are appreciating on the exam. Dr. Richter discussed at length starting psychiatric treatment to treat the stress of his symptoms. Patient is agreeable for psychiatric admission. Patient's overall workup today was reassuring, he has no leukocytosis, stable H&H, chemistry revealing elevated creatinine and BUN however this is chronic for him. We also added on a RPR and HIV test which will be performed tomorrow as they only run these during the daytime. TSH and vitamin B12 were also ordered. At this time, patient is medically cleared, patient placed in physician observation pending care team consultation as well as psychiatric admission. If patient changes his mind, patient is free to go, we do not have indication for placing him on a section 12. 4:00 PM 03/10/2025 (Dahlia Denton PA-C): Patient was seen by the care team, and relayed message that patient could benefit from inpatient level of care, bed search was initiated. Dr. Richter would like him to go to . Patient was brought to the psychiatric pod for Physician observation pending inpatient level of care bed search Differential Diagnosis Differential Diagnoses: The differential diagnosis associated with the presentation includes Anxiety, depression, delusions of parasitosis, polysubstance abuse Admission/Observation Consideration of admission/observation: Escalation of care including admission/observation considered Lab Data [facility] Lab Attestation statement: I reviewed the patient's lab results. See [facility] 03/10/25 13:02 03/10/25 13:02 Labs: Lab Results 03/10/25 03/10/25 03/10/25 Range/Units 13:02 15:36 16:18 WBC 6.0 (4.8-10.8) X10*3/uL RBC 6.44 H (4.60-5.80) X10*6/uL Hgb 17.4 (14.0-18.0) g/dl Hct 53.5 H (42.0-52.0) % MCV 83.1 (80.0-98.0) fL MCH 27.0 (27.0-33.0) pg MCHC 32.5 (31.0-36.0) g/dl RDW 14.8 (11.0-16.0) % Plt Count 263 (160-400) X10*3/uL MPV 8.4 L (9.4-12.4) fL Immature Gran % (Auto) 0.2 (0.0-0.4) % Neut % (Auto) 60.0 (45-73) % Lymph % (Auto) 26.5 (20-40) % [place] % (Auto) 10.3 (2-11) % Eos % (Auto) 1.8 (0-4) % Baso % (Auto) 1.2 (0-2) % Lymph # (Auto) 1.6 (1.2-4.9) X10*3/uL [place] # (Auto) 0.6 (0.1-1.2) X10*3/uL Eos # (Auto) 0.1 (0.0-0.4) X10*3/uL Baso # (Auto) 0.1 (0.0-0.2) X10*3/uL Abs Immat Gran (auto) 0.01 (0.00-0.03) X10*3/uL Absolute Neuts (auto) 3.6 (2.0-8.3) x10*3/uL Absolute Nucleated RBC 0.000 (0.0-0.012) X10*3/uL Nucleated RBC % (auto) 0.0 (0.0-0.2) /100WBC Sodium 141 (135-145) mmol/L Potassium 3.9 (3.3-5.1) mmol/L Chloride 104 (96-108) mmol/L Carbon Dioxide 29 (22-29) mmol/L Anion Gap 12 (12-20) BUN 23 H (9-16) mg/dL Creatinine 1.52 H (0.5-1.4) mg/dL Estim Creat Clear Calc 55.7 Estimated GFR 46 POC Glucose 67 140 H (60-115) mg/dL Random Glucose 101 (60-115) mg/dL Calcium 9.7 (8.4-10.2) mg/dL Total Bilirubin 0.3 (0.0-1.0) mg/dL AST 34 (5-37) U/L ALT 27 (0-40) U/L Alkaline Phosphatase 49 (39-117) U/L NT-Pro-B Natriuret Pep 23.2 (<300) pg/mL Total Protein 6.8 (6.5-8.0) g/dL Albumin 4.1 (3.5-5.0) g/dL Vitamin B12 340 (200-900) pg/mL TSH 1.59 (0.32-4.0) uIU/mL Hold Yellow Top See Note Urine Color Urine Appearance Urine pH (5.0-9.0) Ur Specific [place] (1.005-1.025) Urine Protein (Neg-Trace) mg/dL Urine Glucose (UA) (Negative) mg/dL Urine Ketones (Negative) mg/dL Urine Blood (Negative) Urine Nitrite (Negative) Ur Leukocyte Esterase (Negative) Urine RBC (0-2) /HPF Urine WBC (0-5) /HPF Ur Squamous Epith Cells (0-2) /HPF Urine Bacteria (None Seen) Hyaline Casts (0-2) /LPF Urine Opiates Screen (Not Detect) Ur Buprenorphine Scrn (Not Detect) ng/mL Ur Oxycodone Screen (Not Detect) ng/mL Urine Methadone Screen (Not Detect) ng/mL Urine Fentanyl Screen (Not Detect) Ur Barbiturates Screen (Not Detect) Ur Phencyclidine Scrn (Not Detect) Ur Amphetamines Screen (Not Detect) U Benzodiazepines Scrn (Not Detect) Urine Cocaine Screen (Not Detect) U Marijuana (THC) Screen (Not Detect) T.pallidum Ab (EIA) Nonreactive (Nonreactive) HIV 1&2 Ab/P24 Ag 4thGn Nonreactive (Nonreactive) 03/10/25 03/10/25 03/11/25 Range/Units 19:58 20:05 13:07 WBC (4.8-10.8) X10*3/uL RBC (4.60-5.80) X10*6/uL Hgb (14.0-18.0) g/dl Hct (42.0-52.0) % MCV (80.0-98.0) fL MCH (27.0-33.0) pg MCHC (31.0-36.0) g/dl RDW (11.0-16.0) % Plt Count (160-400) X10*3/uL MPV (9.4-12.4) fL Immature Gran % (Auto) (0.0-0.4) % Neut % (Auto) (45-73) % Lymph % (Auto) (20-40) % [place] % (Auto) (2-11) % Eos % (Auto) (0-4) % Baso % (Auto) (0-2) % Lymph # (Auto) (1.2-4.9) X10*3/uL [place] # (Auto) (0.1-1.2) X10*3/uL Eos # (Auto) (0.0-0.4) X10*3/uL Baso # (Auto) (0.0-0.2) X10*3/uL Abs Immat Gran (auto) (0.00-0.03) X10*3/uL Absolute Neuts (auto) (2.0-8.3) x10*3/uL Absolute Nucleated RBC (0.0-0.012) X10*3/uL Nucleated RBC % (auto) (0.0-0.2) /100WBC Sodium (135-145) mmol/L Potassium (3.3-5.1) mmol/L Chloride (96-108) mmol/L Carbon Dioxide (22-29) mmol/L Anion Gap (12-20) BUN (9-16) mg/dL Creatinine (0.5-1.4) mg/dL Estim Creat Clear Calc Estimated GFR POC Glucose 260 H 59 L* (60-115) mg/dL Random Glucose (60-115) mg/dL Calcium (8.4-10.2) mg/dL Total Bilirubin (0.0-1.0) mg/dL AST (5-37) U/L ALT (0-40) U/L Alkaline Phosphatase (39-117) U/L NT-Pro-B Natriuret Pep (<300) pg/mL Total Protein (6.5-8.0) g/dL Albumin (3.5-5.0) g/dL Vitamin B12 (200-900) pg/mL TSH (0.32-4.0) uIU/mL Hold Yellow Top Urine Color Yellow Urine Appearance Clear Urine pH 6.5 (5.0-9.0) Ur Specific [place] 1.025 (1.005-1.025) Urine Protein 30 (1+) H (Neg-Trace) mg/dL Urine Glucose (UA) >=1000 H (Negative) mg/dL Urine Ketones Negative (Negative) mg/dL Urine Blood Negative (Negative) Urine Nitrite Negative (Negative) Ur Leukocyte Esterase Small (1+) H (Negative) Urine RBC 3-5 H (0-2) /HPF Urine WBC 6-10 H (0-5) /HPF Ur Squamous Epith Cells 3-5 (0-2) /HPF Urine Bacteria None Seen (None Seen) Hyaline Casts 0-2 (0-2) /LPF Urine Opiates Screen Not Detected (Not Detect) Ur Buprenorphine Scrn Not Detected (Not Detect) ng/mL Ur Oxycodone Screen Not Detected (Not Detect) ng/mL Urine Methadone Screen Not Detected (Not Detect) ng/mL Urine Fentanyl Screen Not Detected (Not Detect) Ur Barbiturates Screen Not Detected (Not Detect) Ur Phencyclidine Scrn Not Detected (Not Detect) Ur Amphetamines Screen Not Detected (Not Detect) U Benzodiazepines Scrn Not Detected (Not Detect) Urine Cocaine Screen POSITIVE H (Not Detect) U Marijuana (THC) Screen Not Detected (Not Detect) T.pallidum Ab (EIA) (Nonreactive) HIV 1&2 Ab/P24 Ag 4thGn (Nonreactive) 03/11/25 03/12/25 Range/Units 20:07 07:14 WBC (4.8-10.8) X10*3/uL RBC (4.60-5.80) X10*6/uL Hgb (14.0-18.0) g/dl Hct (42.0-52.0) % MCV (80.0-98.0) fL MCH (27.0-33.0) pg MCHC (31.0-36.0) g/dl RDW (11.0-16.0) % Plt Count (160-400) X10*3/uL MPV (9.4-12.4) fL Immature Gran % (Auto) (0.0-0.4) % Neut % (Auto) (45-73) % Lymph % (Auto) (20-40) % [place] % (Auto) (2-11) % Eos % (Auto) (0-4) % Baso % (Auto) (0-2) % Lymph # (Auto) (1.2-4.9) X10*3/uL [place] # (Auto) (0.1-1.2) X10*3/uL Eos # (Auto) (0.0-0.4) X10*3/uL Baso # (Auto) (0.0-0.2) X10*3/uL Abs Immat Gran (auto) (0.00-0.03) X10*3/uL Absolute Neuts (auto) (2.0-8.3) x10*3/uL Absolute Nucleated RBC (0.0-0.012) X10*3/uL Nucleated RBC % (auto) (0.0-0.2) /100WBC Sodium (135-145) mmol/L Potassium (3.3-5.1) mmol/L Chloride (96-108) mmol/L Carbon Dioxide (22-29) mmol/L Anion Gap (12-20) BUN (9-16) mg/dL Creatinine (0.5-1.4) mg/dL Estim Creat Clear Calc Estimated GFR POC Glucose 141 H 212 H (60-115) mg/dL Random Glucose (60-115) mg/dL Calcium (8.4-10.2) mg/dL Total Bilirubin (0.0-1.0) mg/dL AST (5-37) U/L ALT (0-40) U/L Alkaline Phosphatase (39-117) U/L NT-Pro-B Natriuret Pep (<300) pg/mL Total Protein (6.5-8.0) g/dL Albumin (3.5-5.0) g/dL Vitamin B12 (200-900) pg/mL TSH (0.32-4.0) uIU/mL Hold Yellow Top Urine Color Urine Appearance Urine pH (5.0-9.0) Ur Specific [place] (1.005-1.025) Urine Protein (Neg-Trace) mg/dL Urine Glucose (UA) (Negative) mg/dL Urine Ketones (Negative) mg/dL Urine Blood (Negative) Urine Nitrite (Negative) Ur Leukocyte Esterase (Negative) Urine RBC (0-2) /HPF Urine WBC (0-5) /HPF Ur Squamous Epith Cells (0-2) /HPF Urine Bacteria (None Seen) Hyaline Casts (0-2) /LPF Urine Opiates Screen (Not Detect) Ur Buprenorphine Scrn (Not Detect) ng/mL Ur Oxycodone Screen (Not Detect) ng/mL Urine Methadone Screen (Not Detect) ng/mL Urine Fentanyl Screen (Not Detect) Ur Barbiturates Screen (Not Detect) Ur Phencyclidine Scrn (Not Detect) Ur Amphetamines Screen (Not Detect) U Benzodiazepines Scrn (Not Detect) Urine Cocaine Screen (Not Detect) U Marijuana (THC) Screen (Not Detect) T.pallidum Ab (EIA) (Nonreactive) HIV 1&2 Ab/P24 Ag 4thGn (Nonreactive) Discharge Plan Discharge Clinical Impression: Delusions of parasitosis Patient Disposition: Admitted As Inpatient Interventions: Admission Worksheet (ED) Last Done: 03/12/25 13:57 Discharge Date/Time: 03/12/25 13:58
[2025-03-10 12:15] VITALS: BP 152/77; PULSE 87; RESP 18; TEMP 36.7; O2SAT 94
[2025-03-10 13:07] LABS: MANUAL DIFF FLAG NO
[2025-03-10 13:17] LABS: Hematocrit 53.5 % (42.0-52.0); Hemoglobin 17.4 g/dl (14.0-18.0); Imm Gran Abs Auto 0.01 X10*3/uL (0.00-0.03); Imm Gran Pct Auto 0.2 % (0.0-0.4); Lymphocytes Absolute Auto 1.6 X10*3/uL (1.2-4.9); Mean Corpuscular HGB Conc 32.5 g/dl (31.0-36.0); Mean Corpuscular Hemoglobin 27.0 pg (27.0-33.0); Mean Corpuscular Volume 83.1 fL (80.0-98.0); NRBC Abs Auto 0.000 X10*3/uL (0.0-0.012); NRBC Pct Auto 0.0 /100WBC (0.0-0.2); Platelet Count 263 X10*3/uL (160-400); Red Blood Count 6.44 X10*6/uL (4.60-5.80); White Blood Count 6.0 X10*3/uL (4.8-10.8)
[2025-03-10 13:27] LABS: Alanine Aminotransferase 27 U/L (0-40); Albumin Level 4.1 g/dL (3.5-5.0); Alkaline Phosphatase 49 U/L (39-117); Anion Gap 12 (12-20); Aspartate Amino Transferase 34 U/L (5-37); Blood Urea Nitrogen 23 mg/dL (9-16); Calcium 9.7 mg/dL (8.4-10.2); Carbon Dioxide 29 mmol/L (22-29); Chloride 104 mmol/L (96-108); Creatinine Clr Calc Pharmacy 55.7; Estimated Glomerular Filt Rate 46; Potassium 3.9 mmol/L (3.3-5.1); Sodium 141 mmol/L (135-145); Total Protein 6.8 g/dL (6.5-8.0)
[2025-03-10 13:35] LABS: NT Pro B Type Natriuretic Pept 23.2 pg/mL (<300)
[2025-03-10 15:40] LABS: Glucose, Whole Blood 67 mg/dL (60-115)
--- NOTE | 2025-03-10 15:42 | PM.PSYCN ---
History of Present Illness Date of Service: 03/10/25 Chief Complaint: Body swelling Requesting physician: Dahlia Denton Sources of Information: patient interviewed, chart reviewed and crisis/core team assessment reviewed HPI Narrative: Pt is a 64-year-old male, with a past medical history of diabetes, IV substance use (sober for 3 years), delusions of parasitosis, who has been frequently presenting to the emergency department c/o of critters coming out of his skin. Patient states that this has been occurring since last February 2024. He states that he has had multiple ER visits, has followed up with his primary care physician, seen by dermatology and has been seen by infectious disease however has been told that there is no one that has been able to see the parasites crawling out of his skin. He states that when he coughs and spits he can see the critters in his sputum. Patient has reported to the emergency room on 07/24, 10/11, 02/10, 02/26, 03/06, and today all for the chief complaint of seeing parasites coming out of his skin. Patient states that he believes that his symptoms are just getting worse no one believes him. He states that he has a history of IVDA however states that he has not used in many years and denies any drug or alcohol use, states that it has been many years since his last use. Rubber Stamp Die Inspector asked to meet with patient to assess. Patient is friendly, cooperative and polite. He is organized in speech and behavior, with linear and organized thought process. Patient reports to va underwriter the same as written above and even points to a place on his arm, on his leg saying he can see movement now. Rubber Stamp Die Inspector looked as well and could see nothing moving at all; patient expressed frustration that no one ever looks close enough so va underwriter and ED provider got a magnifying glass and looked at every spot he indicated. Patient frustrated that both providers could not see anything at all but expressed gratitude for the sincere effort. Patient sometimes bleach is his legs to try and kill the critters and says he can hardly sleep because of it and will have to put rubbing alcohol on his face to try to keep them at [place] so he can sleep. Patient did not tolerate reality testing and does not believe that this is his mind in tricks on him. However he did agree to try risperidone to help deal with the intense stress he is feeling from this experience. Past Psychiatric History: none known Medical Evaluation Reviewed: Yes [facility] Medical History Delusions of parasitosis Nicotine dependence, cigarettes, uncomplicated Substance abuse Diabetes Surgical History Hx of cholecystectomy Diagnostics Vital Signs (24Hr): Vital Signs - 24 hr 03/10/25 10:44 03/10/25 12:15 Temperature 97.7 F 98.0 F Pulse Rate 102 H 87 Respiratory Rate 20 18 Blood Pressure 152/77 H 152/77 H Pulse Oximetry 94 94 Oxygen Delivery Method Room Air Room Air BMI result Body Mass Index 30.8 Labs 03/10/25 13:02 03/10/25 13:02 Labs: Laboratory Results - last 48 hr 03/10/25 03/10/25 13:02 15:36 WBC 6.0 RBC 6.44 H Hgb 17.4 Hct 53.5 H MCV 83.1 MCH 27.0 MCHC 32.5 RDW 14.8 Plt Count 263 MPV 8.4 L Immature Gran % (Auto) 0.2 Neut % (Auto) 60.0 Lymph % (Auto) 26.5 [place] % (Auto) 10.3 Eos % (Auto) 1.8 Baso % (Auto) 1.2 Lymph # (Auto) 1.6 [place] # (Auto) 0.6 Eos # (Auto) 0.1 Baso # (Auto) 0.1 Abs Immat Gran (auto) 0.01 Absolute Neuts (auto) 3.6 Absolute Nucleated RBC 0.000 Nucleated RBC % (auto) 0.0 Sodium 141 Potassium 3.9 Chloride 104 Carbon Dioxide 29 Anion Gap 12 BUN 23 H Creatinine 1.52 H Estim Creat Clear Calc 55.7 Estimated GFR 46 POC Glucose 67 Random Glucose 101 Calcium 9.7 Total Bilirubin 0.3 AST 34 ALT 27 Alkaline Phosphatase 49 NT-Pro-B Natriuret Pep 23.2 Total Protein 6.8 Albumin 4.1 Hold Yellow Top See Note Mental Status Exam Mental Status Exam Narrative: Pt is alert and oriented; behavior is cooperative, friendly and calm; patient is not in distress; dressed in casual attire, disheveled and malodorous and also with the smell of chlorine; mood is described as frustrated and affect constricted; eye contact appropriate; Speech is normal rate, volume and prosody and not pressured; no psychomotor agitation/retardation present; thought process is organized and goal directed; Thought content is on delusional ideations about parasitic infestation of his body and house; otherwise pertinent to relevant topics and without any delusional content, paranoid ideations or grandiosity; denies any SI/HI. Patient has both tactile and visual hallucinations. He Denies AVH and there is no evidence of perceptual disturbance. Patients insight and judgment impaired Medications Medications Current Medications Risperidone (Risperidone 1 Mg Tablet) 1 mg PO BID YESENIA Allergies Allergies Allergy/AdvReac Type Severity Reaction Status Date / Time No Known Allergies Allergy Unknown Verified 03/10/25 10:47 Assessment & Plan Assessment & Plan (1) Delusions of parasitosis: Status: Acute Code(s): F22 - Delusional disorders (2) Diabetes: Status: Acute Code(s): E11.9 - Type 2 diabetes mellitus without complications Plan Pt is a 64-year-old male, with a past medical history of diabetes, IV substance use (sober for 3 years), delusions of parasitosis, who has been frequently presenting to the emergency department c/o of critters coming out of his skin. Patient states that this has been occurring since last February 2024. He states that he has had multiple ER visits, has followed up with his primary care physician, seen by dermatology and has been seen by infectious disease however has been told that there is no one that has been able to see the parasites crawling out of his skin. He states that when he coughs and spits he can see the critters in his sputum. Patient has reported to the emergency room on 07/24, 10/11, 02/10, 02/26, 03/06, and today all for the chief complaint of seeing parasites coming out of his skin. Patient states that he believes that his symptoms are just getting worse no one believes him. He states that he has a history of IVDA however states that he has not used in many years and denies any drug or alcohol use, states that it has been many years since his last use. Rubber Stamp Die Inspector asked to meet with patient to assess. Patient is friendly, cooperative and polite. He is organized in speech and behavior, with linear and organized thought process. Patient reports to va underwriter the same as written above and even points to a place on his arm, on his leg saying he can see movement now. Rubber Stamp Die Inspector looked as well and could see nothing moving at all; patient expressed frustration that no one ever looks close enough so va underwriter and ED provider got a magnifying glass and looked at every spot he indicated. Patient frustrated that both providers could not see anything at all but expressed gratitude for the sincere effort. Patient sometimes bleach is his legs to try and kill the critters and says he can hardly sleep because of it and will have to put rubbing alcohol on his face to try to keep them at [place] so he can sleep. Patient did not tolerate reality testing and does not believe that this is his mind in tricks on him. However he did agree to try risperidone to help deal with the intense stress he is feeling from this experience. Patient does not seem to have any AVH; he says this all started February of last year for the 1st time and has no other history of any such experience. Impression: Patient has a delusional disorder (delusions of parasitosis) which is making him miserable and significantly impairing his functioning. Patient is not unsafe; he is not suicidal there is no indication that patient is unable to take care of himself in the community. However his lack of insight keeps him from getting appropriate treatment and thus he remains delusional and repeatedly comes to the ED complaining of parasites. It is not realistic for this problem to be addressed in the community and patient requires inpatient admission for treatment and to further assess his psychiatric symptoms, history, and to uncover the etiology for psychotic symptoms that are appearing, ostensibly for the 1st time, at 63 years old. Late onset schizophrenia is possible; Will seek to rule out HIV, tertiary syphilis; Lewy body dementia is a rule out however seems much less likely; patient with normal gait though would still need to more thoroughly assess for parkinsonian symptoms). This was discussed with patient who is voluntarily willing to be admitted to the inpatient psychiatric unit. Of note, if patient were to change his mind, he is free to leave. Plan: Started on risperidone 1 mg b.i.d. Ordering some basic labs, HIV, RPR, thyroid function Rule out Lewy body dementia (though much less likely) Consult to care team; present for inpatient admission Total time managing care of this patient today ____ minutes. Patient educated on: diagnosis, medication risk/benefits, therapeutic strategies and medical condition Informed Consent: understands, does not understand and further education needed
--- NOTE | 2025-03-10 15:50 | PC.NURSE ---
Assumed care of patient, patient's blood sugar 67, provided with snacks and juice, offering no complaints at this time
[2025-03-10 15:55] LABS: Vitamin B12 340 pg/mL (200-900)
[2025-03-10 16:01] VITALS: BP 146/72; PULSE 83; RESP 18; TEMP 36.6; O2SAT 95
--- NOTE | 2025-03-10 16:01 | PC.NURSE ---
Pt appears to be resting in no apparent distress at this time, ate pudding, two sandwiches and an apple juice
[2025-03-10 16:22] LABS: Glucose, Whole Blood 140 mg/dL (60-115)
--- NOTE | 2025-03-10 16:42 | PHA.MEDREC ---
Addendum entered by Eliza Hinton RPh 03/12/25 13:20: Reviewed by this [facility]. Pt now states that he takes metformin 500mg, 2 tabs BID, this was update on med rec. Original Note: Pharmacy Consult ? Medication Reconciliation Reviewed med rec done by nursing. Patient takes metformin once daily, is not taking abilify or doxycyline.
[2025-03-10 20:01] LABS: Glucose, Whole Blood 260 mg/dL (60-115)
[2025-03-10] MEDS: Insulin Glargine,Hum.rec.anlog 100 UNIT/ML 10 ML VIAL 37 UNIT SUBCUT (20:05)
[2025-03-10 20:12] LABS: Appearance Urine Clear; Glucose Urine UA >=1000 mg/dL (Negative); PH 6.5 (5.0-9.0); Specific Gravity - Urine 1.025 (1.005-1.025); UMIC TRIGGER UACC YES
[2025-03-10 20:21] LABS: Cannabinoid Screen Urine Not Detected (Not Detect)
[2025-03-10 20:35] LABS: UACC Culture Trigger YES
[2025-03-11 06:05] VITALS: RESP 16
--- NOTE | 2025-03-11 07:43 | PC.NURSE ---
Assumed care, report received. Pt is currently sleeping, he is brought breakfast. Safety is maintained.
--- NOTE | 2025-03-11 07:46 | ECG_ITS ---
Test Reason : check prolong qt Blood Pressure : */* mmHG Vent. Rate : 70 BPM Atrial Rate : 70 BPM P-R Int : 174 ms QRS Dur : 128 ms QT Int : 372 ms P-R-T Axes : 4 128 1 degrees QTcB Int : 401 ms Sinus rhythm with Premature atrial complexes Right bundle branch block Left posterior fascicular block Bifascicular block Septal infarct , age undetermined Abnormal ECG When compared with ECG of 15-Aug-2018 10:51, Premature atrial complexes are now Present Left posterior fascicular block is now Present Left anterior fascicular block is no longer Present Right bundle branch block is now Present Referred By: Leah Armenta Electronically Signed By: Zeke Velasquez
[2025-03-11 08:22] LABS: Syphilis Screen Nonreactive (Nonreactive)
[2025-03-11 08:23] LABS: HIV Num 1 0.24 S/CO (0.00-0.99)
[2025-03-11 13:10] LABS: Glucose, Whole Blood 59 mg/dL (60-115)
[2025-03-11 14:00] VITALS: BP 143/72; PULSE 85; RESP 16; TEMP 36.6; O2SAT 97
--- NOTE | 2025-03-11 18:10 | PC.NURSE ---
Pt has remains isolative and keeps to himself.
[2025-03-11 20:12] LABS: Glucose, Whole Blood 141 mg/dL (60-115)
[2025-03-11 21:08] VITALS: BP 131/57; PULSE 86; TEMP 36.6; O2SAT 95
[2025-03-11] MEDS: Insulin Glargine,Hum.rec.anlog 100 UNIT/ML 10 ML VIAL 37 UNIT SUBCUT (21:14)
--- NOTE | 2025-03-12 03:55 | PC.NURSE ---
Assumed care at 1845. Patient presents as calm and cooperative. Did c/o tactile disturbances of feeling bugs crawling on his face. HS POC 141, 37 units of insulin administered. Medicated per MAY. No PRN's utilized. Denies pain/discomfort. Continue plan for IPLOC.
[2025-03-12 06:18] VITALS: BP 149/73; PULSE 82; RESP 17; TEMP 36.6; O2SAT 98
[2025-03-12 07:17] LABS: Glucose, Whole Blood 212 mg/dL (60-115)
--- NOTE | 2025-03-12 07:32 | PC.NURSE ---
Assumed care, report received. Pt is awake, POC is 212, he eats breakfast, uses the BR and goes back to bed.
[2025-03-12 14:35] VITALS: BP 137/78; PULSE 83; TEMP 36.6; O2SAT 99
[2025-03-12 14:36] VITALS: BMI 29.0
--- NOTE | 2025-03-12 15:36 | PC.ADMIT ---
Johan 64 year old male A/O x3 was admitted to at 1359 from our POD on a CV for treatment of delusions of parasitosis. Pt came to ED stating he saw critters crawling under his skin. Pt reported this has been going on since February 2024. Nick stated that he has been to the hospital, multiple times over the past year trying to get help. He reported that all the doctors he saw told him they don't see anything on his skin. One of the doctors referred him to see a psychiatrist for hallucinations. Pt reported he didn't see a psychiatrist because he reported I am not having hallucinations . Reported that he lives alone with his dog. Pt reported that he sees the bugs in his house and they are so small that you only see them if they are grouped together on the floor or on the wall. Pt reported that at night around 4pm-5pm is when the critters are active, moving around on his skin, face, and head. Pt reported this keeps him up at night. He reports that sometimes they are itchy and sometimes they are not. Skin check is remarkable for significant scaring from reported past IV drug use. Skin check remarkable for superficial scabs. Layers of yellow colored skin peeling off the bottom of his feet. Numerous small quarter size discolorations to upper and lower extremities. Pt reported anxiety due to the critters and no one treating it. Pt denies SI/HI/AH. Pt was calm and polite during 1:1. Upon arrival to unit, pt was disheveled. After global climate change analyst pt took a shower and felt a lot better.. Pt reports he smokes cigarettes daily, refused any nicotine replacements at this time. Pt reported he occasionally smokes marijuana. Pt reported that he only socially drinks 1 or 2 beers when it is hot outside in the summer. Pt reports no change in appetite. Pt tested positive on admission for cocaine. Pt is a type 2 DM on QID POC. Pt accepted Influenza vaccine. Pt is on 15 minute safety checks. Pt declined to sign releases and refused to participate in safety tool/treatment plan.
--- NOTE | 2025-03-12 16:09 | HO.PSYADMNOT ---
HPI Date of Service: 03/12/25 Chief Complaint: delusions of parasitosis Sources of Information: patient interviewed, chart reviewed and crisis/core team assessment reviewed HPI Subjective Notes: Conditional Voluntary, 3 Day and Section 12B Narrative: Pt is a 64-year-old male, with a past medical history of diabetes, 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 Patient states that this has been occurring since last February 2024. He states that he has had multiple ER visits, has followed up with his primary care physician, seen by dermatology and has been seen by infectious disease however has been told that there is no one that has been able to see the parasites crawling out of his skin. He states that when he coughs and spits he can see the critters in his sputum. Patient has reported to the emergency room on 07/24, 10/11, 02/10, 02/26, 03/06, and today all for the chief complaint of seeing parasites coming out of his skin. Patient states that he believes that his symptoms are just getting worse no one believes him. He states that he has a history of IVDA however states that he has not used in many years and denies any drug or alcohol use, states that it has been many years since his last use. Hand Button Splitter first assessed patient in the ED Patient is friendly, cooperative and polite. He is organized in speech and behavior, with linear and organized thought process. Patient reports to director underwriter sales the same as written above and even points to a place on his arm, on his leg saying he can see movement now. Hand Button Splitter looked as well and could see nothing moving at all; patient expressed frustration that no one ever looks close enough so director underwriter sales and ED provider examined patient with Dermoscopy magnifying glass and looked at every spot he indicated. Patient frustrated that both providers could not see anything at all but expressed gratitude for the sincere effort. Patient sometimes bleach is his legs to try and kill the critters and says he can hardly sleep because of it and will have to put rubbing alcohol on his face to try to keep them at [place] so he can sleep. Patient reports they come out of his penis; the come out of his face and going to his eyes and ears... Patient did not tolerate reality testing and does not believe that this is his mind in tricks on him. However he did agree to try risperidone to help deal with the intense stress he is feeling from this experience. He denies any history of other paranoid ideations; denies drug use (though cocaine positive). Patient does not seem to have any AVH; he says this all started February of last year for the 1st time and has no other history of any such experience. On M5 patient remains calm, organized in speech and behavior. Still no insight however he agrees to take antipsychotic medication if director underwriter sales is willing to perform tests to assess for parasitosis Morgellons disease? Past Psychiatric History: none known Medical Evaluation Reviewed: Yes ON LICENSE OF [facility] Medical History (Updated 03/13/25 @ 16:54 by Gary Richter MD) Cocaine use disorder Delusions of parasitosis Nicotine dependence, cigarettes, uncomplicated Substance abuse Diabetes Surgical History Hx of cholecystectomy Family History: Deferred Social History: Lives alone; few supports Substance History: Long history of IV heroin and cocaine addiction; sober from heroin for 3 years Patient reports he smokes cocaine a few times a week Trauma History: Deferred Diagnostics Vital Signs (24Hr): Vital Signs - 24 hr 03/11/25 21:08 03/12/25 06:18 03/12/25 14:35 Temperature 97.9 F 97.9 F 98 F Pulse Rate 86 82 83 Respiratory Rate 17 Blood Pressure 131/57 L 149/73 H 137/78 Pulse Oximetry 95 98 99 Oxygen Delivery Method Room Air Room Air Room Air BMI result Body Mass Index 29.0 Labs 03/10/25 13:02 03/10/25 13:02 Labs: Laboratory Results - last 48 hr 03/10/25 03/10/25 03/10/25 13:02 16:18 19:58 POC Glucose 140 H 260 H Urine Color Urine Appearance Urine pH Ur Specific [place] Urine Protein Urine Glucose (UA) Urine Ketones Urine Blood Urine Nitrite Ur Leukocyte Esterase Urine RBC Urine WBC Ur Squamous Epith Cells Urine Bacteria Hyaline Casts Urine Opiates Screen Ur Buprenorphine Scrn Ur Oxycodone Screen Urine Methadone Screen Urine Fentanyl Screen Ur Barbiturates Screen Ur Phencyclidine Scrn Ur Amphetamines Screen U Benzodiazepines Scrn Urine Cocaine Screen U Marijuana (THC) Screen T.pallidum Ab (EIA) Nonreactive HIV 1&2 Ab/P24 Ag 4thGn Nonreactive 03/10/25 03/11/25 03/11/25 20:05 13:07 20:07 POC Glucose 59 L* 141 H Urine Color Yellow Urine Appearance Clear Urine pH 6.5 Ur Specific [place] 1.025 Urine Protein 30 (1+) H Urine Glucose (UA) >=1000 H Urine Ketones Negative Urine Blood Negative Urine Nitrite Negative Ur Leukocyte Esterase Small (1+) H Urine RBC 3-5 H Urine WBC 6-10 H Ur Squamous Epith Cells 3-5 Urine Bacteria None Seen Hyaline Casts 0-2 Urine Opiates Screen Not Detected Ur Buprenorphine Scrn Not Detected Ur Oxycodone Screen Not Detected Urine Methadone Screen Not Detected Urine Fentanyl Screen Not Detected Ur Barbiturates Screen Not Detected Ur Phencyclidine Scrn Not Detected Ur Amphetamines Screen Not Detected U Benzodiazepines Scrn Not Detected Urine Cocaine Screen POSITIVE H U Marijuana (THC) Screen Not Detected T.pallidum Ab (EIA) HIV 1&2 Ab/P24 Ag 4thGn 03/12/25 07:14 POC Glucose 212 H Urine Color Urine Appearance Urine pH Ur Specific [place] Urine Protein Urine Glucose (UA) Urine Ketones Urine Blood Urine Nitrite Ur Leukocyte Esterase Urine RBC Urine WBC Ur Squamous Epith Cells Urine Bacteria Hyaline Casts Urine Opiates Screen Ur Buprenorphine Scrn Ur Oxycodone Screen Urine Methadone Screen Urine Fentanyl Screen Ur Barbiturates Screen Ur Phencyclidine Scrn Ur Amphetamines Screen U Benzodiazepines Scrn Urine Cocaine Screen U Marijuana (THC) Screen T.pallidum Ab (EIA) HIV 1&2 Ab/P24 Ag 4thGn Meds/Allergies Meds Home Medications ?Medication ?Instructions ?Recorded ?Confirmed ?Type atorvastatin 40 mg tablet 40 mg PO BEDTIME 05/07/21 03/10/25 History lisinopril 30 mg tablet 30 mg PO DAILY 05/07/21 03/10/25 History metformin 500 mg tablet 1,000 mg PO BID 05/07/21 03/12/25 History budesonide-formoterol HFA 80 2 puff inhalation Q4-6H dyspnea 03/10/25 03/10/25 History mcg-4.5 mcg/actuation aerosol inhaler dulaglutide 0.75 mg/0.5 mL 0.75 mg subcut QWEEK 03/10/25 03/10/25 History subcutaneous pen injector (Trulicity) insulin glargine U-300 conc 300 46 unit subcut BEDTIME 03/10/25 03/10/25 History unit/mL (1.5 mL) subcutaneous pen (Toujeo SoloStar U-300 Insulin) omeprazole 20 mg capsule,delayed 20 mg PO DAILY 03/10/25 03/10/25 History release quetiapine 50 mg tablet 50 mg PO BEDTIME 03/10/25 03/10/25 History Allergies Allergies Allergy/AdvReac Type Severity Reaction Status Date / Time No Known Allergies Allergy Unknown Verified 03/10/25 10:47 Mental Status Exam Mental Status Exam Narrative: Pt is alert and oriented; behavior is cooperative, friendly and calm; patient is not in distress; dressed in hospital attire with unkempt hair but adequate hygiene; mood is described as ok and affect congruent; eye contact appropriate; Speech is normal rate, volume and prosody and not pressured; no psychomotor agitation/retardation present; thought process is organized and goal directed; Thought content is on infestation of parasites; otherwise pertinent to relevant topics and without any any other delusional content; denies any SI/HI. Denies AVH and there is no evidence of perceptual disturbance. Patients insight and judgment impaired Assessment & Plan Assessment & Plan (1) Delusions of parasitosis: Status: Acute Code(s): F22 - Delusional disorders (2) PAD (peripheral artery disease): Status: Acute Code(s): I73.9 - Peripheral vascular disease, unspecified (3) Diabetes: Status: Acute Code(s): E11.9 - Type 2 diabetes mellitus without complications (4) Cocaine use disorder: Status: Acute Code(s): F14.90 - Cocaine use, unspecified, uncomplicated Plan Pt is a 64-year-old male, with a past medical history of diabetes, 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 Patient states that this has been occurring since last February 2024. He states that he has had multiple ER visits, has followed up with his primary care physician, seen by dermatology and has been seen by infectious disease however has been told that there is no one that has been able to see the parasites crawling out of his skin. He states that when he coughs and spits he can see the critters in his sputum. Patient has reported to the emergency room on 07/24, 10/11, 02/10, 02/26, 03/06, and today all for the chief complaint of seeing parasites coming out of his skin. Patient states that he believes that his symptoms are just getting worse no one believes him. He states that he has a history of IVDA however states that he has not used in many years and denies any drug or alcohol use, states that it has been many years since his last use. Hand Button Splitter first assessed patient in the ED Patient is friendly, cooperative and polite. He is organized in speech and behavior, with linear and organized thought process. Patient reports to director underwriter sales the same as written above and even points to a place on his arm, on his leg saying he can see movement now. Hand Button Splitter looked as well and could see nothing moving at all; patient expressed frustration that no one ever looks close enough so director underwriter sales and ED provider examined patient with Dermoscopy magnifying glass and looked at every spot he indicated. Patient frustrated that both providers could not see anything at all but expressed gratitude for the sincere effort. Patient sometimes bleach is his legs to try and kill the critters and says he can hardly sleep because of it and will have to put rubbing alcohol on his face to try to keep them at [place] so he can sleep. Patient reports they come out of his penis; the come out of his face and going to his eyes and ears... Patient did not tolerate reality testing and does not believe that this is his mind in tricks on him. However he did agree to try risperidone to help deal with the intense stress he is feeling from this experience. He denies any history of other paranoid ideations; denies drug use (though cocaine positive). Patient does not seem to have any AVH; he says this all started February of last year for the 1st time and has no other history of any such experience. On M5 patient remains calm, organized in speech and behavior. Still no insight however he agrees to take antipsychotic medication if director underwriter sales is willing to perform tests to assess for parasitosis. Hand Button Splitter explained that this appears to be a delusional disorder which patient accepted that this is director underwriter sales's perspective but fully disagrees Impression: Patient has a delusional disorder (delusions of parasitosis; does not seem to be Morgellons disease-which includes patient having actual fibers that protrude from the skin which patient thinks are parasites) which is making him miserable and significantly impairing his functioning. Patient is not unsafe; he is not suicidal there is no indication that patient is unable to take care of himself in the community. However his lack of insight keeps him from getting appropriate treatment and thus he remains delusional and repeatedly comes to the ED complaining of parasites. It is not realistic for this problem to be addressed in the community and patient requires inpatient admission for treatment and to further assess his psychiatric symptoms, history, and to uncover the etiology for psychotic symptoms that are appearing, ostensibly for the 1st time, at 63 years old. Late onset schizophrenia is possible; Will seek to rule out HIV, tertiary syphilis; Lewy body dementia is a rule out however seems much less likely; patient with normal gait though would still need to more thoroughly assess for parkinsonian symptoms). This was discussed with patient who is voluntarily willing to be admitted to the inpatient psychiatric unit and take antipsychotic medications while having tests run. HIV/RPR negative -in the ED patient was started on risperidone which did not have any effect though was only a low dose -decided to start patient on Stelazine since there is there are some studies in which this helped patients with Morgellons disease (though not a robust study) Plan: CV Q 15 minute checks Start Stelazine 2.5 mg b.i.d. Discontinue risperidone Continue home medications Will discussed with pathology and do skin microscopy Rule out Lewy body dementia (though much less likely) * of note patient is not imminent risk of harm to self or others and is able to take care of himself in the community. Should patient want to discharge, at this point he is free to do so Patient educated on: diagnosis, medication risk/benefits and medical condition Informed Consent: does not understand and further education needed Reason for continued inpatient stay Substantial Risk for: stable for discharge Statement Statement: I have reviewed the history and physical and performed a pertinent examination on my patient. No changes have occurred unless specified. If the History and Physical was not performed prior to admission, the Hospitalist's service will be consulted for completing the admission physical. Time Spent With Patient Time: Total time managing care of this patient today ____ minutes.
--- NOTE | 2025-03-12 16:10 | PM.PSYDC ---
DS: Providers Provider Date of admission: 03/12/25 11:44 Date of discharge: 03/12/25 Primary care physician: Janine Gomez NP Attending physician on admission: Gary Richter Attending physician on discharge: Gary Richter DS: Diagnosis Discharge Diagnosis (1) Delusions of parasitosis: Status: Acute (2) Diabetes: Status: Acute DS: Medications Discharge Medications Home Medications: Home Medications ?Medication ?Instructions ?Recorded ?Confirmed atorvastatin 40 mg tablet 40 mg PO BEDTIME 05/07/21 03/10/25 lisinopril 30 mg tablet 30 mg PO DAILY 05/07/21 03/10/25 metformin 500 mg tablet 1,000 mg PO BID 05/07/21 03/12/25 budesonide-formoterol HFA 80 2 puff inhalation Q4-6H dyspnea 03/10/25 03/10/25 mcg-4.5 mcg/actuation aerosol inhaler dulaglutide 0.75 mg/0.5 mL 0.75 mg subcut QWEEK 03/10/25 03/10/25 subcutaneous pen injector (Trulicity) insulin glargine U-300 conc 300 46 unit subcut BEDTIME 03/10/25 03/10/25 unit/mL (1.5 mL) subcutaneous pen (Toujeo SoloStar U-300 Insulin) omeprazole 20 mg capsule,delayed 20 mg PO DAILY 03/10/25 03/10/25 release quetiapine 50 mg tablet 50 mg PO BEDTIME 03/10/25 03/10/25 Data Data Completed and Pending Completed studies during hospitalization [Text1]: 03/10/25 03/10/25 03/10/25 13:02 15:36 16:18 WBC 6.0 RBC 6.44 H Hgb 17.4 Hct 53.5 H MCV 83.1 MCH 27.0 MCHC 32.5 RDW 14.8 Plt Count 263 MPV 8.4 L Immature Gran % (Auto) 0.2 Neut % (Auto) 60.0 Lymph % (Auto) 26.5 [place] % (Auto) 10.3 Eos % (Auto) 1.8 Baso % (Auto) 1.2 Lymph # (Auto) 1.6 [place] # (Auto) 0.6 Eos # (Auto) 0.1 Baso # (Auto) 0.1 Abs Immat Gran (auto) 0.01 Absolute Neuts (auto) 3.6 Absolute Nucleated RBC 0.000 Nucleated RBC % (auto) 0.0 Sodium 141 Potassium 3.9 Chloride 104 Carbon Dioxide 29 Anion Gap 12 BUN 23 H Creatinine 1.52 H Estim Creat Clear Calc 55.7 Estimated GFR 46 POC Glucose 67 140 H Random Glucose 101 Calcium 9.7 Total Bilirubin 0.3 AST 34 ALT 27 Alkaline Phosphatase 49 NT-Pro-B Natriuret Pep 23.2 Total Protein 6.8 Albumin 4.1 Vitamin B12 340 TSH 1.59 Hold Yellow Top See Note Urine Color Urine Appearance Urine pH Ur Specific [place] Urine Protein Urine Glucose (UA) Urine Ketones Urine Blood Urine Nitrite Ur Leukocyte Esterase Urine RBC Urine WBC Ur Squamous Epith Cells Urine Bacteria Hyaline Casts Urine Opiates Screen Ur Buprenorphine Scrn Ur Oxycodone Screen Urine Methadone Screen Urine Fentanyl Screen Ur Barbiturates Screen Ur Phencyclidine Scrn Ur Amphetamines Screen U Benzodiazepines Scrn Urine Cocaine Screen U Marijuana (THC) Screen T.pallidum Ab (EIA) Nonreactive HIV 1&2 Ab/P24 Ag 4thGn Nonreactive 03/10/25 03/10/25 03/11/25 19:58 20:05 13:07 WBC RBC Hgb Hct MCV MCH MCHC RDW Plt Count MPV Immature Gran % (Auto) Neut % (Auto) Lymph % (Auto) [place] % (Auto) Eos % (Auto) Baso % (Auto) Lymph # (Auto) [place] # (Auto) Eos # (Auto) Baso # (Auto) Abs Immat Gran (auto) Absolute Neuts (auto) Absolute Nucleated RBC Nucleated RBC % (auto) Sodium Potassium Chloride Carbon Dioxide Anion Gap BUN Creatinine Estim Creat Clear Calc Estimated GFR POC Glucose 260 H 59 L* Random Glucose Calcium Total Bilirubin AST ALT Alkaline Phosphatase NT-Pro-B Natriuret Pep Total Protein Albumin Vitamin B12 TSH Hold Yellow Top Urine Color Yellow Urine Appearance Clear Urine pH 6.5 Ur Specific [place] 1.025 Urine Protein 30 (1+) H Urine Glucose (UA) >=1000 H Urine Ketones Negative Urine Blood Negative Urine Nitrite Negative Ur Leukocyte Esterase Small (1+) H Urine RBC 3-5 H Urine WBC 6-10 H Ur Squamous Epith Cells 3-5 Urine Bacteria None Seen Hyaline Casts 0-2 Urine Opiates Screen Not Detected Ur Buprenorphine Scrn Not Detected Ur Oxycodone Screen Not Detected Urine Methadone Screen Not Detected Urine Fentanyl Screen Not Detected Ur Barbiturates Screen Not Detected Ur Phencyclidine Scrn Not Detected Ur Amphetamines Screen Not Detected U Benzodiazepines Scrn Not Detected Urine Cocaine Screen POSITIVE H U Marijuana (THC) Screen Not Detected T.pallidum Ab (EIA) HIV 1&2 Ab/P24 Ag 4thGn 03/11/25 03/12/25 20:07 07:14 WBC RBC Hgb Hct MCV MCH MCHC RDW Plt Count MPV Immature Gran % (Auto) Neut % (Auto) Lymph % (Auto) [place] % (Auto) Eos % (Auto) Baso % (Auto) Lymph # (Auto) [place] # (Auto) Eos # (Auto) Baso # (Auto) Abs Immat Gran (auto) Absolute Neuts (auto) Absolute Nucleated RBC Nucleated RBC % (auto) Sodium Potassium Chloride Carbon Dioxide Anion Gap BUN Creatinine Estim Creat Clear Calc Estimated GFR POC Glucose 141 H 212 H Random Glucose Calcium Total Bilirubin AST ALT Alkaline Phosphatase NT-Pro-B Natriuret Pep Total Protein Albumin Vitamin B12 TSH Hold Yellow Top Urine Color Urine Appearance Urine pH Ur Specific [place] Urine Protein Urine Glucose (UA) Urine Ketones Urine Blood Urine Nitrite Ur Leukocyte Esterase Urine RBC Urine WBC Ur Squamous Epith Cells Urine Bacteria Hyaline Casts Urine Opiates Screen Ur Buprenorphine Scrn Ur Oxycodone Screen Urine Methadone Screen Urine Fentanyl Screen Ur Barbiturates Screen Ur Phencyclidine Scrn Ur Amphetamines Screen U Benzodiazepines Scrn Urine Cocaine Screen U Marijuana (THC) Screen T.pallidum Ab (EIA) HIV 1&2 Ab/P24 Ag 4thGn 03/10/25 20:05 Urine clean catch - Clean Catch Midstream Urine Culture - Preliminary Enterococcus/Streptococcus sp Yeast DS: Summary Time Spent with Patient Time attestation: Total time managing care of this patient today ____ minutes. Discharge Plan Discharge Anticipated Discharge Date/Time: 03/12/25 16:09 Patient Disposition: Home, Self-Care Discharge Diagnosis: delusional disorder Referrals: Janine Gomez, DIRECTOR OF FINANCIAL PLANNING [Primary Care Provider, Internal Medicine] - 1 Week Discharge Medications: Continued omeprazole 20 mg capsule,delayed release(DR/EC) 20 mg PO DAILY quetiapine 50 mg tablet 50 mg PO BEDTIME budesonide-formoterol 80-4.5 mcg/actuation HFA aerosol inhaler 2 puff INHALATION Q4-6H Trulicity 0.75 mg/0.5 mL pen injector 0.75 mg subcut QWEEK insulin glargine U-300 conc [[place] SoloStar U-300 Insulin] 300 unit/mL (1.5 mL) insulin pen 46 unit subcut BEDTIME atorvastatin 40 mg tablet 40 mg PO BEDTIME metformin 500 mg tablet 1,000 mg PO BID lisinopril 30 mg tablet 30 mg PO DAILY Discharge Orders: Discharge Order (Routine); Ordered 03/12/25 Ordered By: Gary Richter Diet: Diabetic diet Activity on Discharge: As tolerated Stand Alone Forms: Patient Portal Discharge page Print Language: [place] Care Plan Goals: Maintain mood and safe behaviors Take medications as prescribed Continue to pursue sobriety Practice coping skills Continue with outpatient providers and reach out to them as needed Health Concerns: Mood stability and behaviors Sobriety Diabetes PAD Plan of Treatment: Follow up with your PCP, psychiatric provider and other outpatient providers regarding above concerns Take medications as prescribed Assessment: Risk assessment at time of discharge:? Patient was interviewed prior to discharge and found to be fully oriented and without any SI or HI. Patient is not in imminent risk of harm to self or others. Patient has been observed closely by nursing and unit staff throughout admission; patient has not engaged in any behaviors that suggest dangerousness to self or others and has demonstrated appropriate behaviors and impulse control
[2025-03-12 17:35] LABS: Glucose, Whole Blood 298 mg/dL (60-115)
[2025-03-12] MEDS: Flu Vacc TS2025-26(6mo up)/PF 0.5 ML SYRINGE IM (18:38)
[2025-03-12 20:00] VITALS: BP 142/67; PULSE 86; TEMP 37.1; O2SAT 97
[2025-03-12 21:48] LABS: Glucose, Whole Blood 252 mg/dL (60-115)
[2025-03-12] MEDS: Insulin Glargine,Hum.rec.anlog 100 UNIT/ML 10 ML VIAL 37 UNIT SUBCUT (23:11)
[2025-03-13 07:57] LABS: Glucose, Whole Blood 229 mg/dL (60-115)
[2025-03-13 08:00] VITALS: BP 130/70; PULSE 70; RESP 16; TEMP 37.1; O2SAT 98
[2025-03-13 08:58] LABS: Cholesterol 131 mg/dL (<200); HDL Cholesterol 49 mg/dL (>40); Magnesium 1.6 mg/dL (1.6-2.6); Triglycerides 72 mg/dL (<150)
[2025-03-13 09:12] LABS: Free T4 (Free Thyroxine) 1.10 ng/dL (0.71-1.85); Thyroid Stimulating Hormone 3.88 uIU/mL (0.32-4.0)
[2025-03-13 09:13] LABS: Folate 6.0 ng/mL (> or = 4.0); Vitamin B12 370 pg/mL (200-900)
--- NOTE | 2025-03-13 10:03 | P.PNPSI_ITS ---
Subjective Subjective Date of Service: 03/13/25 Reason For Visit: delusions of parasitosis Interim History: Met with patient; discussed with team Patient remains calm cooperative and polite. Organized in speech and behavior. Patient continues to report he sees and feels parasites on a skin; however he says he is feeling more calm about it today. Discussed with pathology and pattern chart writer performed microscopy and send slides to pathology which were unremarkable. Despite these findings and the fact that Patient has been treated with ivermectin and permethrin in the past patient continues to believe that these parasites are real. He says he can pull them out of his skin when he sees them and that they look like little grandiose of dust; sometimes he says when he pulls him out he can not see it but he can feel it in his fingers. Patient says that the ones that come out of his penis are large he can see them moving and that they go away too fast for him to squash. Patient has never been out of the country. He moved here from [place] 40 years ago has hardly ever left [place] other than 1 time to [place] and 1 time to [place]. Patient agrees to continue with Stelazine for now Mental Status Exam Mental Status Exam Narrative: Pt is alert and oriented; behavior is cooperative, friendly and calm; patient is not in distress; dressed in hospital attire with unkempt hair but adequate hygiene; mood is described as more calm and affect congruent; eye contact appropriate; Speech is normal rate, volume and prosody and not pressured; no psychomotor agitation/retardation present; thought process is organized and goal directed; Thought content is on infestation of parasites; otherwise pertinent to relevant topics and without any any other delusional content; denies any SI/HI. Denies AVH and there is no evidence of perceptual disturbance. Patients insight and judgment impaired Diagnostics Vital Signs (24Hr): Vital Signs - 24 hr 03/12/25 14:35 03/12/25 20:00 03/13/25 08:00 Temperature 98 F 98.8 F 98.8 F Pulse Rate 83 86 70 Respiratory Rate 16 Blood Pressure 137/78 142/67 H 130/70 Pulse Oximetry 99 97 98 Oxygen Delivery Method Room Air Room Air Room Air BMI result Body Mass Index 29.0 Labs 03/10/25 13:02 03/10/25 13:02 Labs: Laboratory Results - last 48 hr 03/10/25 03/11/25 03/11/25 13:02 13:07 20:07 POC Glucose 59 L* 141 H Estimat Average Glucose Hemoglobin A1c % Magnesium Triglycerides Cholesterol LDL Cholesterol, Calc HDL Cholesterol Vitamin B12 Folate TSH Free T4 HIV 1&2 Ab/P24 Ag 4thGn Nonreactive 03/12/25 03/12/25 03/12/25 07:14 17:31 21:43 POC Glucose 212 H 298 H 252 H Estimat Average Glucose Hemoglobin A1c % Magnesium Triglycerides Cholesterol LDL Cholesterol, Calc HDL Cholesterol Vitamin B12 Folate TSH Free T4 HIV 1&2 Ab/P24 Ag 4thGn 03/13/25 03/13/25 07:52 07:54 POC Glucose 229 H Estimat Average Glucose 169 Hemoglobin A1c % 7.5 H Magnesium 1.6 Triglycerides 72 Cholesterol 131 LDL Cholesterol, Calc 68 HDL Cholesterol 49 Vitamin B12 370 Folate 6.0 TSH 3.88 Free T4 1.10 HIV 1&2 Ab/P24 Ag 4thGn Medications Medications Current Medications Acetaminophen (Acetaminophen 325 Mg Tablet) 650 mg PO Q6H PRN PRN Reason: Headache/Pain, Scale 1-10 Al Hydroxide/Mg Hydroxide (Magnesium Hydrox/Alum Hydrox 30 Ml Oral.Susp) 30 ml PO Q6H PRN PRN Reason: Heartburn/Nausea Atorvastatin Calcium (Atorvastatin Calcium 40 Mg Tablet) 40 mg PO BEDTIME [facility] Last Admin: 03/12/25 23:07 Dose: 40 mg Dextrose (Dextrose 50 % 25 Gm/50 Ml Syringe) 25 gm IVPUSH Q15M PRN; Protocol PRN Reason: per Hypoglycemia Standing Ord. Fluticasone/Vilanterol (Fluticasone/Vilanterol 100/25 Blst.W.Dev) 1 puff INHALE RDAILY [facility] Last Admin: 03/12/25 08:26 Dose: Not Given Glucose (Glucose Gel 15 Gm Gel..Gram.) 15 gm PO Q15M PRN; Protocol PRN Reason: per Hypoglycemia Standing Ord. Hydroxyzine HCl (Hydroxyzine Hcl 25 Mg Tablet) 25 mg PO Q6H PRN PRN Reason: mild anxiety Insulin Glargine (Insulin Glargine,Hum.Rec.Anlog 100 Unit/Ml 10 Ml Vial) 37 unit SUBCUT BEDTIME [facility] Last Admin: 03/12/25 23:11 Dose: 37 unit Insulin Human Lispro (Insulin Lispro 100 Unit/Ml 3 Ml Vial) 0 unit SUBCUT QIDACHS [facility]; Protocol Last Admin: 03/13/25 08:31 Dose: 4 unit Lisinopril (Lisinopril 10 Mg Tablet) 30 mg PO DAILY [facility]; Protocol Last Admin: 03/13/25 08:29 Dose: 30 mg Magnesium Hydroxide (Milk Of Magnesia 30 Ml Oral.Susp) 30 ml PO DAILY PRN PRN Reason: Constipation Metformin HCl (Metformin Hcl 1,000 Mg Tablet) 1,000 mg PO BIDWM [facility] Last Admin: 03/13/25 08:29 Dose: 1,000 mg Non-Formulary Medication (Dulaglutide [Trulicity]) 0.75 mg SUBCUT QWEEK [facility] Omeprazole (Omeprazole 20 Mg Capsule.Dr) 20 mg PO DAILY@0630 [facility] Last Admin: 03/13/25 07:20 Dose: 20 mg Quetiapine Fumarate (Quetiapine Fumarate 50 Mg Tablet) 50 mg PO BEDTIME PRN PRN Reason: if trazodone does not work Trazodone HCl (Trazodone Hcl 50 Mg Tablet) 50 mg PO BEDTIME MRX1 PRN PRN Reason: Insomnia Trifluoperazine HCl (Trifluoperazine Hcl 5 Mg Tablet) 2.5 mg PO BID [facility] Last Admin: 03/13/25 08:30 Dose: 2.5 mg Allergies Allergies Allergy/AdvReac Type Severity Reaction Status Date / Time No Known Allergies Allergy Unknown Verified 03/10/25 10:47 Assessment & Plan Assessment & Plan (1) Delusions of parasitosis: Status: Acute Code(s): F22 - Delusional disorders (2) Diabetes: Status: Acute Code(s): E11.9 - Type 2 diabetes mellitus without complications Plan Pt is a 64-year-old male, with a past medical history of diabetes, 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 Patient states that this has been occurring since last February 2024. He states that he has had multiple ER visits, has followed up with his primary care physician, seen by dermatology and has been seen by infectious disease however has been told that there is no one that has been able to see the parasites crawling out of his skin. He states that when he coughs and spits he can see the critters in his sputum. Patient has reported to the emergency room on 07/24, 10/11, 02/10, 02/26, 03/06, and today all for the chief complaint of seeing parasites coming out of his skin. Patient states that he believes that his symptoms are just getting worse no one believes him. He states that he has a history of IVDA however states that he has not used in many years and denies any drug or alcohol use, states that it has been many years since his last use. Injection Molding Machine Offbearer first assessed patient in the ED Patient is friendly, cooperative and polite. He is organized in speech and behavior, with linear and organized thought process. Patient reports to pattern chart writer the same as written above and even points to a place on his arm, on his leg saying he can see movement now. Injection Molding Machine Offbearer looked as well and could see nothing moving at all; patient expressed frustration that no one ever looks close enough so pattern chart writer and ED provider examined patient with Dermoscopy magnifying glass and looked at every spot he indicated. Patient frustrated that both providers could not see anything at all but expressed gratitude for the sincere effort. Patient sometimes bleach is his legs to try and kill the critters and says he can hardly sleep because of it and will have to put rubbing alcohol on his face to try to keep them at [place] so he can sleep. Patient reports they come out of his penis; the come out of his face and going to his eyes and ears... Patient did not tolerate reality testing and does not believe that this is his mind in tricks on him. However he did agree to try risperidone to help deal with the intense stress he is feeling from this experience. He denies any history of other paranoid ideations; denies drug use (though cocaine positive). Patient does not seem to have any AVH; he says this all started February of last year for the 1st time and has no other history of any such experience. On M5 patient remains calm, organized in speech and behavior. Still no insight however he agrees to take antipsychotic medication if pattern chart writer is willing to perform tests to assess for parasitosis. Injection Molding Machine Offbearer explained that this appears to be a delusional disorder which patient accepted that this is pattern chart writer's perspective but fully disagrees Impression: Patient has a delusional disorder (delusions of parasitosis; does not seem to be Morgellons disease-which includes patient having actual fibers that protrude from the skin which patient thinks are parasites) which is making him miserable and significantly impairing his functioning. Patient is not unsafe; he is not suicidal there is no indication that patient is unable to take care of himself in the community. However his lack of insight keeps him from getting appropriate treatment and thus he remains delusional and repeatedly comes to the ED complaining of parasites. It is not realistic for this problem to be addressed in the community and patient requires inpatient admission for treatment and to further assess his psychiatric symptoms, history, and to uncover the etiology for psychotic symptoms that are appearing, ostensibly for the 1st time, at 63 years old. Late onset schizophrenia is possible; Will seek to rule out HIV, tertiary syphilis; Lewy body dementia is a rule out however seems much less likely; patient with normal gait though would still need to more thoroughly assess for parkinsonian symptoms). This was discussed with patient who is voluntarily willing to be admitted to the inpatient psychiatric unit and take antipsychotic medications while having tests run. Etiology? -patient does smoke cocaine a few times a week which could be a possible etiology however it seems less likely given the degree and details pt shares about experience/delusion, the specific descriptions and patient's calm, methodical approach to researching treatments (shares valid information he has learned from the Internet on parasites and various treatments); he is also calm and organized when explaining and discussing this experience or when demonstrating evidence. Also he is now sober from cocaine for over 5 days. -HIV/RPR negative -Of note, patient has received dermoscopy (in ED), microscopy of the skin (on unit) and in the past been treated with ivermectin and permethrin. -No history of foreign travel (moved here from [place] 40 years ago has hardly ever left [place] other than 1 time to [place] and 1 time to [place]). Medication: -in the ED patient was started on risperidone 1mg BID which did not have any effect though was only a low dose for short time -decided to start patient on Stelazine since there is there are some studies in which this helped patients with Morgellons disease (though not a robust study) Hospital course: 03/13 Patient remains calm cooperative and polite. Organized in speech and behavior. Patient continues to report he sees and feels parasites on a skin; however he says he is feeling more calm about it today. Discussed with pathologist who advised pattern chart writer; pattern chart writer performed microscopy; slides sent to pathology which were unremarkable. Discussed findings with patient. Despite these findings (the unremarkable dermoscopy and the fact that Patient has been treated with ivermectin and permethrin in the past- which he acknowledges but says they did not help) patient continues to assert that these parasites are real. He says he can pull them out of his skin when he sees them and that they look like little grandiose of dust; sometimes he says when he pulls him out he can not see it but he can feel it in his fingers. Patient says that the ones that come out of his penis are large he can see them moving and that they go away too fast for him to squash. Patient has never been out of the country. He moved here from [place] 40 years ago has hardly ever left [place] other than 1 time to [place] and 1 time to [place]. -patient says that he has never had any mental health issues even when [he] was a drug addict. -Patient agrees to continue with Stelazine for now -will increase to 2.5 mg t.i.d. (starting dose typically in between 5 and 10 mg and there is a small window for medication can become effective) Plan: CV Q 15 minute checks increase to Stelazine 2.5 mg tid Discontinue risperidone Continue home medications Will discussed with pathology and do skin microscopy Rule out Lewy body dementia (though much less likely) * of note patient is not imminent risk of harm to self or others and is able to take care of himself in the community. Should patient want to discharge, at this point he is free to do so Patient educated on: diagnosis, medication risk/benefits, substance abuse and medical condition Informed Consent: understands, does not understand and further education needed Reason for continued inpatient stay Substantial Risk for: stable for discharge Time Spent With Patient Time: Total time managing care of this patient today ____ minutes.
[2025-03-13] MEDS: Fluticasone/Vilanterol 100/25 BLST.W.DEV 1 PUFF INHALE (10:53)
--- NOTE | 2025-03-13 10:58 | HO.PM.IMCN ---
History of Present Illness Data of Consult Service Date: 03/13/25 Primary Care Provider: Janine Gomez NP [facility] Reason for consult: Medical consult 64-year-old male with a past medical history of PAD, type 2 diabetes, hyperlipidemia, hypertension, GERD substance use, delusions of parasitosis presented to the emergency room with concerns of mites coming out of his skin. Patient has had five ED visits for similar complaints. Reports that the rash and itching began in February of last year. Per ED report patient has reportedly been seen by his PCP, dermatology and Infectious Disease, although no one has been able to help him. Treated for scabies in August 2024 Patient reports that his skin is intensely itchy at night. Patient met with inpatient psychiatry inpatient agreed to be admitted to inpatient psychiatry for stabilization. In the ED and no leukocytosis, stable H&H, elevated creatinine BUN which is at his baseline. RPR and HIV were both negative, TSH and vitamin B12 were negative. On exam he has no other medical concerns except for his skin. Review of Systems Review of Systems: Denies any shortness of breath, chest pain, palpitations, dizziness, lightheadedness, headaches, dysuria, abdominal pain or discomfort, nausea, vomiting or diarrhea. Denies chills, body aches, muscle aches, fatigue or weight loss. [facility] Medical History Delusions of parasitosis Nicotine dependence, cigarettes, uncomplicated Substance abuse Diabetes Family History Father Diabetes Mother HTN (hypertension) Surgical History Hx of cholecystectomy Social History Household Members: None Household Members Other:: lives alone Housing: Apartment Do you presently have visiting nurse or other home services: No Alcohol intake: current Alcohol intake frequency: a few times a week Patient Tobacco Use Status: Current everyday Tobacco user Tobacco use type: Cigarette Cigarette Packs Per Day: 0.5 Cigarettes Per Day: 10.0 Smoked in Last 30 Days: Yes e-Cigarette/Vaping Use: Never Used Patient Interested in Nicotine Replacement: No Patient Given Instructions on How to Stop Smoking: No (Pt. refused) Second Hand Smoke Exposure: No Substance Use Type: Crack/Cocaine and Heroin Currently Displaying Signs/Symptoms of Drug Intoxication Withdrawal: No Have you been hit, kicked, punched, or otherwise hurt by someone within the past year? If so, by whom?: No Do you feel safe in your current relationship?: No Current Relationship Is there a partner from a previous relationship who is making you feel unsafe now?: No Are you made to feel afraid or neglected: No Advance Directives: No Advance Directives Information Provided: No Do you have thoughts of harming others: None Do you have a plan to hurt others: No Plan Recently lost weight without trying: Unsure How much weight loss: 2-13 pounds Eating poorly because of decreased appetite: No Nutrition screen score: 3 Nutrition Risks: No Nutritional Risk Poor oral hygiene: No service: No Current occupational status: unemployed and disabled Sexual orientation: Straight/Heterosexual Meds Allergies Allergy/AdvReac Type Severity Reaction Status Date / Time No Known Allergies Allergy Unknown Verified 03/10/25 10:47 Active Medications: Current Medications Acetaminophen (Acetaminophen 325 Mg Tablet) 650 mg PO Q6H PRN PRN Reason: Headache/Pain, Scale 1-10 Al Hydroxide/Mg Hydroxide (Magnesium Hydrox/Alum Hydrox 30 Ml Oral.Susp) 30 ml PO Q6H PRN PRN Reason: Heartburn/Nausea Atorvastatin Calcium (Atorvastatin Calcium 40 Mg Tablet) 40 mg PO BEDTIME [facility] Last Admin: 03/12/25 23:07 Dose: 40 mg Dextrose (Dextrose 50 % 25 Gm/50 Ml Syringe) 25 gm IVPUSH Q15M PRN; Protocol PRN Reason: per Hypoglycemia Standing Ord. Fluticasone/Vilanterol (Fluticasone/Vilanterol 100/25 Blst.W.Dev) 1 puff INHALE RDAILY [facility] Last Admin: 03/13/25 10:53 Dose: 1 puff Glucose (Glucose Gel 15 Gm Gel..Gram.) 15 gm PO Q15M PRN; Protocol PRN Reason: per Hypoglycemia Standing Ord. Hydroxyzine HCl (Hydroxyzine Hcl 25 Mg Tablet) 25 mg PO Q6H PRN PRN Reason: mild anxiety Insulin Glargine (Insulin Glargine,Hum.Rec.Anlog 100 Unit/Ml 10 Ml Vial) 37 unit SUBCUT BEDTIME [facility] Last Admin: 03/12/25 23:11 Dose: 37 unit Insulin Human Lispro (Insulin Lispro 100 Unit/Ml 3 Ml Vial) 0 unit SUBCUT QIDACHS [facility]; Protocol Last Admin: 03/13/25 08:31 Dose: 4 unit Lisinopril (Lisinopril 10 Mg Tablet) 30 mg PO DAILY [facility]; Protocol Last Admin: 03/13/25 08:29 Dose: 30 mg Magnesium Hydroxide (Milk Of Magnesia 30 Ml Oral.Susp) 30 ml PO DAILY PRN PRN Reason: Constipation Metformin HCl (Metformin Hcl 1,000 Mg Tablet) 1,000 mg PO BIDWM [facility] Last Admin: 03/13/25 08:29 Dose: 1,000 mg Non-Formulary Medication (Dulaglutide [Trulicity]) 0.75 mg SUBCUT QWEEK [facility] Omeprazole (Omeprazole 20 Mg Capsule.Dr) 20 mg PO DAILY@0630 [facility] Last Admin: 03/13/25 07:20 Dose: 20 mg Quetiapine Fumarate (Quetiapine Fumarate 50 Mg Tablet) 50 mg PO BEDTIME PRN PRN Reason: if trazodone does not work Trazodone HCl (Trazodone Hcl 50 Mg Tablet) 50 mg PO BEDTIME MRX1 PRN PRN Reason: Insomnia Trifluoperazine HCl (Trifluoperazine Hcl 5 Mg Tablet) 2.5 mg PO BID [facility] Last Admin: 03/13/25 08:30 Dose: 2.5 mg Home Medications ?Medication ?Instructions ?Recorded ?Confirmed ?Last Taken ?Type atorvastatin 40 mg tablet 40 mg PO BEDTIME 05/07/21 03/10/25 03/09/25 History lisinopril 30 mg tablet 30 mg PO DAILY 05/07/21 03/10/25 03/09/25 History metformin 500 mg tablet 1,000 mg PO BID 05/07/21 03/12/25 03/09/25 History budesonide-formoterol HFA 80 2 puff inhalation Q4-6H dyspnea 03/10/25 03/10/25 03/09/25 History mcg-4.5 mcg/actuation aerosol inhaler dulaglutide 0.75 mg/0.5 mL 0.75 mg subcut QWEEK 03/10/25 03/10/25 03/06/25 History subcutaneous pen injector (Trulicity) insulin glargine U-300 conc 300 46 unit subcut BEDTIME 03/10/25 03/10/25 03/09/25 History unit/mL (1.5 mL) subcutaneous pen (Toumiryam SoloStar U-300 Insulin) omeprazole 20 mg capsule,delayed 20 mg PO DAILY 03/10/25 03/10/25 03/09/25 History release quetiapine 50 mg tablet 50 mg PO BEDTIME 03/10/25 03/10/25 03/09/25 History Physical Exam Vital Signs and Narrative: Vital Signs: Last Vital Signs Temp 98.8 F 03/13/25 08:00 Pulse 70 03/13/25 08:00 Resp 16 03/13/25 08:00 BP 130/70 03/13/25 08:00 Pulse Ox 98 03/13/25 08:00 O2 Del Method Room Air 03/13/25 08:00 BMI result Body Mass Index 29.0 Alert and oriented X3, calm and cooperative. Answers questions. Guarded Neuro: CN II-X11 intact, no deficits, visual acuity intact EYES: PERRLA, EOM intact ENT: Hearing intact, MMM Cardiac: S1 S2 RRR, No ectopy Pulmonary: lungs clear to auscultation, No increased WOB. Abdominal: BS active in all 4 quadrants, no guarding or tenderness MSK: Strength 5/5 upper and lower extremities : Deferred Extremities: No edema in lower extremities Psych: Mood stable, Quiet and cooperative. Skin: Warm and dry, Intact. Several open scabbed areas on left and right forearm, legs, abdomen. Patient with old IV drug use scarring. Left arm recent is warm. Results Labs 03/10/25 13:02 03/10/25 13:02 Labs: Laboratory Results - last 24 hr 03/12/25 03/12/25 03/13/25 17:31 21:43 07:52 POC Glucose 298 H 252 H Estimat Average Glucose 169 Hemoglobin A1c % 7.5 H Magnesium 1.6 Triglycerides 72 Cholesterol 131 LDL Cholesterol, Calc 68 HDL Cholesterol 49 Vitamin B12 370 Folate 6.0 TSH 3.88 Free T4 1.10 03/13/25 07:54 POC Glucose 229 H Estimat Average Glucose Hemoglobin A1c % Magnesium Triglycerides Cholesterol LDL Cholesterol, Calc HDL Cholesterol Vitamin B12 Folate TSH Free T4 Assessment and Plan (1) Diabetes: Status: Acute Plan 64-year-old male with past medical history listed below presented to the emergency room initially with skin complaint, was evaluated by psychiatry and determine that he qualify for inpatient psychiatric treatment of anxiety and delusions of parasitosis. Delusions of parasittosis/delusional disorder Treatment per psychiatric team Multiple skin lesions bilateral arms, legs, abdomen Wound care evaluation Skin scraping performed by team revealed superficial squamous cells and hair fragments. No insect parts or parasites seen in superficial scraping Treated for scabies empirically 08/2024 Areas on left arm open, surrounding redness and warmth Will treat with triamcinolone and course of doxycycline 100 mg b.i.d. Hypertension/HLD Continue on lisinopril and atorvastatin Type 2 diabetes with chronic kidney disease Recent A1c 7.5. Creatinine 1.52 Continue Lantus, metformin, sliding scale Asthma Continue Breo Thank you for allowing me to participate in the care of this patient. Will follow with you, please notify medical provider with any changes in condition or concerns.
[2025-03-13 11:57] LABS: Glucose, Whole Blood 187 mg/dL (60-115)
[2025-03-13 17:17] LABS: Glucose, Whole Blood 300 mg/dL (60-115)
[2025-03-13 20:00] VITALS: BP 131/62; PULSE 78; RESP 18; TEMP 37.1; O2SAT 99
[2025-03-13 21:01] LABS: Glucose, Whole Blood 240 mg/dL (60-115)
[2025-03-13] MEDS: Insulin Glargine,Hum.rec.anlog 100 UNIT/ML 10 ML VIAL 37 UNIT SUBCUT (22:05)
[2025-03-13] MEDS: Triamcinolone Acet 0.1 % Cream 15 GM TUBE 1 APPL TOPICAL (22:08)
[2025-03-14 07:00] VITALS: BMI 30.3
[2025-03-14 08:00] VITALS: BP 127/76; PULSE 76; TEMP 36.6; O2SAT 97
[2025-03-14 08:06] LABS: Glucose, Whole Blood 130 mg/dL (60-115)
[2025-03-14] MEDS: Fluticasone/Vilanterol 100/25 BLST.W.DEV 1 PUFF INHALE (09:32)
[2025-03-14] MEDS: Triamcinolone Acet 0.1 % Cream 15 GM TUBE 1 APPL TOPICAL ×2 (09:33→23:19)
[2025-03-14 12:01] LABS: Glucose, Whole Blood 195 mg/dL (60-115)
--- NOTE | 2025-03-14 14:08 | P.PNPSI_ITS ---
Subjective Subjective Date of Service: 03/14/25 Reason For Visit: delusions of parasitosis Subjective Notes: Conditional Voluntary Medical Problems Affecting Mental Status: No Interim History: Patient found standing in his room. He feels Good. He has been eating and sleeping well. He notes that there is no change regarding parasites on his skin. He denies anxiety or depression. He denies SI/HI/AVH. Medication Compliance: Yes Side effects from medications: No Attending Groups: Intermittent Review of Systems Acute medical concerns: No Mental Status Exam Mental Status Exam Narrative: Appearance: Casually dressed, adequate hygiene and grooming Behavior: Calm and cooperative throughout the interview. Eye contact is appropriate, and there are no signs of psychomotor agitation or retardation Speech: Normal volume and prosody Thought process: Logical and goal-directed Thought content: On infestation of parasites in his skin; otherwise pertinent to relevant topics and without any any other delusional content Mood: Good Affect: Mood-congruent SI: Denies HI: Denies VH/AH: None Delusions: None Insight/judgment: Impaired insight and judgment Memory/cog: Alert, oriented x 4. grossly intact to conversational testing Diagnostics Vital Signs (24Hr): Vital Signs - 24 hr 03/13/25 20:00 03/14/25 08:00 Temperature 98.7 F 97.9 F Pulse Rate 78 76 Respiratory Rate 18 Blood Pressure 131/62 127/76 Pulse Oximetry 99 97 Oxygen Delivery Method Room Air Room Air BMI result Body Mass Index 30.3 Labs 03/10/25 13:02 03/10/25 13:02 Labs: Laboratory Results - last 48 hr 03/12/25 03/12/25 03/13/25 17:31 21:43 07:52 POC Glucose 298 H 252 H Estimat Average Glucose 169 Hemoglobin A1c % 7.5 H Magnesium 1.6 Triglycerides 72 Cholesterol 131 LDL Cholesterol, Calc 68 HDL Cholesterol 49 Vitamin B12 370 Folate 6.0 TSH 3.88 Free T4 1.10 03/13/25 03/13/25 03/13/25 07:54 11:53 17:10 POC Glucose 229 H 187 H 300 H Estimat Average Glucose Hemoglobin A1c % Magnesium Triglycerides Cholesterol LDL Cholesterol, Calc HDL Cholesterol Vitamin B12 Folate TSH Free T4 03/13/25 03/14/25 03/14/25 20:58 07:42 11:57 POC Glucose 240 H 130 H 195 H Estimat Average Glucose Hemoglobin A1c % Magnesium Triglycerides Cholesterol LDL Cholesterol, Calc HDL Cholesterol Vitamin B12 Folate TSH Free T4 Medications Medications Current Medications Acetaminophen (Acetaminophen 325 Mg Tablet) 650 mg PO Q6H PRN PRN Reason: Headache/Pain, Scale 1-10 Al Hydroxide/Mg Hydroxide (Magnesium Hydrox/Alum Hydrox 30 Ml Oral.Susp) 30 ml PO Q6H PRN PRN Reason: Heartburn/Nausea Atorvastatin Calcium (Atorvastatin Calcium 40 Mg Tablet) 40 mg PO BEDTIME [facility] Last Admin: 03/13/25 22:08 Dose: 40 mg Dextrose (Dextrose 50 % 25 Gm/50 Ml Syringe) 25 gm IVPUSH Q15M PRN; Protocol PRN Reason: per Hypoglycemia Standing Ord. Doxycycline Monohydrate (Doxycycline Monohydrate 100 Mg Capsule) 100 mg PO BID [facility] Last Admin: 03/14/25 09:33 Dose: 100 mg Fluticasone/Vilanterol (Fluticasone/Vilanterol 100/25 Blst.W.Dev) 1 puff INHALE RDAILY [facility] Last Admin: 03/14/25 09:32 Dose: 1 puff Glucose (Glucose Gel 15 Gm Gel..Gram.) 15 gm PO Q15M PRN; Protocol PRN Reason: per Hypoglycemia Standing Ord. Hydroxyzine HCl (Hydroxyzine Hcl 25 Mg Tablet) 25 mg PO Q6H PRN PRN Reason: mild anxiety Insulin Glargine (Insulin Glargine,Hum.Rec.Anlog 100 Unit/Ml 10 Ml Vial) 37 unit SUBCUT BEDTIME [facility] Last Admin: 03/13/25 22:05 Dose: 37 unit Insulin Human Lispro (Insulin Lispro 100 Unit/Ml 3 Ml Vial) 0 unit SUBCUT QIDACHS [facility]; Protocol Last Admin: 03/14/25 12:39 Dose: 2 unit Lisinopril (Lisinopril 10 Mg Tablet) 30 mg PO DAILY [facility]; Protocol Last Admin: 03/14/25 09:33 Dose: 30 mg Magnesium Hydroxide (Milk Of Magnesia 30 Ml Oral.Susp) 30 ml PO DAILY PRN PRN Reason: Constipation Metformin HCl (Metformin Hcl 1,000 Mg Tablet) 1,000 mg PO BIDWM [facility] Last Admin: 03/14/25 09:33 Dose: 1,000 mg Omeprazole (Omeprazole 20 Mg Capsule.Dr) 20 mg PO DAILY@0630 [facility] Last Admin: 03/14/25 06:55 Dose: 20 mg Quetiapine Fumarate (Quetiapine Fumarate 50 Mg Tablet) 50 mg PO BEDTIME PRN PRN Reason: if trazodone does not work Last Admin: 03/13/25 22:12 Dose: 50 mg Trazodone HCl (Trazodone Hcl 50 Mg Tablet) 50 mg PO BEDTIME MRX1 PRN PRN Reason: Insomnia Last Admin: 03/13/25 22:12 Dose: 50 mg Triamcinolone Acetonide (Triamcinolone Acet 0.1 % Cream 15 Gm Tube) 1 appl TOPICAL BID [facility]ENIA; Protocol Last Admin: 03/14/25 09:33 Dose: 1 appl Trifluoperazine HCl (Trifluoperazine Hcl 5 Mg Tablet) 2.5 mg PO TID [facility] Last Admin: 03/14/25 10:33 Dose: 2.5 mg Allergies Allergies Allergy/AdvReac Type Severity Reaction Status Date / Time No Known Allergies Allergy Unknown Verified 03/10/25 10:47 Assessment & Plan Assessment & Plan (1) Delusions of parasitosis: Status: Acute Code(s): F22 - Delusional disorders (2) Diabetes: Status: Acute Code(s): E11.9 - Type 2 diabetes mellitus without complications Plan Pt is a 64-year-old male, with a past medical history of diabetes, 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 Patient states that this has been occurring since last February 2024. He states that he has had multiple ER visits, has followed up with his primary care physician, seen by dermatology and has been seen by infectious disease however has been told that there is no one that has been able to see the parasites crawling out of his skin. He states that when he coughs and spits he can see the critters in his sputum. Patient has reported to the emergency room on 07/24, 10/11, 02/10, 02/26, 03/06, and today all for the chief complaint of seeing parasites coming out of his skin. Patient states that he believes that his symptoms are just getting worse no one believes him. He states that he has a history of IVDA however states that he has not used in many years and denies any drug or alcohol use, states that it has been many years since his last use. Change Attendant first assessed patient in the ED Patient is friendly, cooperative and polite. He is organized in speech and behavior, with linear and organized thought process. Patient reports to pattern chart writer the same as written above and even points to a place on his arm, on his leg saying he can see movement now. Change Attendant looked as well and could see nothing moving at all; patient expressed frustration that no one ever looks close enough so pattern chart writer and ED provider examined patient with Dermoscopy magnifying glass and looked at every spot he indicated. Patient frustrated that both providers could not see anything at all but expressed gratitude for the sincere effort. Patient sometimes bleach is his legs to try and kill the critters and says he can hardly sleep because of it and will have to put rubbing alcohol on his face to try to keep them at [place] so he can sleep. Patient reports they come out of his penis; the come out of his face and going to his eyes and ears... Patient did not tolerate reality testing and does not believe that this is his mind in tricks on him. However he did agree to try risperidone to help deal with the intense stress he is feeling from this experience. He denies any history of other paranoid ideations; denies drug use (though cocaine positive). Patient does not seem to have any AVH; he says this all started February of last year for the 1st time and has no other history of any such experience. On M5 patient remains calm, organized in speech and behavior. Still no insight however he agrees to take antipsychotic medication if pattern chart writer is willing to perform tests to assess for parasitosis. Change Attendant explained that this appears to be a delusional disorder which patient accepted that this is pattern chart writer's perspective but fully disagrees Impression: Patient has a delusional disorder (delusions of parasitosis; does not seem to be Morgellons disease-which includes patient having actual fibers that protrude from the skin which patient thinks are parasites) which is making him miserable and significantly impairing his functioning. Patient is not unsafe; he is not suicidal there is no indication that patient is unable to take care of himself in the community. However his lack of insight keeps him from getting appropriate treatment and thus he remains delusional and repeatedly comes to the ED complaining of parasites. It is not realistic for this problem to be addressed in the community and patient requires inpatient admission for treatment and to further assess his psychiatric symptoms, history, and to uncover the etiology for psychotic symptoms that are appearing, ostensibly for the 1st time, at 63 years old. Late onset schizophrenia is possible; Will seek to rule out HIV, tertiary syphilis; Lewy body dementia is a rule out however seems much less likely; patient with normal gait though would still need to more thoroughly assess for parkinsonian symptoms). This was discussed with patient who is voluntarily willing to be admitted to the inpatient psychiatric unit and take antipsychotic medications while having tests run. Etiology? -patient does smoke cocaine a few times a week which could be a possible etiology however it seems less likely given the degree and details pt shares about experience/delusion, the specific descriptions and patient's calm, methodical approach to researching treatments (shares valid information he has learned from the Internet on parasites and various treatments); he is also calm and organized when explaining and discussing this experience or when demonstrating evidence. Also he is now sober from cocaine for over 5 days. -HIV/RPR negative -Of note, patient has received dermoscopy (in ED), microscopy of the skin (on unit) and in the past been treated with ivermectin and permethrin. -No history of foreign travel (moved here from [place] 40 years ago has hardly ever left [place] other than 1 time to [place] and 1 time to [place]). Medication: -in the ED patient was started on risperidone 1mg BID which did not have any effect though was only a low dose for short time -decided to start patient on Stelazine since there is there are some studies in which this helped patients with Morgellons disease (though not a robust study) Hospital course: 03/13 Patient remains calm cooperative and polite. Organized in speech and behavior. Patient continues to report he sees and feels parasites on a skin; however he says he is feeling more calm about it today. Discussed with pathologist who advised pattern chart writer; pattern chart writer performed microscopy; slides sent to pathology which were unremarkable. Discussed findings with patient. Despite these findings (the unremarkable dermoscopy and the fact that Patient has been treated with ivermectin and permethrin in the past- which he acknowledges but says they did not help) patient continues to assert that these parasites are real. He says he can pull them out of his skin when he sees them and that they look like little grandiose of dust; sometimes he says when he pulls him out he can not see it but he can feel it in his fingers. Patient says that the ones that come out of his penis are large he can see them moving and that they go away too fast for him to squash. Patient has never been out of the country. He moved here from [place] 40 years ago has hardly ever left [place] other than 1 time to [place] and 1 time to [place]. -patient says that he has never had any mental health issues even when [he] was a drug addict. -Patient agrees to continue with Stelazine for now -will increase to 2.5 mg t.i.d. (starting dose typically in between 5 and 10 mg and there is a small window for medication can become effective) 03/14: Patient perseverated on infestation of parasites on his skin. No other delusion noted. Skin pathology result on 03/13/2025 was negative for skin parasites. Continue current treatment regimen. Plan: CV Q 15 minute checks increase to Stelazine 2.5 mg tid Discontinue risperidone Continue home medications Will discussed with pathology and do skin microscopy Rule out Lewy body dementia (though much less likely) * of note patient is not imminent risk of harm to self or others and is able to take care of himself in the community. Should patient want to discharge, at this point he is free to do so Patient educated on: therapeutic strategies Reason for continued inpatient stay Substantial Risk for: rapid decompensation Time Spent With Patient Time: Total time managing care of this patient today ____ minutes.
--- NOTE | 2025-03-14 14:54 | HO.WOUND ---
Wound Consult: Initial 64 yr old male admitted to [facility] [place] on 03[place]12/25- See progress notes and H&P for detailed history. Wound consult placed for arms and legs. Patient agreeable to assessment and photo documentation. Patient with recent admissions for complaints of critters noted on skin. recently treated with ivermectin (08/2024). Scraping done 03/13/25 that resulted normal. Patient admitted with delusions of parasitosis. history of IV drug use. Left arm Left leg Right leg Skin is intact with areas of pigmentation changes and areas of healed skin injury. No evidence of active infestation. Defer to provider for topical treatment of pruritis - triamcinolone cream in place. Recommendations: Topical treatment of itching per provider order. Re-consult wound care Nurse for wound deterioration or wound changes.
[2025-03-14 16:58] LABS: Glucose, Whole Blood 213 mg/dL (60-115)
[2025-03-14 20:00] VITALS: BP 134/63; PULSE 77; TEMP 36.8; O2SAT 98
[2025-03-14] MEDS: Insulin Glargine,Hum.rec.anlog 100 UNIT/ML 10 ML VIAL 37 UNIT SUBCUT (23:21)
[2025-03-14 23:31] LABS: Glucose, Whole Blood 201 mg/dL (60-115)
--- NOTE | 2025-03-15 | ECG_ITS ---
Test Reason : CHECK QT Blood Pressure : */* mmHG Vent. Rate : 80 BPM Atrial Rate : 80 BPM P-R Int : 166 ms QRS Dur : 122 ms QT Int : 354 ms P-R-T Axes : 53 -64 72 degrees QTcB Int : 408 ms Normal sinus rhythm Left anterior fascicular block Abnormal ECG When compared with ECG of 11-Mar-2025 09:41, Premature atrial complexes are no longer Present Left anterior fascicular block is now Present Left posterior fascicular block is no longer Present Right bundle branch block is no longer Present Criteria for Septal infarct are no longer Present Non-specific change in ST segment in Inferior leads Referred By: Gary Richter Electronically Signed By: Zeke Velasquez
[2025-03-15 07:45] LABS: Glucose, Whole Blood 212 mg/dL (60-115)
[2025-03-15 08:00] VITALS: BP 138/65; PULSE 74; TEMP 36.8; O2SAT 99
[2025-03-15] MEDS: Triamcinolone Acet 0.1 % Cream 15 GM TUBE 1 APPL TOPICAL (08:55)
[2025-03-15] MEDS: Fluticasone/Vilanterol 100/25 BLST.W.DEV 1 PUFF INHALE (08:55)
--- NOTE | 2025-03-15 10:08 | HO.PSYCHPN ---
Subjective Subjective Date of Service: 03/15/25 Reason For Visit: delusions of parasitosis Diagnostics Vital Signs (24Hr): Vital Signs - 24 hr 03/14/25 20:00 03/15/25 08:00 Temperature 98.3 F 98.3 F Pulse Rate 77 74 Blood Pressure 134/63 138/65 Pulse Oximetry 98 99 Oxygen Delivery Method Room Air Room Air BMI result Body Mass Index 30.3 Labs 03/10/25 13:02 03/10/25 13:02 Labs: Laboratory Results - last 48 hr 03/13/25 03/13/25 03/13/25 11:53 17:10 20:58 POC Glucose 187 H 300 H 240 H 03/14/25 03/14/25 03/14/25 07:42 11:57 16:53 POC Glucose 130 H 195 H 213 H 03/14/25 03/15/25 23:04 07:41 POC Glucose 201 H 212 H Medications Medications Current Medications Acetaminophen (Acetaminophen 325 Mg Tablet) 650 mg PO Q6H PRN PRN Reason: Headache/Pain, Scale 1-10 Al Hydroxide/Mg Hydroxide (Magnesium Hydrox/Alum Hydrox 30 Ml Oral.Susp) 30 ml PO Q6H PRN PRN Reason: Heartburn/Nausea Atorvastatin Calcium (Atorvastatin Calcium 40 Mg Tablet) 40 mg PO BEDTIME [facility] Last Admin: 03/14/25 23:07 Dose: 40 mg Dextrose (Dextrose 50 % 25 Gm/50 Ml Syringe) 25 gm IVPUSH Q15M PRN; Protocol PRN Reason: per Hypoglycemia Standing Ord. Doxycycline Monohydrate (Doxycycline Monohydrate 100 Mg Capsule) 100 mg PO BID [facility] Last Admin: 03/15/25 08:56 Dose: 100 mg Fluticasone/Vilanterol (Fluticasone/Vilanterol 100/25 Blst.W.Dev) 1 puff INHALE RDAILY [facility] Last Admin: 03/15/25 08:55 Dose: 1 puff Glucose (Glucose Gel 15 Gm Gel..Gram.) 15 gm PO Q15M PRN; Protocol PRN Reason: per Hypoglycemia Standing Ord. Hydroxyzine HCl (Hydroxyzine Hcl 25 Mg Tablet) 25 mg PO Q6H PRN PRN Reason: mild anxiety Insulin Glargine (Insulin Glargine,Hum.Rec.Anlog 100 Unit/Ml 10 Ml Vial) 37 unit SUBCUT BEDTIME [facility] Last Admin: 03/14/25 23:21 Dose: 37 unit Insulin Human Lispro (Insulin Lispro 100 Unit/Ml 3 Ml Vial) 0 unit SUBCUT QIDACHS [facility]; Protocol Last Admin: 03/15/25 08:57 Dose: 4 unit Lisinopril (Lisinopril 10 Mg Tablet) 30 mg PO DAILY [facility]; Protocol Last Admin: 03/15/25 08:56 Dose: 30 mg Magnesium Hydroxide (Milk Of Magnesia 30 Ml Oral.Susp) 30 ml PO DAILY PRN PRN Reason: Constipation Metformin HCl (Metformin Hcl 1,000 Mg Tablet) 1,000 mg PO BIDWM [facility] Last Admin: 03/15/25 08:56 Dose: 1,000 mg Omeprazole (Omeprazole 20 Mg Capsule.Dr) 20 mg PO DAILY@0630 [facility] Last Admin: 03/15/25 07:26 Dose: 20 mg Quetiapine Fumarate (Quetiapine Fumarate 50 Mg Tablet) 50 mg PO BEDTIME PRN PRN Reason: if trazodone does not work Last Admin: 03/13/25 22:12 Dose: 50 mg Trazodone HCl (Trazodone Hcl 50 Mg Tablet) 50 mg PO BEDTIME [facility]X1 PRN PRN Reason: Insomnia Last Admin: 03/13/25 22:12 Dose: 50 mg Triamcinolone Acetonide (Triamcinolone Acet 0.1 % Cream 15 Gm Tube) 1 appl TOPICAL BID [facility]; Protocol Last Admin: 03/15/25 08:55 Dose: 1 appl Trifluoperazine HCl (Trifluoperazine Hcl 5 Mg Tablet) 2.5 mg PO TID [facility] Last Admin: 03/15/25 08:56 Dose: 2.5 mg Allergies Allergies Allergy/AdvReac Type Severity Reaction Status Date / Time No Known Allergies Allergy Unknown Verified 03/10/25 10:47 Assessment & Plan Assessment & Plan (1) Delusions of parasitosis: Status: Acute Code(s): F22 - Delusional disorders (2) Diabetes: Status: Acute Code(s): E11.9 - Type 2 diabetes mellitus without complications Plan Pt is a 64-year-old male, with a past medical history of diabetes, 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 Patient states that this has been occurring since last February 2024. He states that he has had multiple ER visits, has followed up with his primary care physician, seen by dermatology and has been seen by infectious disease however has been told that there is no one that has been able to see the parasites crawling out of his skin. He states that when he coughs and spits he can see the critters in his sputum. Patient has reported to the emergency room on 07/24, 10/11, 02/10, 02/26, 03/06, and today all for the chief complaint of seeing parasites coming out of his skin. Patient states that he believes that his symptoms are just getting worse no one believes him. He states that he has a history of IVDA however states that he has not used in many years and denies any drug or alcohol use, states that it has been many years since his last use. [place] Inspector first assessed patient in the ED Patient is friendly, cooperative and polite. He is organized in speech and behavior, with linear and organized thought process. Patient reports to speech writer the same as written above and even points to a place on his arm, on his leg saying he can see movement now. [place] Inspector looked as well and could see nothing moving at all; patient expressed frustration that no one ever looks close enough so speech writer and ED provider examined patient with Dermoscopy magnifying glass and looked at every spot he indicated. Patient frustrated that both providers could not see anything at all but expressed gratitude for the sincere effort. Patient sometimes bleach is his legs to try and kill the critters and says he can hardly sleep because of it and will have to put rubbing alcohol on his face to try to keep them at [place] so he can sleep. Patient reports they come out of his penis; the come out of his face and going to his eyes and ears... Patient did not tolerate reality testing and does not believe that this is his mind in tricks on him. However he did agree to try risperidone to help deal with the intense stress he is feeling from this experience. He denies any history of other paranoid ideations; denies drug use (though cocaine positive). Patient does not seem to have any AVH; he says this all started February of last year for the 1st time and has no other history of any such experience. On M5 patient remains calm, organized in speech and behavior. Still no insight however he agrees to take antipsychotic medication if speech writer is willing to perform tests to assess for parasitosis. [place] Inspector explained that this appears to be a delusional disorder which patient accepted that this is speech writer's perspective but fully disagrees Impression: Patient has a delusional disorder (delusions of parasitosis; does not seem to be Morgellons disease-which includes patient having actual fibers that protrude from the skin which patient thinks are parasites) which is making him miserable and significantly impairing his functioning. Patient is not unsafe; he is not suicidal there is no indication that patient is unable to take care of himself in the community. However his lack of insight keeps him from getting appropriate treatment and thus he remains delusional and repeatedly comes to the ED complaining of parasites. It is not realistic for this problem to be addressed in the community and patient requires inpatient admission for treatment and to further assess his psychiatric symptoms, history, and to uncover the etiology for psychotic symptoms that are appearing, ostensibly for the 1st time, at 63 years old. Late onset schizophrenia is possible; Will seek to rule out HIV, tertiary syphilis; Lewy body dementia is a rule out however seems much less likely; patient with normal gait though would still need to more thoroughly assess for parkinsonian symptoms). This was discussed with patient who is voluntarily willing to be admitted to the inpatient psychiatric unit and take antipsychotic medications while having tests run. Etiology? -patient does smoke cocaine a few times a week which could be a possible etiology however it seems less likely given the degree and details pt shares about experience/delusion, the specific descriptions and patient's calm, methodical approach to researching treatments (shares valid information he has learned from the Internet on parasites and various treatments); he is also calm and organized when explaining and discussing this experience or when demonstrating evidence. Also he is now sober from cocaine for over 5 days. -HIV/RPR negative -Of note, patient has received dermoscopy (in ED), microscopy of the skin (on unit) and in the past been treated with ivermectin and permethrin. -No history of foreign travel (moved here from [place] 40 years ago has hardly ever left [place] other than 1 time to [place] and 1 time to [place]). Medication: -in the ED patient was started on risperidone 1mg BID which did not have any effect though was only a low dose for short time -decided to start patient on Stelazine since there is there are some studies in which this helped patients with Morgellons disease (though not a robust study) Hospital course: 03/13 Patient remains calm cooperative and polite. Organized in speech and behavior. Patient continues to report he sees and feels parasites on a skin; however he says he is feeling more calm about it today. Discussed with pathologist who advised speech writer; speech writer performed microscopy; slides sent to pathology which were unremarkable. Discussed findings with patient. Despite these findings (the unremarkable dermoscopy and the fact that Patient has been treated with ivermectin and permethrin in the past- which he acknowledges but says they did not help) patient continues to assert that these parasites are real. He says he can pull them out of his skin when he sees them and that they look like little grandiose of dust; sometimes he says when he pulls him out he can not see it but he can feel it in his fingers. Patient says that the ones that come out of his penis are large he can see them moving and that they go away too fast for him to squash. Patient has never been out of the country. He moved here from [place] 40 years ago has hardly ever left [place] other than 1 time to [place] and 1 time to [place]. -patient says that he has never had any mental health issues even when [he] was a drug addict. -Patient agrees to continue with Stelazine for now -will increase to 2.5 mg t.i.d. (starting dose typically in between 5 and 10 mg and there is a small window for medication can become effective) 03/14: Patient perseverated on infestation of parasites on his skin. No other delusion noted. Skin pathology result on 03/13/2025 was negative for skin parasites. Continue current treatment regimen. Plan: CV Q 15 minute checks increase to Stelazine 2.5 mg tid Discontinue risperidone Continue home medications Will discussed with pathology and do skin microscopy Rule out Lewy body dementia (though much less likely) * of note patient is not imminent risk of harm to self or others and is able to take care of himself in the community. Should patient want to discharge, at this point he is free to do so Time Spent With Patient Time: Total time managing care of this patient today ____ minutes.
--- NOTE | 2025-03-15 11:24 | PM.PSYDC ---
DS: Providers Provider Date of admission: 03/12/25 11:44 Date of discharge: 03/15/25 Primary care physician: Janine Gomez NP Attending physician on admission: Gary Richter Consults: 03/13/25 15:26 Consult to Wound Care Routine Consulting Provider: [facility] Reason for consultation: Multiple open areas, history of parasitosis Attending physician on discharge: Gary Richter DS: Diagnosis Discharge Diagnosis (1) Delusions of parasitosis: Status: Acute (2) Diabetes: Status: Acute DS: Medications Discharge Medications Home Medications: Home Medications ?Medication ?Instructions ?Recorded ?Confirmed atorvastatin 40 mg tablet 40 mg PO BEDTIME 05/07/21 03/10/25 lisinopril 30 mg tablet 30 mg PO DAILY 05/07/21 03/10/25 metformin 500 mg tablet 1,000 mg PO BID 05/07/21 03/12/25 budesonide-formoterol HFA 80 2 puff inhalation Q4-6H dyspnea 03/10/25 03/10/25 mcg-4.5 mcg/actuation aerosol inhaler dulaglutide 0.75 mg/0.5 mL 0.75 mg subcut QWEEK 03/10/25 03/10/25 subcutaneous pen injector (Trulicity) insulin glargine U-300 conc 300 46 unit subcut BEDTIME 03/10/25 03/10/25 unit/mL (1.5 mL) subcutaneous pen (Toujeo SoloStar U-300 Insulin) omeprazole 20 mg capsule,delayed 20 mg PO DAILY 03/10/25 03/10/25 release Previous Rx's ?Medication ?Instructions ?Recorded doxycycline monohydrate 100 mg 100 mg PO BID 3 days #6 caps 03/15/25 capsule triamcinolone acetonide 0.1 % 1 appl topical BID 30 days #15 03/15/25 topical cream grams trifluoperazine 5 mg tablet 2.5 mg (1/2 x 5 mg) PO TID 30 days 03/15/25 #45 tabs Mental Status Exam Mental Status Exam Narrative: Pt is alert and oriented; behavior is cooperative, friendly and calm; patient is not in distress; dressed in hospital attire with unkempt hair but adequate hygiene; mood is described as good and affect congruent bright, calm; eye contact appropriate; Speech is normal rate, volume and prosody and not pressured; no psychomotor agitation/retardation present; thought process is organized and goal directed; Thought content is on infestation of parasites but also on relief of visual tactile experience; otherwise pertinent to relevant topics and without any any other delusional content; denies any SI/HI. Denies AVH and there is no evidence of perceptual disturbance. Patients insight and judgment impaired but improved adequate Data Data Completed and Pending Completed studies during hospitalization [Text1]: 03/10/25 03/10/25 03/10/25 13:02 15:36 16:18 WBC 6.0 RBC 6.44 H Hgb 17.4 Hct 53.5 H MCV 83.1 MCH 27.0 MCHC 32.5 RDW 14.8 Plt Count 263 MPV 8.4 L Immature Gran % (Auto) 0.2 Neut % (Auto) 60.0 Lymph % (Auto) 26.5 Haines % (Auto) 10.3 Eos % (Auto) 1.8 Baso % (Auto) 1.2 Lymph # (Auto) 1.6 Haines # (Auto) 0.6 Eos # (Auto) 0.1 Baso # (Auto) 0.1 Abs Immat Gran (auto) 0.01 Absolute Neuts (auto) 3.6 Absolute Nucleated RBC 0.000 Nucleated RBC % (auto) 0.0 Sodium 141 Potassium 3.9 Chloride 104 Carbon Dioxide 29 Anion Gap 12 BUN 23 H Creatinine 1.52 H Estim Creat Clear Calc 55.7 Estimated GFR 46 POC Glucose 67 140 H Random Glucose 101 Estimat Average Glucose Hemoglobin A1c % Calcium 9.7 Magnesium Total Bilirubin 0.3 AST 34 ALT 27 Alkaline Phosphatase 49 NT-Pro-B Natriuret Pep 23.2 Total Protein 6.8 Albumin 4.1 Triglycerides Cholesterol LDL Cholesterol, Calc HDL Cholesterol Vitamin B12 340 Folate TSH 1.59 Free T4 Hold Yellow Top See Note Urine Color Urine Appearance Urine pH Ur Specific [place] Urine Protein Urine Glucose (UA) Urine Ketones Urine Blood Urine Nitrite Ur Leukocyte Esterase Urine RBC Urine WBC Ur Squamous Epith Cells Urine Bacteria Hyaline Casts Urine Opiates Screen Ur Buprenorphine Scrn Ur Oxycodone Screen Urine Methadone Screen Urine Fentanyl Screen Ur Barbiturates Screen Ur Phencyclidine Scrn Ur Amphetamines Screen U Benzodiazepines Scrn Urine Cocaine Screen U Marijuana (THC) Screen T.pallidum Ab (EIA) Nonreactive HIV 1&2 Ab/P24 Ag 4thGn Nonreactive 03/10/25 03/10/25 03/11/25 19:58 20:05 13:07 WBC RBC Hgb Hct MCV MCH MCHC RDW Plt Count MPV Immature Gran % (Auto) Neut % (Auto) Lymph % (Auto) Haines % (Auto) Eos % (Auto) Baso % (Auto) Lymph # (Auto) Haines # (Auto) Eos # (Auto) Baso # (Auto) Abs Immat Gran (auto) Absolute Neuts (auto) Absolute Nucleated RBC Nucleated RBC % (auto) Sodium Potassium Chloride Carbon Dioxide Anion Gap BUN Creatinine Estim Creat Clear Calc Estimated GFR POC Glucose 260 H 59 L* Random Glucose Estimat Average Glucose Hemoglobin A1c % Calcium Magnesium Total Bilirubin AST ALT Alkaline Phosphatase NT-Pro-B Natriuret Pep Total Protein Albumin Triglycerides Cholesterol LDL Cholesterol, Calc HDL Cholesterol Vitamin B12 Folate TSH Free T4 Hold Yellow Top Urine Color Yellow Urine Appearance Clear Urine pH 6.5 Ur Specific [place] 1.025 Urine Protein 30 (1+) H Urine Glucose (UA) >=1000 H Urine Ketones Negative Urine Blood Negative Urine Nitrite Negative Ur Leukocyte Esterase Small (1+) H Urine RBC 3-5 H Urine WBC 6-10 H Ur Squamous Epith Cells 3-5 Urine Bacteria None Seen Hyaline Casts 0-2 Urine Opiates Screen Not Detected Ur Buprenorphine Scrn Not Detected Ur Oxycodone Screen Not Detected Urine Methadone Screen Not Detected Urine Fentanyl Screen Not Detected Ur Barbiturates Screen Not Detected Ur Phencyclidine Scrn Not Detected Ur Amphetamines Screen Not Detected U Benzodiazepines Scrn Not Detected Urine Cocaine Screen POSITIVE H U Marijuana (THC) Screen Not Detected T.pallidum Ab (EIA) HIV 1&2 Ab/P24 Ag 4thGn 03/11/25 03/12/25 03/12/25 20:07 07:14 17:31 WBC RBC Hgb Hct MCV MCH MCHC RDW Plt Count MPV Immature Gran % (Auto) Neut % (Auto) Lymph % (Auto) Haines % (Auto) Eos % (Auto) Baso % (Auto) Lymph # (Auto) Haines # (Auto) Eos # (Auto) Baso # (Auto) Abs Immat Gran (auto) Absolute Neuts (auto) Absolute Nucleated RBC Nucleated RBC % (auto) Sodium Potassium Chloride Carbon Dioxide Anion Gap BUN Creatinine Estim Creat Clear Calc Estimated GFR POC Glucose 141 H 212 H 298 H Random Glucose Estimat Average Glucose Hemoglobin A1c % Calcium Magnesium Total Bilirubin AST ALT Alkaline Phosphatase NT-Pro-B Natriuret Pep Total Protein Albumin Triglycerides Cholesterol LDL Cholesterol, Calc HDL Cholesterol Vitamin B12 Folate TSH Free T4 Hold Yellow Top Urine Color Urine Appearance Urine pH Ur Specific [place] Urine Protein Urine Glucose (UA) Urine Ketones Urine Blood Urine Nitrite Ur Leukocyte Esterase Urine RBC Urine WBC Ur Squamous Epith Cells Urine Bacteria Hyaline Casts Urine Opiates Screen Ur Buprenorphine Scrn Ur Oxycodone Screen Urine Methadone Screen Urine Fentanyl Screen Ur Barbiturates Screen Ur Phencyclidine Scrn Ur Amphetamines Screen U Benzodiazepines Scrn Urine Cocaine Screen U Marijuana (THC) Screen T.pallidum Ab (EIA) HIV 1&2 Ab/P24 Ag 4thGn 03/12/25 03/13/25 03/13/25 21:43 07:52 07:54 WBC RBC Hgb Hct MCV MCH MCHC RDW Plt Count MPV Immature Gran % (Auto) Neut % (Auto) Lymph % (Auto) Haines % (Auto) Eos % (Auto) Baso % (Auto) Lymph # (Auto) Haines # (Auto) Eos # (Auto) Baso # (Auto) Abs Immat Gran (auto) Absolute Neuts (auto) Absolute Nucleated RBC Nucleated RBC % (auto) Sodium Potassium Chloride Carbon Dioxide Anion Gap BUN Creatinine Estim Creat Clear Calc Estimated GFR POC Glucose 252 H 229 H Random Glucose Estimat Average Glucose 169 Hemoglobin A1c % 7.5 H Calcium Magnesium 1.6 Total Bilirubin AST ALT Alkaline Phosphatase NT-Pro-B Natriuret Pep Total Protein Albumin Triglycerides 72 Cholesterol 131 LDL Cholesterol, Calc 68 HDL Cholesterol 49 Vitamin B12 370 Folate 6.0 TSH 3.88 Free T4 1.10 Hold Yellow Top Urine Color Urine Appearance Urine pH Ur Specific [place] Urine Protein Urine Glucose (UA) Urine Ketones Urine Blood Urine Nitrite Ur Leukocyte Esterase Urine RBC Urine WBC Ur Squamous Epith Cells Urine Bacteria Hyaline Casts Urine Opiates Screen Ur Buprenorphine Scrn Ur Oxycodone Screen Urine Methadone Screen Urine Fentanyl Screen Ur Barbiturates Screen Ur Phencyclidine Scrn Ur Amphetamines Screen U Benzodiazepines Scrn Urine Cocaine Screen U Marijuana (THC) Screen T.pallidum Ab (EIA) HIV 1&2 Ab/P24 Ag 4thGn 03/13/25 03/13/25 03/13/25 11:53 17:10 20:58 WBC RBC Hgb Hct MCV MCH MCHC RDW Plt Count MPV Immature Gran % (Auto) Neut % (Auto) Lymph % (Auto) Haines % (Auto) Eos % (Auto) Baso % (Auto) Lymph # (Auto) Haines # (Auto) Eos # (Auto) Baso # (Auto) Abs Immat Gran (auto) Absolute Neuts (auto) Absolute Nucleated RBC Nucleated RBC % (auto) Sodium Potassium Chloride Carbon Dioxide Anion Gap BUN Creatinine Estim Creat Clear Calc Estimated GFR POC Glucose 187 H 300 H 240 H Random Glucose Estimat Average Glucose Hemoglobin A1c % Calcium Magnesium Total Bilirubin AST ALT Alkaline Phosphatase NT-Pro-B Natriuret Pep Total Protein Albumin Triglycerides Cholesterol LDL Cholesterol, Calc HDL Cholesterol Vitamin B12 Folate TSH Free T4 Hold Yellow Top Urine Color Urine Appearance Urine pH Ur Specific [place] Urine Protein Urine Glucose (UA) Urine Ketones Urine Blood Urine Nitrite Ur Leukocyte Esterase Urine RBC Urine WBC Ur Squamous Epith Cells Urine Bacteria Hyaline Casts Urine Opiates Screen Ur Buprenorphine Scrn Ur Oxycodone Screen Urine Methadone Screen Urine Fentanyl Screen Ur Barbiturates Screen Ur Phencyclidine Scrn Ur Amphetamines Screen U Benzodiazepines Scrn Urine Cocaine Screen U Marijuana (THC) Screen T.pallidum Ab (EIA) HIV 1&2 Ab/P24 Ag 4th 03/14/25 03/14/25 03/14/25 07:42 11:57 16:53 WBC RBC Hgb Hct MCV MCH MCHC RDW Plt Count MPV Immature Gran % (Auto) Neut % (Auto) Lymph % (Auto) Haines % (Auto) Eos % (Auto) Baso % (Auto) Lymph # (Auto) [place]aines # (Auto) Eos # (Auto) Baso # (Auto) Abs Immat Gran (auto) Absolute Neuts (auto) Absolute Nucleated RBC Nucleated RBC % (auto) Sodium Potassium Chloride Carbon Dioxide Anion Gap BUN Creatinine Estim Creat Clear Calc Estimated GFR POC Glucose 130 H 195 H 213 H Random Glucose Estimat Average Glucose Hemoglobin A1c % Calcium Magnesium Total Bilirubin AST ALT Alkaline Phosphatase NT-Pro-B Natriuret Pep Total Protein Albumin Triglycerides Cholesterol LDL Cholesterol, Calc HDL Cholesterol Vitamin B12 Folate TSH Free T4 Hold Yellow Top Urine Color Urine Appearance Urine pH Ur Specific [place] Urine Protein Urine Glucose (UA) Urine Ketones Urine Blood Urine Nitrite Ur Leukocyte Esterase Urine RBC Urine WBC Ur Squamous Epith Cells Urine Bacteria Hyaline Casts Urine Opiates Screen Ur Buprenorphine Scrn Ur Oxycodone Screen Urine Methadone Screen Urine Fentanyl Screen Ur Barbiturates Screen Ur Phencyclidine Scrn Ur Amphetamines Screen U Benzodiazepines Scrn Urine Cocaine Screen U Marijuana (THC) Screen T.pallidum Ab (EIA) HIV 1&2 Ab/P24 Ag 4thGn 03/14/25 03/15/25 23:04 07:41 WBC RBC Hgb Hct MCV MCH MCHC RDW Plt Count MPV Immature Gran % (Auto) Neut % (Auto) Lymph % (Auto) Haines % (Auto) Eos % (Auto) Baso % (Auto) Lymph # (Auto) Haines # (Auto) Eos # (Auto) Baso # (Auto) Abs Immat Gran (auto) Absolute Neuts (auto) Absolute Nucleated RBC Nucleated RBC % (auto) Sodium Potassium Chloride Carbon Dioxide Anion Gap BUN Creatinine Estim Creat Clear Calc Estimated GFR POC Glucose 201 H 212 H Random Glucose Estimat Average Glucose Hemoglobin A1c % Calcium Magnesium Total Bilirubin AST ALT Alkaline Phosphatase NT-Pro-B Natriuret Pep Total Protein Albumin Triglycerides Cholesterol LDL Cholesterol, Calc HDL Cholesterol Vitamin B12 Folate TSH Free T4 Hold Yellow Top Urine Color Urine Appearance Urine pH Ur Specific [place] Urine Protein Urine Glucose (UA) Urine Ketones Urine Blood Urine Nitrite Ur Leukocyte Esterase Urine RBC Urine WBC Ur Squamous Epith Cells Urine Bacteria Hyaline Casts Urine Opiates Screen Ur Buprenorphine Scrn Ur Oxycodone Screen Urine Methadone Screen Urine Fentanyl Screen Ur Barbiturates Screen Ur Phencyclidine Scrn Ur Amphetamines Screen U Benzodiazepines Scrn Urine Cocaine Screen U Marijuana (THC) Screen T.pallidum Ab (EIA) HIV 1&2 Ab/P24 Ag 4thGn 03/10/25 20:05 Urine clean catch - Clean Catch Midstream Urine Culture - Final Enterococcus faecalis Michelle albicans DS: Summary Hospital Course Hospital Course: HPI: Pt is a 64-year-old male, with a past medical history of diabetes, 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 Patient states that this has been occurring since last February 2024. He states that he has had multiple ER visits, has followed up with his primary care physician, seen by dermatology and has been seen by infectious disease however has been told that there is no one that has been able to see the parasites crawling out of his skin. He states that when he coughs and spits he can see the critters in his sputum. Patient has reported to the emergency room on 07/24, 10/11, 02/10, 02/26, 03/06, and today all for the chief complaint of seeing parasites coming out of his skin. Patient states that he believes that his symptoms are just getting worse no one believes him. He states that he has a history of IVDA however states that he has not used in many years and denies any drug or alcohol use, states that it has been many years since his last use. Jet Worker first assessed patient in the ED Patient is friendly, cooperative and polite. He is organized in speech and behavior, with linear and organized thought process. Patient reports to telegraphic typewriter mechanic the same as written above and even points to a place on his arm, on his leg saying he can see movement now. Jet Worker looked as well and could see nothing moving at all; patient expressed frustration that no one ever looks close enough so telegraphic typewriter mechanic and ED provider examined patient with Dermoscopy magnifying glass and looked at every spot he indicated. Patient frustrated that both providers could not see anything at all but expressed gratitude for the sincere effort. Patient sometimes bleach is his legs to try and kill the critters and says he can hardly sleep because of it and will have to put rubbing alcohol on his face to try to keep them at [place] so he can sleep. Patient reports they come out of his penis; the come out of his face and going to his eyes and ears... Patient did not tolerate reality testing and does not believe that this is his mind in tricks on him. However he did agree to try risperidone to help deal with the intense stress he is feeling from this experience. He denies any history of other paranoid ideations; denies drug use (though cocaine positive). Patient does not seem to have any AVH; he says this all started February of last year for the 1st time and has no other history of any such experience. On M5 patient remains calm, organized in speech and behavior. Still no insight however he agrees to take antipsychotic medication if telegraphic typewriter mechanic is willing to perform tests to assess for parasitosis. Jet Worker explained that this appears to be a delusional disorder which patient accepted that this is telegraphic typewriter mechanic's perspective but fully disagrees Impression: Patient has a delusional disorder (delusions of parasitosis; does not seem to be Morgellons disease-which includes patient having actual fibers that protrude from the skin which patient thinks are parasites) which is making him miserable and significantly impairing his functioning. Patient is not unsafe; he is not suicidal there is no indication that patient is unable to take care of himself in the community. However his lack of insight keeps him from getting appropriate treatment and thus he remains delusional and repeatedly comes to the ED complaining of parasites. It is not realistic for this problem to be addressed in the community and patient requires inpatient admission for treatment and to further assess his psychiatric symptoms, history, and to uncover the etiology for psychotic symptoms that are appearing, ostensibly for the 1st time, at 63 years old. Late onset schizophrenia is possible; Will seek to rule out HIV, tertiary syphilis; Lewy body dementia is a rule out however seems much less likely; patient with normal gait though would still need to more thoroughly assess for parkinsonian symptoms). This was discussed with patient who is voluntarily willing to be admitted to the inpatient psychiatric unit and take antipsychotic medications while having tests run. Etiology: -patient does smoke cocaine a few times a week which could be a possible etiology however it seems less likely given the degree and details pt shares about experience/delusion, the specific descriptions and patient's calm, methodical approach to researching treatments (shares valid information he has learned from the Internet on parasites and various treatments); he is also calm and organized when explaining and discussing this experience or when demonstrating evidence. Also he is now sober from cocaine for over 5 days. -HIV/RPR negative -Of note, patient has received dermoscopy (in ED), microscopy of the skin (on unit) and in the past been treated with ivermectin and permethrin. -No history of foreign travel (moved here from [place] 40 years ago has hardly ever left [place] other than 1 time to [place] and 1 time to [place]). Medication: -in the ED patient was started on risperidone 1mg BID which did not have any effect though was only a low dose for short time -decided to start patient on Stelazine since there is there are some studies in which this helped patients with Morgellons disease (though not a robust study) Hospital course: 03/13 Patient remains calm cooperative and polite. Organized in speech and behavior. Patient continues to report he sees and feels parasites on a skin; however he says he is feeling more calm about it today. Discussed with pathologist who advised telegraphic typewriter mechanic; telegraphic typewriter mechanic performed microscopy; slides sent to pathology which were unremarkable (Skin pathology result on 03/13/2025 was negative for skin parasites). Discussed findings with patient. Despite these findings (the unremarkable dermoscopy and the fact that Patient has been treated with ivermectin and permethrin in the past- which he acknowledges but says they did not help) patient continues to assert that these parasites are real. He says he can pull them out of his skin when he sees them and that they look like little grandiose of dust; sometimes he says when he pulls him out he can not see it but he can feel it in his fingers. Patient says that the ones that come out of his penis are large he can see them moving and that they go away too fast for him to squash. Patient has never been out of the country. He moved here from [place] 40 years ago has hardly ever left [place] other than 1 time to [place] and 1 time to [place]. -patient says that he has never had any mental health issues even when [he] was a drug addict. -Patient agrees to continue with Stelazine for now -will increase to 2.5 mg t.i.d. (starting dose typically between 5 and 10 mg; there is a small window for medication can become effective) -He says it's always starts in the afternoon, extending into nighttime.. On Stellazine pt visual and tactile hallucinations significantly improved. Jet Worker met with patient on 03/15 and he says he's going good... and reports that all sensation of parasites are gone; he says he does not feel them or see them; he has been sleeping well and says he had no sensation of them on his face, ears, eyes or nose (formerly all things that bothered him terribly). Delusional belief remains and despite resolution visual/tactile symptoms with antipsychotic medication, He still believes that he has parasites and asked telegraphic typewriter mechanic for a referral to a specialist. However, patient was able to have an appropriate and mature conversation regarding telegraphic typewriter mechanic's diagnosis that this is a delusion; though he remains adamant that he actually full-body parasitic infection, he accepts that telegraphic typewriter mechanic has a different perspective and was very clear he is experiencing tremendous relief now on Stelazine. Jet Worker offered to discuss the risks/side effects of Stelazine however patient was very clear he did not want to hear any of them but that he would continue taking it and asked for a prescription. Patient asked for discharge saying he has many things to do including work. Throughout patient's presentation from the ED to the unit he has never been a danger to himself or others and has remained able to take care of himself in the community. Patient's request for discharge honored Medication: Started Stelazine 2.5 mg tid Status at Discharge Functional status at discharge: independent ambulation Overall status at discharge: patient is progressing back to baseline Time Spent with Patient Time attestation: Total time managing care of this patient today _ 45 ___ minutes. Time spent: Greater than 30 minutes Specific discharge activities: Met with patient; discussed with team; charting; prescriptions Discharge Plan Discharge Anticipated Discharge Date/Time: 03/12/25 16:09 Patient Disposition: Home, Self-Care Discharge Diagnosis: delusional disorder Referrals: Janine Gomez NP [Primary Care Provider, Internal Medicine] - 04/02/25 9:30 am Referral Note: Dr Durham Discharge Medications: New doxycycline monohydrate 100 mg Capsule 100 mg PO BID 3 Days Qty: 6 0RF trifluoperazine 5 mg Tablet 2.5 mg PO TID 30 Days Qty: 45 1RF triamcinolone acetonide 0.1 % Cream 1 appl topical BID 30 Days Qty: 15 0RF Protocol: Apply to: Apply to: Forearms Rx Instructions: apply to affected areas on forearms Continued omeprazole 20 mg capsule,delayed release(/EC) 20 mg PO DAILY budesonide-formoterol 80-4.5 mcg/actuation HFA aerosol inhaler 2 puff INHALATION Q4-6H Trulicity 0.75 mg/0.5 mL pen injector 0.75 mg subcut QWEEK insulin glargine U-300 conc [Toujeo SoloStar U-300 Insulin] 300 unit/mL (1.5 mL) insulin pen 46 unit subcut BEDTIME atorvastatin 40 mg tablet 40 mg PO BEDTIME metformin 500 mg tablet 1,000 mg PO BID lisinopril 30 mg tablet 30 mg PO DAILY Discontinued quetiapine 50 mg tablet 50 mg PO BEDTIME Discharge Orders: Discharge Order (Routine); Ordered 12/19/25 Ordered By: Gary Richter Diet: Diabetic diet Activity on Discharge: As tolerated Stand Alone Forms: Patient Portal Discharge page, Community Support Print Language: Russian Care Plan Goals: Maintain mood and safe behaviors Take medications as prescribed Continue to pursue sobriety Practice coping skills Continue with outpatient providers and reach out to them as needed Health Concerns: Mood stability and behaviors Sobriety Diabetes PAD Plan of Treatment: Follow up with your PCP, psychiatric provider and other outpatient providers regarding above concerns Take medications as prescribed Assessment: Risk assessment at time of discharge:? Patient was interviewed prior to discharge and found to be fully oriented and without any SI or HI. Patient is not in imminent risk of harm to self or others. Patient has been observed closely by nursing and unit staff throughout admission; patient has not engaged in any behaviors that suggest dangerousness to self or others and has demonstrated appropriate behaviors and impulse control Discharge Date/Time: 03/15/25 13:30
[2025-03-15 12:00] LABS: Glucose, Whole Blood 261 mg/dL (60-115)
[2025-03-15] MEDS: Naloxone HCl Nasal TAKE HOME 4 MG SPRAY 8 MG NOSTRILALT (12:09)
== END 2025-03-15 13:30 | disposition home or self-care (01) | DRG 885 ==
LOC: HO.ED 15:33 → HO.PM5 03-12 13:10
PROVIDERS: Physician Assistant Medical; Psychiatry & Neurology Psychiatry; Admitting Provider Clinical Nurse Specialist Psychiatric/Mental Health, Adult; Emergency Provider Emergency Medicine; PCP Nurse Practitioner Primary Care; Visit Provider Clinical Nurse Specialist Psychiatric/Mental Health, Adult
DX: F22 Delusional disorders (principal); F17.210 Nicotine dependence, cigarettes, uncomplicated; Z23 Encounter for immunization; Z71.6 Tobacco abuse counseling; E78.5 Hyperlipidemia, unspecified; J45.909 Unspecified asthma, uncomplicated; E11.22 Type 2 diabetes mellitus with diabetic chronic kidney disease; N18.9 Chronic kidney disease, unspecified; I12.9 Hypertensive chronic kidney disease with stage 1 through stage 4 chronic kidney disease, or unspecified chronic kidney disease; Z79.4 Long term (current) use of insulin; Z79.84 Long term (current) use of oral hypoglycemic drugs; Z79.85 Long-term (current) use of injectable non-insulin antidiabetic drugs; Z79.899 Other long term (current) drug therapy
CPT/HCPCS: 36415; 80053; 80061; 80307; 81001; 82607; 82746; 82947; 83036; 83735; 83880; 84439; 84443; 85025; 86780; 87086; 87088; 87186; 87389; 88112; 90656; 93005; 99285; S9485

== ENCOUNTER → 2025-03-10 12:02 | Outpatient (BNV) | payer OTHER, SELFPAY | PROVIDERS: Emergency Provider Emergency Medicine; PCP Nurse Practitioner Primary Care; Visit Provider Psychiatry & Neurology Psychiatry | DX: F22 Delusional disorders (principal); E11.9 Type 2 diabetes mellitus without complications | CPT/HCPCS: 99283 ==

== ENCOUNTER → 2025-03-11 07:46 | Outpatient (BNV) | payer OTHER, SELFPAY | PROVIDERS: Emergency Provider Emergency Medicine; PCP Nurse Practitioner Primary Care; Visit Provider Internal Medicine Cardiovascular Disease | DX: I49.1 Atrial premature depolarization (principal); I45.2 Bifascicular block | CPT/HCPCS: 93010 ==

== ENCOUNTER 2025-03-12 11:44 | Outpatient (BNV) | payer OTHER, SELFPAY | END 2025-03-15 11:41 | PROVIDERS: Admitting Provider Clinical Nurse Specialist Psychiatric/Mental Health, Adult; Emergency Provider Emergency Medicine; PCP Nurse Practitioner Primary Care; Visit Provider Internal Medicine Cardiovascular Disease | DX: I44.4 Left anterior fascicular block (principal) | CPT/HCPCS: 93010 ==

== ENCOUNTER → 2025-03-12 11:44 | Outpatient (BNV) | payer OTHER, SELFPAY | PROVIDERS: Admitting Provider Clinical Nurse Specialist Psychiatric/Mental Health, Adult; Emergency Provider Emergency Medicine; PCP Nurse Practitioner Primary Care; Visit Provider Nurse Practitioner Family | DX: E11.9 Type 2 diabetes mellitus without complications (principal) | CPT/HCPCS: 99221 ==

== ENCOUNTER 2025-03-23 21:18 | Emergency (ER) | payer OTHER, SELFPAY ==
[2025-03-23 21:25] VITALS: BP 162/77; PULSE 86; RESP 18; TEMP 36.9; O2SAT 94; BMI 30.8
--- OUTSIDE RECORDS SUMMARY | 2025-03-23 21:51 | XMS_ITS | Encounter Summary ---
Author Organization [email or web address] Address [address] [place] [address] Care Team Providers Care Production Control Planner Name Role Phone Janine Gomez Primary Care Provider [phone] Andrea Joaquin PharmD Unavailable [phone] Encounter Details Date Type Department Care Team ([facility] st Contact Info) Description 01/04/2023 Orders Only [facility] MED & PEDS [address] [place] [address] Renate Chinchilla LPN Social History Tobacco Use [...] Care Team (Late st Contact Info) Description 04/02/2025 9:30 AM EST Office Visit [address] [address] Tonia Durham MD [address] [place] [address] 04/18/2025 2:30 PM EST Office Visit [address] [address] Janine Gomez ANP [address] [place] [address] documented as of this encounter Visit Diagnoses Not on filedocumented in this encounter Care Teams Production Control Planner Relationship Specialty Start Date End Date Janine Gomez ANP [address] [place] [phone] PCP - General Family Medicine 11/13/20 Andrea Joaquin, Alexandru [address] [place] [address] Pharmacist Internal Medicine 01/03/24 [facility] 10/04/24 documented as of this encounter
--- OUTSIDE RECORDS SUMMARY | 2025-03-23 21:51 | XMS_ITS | Clinical Summary ---
Author Organization [facility] Facility Address [address] [place] [address], [place] [address] Care Team Providers Care Contract Clerk Automobile Name Role Phone Janine Gomez NP Primary Care Provider [phone] Allergies Active Allergy Reactions Criticality Noted Date [...] 02/28/2025 Refill [facility] [address] [place] [address] Lam Cook MD from Last 3 Months [...] patient's age to complete this topic Insurance [facility] ([id number]) [id number] [id number] Care Teams Contract Clerk Automobile Relationship Specialty Start Date End Date Janine Gomez NP PCP - General Nurse Practitioner 08/07/21
--- OUTSIDE RECORDS SUMMARY | 2025-03-23 21:51 | XMS_ITS | Encounter Summary ---
Author Organization [facility] Address [address] [facility] [address] [place] [address] Phone Care Team Providers Care School Principal Name Role Phone Janine Gomez CLERK OPERATOR Primary Care Provider [phone] Reason for Visit * Reason Comments Med Refill Encounter Details Date Type Department Care Team (Late st Contact Info) Description 02/28/2025 Refill [facility] [address] [place] [id number] Lam Cook MD [address] [facility] [address] [place] [address] Social History Tobacco Use Types [...] on filedocumented in this encounter Care Teams School Principal Relationship Specialty Start Date End Date Janine Gomez NP PCP - General Nurse Practitioner 08/07/21 documented as of this encounter
--- OUTSIDE RECORDS SUMMARY | 2025-03-23 21:52 | XMS_ITS | Encounter Summary ---
Author Organization [employer] Address [address] [place] [address] 7 [place] [address] Care Team Providers Care Sales Communications Manager Name Role Phone Janine Gmoez Primary Care Provider [phone] Andrea Joaquin PharmD Unavailable [phone] Reason for Visit * Reason Comments Med Refill Encounter Details Date Type Department Care Team (Late st Contact Info) Description 07/18/2022 Refill [facility] MED [facility] PEDS [address] [place], [place] [phone] Janine Gomez ANP [address] [place], [place] [phone] Other male erectile dysfunction Social History Tobacco [...] Description 04/02/2025 9:30 AM EST Office Visit [facility] [address] [place] [address] Tonia Durham MD [address] [place], [place] [phone] 04/18/2025 2:30 PM EST Office Visit [facility] [address] [place] [address] Janine Gomez ANP [address] [place] [address] documented as of this encounter Visit Diagnoses Diagnosis Other male erectile dysfunction documented in this encounter Care Teams Sales Communications Manager Relationship Specialty Start Date End Date Janine Gomez ANP [address] [place] [phone] PCP - General Family Medicine 11/13/20 Andrea Joaquin, RobeD [address] [place] [address] Pharmacist Internal Medicine 01/03/24 [facility] 10/04/24 documented as of this encounter
--- OUTSIDE RECORDS SUMMARY | 2025-03-23 21:52 | XMS_ITS | Encounter Summary ---
Author Organization [facility] [facility] Address [address] [place] [address] Care Team Providers Care Dental Professional Name Role Phone Janine Gomez Primary Care Provider [phone] Andrea Joaquin PharmD Unavailable [phone] Encounter Details Date Type Department Care Team (Late st Contact Info) Description 04/02/2022 Orders Only [facility] [address] [place] [id number] Sary Olivas, RN Social History Tobacco Use [...] Description 04/02/2025 9:30 AM EST Office Visit [address] [address] Tonia Durham MD [address] [place] [address] 04/18/2025 2:30 PM EST Office Visit [facility] [address] [place] [phone] Janine Gomez ANP [address] [place] [address] documented as of this encounter Visit Diagnoses Not on filedocumented in this encounter Care Teams Dental Professional Relationship Specialty Start Date End Date Janine Gomez ANP [address] [place], [place] [phone] PCP - General Family Medicine 11/13/20 Andrea Joaquin PharmD [address] [place] [address] Pharmacist Internal Medicine 01/03/24 [facility] 10/04/24 documented as of this encounter
--- OUTSIDE RECORDS SUMMARY | 2025-03-23 21:52 | XMS_ITS | Encounter Summary ---
Author Organization [facility] Address [address] [place] [address] [place], [place] [address] Care Team Providers Care Territory Sales Professional Name Role Phone Janine Gomez Primary Care Provider [phone] Andrea Joaquin PharmD Unavailable [phone] Encounter Details Date Type Department Care Team (Late st Contact Info) Description 04/27/2022 Orders Only [facility] [address] [place] [phone] Liliana Pace LPN Social History Tobacco Use [...] Description 04/02/2025 9:30 AM EST Office Visit [address] [address] Tonia Durham MD [address] [place] [address] 04/18/2025 2:30 PM EST Office Visit [facility] [address] [place] [address] Janine Gomez ANP [address] [place] [address] documented as of this encounter Visit Diagnoses Not on filedocumented in this encounter Care Teams Territory Sales Professional Relationship Specialty Start Date End Date Janine Gomez ANP [address] [place] [address] PCP - General Family Medicine 11/13/20 Andrea Joaquin PharmD [address] [place] [address] Pharmacist Internal Medicine 01/03/24 [facility] 10/04/24 documented as of this encounter
--- OUTSIDE RECORDS SUMMARY | 2025-03-23 21:52 | XMS_ITS | Encounter Summary ---
Author Organization [employer] Address [address] [place] [address] [address] [place] [address] Care Team Providers Care Shot Blaster Name Role Phone Janine Gomez Primary Care Provider [phone] Andrea Joaquin PharmD Unavailable [phone] Encounter Details Date Type Department Care Team (Late st Contact Info) Description 04/29/2022 Orders Only [facility] MED & PEDS [address] [place] [address] Renate Chinchilla LPN Social History Tobacco Use [...] Description 04/02/2025 9:30 AM EST Office Visit [address] [address] Tonia Durham MD [address] [place] [phone] 04/18/2025 2:30 PM EST Office Visit [address] [address] Janine Gomez ANP [address] [place] [address] documented as of this encounter Visit Diagnoses Not on filedocumented in this encounter Care Teams Shot Blaster Relationship Specialty Start Date End Date Janine Gomez ANP [address] [place] [address] PCP - General Family Medicine 11/13/20 Andrea Joaquin PharmD [address] [place] [address] Pharmacist Internal Medicine 01/03/24 [facility] 10/04/24 documented as of this encounter
--- OUTSIDE RECORDS SUMMARY | 2025-03-23 21:52 | XMS_ITS | Clinical Summary ---
Author Organization [employer] Address [address] [facility] [address] [place] [address] Care Team Providers Care Senior Microsoft Consultant Name Role Phone Patricia Janine RYAN Primary Care Provider [phone] Andrea Joaquin PharmD Unavailable [phone] Allergies Active Allergy Reactions Criticality Noted Date Comments Nsaids 05/27/2022 Not allergy - no NSAIDs per renal Medications * This document contains information received from the source organization and may not represent a complete record from that organization. tadalafil (Cialis) 5 MG tablet TAKE 1 TABLET BY MOUTH ONCE DAILY FOR SEXUAL ACTIVITY Active tadalafil (Cialis) 20 MG tablet TAKE 1 TABLET BY MOUTH ONCE NEEDED FOR SEXUAL ACTIVITY. TAKE 60 MINUTES BEFORE INTENDED ACTIVITY Active atorvastatin (Lipitor) 40 MG tabletIndication s:Mixed [...] 03/04/20 25 3:43 PM EST 025 Active metFORMIN (Glucophage) 500 MG tabletIndication s:Type 2 diabetes mellitus with other specified complication, with long-term current use of insulin ([facility]) TAKE 2 TABLETS BY MOUTH TWICE DAILY IN THE MORNING AND EVENING WITH MEALS 120 tablet 5 03/18/20 2:00 PM EST 025 Active omeprazole (PriLOSEC) [address] capsuleIndicatio ns:Gastroesophag eal reflux disease, unspecified whether esophagitis present TAKE 1 CAPSULE BY MOUTH EVERY DAY 30 TO 60 MINUTES BEFORE A MEAL 90 capsule 1 03/18/20 25 2:00 PM EST 025 Active NovoLOG FLEXPEN 100 UNIT/ML penIndications:T ype 2 diabetes mellitus with diabetic polyneuropathy, with long-term current use of insulin ([facility]) INJECT 20 UNITS SUBCUTANEOUSLY THREE [...] FOR ITCHING 45 g 1 025 Active lisinopril 30 MG tablet TAKE 1 TABLET BY MOUTH EVERY MORNING 90 tablet 1 025 Active Continuous Glucose Sewer And Inspector (FreeStyle Andreina 3 [place]) deviceIndication s:Type 2 diabetes mellitus with stage 3b chronic kidney disease, with long-term current use of insulin ([facility]) 1 each Once per day. Use as directed for CGM 1 each 025 Active Continuous Glucose Sensor (FreeStyle Andreina 3 Plus Sensor) miscIndications: Type 2 diabetes mellitus with stage 3b chronic kidney disease, with long-term current use of insulin ([facility]) 1 each every 15 days. Apply 1 every 15 days as directed for CGM 2 each Active glucose blood (FreeStyle Precision Lew Test) test stripIndications :Type 2 diabetes mellitus with stage 3b chronic kidney disease, with long-term current use of insulin ([facility]) TEST BLOOD SUGAR FOUR TIMES DAILY NEEDED 100 strip 11 Active Dulaglutide (Trulicity) 0.75 MG/0.5ML solution auto-injectorInd ications:Type 2 diabetes mellitus with stage 3b chronic kidney disease, with long-term current use of insulin ([facility]) Inject 0.75 mg under the skin every [...] complication, with long-term current use of insulin ([facility]) INJECT 46 UNITS SUBCUTANEOUSLY AT BEDTIME DIRECTED 4.5 mL 3 02/28/20 25 11:25 AM EST Active Embecta Pen Needle Beckie 32G X 4 MM miscIndications: Type 2 diabetes mellitus with hyperglycemia ([facility]) USE DIRECTED FOUR TIMES DAILY WITH INSULIN 100 each 3 Active TRUEplus Lancets 33G miscIndications: Type 2 diabetes mellitus with stage 3b chronic kidney disease, with long-term current use of insulin ([facility]) TEST BLOOD SUGAR FOUR TIMES DAILY NEEDED 100 each 3 Active ARIPiprazole (Abilify) 5 MG tabletIndication s:Depressive disorder 1 tab once daily 30 tablet 2 03/18/20 25 2:00 PM EST Active hydroCHLOROthiaz gisell (HYDRODiuril) 25 MG tablet TAKE 1 TABLET BY MOUTH EVERY MORNING 90 tablet 1 12/15/2 025 Active Farxiga 10 MG Take 1 tablet (10 mg) by mouth in the morning. 30 tablet 1 03/18/20 25 2:00 PM EST 025 Active Farxiga 10 MG Take 10 mg by mouth in the morning. 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 Assessment & Plan (08/29/2024 4:32 PM [...] I extensively counseled him regarding avoiding using church official so much as or heat to his skin to avoid future butts Mixed hyperlipidemia 03/09/2022 Hepatitis B immune 03/09/2022 History of hepatitis B 03/09/2022 Chronic hepatitis C virus genotype 1a infection ([facility]/HCC) 03/09/2022 Overview (03/09/2022): Per previous EHR Diabetic polyneuropathy 04/20/2018 Nicotine dependence with current use 04/20/2018 Asthma 12/27/2011 Depressive disorder 12/27/2011 Type 2 diabetes mellitus wit h stage 3b chronic kidney disease, with long-term current use of insulin 12/27/2011 History of substance abuse ([facility]/HCC) 12/27/2011 Hypertension 12/27/2011 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 ) 03/12/2025 Orders Only GENERIC EXTERNAL DATA DEPARTMENT Provider, Generic External Data 03/11/2025 Orders Only GENERIC EXTERNAL DATA DEPARTMENT Provider, Generic External Data 03/10/2025 Orders Only GENERIC EXTERNAL DATA DEPARTMENT Provider, Generic External Data 03/10/2025 Refill [facility] [address] [place], [place] [phone] Janine Gomez ANP 03/08/2025 Orders Only [facility] MEDICINE [address] [place] [phone] Janine Gomez ANP Depressive disorder (Primary Dx) 03/08/2025 Orders Only [address] [address] Janine Gomez ANP IGOR (acute kidney injury) (Primary Dx) 03/07/2025 Results Follow-Up [address] [address] Janine Gomez ANP CBC auto differential, Urinalysis w/reflex microscopic, Urinalysis, Complete, with Reflex to Culture, Additional followed-up results: 3 03/04/2025 2:00 PM EST Office Visit [facility] [address] [place] [phone] Janine Gomez ANP Delusions of parasitosis (CMS/HCC) (HCC) (Primary Dx) 03/04/2025 Travel 02/25/[address] [address] Janine Gomez ANP March02/19/[address] [address] Liliana Alvarez RNcreative recruiter 02/19/[address] [address] Andrea Joaquin, PharmD Type 2 diabetes mellitus with other specified complication, with long-term current use of insulin (HCC); Type 2 diabetes mellitus with hyperglycemia (HCC); Type 2 diabetes mellitus with stage 3b chronic kidney disease, with long-term current use of insulin (HCC) 02/18/2025 3:30 PM EST Office Visit [address] [address] Janine Gomez ANP Type 2 diabetes mellitus with stage 3b chronic kidney disease, with long-term current use of insulin (HCC) (Primary Dx); Nicotine dependence with current use; Depressive disorder; Primary insomnia; Cellulitis of left upper extremity; Subacute cough; Rash; Eosinophilia, unspecified type 02/18/2025 Travel 02/14/[address] [address] Janine Gomez ANP ER Follow-up 02/05/2025 Refill [facility] [address] [place] [address] Janine Gomez ANP 01/31/2025 Refill [facility] MEDICINE [address] [place] [address] Andrea Joaquin, Alexandru Type 2 diabetes mellitus with stage 3b chronic kidney disease, with long-term current use of insulin ([facility]) 01/24/2025 Telephone [facility] MEDICINE [address] [place] [address] Janine Gomez ANP chart prep 01/14/2025 2:40 PM EDT Office Visit [facility] [address] [place] [address] Ca Sneed FNP Neurotic excoriations (Primary Dx); Delusions of parasitosis (CMS/HCC) (HCC) 01/14/2025 Refill [facility] MEDICINE [address] [place] [address] Janine Gomez ANP Rash 01/14/2025 Travel 12/31/2024 Telephone [facility] MEDICINE [address] [place] [address] Janine Gomez ANP from Last 3 Months Immunizations Immunization Administration [...] Description 04/02/2025 9:30 AM EST Office Visit [facility] MEDICINE [address] [place] [phone] Tonia Durham MD [address] [place], [place] [phone] 04/18/2025 2:30 PM EST Office Visit [facility] MEDICINE [address] [place], [place] [phone] Janine Gomez ANP [address] [place], [place] [phone] Health Maintenance Due Date Last Done Comments [...] 2024 05/27/2022, 03/16/2021, 07/07/2020, Additional history exists Diabetes: Hemoglobin A1C 05/21/2025 [...] 05/08/2015, 11/02/2002 Zoster Vaccines Completed 04/28/2020, 11/26/2019 Pneumococcal Vaccine: 50+ Years Completed 10/27/2023, 03/03/2001 Hepatitis A Vaccines Completed 12/30/2023, 09/02/19 HIV Screening Completed 03/10/2025, 01/27, 07/14/2021 Influenza Vaccine Completed 03/12/2025, , 05/27/2022, Additional history exists HIB Vaccines Aged Out No longer eligi [...] Care Plan Weekly blood pressure task No Edita Hamilton Weekly blood pressure task Care Plan Weekly blood pressure task No Edita Hamilton Weekly blood pressure task Care Plan Weekly blood pressure task No Ar Hamiltonilet Patient has chronic kidney disease Care Plan Patient has chronic kidney disease No AlfonsoAr richmondilet Patient has chronic kidney disease Care Plan Patient has chronic kidney disease No AlfonsoAr richmondilet Patient has chronic kidney disease Care Plan Patient has chronic kidney disease No AlfonsoAr richmondilet Patient has diabetic neuropathy Care Plan Patient has diabetic neuropathy No AlfonsoAr richmondilet Patient has diabetic neuropathy Care Plan Patient has diabetic neuropathy No Ar Hamiltonilet Patient has diabetic neuropathy Care Plan Patient has diabetic neuropathy No Edita Hamilton Weekly blood pressure task Care Plan Weekly blood pressure task No Renate Navarro PharmD Weekly blood pressure task Care Plan Weekly blood pressure task No Renate Navarro PharmD Weekly blood pressure task Care Plan Weekly blood pressure task No Renate Navarro PharmD Patient has chronic kidney disease Care Plan Patient has chronic kidney disease No Renate Navarro PharmD Patient has chronic kidney disease Care Plan Patient has chronic kidney disease No Renate Navarro PharmD Patient has chronic kidney disease Care Plan Patient has chronic kidney disease No Renate Navarro PharmD Patient has diabetic neuropathy Care Plan Patient has diabetic neuropathy No Renate Navarro PharmD Patient has diabetic neuropathy Care Plan Patient has diabetic neuropathy No Renate Navarro PharmD Patient has diabetic neuropathy Care Plan Patient has diabetic neuropathy No Renate Navarro PharmD Procedures Procedure Name Priority Date/Time Associated Diagnosis Comments GLUCOSE, WHOLE BLOOD Routine 03/12/2025 7:14 AM EST GLUCOSE, WHOLE BLOOD Routine 03/11/2025 8:07 PM EST GLUCOSE, WHOLE BLOOD Routine 03/11/2025 1:07 PM EST DRUG MONITOR, PANEL 1, SCREEN, URINE Routine 03/10/2025 8:05 PM EST URINALYSIS, COMPLETE, WITH REFLEX TO CULTURE Routine 03/10/2025 8:05 PM EST CULTURE, URINE, ROUTINE Routine 03/10/2025 8:05 PM EST GLUCOSE, WHOLE BLOOD Routine 03/10/2025 7:58 PM EST GLUCOSE, WHOLE BLOOD Routine 03/10/2025 4:18 PM EST GLUCOSE, WHOLE BLOOD Routine 03/10/2025 3:36 PM EST HIV 1/2 ANTIGEN/ANTIBODY, FOURTH GENERATION W/RFL Routine 03/10/2025 1:02 PM EST SYPHILIS SCREEN Routine 03/10/2025 1:02 PM EST VITAMIN B12 Routine 03/10/2025 1:02 PM EST NT-PROBNP Routine 03/10/2025 1:02 PM EST COMPREHENSIVE METABOLIC PANEL Routine 03/10/2025 1:02 PM EST CBC WITH AUTO DIFFERENTIAL Routine 03/10/2025 1:02 PM EST SST GOLD TOP TO HOLD Routine 03/10/2025 1:02 PM EST ETHANOL Routine 03/06/2025 11:18 PM EST Type 2 diabetes mellitus with stage 3b chronic kidney disease, with long-term current use of insulin (HCC) COMPREHENSIVE METABOLIC PANEL Routine 03/06/2025 11:18 PM EST Type 2 diabetes mellitus with stage 3b chronic kidney disease, with long-term current use of insulin (HCC) DRUG MONITOR, PANEL 1, SCREEN, URINE Routine 03/06/2025 11:08 PM EST Type 2 diabetes mellitus with stage 3b chronic kidney disease, with long-term current use of insulin (HCC) URINALYSIS, COMPLETE, WITH REFLEX TO CULTURE Routine 03/06/2025 11:08 PM EST Type 2 diabetes mellitus with stage 3b chronic kidney disease, with long-term current use of insulin (HCC) URINALYSIS WITH REFLEX MICROSCOPIC Routine 03/06/2025 11:08 [...] current use of insulin (HCC) POCT GLUCOSE (CPT-70738) Routine 02/18/2025 3:32 PM EST Type 2 diabetes mellitus with stage 3b chronic kidney disease, with long-term current use of insulin (HCC) LAB COLOGUARD COLON CANCER SCREEN Routine 09/08/2023 11:00 AM EDT Screening for malignant neoplasm of colon LIPID PANEL, STANDARD Routine 02/14/2023 9:57 AM EST Diabetic polyneuropathy associated with type 2 diabetes mellitus (CMS/HCC) from Last 3 Months or Most Recently Relevant to Health Maintenance Results * (ABNORMAL) Glucose, Whole Blood (03/12/2025 7:14 AM EST) Only the most recent of6 resultswithin the time period is included. Glucose, Whole Blood 212(H) 60 - 115 mg/dL [facility] Comment:METER #: [id number] 03/12/2025 7:14 AM EST 03/12/2025 7:17 AM EST us Generic External Data Provider LAB BLOOD ORDERAB LES Final Result [facility] [address] [place] [phone] * (ABNORMAL) Urinalysis, Complete, with Reflex to Culture (03/10/2025 8:05 PM EST) Only the most recent of2 resultswithin the time period is included. Color Urine Yellow [facility] Appearance Urine Clear [facility] PH 6.5 5.0 - 9.0 [facility] Glucose Urine UA >=1000(A) Negative mg/dL [facility] Urine Blood Negative Negative [facility] Specific [place] - Urine 1.025 1.005 - 1.025 [facility] Urine Protein 30 (1+)(A) Neg-Trace mg/dL [facility] Urine Ketones Negative Negative mg/dL [facility] Nitrite Urine Negative Negative [facility] Leukocyte Esterase Urine Small (1+)(A) Negative [facility] RBC Urine 3-5(A) 0 - 2 /HPF [facility] Urine WBC 6-10(A) 0 - 5 /HPF [facility] Urine Squamous Epithelial Cell 3-5 0 - 2 /HPF [facility] Urine Bacteria None Seen None Seen [facility] Hyaline Casts, Urine 0-2 0 - 2 /LPF [facility] 03/10/2025 8:05 PM EST 03/10/2025 8:08 PM EST Narrative [facility] - 03/10/2025 8:35 PM EST [id number], Clean Catch us Generic External Data Provider LAB URINE ORDERAB LES Final Result [facility] [address] [place] [address] [phone] * (ABNORMAL) Drug Monitoring, Panel 1, Screen, Urine (03/10/2025 8:05 PM EST) Only the most recent of2 resultswithin the time period is included. Opiate Screen Urine Not Detected Not Detect [facility] Comment:Opiate cut-off is 30 0 ng/mL.Positive results are unconfirmed and should not be used fornon-medical purposes. Barbiturates, Urine Not Detected Not Detect [facility] Comment:Barbiturate cut-off is 200 ng/mL.Positive results are unconfirmed and should not be used fornon-medical purposes. Phencyclidine Screen Urine Not Detected Not Detect [facility] Comment:Phencyclidine cut-of f is 25 ng/mL.Positive results are unconfirmed and should not be used fornon-medical purposes. Amphetamine Screen Urine Not Detected Not Detect [facility] Comment:Amphetamine cut-off is 1000 ng/mL.Positive results are unconfirmed and should not be used fornon-medical purposes. Benzodiazepines Screen Urine Not Detected Not Detect [facility] Comment:Benzodiazepine cut-o ff is 200 ng/mL.Positive results are unconfirmed and should not be used fornon-medical purposes. Cocaine Screen Urine POSITIVE(A) Not Detect [facility] Comment:Cocaine cut-off is 3 00 ng/mL.Positive results are unconfirmed and should not be used fornon-medical purposes. Cannabinoid Screen Urine Not Detected Not Detect [facility] Comment:Cannabinoid cut-off is 50 ng/mL.Positive results are unconfirmed and should not be used fornon-medical purposes. Methadone Screen, Urine Not Detected Not Detect ng/mL [facility] Comment:Methadone cut-off is 300 ng/mL.Positive results are unconfirmed and should not be used fornon-medical purposes. FENTANYL URINE Not Detected Not Detect [facility] Comment:Fentanyl cut-off is 1 ng/mL.Positive results are unconfirmed and should not be used fornon-medical purposes. Oxycodone Urine Screen Not Detected Not Detect ng/mL [facility] Comment:Oxycodone cut-off is 100 ng/mL.Positive results are unconfirmed and should not be used fornon-medical purposes. Buprenorphine Screen Not Detected Not Detect ng/mL [facility] Comment:Buprenorphine cut-of f is 5 ng/mL.Positive results are unconfirmed and should not be used fornon-medical purposes. 03/10/2025 8:05 PM EST 03/10/2025 8:08 PM EST Generic External Data Provider LAB URINE ORDERAB LES Final Result Performing Organization Address [facility] Co de Phone Number [facility] [address] [place] [phone] * Syphilis Screen (03/10/2025 1:02 PM EST) Syphilis Screen Nonreactive Nonreactive [facility] 03/10/2025 1:02 PM EST 03/10/2025 3:13 PM EST Generic External Data Provider LAB BLOOD ORDERAB LES Final Result Performing Organization Address [facility] Co de Phone Number [facility] [address] [place] [address] [phone] * SST GOLD TOP TO HOLD (03/10/2025 1:02 PM EST) Pathologist [facility] Hold Gold See Note [facility] Comment:Specimen held untest ed for 24 hours; Call to requestChemistry testing. 03/10/2025 1:02 PM EST 03/10/2025 1:07 PM EST Generic External Data Provider LAB BLOOD ORDERAB LES Final Result [facility] [address] [place] [address] [phone] * NT-proBNP (03/10/2025 1:02 PM EST) [facility] NT-proBNP 23.2 <300 pg/mL [facility] Comment:Reference Range:Age Group (years) NT-proBNP (pg/ml) InterpretationAll <300 Negative: HF unlikelyFor patients presenting to the ED with clinical suspicion ofnew onset or worsening HF, see below:18 to <50 >299.9 to <450.0 [place]: [id number] to 75 >299.9 to <900.0 other causes of>75 >299.9 to <1800.0 NT-proBNP [id number] to <50 >449.9 Positive: HF [id number] >899.9>75 >1799.9Note: Elevated NT-proBNP levels should be interpreted inthe context of other clinical information. 03/10/2025 1:02 PM EST 03/10/2025 1:06 PM EST [employer] External Data Provider LAB BLOOD ORDERAB LES Final Result Performing Organization Address [facility]/ZIP Co de Phone Number [facility] [address] [place] [address] [phone] * (ABNORMAL) CBC auto differential (03/10/2025 1:02 PM EST) Only the most recent of2 resultswithin the time period is included. [facility] White Blood Count 6.0 4.8 - 10.8 X10*3/uL [facility] Red Blood Count 6.44(H) 4.60 - 5.80 X10*6/uL [facility] Hemoglobin 17.4 14.0 - 18.0 g/dl [facility] Hematocrit 53.5(H) 42.0 - 52.0 % [facility] Mean Corpuscular Volume 83.1 80.0 - 98.0 fL [facility] Mean Corpuscular Hemoglobin 27.0 27.0 - 33.0 pg [facility] Mean Corpuscular HGB Conc 32.5 31.0 - 36.0 g/dl [facility] Red Cell Distribution Width 14.8 11.0 - 16.0 % [facility] Platelet Count 263 160 - 400 X10*3/uL [facility] Mean Platelet Volume 8.4(L) 9.4 - 12.4 fL [facility] Neutrophils Percent Auto 60.0 45 - 73 % [facility] Imm Gran Pct Auto 0.2 0.0 - 0.4 % [facility] Lymphocytes Percent Auto 26.5 20 - 40 % [facility] Monocytes Percent Auto 10.3 2 - 11 % [facility] Eosinophils Percent Auto 1.8 0 - 4 % [facility] Basophils Percent Auto 1.2 0 - 2 % [facility] NRBC Pct Auto 0.0 0.0 - 0.2 /100WBC [facility] Neutrophils Absolute Auto 3.6 2.0 - 8.3 x10*3/uL [facility] Imm Gran Abs Auto 0.01 0.00 - 0.03 X10*3/uL [facility] Lymphocytes Absolute Auto 1.6 1.2 - 4.9 X10*3/uL [facility] Monocytes Absolute Auto 0.6 0.1 - 1.2 X10*3/uL [facility] Eosinophils Absolute Auto 0.1 0.0 - 0.4 X10*3/uL [facility] Basophils Absolute Auto 0.1 0.0 - 0.2 X10*3/uL [facility] NRBC Abs Auto 0.000 0.0 - 0.012 X10*3/uL [facility] 03/10/2025 1:02 PM EST 03/10/2025 1:06 PM EST us Generic External Data Provider LAB BLOOD ORDERAB LES Final Result Performing Organization Address City/[facility]/ZIP Co de Phone Number [facility] [address] [place] [phone] * HIV-1/2 Antigen and Antibodies, Fourth Generation, with Reflexes (03/10/2025 1:02 PM EST) [facility] HIV AB/AG Nonreactive Nonreactive [facility] Comment:HIV-1 p24 Ag and/or HIV-1/HIV-2 Ab not detected.A test result that is nonreactive does not exclude thepossibility of exposure to or infection with HIV-1 and/orHIV-2. Nonreactive results in this assay for individualswith prior exposure to HIV-1 and/or HIV-2 may be due toantigen and antibody levels that are below the limit ofdetection of this assay.[employer] HIV Ag/Ab Combo assay result andsupplemental assay results should be interpreted inconjunction with the patient's clinical presentation,history and other laboratory results. If the results areinconsistent with clinical evidence, additional testing issuggested to confirm the result. 03/10/2025 1:02 PM EST 03/10/2025 3:13 PM EST us Generic External Data Provider LAB BLOOD ORDERAB LES Final Result Performing Organization Address City/[facility]/ZIP Co de Phone Number [facility] [address] [place] [phone] * Vitamin B12 (03/10/2025 1:02 PM EST) Pathologist [facility] Vitamin B12 340 200 - 900 pg/mL [facility] Comment:NORMAL 200-900 PG/M L INDETERMINATE 160-199 PG/ML DEFICIENT < 160 PG/ML 03/10/2025 1:02 PM EST 03/10/2025 3:13 PM EST us Generic External Data Provider LAB BLOOD ORDERAB LES Final Result [facility] [address] [place] [phone] * (ABNORMAL) Comprehensive Metabolic Panel (03/10/2025 1:02 PM EST) Only the most recent of2 resultswithin the time period is included. Sodium 141 135 - 145 mmol/L [facility] Potassium 3.9 3.3 - 5.1 mmol/L [facility] Chloride 104 96 - 108 mmol/L [facility] Carbon Dioxide 29 22 - 29 mmol/L [facility] Anion Gap 12 12 - 20 [facility] Urea Nitrogen (BUN) 23(H) 9 - 16 mg/dL [facility] Creatinine, Serum 1.52(H) 0.5 - 1.4 mg/dL [facility] Creatinine Clr Calc Pharmacy 55.7 [facility] Comment:eGFR (calculated fro m the MDRD study equation) and eCrCl(calculated from the Cockcroft-Gault equation) are based ondifferent parameters and may not yield comparable results.If eCrCl result is absurd, please check patient'sheight/weight. Estimated Glomerular Filt Rate 46 [facility] Comment:Chronic Kidney Disea se: Estimated GFR < 60 mL/min/1.26z4Dwpoqu Kidney Disease: Estimated GFR < 15 mL/min/1.73m2 Glucose 101 60 - 115 mg/dL [facility] Calcium 9.7 8.4 - 10.2 mg/dL [facility] Bilirubin, Total 0.3 0.0 - 1.0 mg/dL [facility] Aspartate Amino Transferase 34 5 - 37 U/L [facility] Alanine Aminotransferase 27 0 - 40 U/L [facility] Total Protein 6.8 6.5 - 8.0 g/dL [facility] Albumin Level 4.1 3.5 - 5.0 g/dL [facility] Alkaline Phosphatase 49 39 - 117 U/L [facility] 03/10/2025 1:02 PM EST 03/10/2025 1:06 PM EST Generic External Data Provider LAB BLOOD ORDERAB LES Final Result Performing Organization Address [facility]/ZIP Co de Phone Number [facility] [address] [place] [phone] * Ethanol (03/06/2025 11:18 PM EST) ETHANOL (MG/DL) IN SER/PLAS <10 mg/dL [facility] Comment:Serum/plasma ethanol results are to be used formedical/treatment purposes only. 03/06/2025 11:1 8 PM EST 03/06/2025 11:22 PM EST Generic External Data Provider LAB BLOOD ORDERAB LES Final Result Performing Organization Address [facility] de Phone Number [facility] [address] [place] [phone] * (ABNORMAL) Urinalysis w/reflex microscopic (03/06/2025 11:08 PM EST) Color Urine Yellow [facility] Appearance Urine Clear [facility] PH 6.0 5.0 - 9.0 [facility] Glucose Urine UA >=1000(A) Negative mg/dL [facility] Urine Blood Trace(A) Negative [facility] Specific [place] - Urine >=1.030(H) 1.005 - 1.025 [facility] Urine Protein 30 (1+)(A) Neg-Trace mg/dL [facility] Urine Ketones Negative Negative mg/dL [facility] Nitrite Urine Negative Negative [facility] Leukocyte Esterase Urine Trace(A) Negative [facility] 03/06/2025 11:0 8 PM EST 03/06/2025 11:11 PM EST Narrative [facility] - 03/06/2025 11:20 PM EST [id number], Clean Catch Generic External Data Provider LAB URINE ORDERAB LES Final Result [facility] [address] [place] [phone] * (ABNORMAL) POCT Hgb A1c (02/18/2025 3:32 PM EST) Pathologist [facility] Hemoglobin A1C 8.0(A) 4.0 - 5.7 % QC Media Lot # [id number] Lot# Expiration Date Blood 02/18/2025 3:32 PM EST Janine Gomez ANP POINT OF CARE TEST ENTER/EDIT OR DERABLES Final Result * POCT Glucose (02/18/2025 3:32 PM EST) Pathologist [facility] Glucose Blood, POC 189 60 - 200 mg/dL QC Media Lot # [id number] Lot# Expiration Date , Blood Capillary blood specimen / Unknown 02/18/2025 3:32 PM EST [facility] Gomez [facility] POINT OF CARE TEST ENTER/EDIT OR DERABLES Final Result * Cologuard?? colon cancer screening (09/08/2023 11:00 AM EDT) Cologuard Result Negative Negative 09/20/19 5:15 AM EDT [facility] (CLIA #:[id number]) Comment: NEGATIVE TEST RESULT. A negative Cologuard [...] colonoscopy. (Katelyn Howard, N Engl J Med 2014;370(14):9939-5926) The normal value (reference range) for this assay is negative. COLOGUARD RE-SCREENING RECOMMENDATION: Periodic colorectal cancer screening is an important part of preventive healthcare for asymptomatic individuals at average risk for colorectal cancer. Following a negative Cologuard result, the [place] [employer] and U.S. Multi-Society Task Force screening guidelines recommend a Cologuard re-screening interval of 3 years. References: [place] [employer] Guideline for Colorectal Cancer Screening: https://www.cancer.org/cancer/autsm-ztozmq-agupia/oswhixvro-kuasghqnv-thcksza/ac s-rec ommendations.html.; Twan DK, Audra REY, Aubrey SmithK, Colorectal Cancer Screening: Recommendations for Physicians and Patients from the U.S. Multi-Society Task Force on Colorectal Cancer Screening , Am J Gastroenterology 2017; 112:3953-6820. TEST DESCRIPTION: Composite algorithmic analysis of stool [...] were screened with both Cologuard and colonoscopy. (Imperiale T. et al, N Engl J Med 2014;370(14):9871-2662.) Cologuard may produce a false negative or false positive result (no colorectal cancer or precancerous polyp present at colonoscopy follow up). A negative Cologuard test result does not guarantee the absence of CRC or advanced adenoma (pre-cancer). The current Cologuard screening interval is every 3 years. ([place] [employer] and U.S. Multi-Society Task Force). Cologuard performance data in a 10,000 patient pivotal study using colonoscopy as the reference method can be accessed at the following location: www.[employer].Halalati/results. Additional description of the Cologuard test process, warnings and precautions can be found at www.[employer].Halalati. Stool specimen (specimen) 09/08/2023 11:00 AM EDT 09/09/2023 10:49 AM EDT [facility] MOLECULAR DIAGNOSTICS ORDERA BLES Final Result [facility] (CLIA #:[id number]) [place] [address], * (ABNORMAL) Lipid Panel, Standard (02/14/2023 9:57 AM EST) Triglycerides 80 <150 mg/dL [facility] Comment:Desirable Triglyceri de: less than 150 mg/dLBorderline High Triglyceride 150-199 mg/dLHigh Triglyceride: 200-499 mg/dLVery High Triglyceride: greater than or equal to 5OO mg/dL Cholesterol 110 <200 mg/dL [facility] Comment:Desirable Cholestero l: less than 200 mg/dLBorderline High Cholesterol: 200-239 mg/dLHigh Cholesterol: greater than 239 mg/dL LDL Cholesterol Calculated 54 <100 mg/dL [facility] Comment:Desirable LDL: less than 100 mg/dLNear Optimal/Above Optimal LDL: 110- 129 mg/dLBorderline High LDL: 130-159 mg/dLHigh LDL: 160-189 mg/dLVery High LDL: greater than or equal to 190 mg/dL HDL Cholesterol 40(L) >40 mg/dL [facility] Comment:Desirable HDL: great er than 40 mg/dL Note: This HDL assay may give artificially low results in patients with liver disease. Blood Venous blood specimen / Unknown 02/14/2023 9:57 AM EST 02/14/2023 11:09 AM EST Janine RYAN LAB BLOOD ORDERABLES Final Resul t [facility] [address] [place] [phone] from Last 3 Months or Most [...] diabetic neuropathy 03/08/2025 Weekly blood pressure task 03/15/2025 Weekly blood pressure task 03/15/2025 Weekly blood pressure task 03/15/2025 Patient has chronic kidney disease 03/15/2025 Patient has chronic kidney disease 03/15/2025 Patient has chronic kidney disease 03/15/2025 Patient has diabetic neuropathy 03/15/2025 Patient has diabetic neuropathy 03/15/2025 Patient has diabetic neuropathy 03/15/2025 Weekly blood pressure task 03/15/2025 Weekly blood pressure task 03/15/2025 Weekly blood pressure task 03/15/2025 Patient has chronic kidney disease 03/15/2025 Patient has chronic kidney disease 03/15/2025 Patient has chronic kidney disease 03/15/2025 Patient has diabetic neuropathy 03/15/2025 Patient has diabetic neuropathy 03/15/2025 Patient has diabetic neuropathy 03/15/2025 Insurance [facility] < 65 TC HECK [id number] Care Teams Senior Microsoft Consultant Relationship Specialty Start Date End Date Janine Gomez ANP [address] [place] [address] PCP - General Family Medicine 11/13/20 Andrae Joaquin, PharmD [address] [place] [phone] Pharmacist Internal Medicine 01/03/24 [facility] 10/04/24
--- OUTSIDE RECORDS SUMMARY | 2025-03-23 21:52 | XMS_ITS | Encounter Summary ---
Author Organization [employer] [facility] Address [address] [place] [address] [address] [address] Care Team Providers Care Engineer Technician Name Role Phone Janine Gomez Primary Care Provider [phone] Andrea Joaquin PharmD Unavailable [phone] Encounter Details Date Type Department Care Team (Late st Contact Info) Description 04/07/2022 Orders Only [facility] [address] [place] [phone] Liliana Pace LPN Social History Tobacco Use [...] Description 04/02/2025 9:30 AM EST Office Visit [address] [address] Tonia Durham MD [address] [place] [phone] 04/18/2025 2:30 PM EST Office Visit [facility] [address] [place] [phone] Janine Gomez ANP [address] [place] [address] documented as of this encounter Visit Diagnoses Not on filedocumented in this encounter Care Teams Engineer Technician Relationship Specialty Start Date End Date Janine Gomez ANP [address] [place] [address] PCP - General Family Medicine 11/13/20 Andrea Joaquin PharmD [address] [place] [address] Pharmacist Internal Medicine 01/03/24 [facility] 10/04/24 documented as of this encounter
--- OUTSIDE RECORDS SUMMARY | 2025-03-23 21:52 | XMS_ITS | Encounter Summary ---
Author Organization [employer] Address [address] [place] [address] [address] [place] [address] Care Team Providers Care Code And Test Clerk Name Role Phone Janine Gomez Primary Care Provider [phone] Andrea Joaquin PharmD Unavailable [phone] Encounter Details Date Type Department Care Team (Late st Contact Info) Description 03/23/2022 Orders Only [facility] [address] [place] [address] Renate Chinchilla LPN Social History Tobacco Use [...] Description 04/02/2025 9:30 AM EST Office Visit [address] [address] Tonia Durham MD [address] [place] [address] [phone] 04/18/2025 2:30 PM EST Office Visit [address] [address] Janine Gomez ANP [address] [place] [phone] documented as of this encounter Visit Diagnoses Not on filedocumented in this encounter Care Teams Code And Test Clerk Relationship Specialty Start Date End Date Janine Gomez ANP [address] [place] [address] PCP - General Family Medicine 11/13/20 Andrea Joaquin PharmD [address] [place] [address] Pharmacist Internal Medicine 01/03/24 [facility] 10/04/24 documented as of this encounter
--- OUTSIDE RECORDS SUMMARY | 2025-03-23 21:52 | XMS_ITS | Encounter Summary ---
Author Organization [employer] Address [address] [place] [address] [address] [place] [address] Care Team Providers Care Gum Sprayer Name Role Phone Janine Gomez Primary Care Provider [phone] Andrea Joaquin PharmD Unavailable [phone] Encounter Details Date Type Department Care Team (Late st Contact Info) Description 04/13/2022 Orders Only [facility] [address] [place] [address] Renate Chinchilla LPN Social History Tobacco Use [...] Description 04/02/2025 9:30 AM EST Office Visit [address] [address] Tonia Durham MD [address] [place] [address] [phone] 04/18/2025 2:30 PM EST Office Visit [address] [address] Janine Gomez ANP [address] [place] [phone] documented as of this encounter Visit Diagnoses Not on filedocumented in this encounter Care Teams Gum Sprayer Relationship Specialty Start Date End Date Janine Gomez ANP [address] [place] [address] PCP - General Family Medicine 11/13/20 Andrea Joaquin PharmD [address] [place] [address] Pharmacist Internal Medicine 01/03/24 [facility] 10/04/24 documented as of this encounter
--- NOTE | 2025-03-24 01:01 | ED.GENADULT ---
[facility] - General Adult General Chief complaint: General Medical Stated complaint: mites inside his skin all over his body??? Time Seen by Provider: 03/24/25 00:42 Source: patient Mode of arrival: ambulatory Limitations: no limitations History of Present Illness ED Provider: Dr. Armenta [facility] narrative: 64-year-old male presented hospital today for evaluation of bugs underneath his skin. Patient has history of cocaine use and IV drug use. Patient stated that these mites are all over his skin. He feels them crawling all over his skin. Related Data Home Medications ?Medication ?Instructions ?Recorded ?Confirmed atorvastatin 40 mg tablet 40 mg PO BEDTIME 05/07/21 03/10/25 lisinopril 30 mg tablet 30 mg PO DAILY 05/07/21 03/10/25 metformin 500 mg tablet 1,000 mg PO BID 05/07/21 03/12/25 budesonide-formoterol HFA 80 2 puff inhalation Q4-6H dyspnea 03/10/25 03/10/25 mcg-4.5 mcg/actuation aerosol inhaler dulaglutide 0.75 mg/0.5 mL 0.75 mg subcut QWEEK 03/10/25 03/10/25 subcutaneous pen injector (Trulicity) insulin glargine U-300 conc 300 46 unit subcut BEDTIME 03/10/25 03/10/25 unit/mL (1.5 mL) subcutaneous pen (Toujeo SoloStar U-300 Insulin) omeprazole 20 mg capsule,delayed 20 mg PO DAILY 03/10/25 03/10/25 release Previous Rx's ?Medication ?Instructions ?Recorded doxycycline monohydrate 100 mg 100 mg PO BID 3 days #6 caps 03/15/25 capsule triamcinolone acetonide 0.1 % 1 appl topical BID 30 days #15 03/15/25 topical cream grams trifluoperazine 5 mg tablet 2.5 mg (1/2 x 5 mg) PO TID 30 days 03/15/25 #45 tabs Allergies Allergy/AdvReac Type Severity Reaction Status Date / Time No Known Allergies Allergy Unknown Verified 03/23/25 21:28 Review of Systems Review of Systems: Pertinent review of systems as mentioned in [facility]. All other system otherwise negative. [facility] Past Medical History [facility] Narrative: Medical history as mentioned in [facility] Medical History (Updated 03/24/25 @ 01:05 by Leah Armenta DO) Cocaine use disorder Delusions of parasitosis Nicotine dependence, cigarettes, uncomplicated Substance abuse Diabetes Surgical History Hx of cholecystectomy Family History Family History Father Diabetes Mother HTN (hypertension) Social History Social History Household Members: None Household Members Other:: lives alone Housing: Apartment Do you presently have visiting nurse or other home services: No Alcohol intake: current Alcohol intake frequency: a few times a week Patient Tobacco Use Status: Current everyday Tobacco user Tobacco use type: Cigarette Cigarette Packs Per Day: 0.5 Cigarettes Per Day: 10.0 e-Cigarette/Vaping Use: Never Used Second Hand Smoke Exposure: No Substance Use Type: Crack/Cocaine and Heroin Advance Directives: No Advance Directives Information Provided: No service: No Current occupational status: unemployed and disabled Sexual orientation: Straight/Heterosexual Physical Exam ED Exam Exam: General: Pleasant, no distress, interacting appropriately Head: Normacephalic, atraumatic Skin: There is no signs of insect underneath his scans on my exam. Patient was trying to pick at the insect and put it on a piece of paper. There is nothing on my evaluation. No back no moving living object. Psychiatric: Agitated with the delusions of mites underneath skin Vital Signs: Vital Signs - 24 hr 03/23/25 21:25 Temperature 98.5 F Pulse Rate 86 Respiratory Rate 18 Blood Pressure 162/77 H Pulse Oximetry 94 Oxygen Delivery Method Room Air BMI result Body Mass Index 30.8 Medical Decision Making Medical Decision Making MDM Narrative: 64-year-old male history of IV drug use and cocaine use presented hospital today for evaluation of bugs underneath the skin. I attempted to look at his skin. There was no mites. There was no insects. There was no living organism in his skin. When I discussed with the patient that I do not see anything. Patient became agitated. He became increasingly loud patient stated that I do not care about him. I discussed with him that it may feel real to him however I honestly do not see any signs of insect or bugs in his skin. Patient then stormed out of the ER. Differential Diagnosis Differential Diagnoses: The differential diagnosis associated with the presentation includes Delusions, scabies, bed bug, lice , mites Discharge Plan Discharge Clinical Impression: Delusions of parasitosis Patient Disposition: Home, Self-Care Prescriptions: No Action omeprazole 20 mg capsule,delayed release(DR/EC) 20 mg PO DAILY budesonide-formoterol 80-4.5 mcg/actuation HFA aerosol inhaler 2 puff INHALATION Q4-6H Trulicity 0.75 mg/0.5 mL pen injector 0.75 mg subcut QWEEK insulin glargine U-300 conc [Toujeo SoloStar U-300 Insulin] 300 unit/mL (1.5 mL) insulin pen 46 unit subcut BEDTIME doxycycline monohydrate 100 mg Capsule 100 mg PO BID 3 Days Qty: 6 0RF trifluoperazine 5 mg Tablet 2.5 mg PO TID 30 Days Qty: 45 1RF triamcinolone acetonide 0.1 % Cream 1 appl topical BID 30 Days Qty: 15 0RF Protocol: Apply to: Apply to: Forearms Rx Instructions: apply to affected areas on forearms atorvastatin 40 mg tablet 40 mg PO BEDTIME metformin 500 mg tablet 1,000 mg PO BID lisinopril 30 mg tablet 30 mg PO DAILY Print Language: Thai
[2025-03-24 01:18] VITALS: BP 162/77; PULSE 86; RESP 18; TEMP 36.9; O2SAT 94
== END 2025-03-24 01:10 | disposition home or self-care (01) ==
PROVIDERS: Emergency Provider Student in an Organized Health Care Education/Training Program; PCP Nurse Practitioner Primary Care
DX: F22 Delusional disorders (principal); E11.9 Type 2 diabetes mellitus without complications; F17.210 Nicotine dependence, cigarettes, uncomplicated; F19.10 Other psychoactive substance abuse, uncomplicated; Z79.4 Long term (current) use of insulin; Z79.85 Long-term (current) use of injectable non-insulin antidiabetic drugs; Z79.84 Long term (current) use of oral hypoglycemic drugs; Z79.899 Other long term (current) drug therapy
CPT/HCPCS: 99282